=== PATIENT | male | born 1975 | race Caucasian/White ===

== ENCOUNTER 2020-01-03 07:34 | Outpatient (REF) | payer MEDICARE, MEDICAID, SELFPAY ==
[2020-01-03 12:33] LABS: Free T4 (Free Thyroxine) 1.33 ng/dL (0.71-1.85); Thyroid Stimulating Hormone 0.78 uIU/mL (0.32-4.0)
[2020-01-03 13:16] LABS: Estimated Average Glucose 163 mg/dL; Hemoglobin A1c % 7.3 %
== END 2020-01-03 07:35 | disposition home or self-care (01) ==
LOC: HO.MANLR 07:34
PROVIDERS: PCP Internal Medicine; Referring Provider Pediatrics; Visit Provider Internal Medicine
DX: E10.9 Type 1 diabetes mellitus without complications (principal); E03.9 Hypothyroidism, unspecified
CPT/HCPCS: 83036; 84439; 84443

== ENCOUNTER 2020-05-07 09:24 | Outpatient (REF) | payer MEDICARE, MEDICAID, SELFPAY ==
[2020-05-07 11:30] LABS: Estimated Average Glucose 171 mg/dL; Hemoglobin A1c % 7.6 %
[2020-05-07 12:24] LABS: Free T4 (Free Thyroxine) 1.12 ng/dL (0.71-1.85); Thyroid Stimulating Hormone 0.87 uIU/mL (0.32-4.0)
== END 2020-05-07 09:25 | disposition home or self-care (01) ==
LOC: HO.MANLR 09:24
PROVIDERS: PCP Internal Medicine; Referring Provider Pediatrics; Visit Provider Internal Medicine
DX: E10.9 Type 1 diabetes mellitus without complications (principal)
CPT/HCPCS: 36415; 83036; 84439; 84443

== ENCOUNTER 2020-10-10 08:25 | Outpatient (REF) | payer MEDICARE, MEDICAID, SELFPAY ==
[2020-10-10 11:34] LABS: Estimated Average Glucose 177 mg/dL; Hemoglobin A1c % 7.8 %
== END 2020-10-10 08:26 | disposition home or self-care (01) ==
LOC: HO.MANLDS 08:25
PROVIDERS: PCP Internal Medicine; Visit Provider Internal Medicine
DX: E10.9 Type 1 diabetes mellitus without complications (principal)
CPT/HCPCS: 36415; 83036

== ENCOUNTER 2020-11-20 07:41 | Outpatient (REF) | payer MEDICARE, MEDICAID, SELFPAY ==
[2020-11-20 11:12] LABS: Hematocrit 42.1 % (42-52); Hemoglobin 14.9 g/dl (14.0-18.0); Mean Corpuscular HGB Conc 35.4 g/dl (31.0-36.0); Mean Corpuscular Hemoglobin 32.7 pg (27.0-33.0); Mean Corpuscular Volume 92.5 fL (80-98); Mean Platelet Volume 9.3 fL (9.4-12.4); Platelet Count 229 X10*3/uL (160-400); Red Blood Count 4.55 X10*6/uL (4.60-5.80); Red Cell Distribution Width 12.3 % (11.0-16.0); White Blood Count 4.2 X10*3/uL (4.8-10.8)
[2020-11-20 11:43] LABS: Estimated Average Glucose 163 mg/dL; Hemoglobin A1c % 7.3 %
[2020-11-20 12:08] LABS: Alanine Aminotransferase 26 U/L (0-40); Alkaline Phosphatase 64 U/L (39-117); Anion Gap 11 (12-20); Aspartate Amino Transferase 18 U/L (5-37); Bilirubin Total 0.8 mg/dL (0.0-1.0); Blood Urea Nitrogen 14 mg/dL (9-16); Calcium 8.8 mg/dL (8.4-10.2); Carbon Dioxide 25 mmol/L (22-29); Chloride 100 mmol/L (96-108); Estimated Glomerular Filt Rate > 60; Glucose Fasting 139 mg/dL (60-99); Potassium 4.4 mmol/L (3.3-5.1); Sodium 132 mmol/L (135-145); Total Protein 6.7 g/dL (6.5-8.0)
[2020-11-20 12:30] LABS: Free T4 (Free Thyroxine) 1.14 ng/dL (0.71-1.85); Thyroid Stimulating Hormone 0.41 uIU/mL (0.32-4.0)
== END 2020-11-20 07:42 | disposition home or self-care (01) ==
LOC: HO.MANLDS 07:41
PROVIDERS: PCP Internal Medicine; Visit Provider Internal Medicine
DX: E10.9 Type 1 diabetes mellitus without complications (principal); E03.9 Hypothyroidism, unspecified
CPT/HCPCS: 36415; 80053; 83036; 84439; 84443; 85027

== ENCOUNTER 2021-03-22 07:33 | Outpatient (REF) | payer MEDICARE, MEDICAID, SELFPAY ==
[2021-03-22 11:21] LABS: Estimated Average Glucose 186 mg/dL; Hemoglobin A1c % 8.1 %
== END 2021-03-22 07:34 | disposition home or self-care (01) ==
LOC: HO.MANLDS 07:33
PROVIDERS: PCP Internal Medicine; Visit Provider Internal Medicine
DX: E10.9 Type 1 diabetes mellitus without complications (principal); E03.9 Hypothyroidism, unspecified
CPT/HCPCS: 36415; 83036

== ENCOUNTER 2021-05-24 08:04 | Outpatient (REF) | payer MEDICARE, MEDICAID, SELFPAY ==
[2021-05-24 11:30] LABS: Alanine Aminotransferase 16 U/L (0-40); Albumin Level 3.8 g/dL (3.5-5.0); Alkaline Phosphatase 69 U/L (39-117); Anion Gap 12 (12-20); Aspartate Amino Transferase 17 U/L (5-37); Bilirubin Total 0.5 mg/dL (0.0-1.0); Blood Urea Nitrogen 13 mg/dL (9-16); Carbon Dioxide 28 mmol/L (22-29); Chloride 98 mmol/L (96-108); Cholesterol 104 mg/dL; Estimated Average Glucose 160 mg/dL; Estimated Glomerular Filt Rate 58; Glucose Fasting 144 mg/dL (60-99); HDL Cholesterol 28 mg/dL; Hemoglobin A1c % 7.2 %; LDL Cholesterol Calculated 55 mg/dl; Potassium 4.4 mmol/L (3.3-5.1); Sodium 134 mmol/L (135-145); Total Protein 6.7 g/dL (6.5-8.0); Triglycerides 109 mg/dL
[2021-05-24 11:52] LABS: Free T4 (Free Thyroxine) 1.03 ng/dL (0.71-1.85); Thyroid Stimulating Hormone 4.98 uIU/mL (0.32-4.0)
== END 2021-05-24 08:05 | disposition home or self-care (01) ==
LOC: HO.MANLDS 08:04
PROVIDERS: PCP Internal Medicine; Visit Provider Internal Medicine
DX: E10.9 Type 1 diabetes mellitus without complications (principal); E03.9 Hypothyroidism, unspecified
CPT/HCPCS: 36415; 80053; 80061; 83036; 84439; 84443

== ENCOUNTER 2021-07-24 10:53 | Outpatient (REF) | payer MEDICARE, MEDICAID, SELFPAY ==
[2021-07-24 12:44] LABS: Appearance Urine HAZY; Color Urine YELLOW; Glucose Urine UA 500 MG/DL (NEG); Leukocyte Esterase Urine NEG (NEG); Nitrite Urine NEG (NEG); PH 7.5 (5.0-8.0); Urine Blood NEG (NEG); Urine Ketones NEG (NEG); Urine Protein NEG (NEG-TRACE)
[2021-07-24 12:49] LABS: Hematocrit 38.3 % (42.0-52.0); Hemoglobin 13.6 g/dl (14.0-18.0); Mean Corpuscular HGB Conc 35.5 g/dl (31.0-36.0); Mean Corpuscular Hemoglobin 37.8 pg (27.0-33.0); Mean Corpuscular Volume 106.4 fL (80.0-98.0); Mean Platelet Volume 10.9 fL (9.4-12.4); NRBC Pct Auto 1.2 /100WBC (0.0-0.2); PLT CLUMP 1; Red Cell Distribution Width 14.6 % (11.0-16.0); WBC ABN SCTR FOR CBC 1
[2021-07-24 12:58] LABS: RBC Urine 0 /HPF (0); WBC Urine 0 /HPF (0-4)
[2021-07-24 13:02] LABS: Alanine Aminotransferase 21 U/L (0-40); Albumin Level 3.7 g/dL (3.5-5.0); Alkaline Phosphatase 75 U/L (39-117); Aspartate Amino Transferase 22 U/L (5-37); Bilirubin Total 0.4 mg/dL (0.0-1.0); Blood Urea Nitrogen 14 mg/dL (9-16); Calcium 8.8 mg/dL (8.4-10.2); Estimated Glomerular Filt Rate 53; Glucose Random 294 mg/dL (60-115); Total Protein 6.9 g/dL (6.5-8.0)
[2021-07-24 13:26] LABS: Anion Gap 17 (12-20); Carbon Dioxide 21 mmol/L (22-29); Chloride 90 mmol/L (96-108); Potassium 5.1 mmol/L (3.3-5.1); Sodium 123 mmol/L (135-145)
[2021-07-24 14:27] LABS: Atypical Lymphs Percent Manual 1 % (0-6); Band Neutrophils Percent 36 % (3-5); Basophils Percent Manual 2 % (0-2); Lymphocytes Percent Manual 2 % (20-40); Metamyelocytes Percent 3 %; Monocytes Percent Manual 1 % (2-11); Myelocytes Percent 8 %; Neutrophils Percent Manual 45 % (45-73); Nucleated Red Blood Cells 2 /100WBC (0-0); Promyelocytes Percent 2 %
[2021-07-24 14:40] LABS: Macrocytosis 1+ (5-14) /OIF; RBC Morphology NOTED
[2021-07-24 14:41] LABS: Platelet Estimate DECREASED (NORMAL); Platelet Morphology Comment NORMAL; Polychromasia 1+ (0-2) /OIF; WBC Morphology Comment DYSMORPHIC
[2021-07-24 14:42] LABS: Atypical Lymph Absolute Manual 0.1 x10*3/uL; Basophils Abs Manual 0.2 X10*3/uL (0.0-0.2); Lymphocytes Absolute Manual 0.2 X10*3/uL (1.2-4.9); Metamyelocytes Absolute 0.3 X10*3/uL; Monocytes Absolute Manual 0.1 X10*3/uL (0.1-1.2); Myelocytes Absolute 0.8 X10*/uL; Neutrophils Absolute Manual 8.5 X10*3/uL (2.0-8.3); Promyelocytes Absolute 0.2 X10*3/uL; Spherocytes 1+ (0-2) /OIF; White Blood Count 10.5 X10*3/uL (4.8-10.8)
[2021-07-24 14:43] LABS: Platelet Count 30 X10*3/uL (160-400)
== END 2021-07-24 10:54 | disposition home or self-care (01) ==
LOC: HO.MANLDS 10:53
PROVIDERS: Visit Provider Physician Assistant
DX: R55 Syncope and collapse (principal)
CPT/HCPCS: 36415; 80053; 81001; 85007; 85027

== ENCOUNTER 2021-07-26 08:38 | Outpatient (REF) | payer MEDICARE, MEDICAID, SELFPAY ==
[2021-07-26 11:12] LABS: Appearance Urine CLEAR; Color Urine YELLOW; Glucose Urine UA NEG (NEG); Leukocyte Esterase Urine NEG (NEG); Nitrite Urine NEG (NEG); Urine Blood NEG (NEG); Urine Ketones NEG (NEG); Urine Protein NEG (NEG-TRACE)
[2021-07-26 11:20] LABS: Anion Gap 14 (12-20); Blood Urea Nitrogen 11 mg/dL (9-16); Calcium 8.7 mg/dL (8.4-10.2); Carbon Dioxide 26 mmol/L (22-29); Chloride 95 mmol/L (96-108); Estimated Glomerular Filt Rate 58; Glucose Random 179 mg/dL (60-115); Iron 87 mcg/dL (45-160); Percent Iron Saturation 38 % (15-50); Potassium 4.4 mmol/L (3.3-5.1); Sodium 131 mmol/L (135-145); Total Iron Binding Capacity 232 mcg/dL (228-428); Unsaturated Iron Binding 145 ug/dL
[2021-07-26 11:40] LABS: Ferritin 359 ng/mL (20-250); Free T4 (Free Thyroxine) 1.04 ng/dL (0.71-1.85); Thyroid Stimulating Hormone 12.49 uIU/mL (0.32-4.0)
[2021-07-26 11:46] LABS: Osmolality Urine 329 mosm/kg (373-1093)
[2021-07-26 12:05] LABS: Folate 12.4 ng/mL (> or = 4.0); Vitamin B12 507 pg/mL (200-900)
== END 2021-07-26 08:39 | disposition home or self-care (01) ==
LOC: HO.MANLDS 08:38
PROVIDERS: Visit Provider Physician Assistant
DX: E87.1 Hypo-osmolality and hyponatremia (principal); E03.9 Hypothyroidism, unspecified
CPT/HCPCS: 36415; 80048; 81003; 82607; 82728; 82746; 83540; 83935; 84439; 84443

== ENCOUNTER 2021-09-30 08:34 | Outpatient (REF) | payer MEDICARE, MEDICAID, SELFPAY ==
[2021-09-30 10:18] LABS: Mean Corpuscular HGB Conc 34.4 g/dl (31.0-36.0); Mean Corpuscular Hemoglobin 39.5 pg (27.0-33.0); Red Blood Count 1.57 X10*6/uL (4.60-5.80); Red Cell Distribution Width 18.3 % (11.0-16.0); White Blood Count 5.3 X10*3/uL (4.8-10.8)
[2021-09-30 10:22] LABS: Estimated Average Glucose 189 mg/dL; Hemoglobin A1c % 8.2 %; INTERNATIONAL NORM RATIO 1.2 (0.9-1.1); Prothrombin Time 13.7 SEC (10.0-13.1)
[2021-09-30 10:25] LABS: Partial Thromboplastin Time 33.8 SEC (26.0-36.4)
[2021-09-30 10:46] LABS: Alanine Aminotransferase < 6 U/L (0-40); Albumin Level 3.3 g/dL (3.5-5.0); Alkaline Phosphatase 73 U/L (39-117); Anion Gap 16 (12-20); Aspartate Amino Transferase 14 U/L (5-37); Bilirubin Total 0.6 mg/dL (0.0-1.0); Blood Urea Nitrogen 15 mg/dL (9-16); Calcium 8.2 mg/dL (8.4-10.2); Carbon Dioxide 23 mmol/L (22-29); Chloride 97 mmol/L (96-108); Estimated Glomerular Filt Rate 53; Glucose Random 209 mg/dL (60-115); Potassium 4.6 mmol/L (3.3-5.1); Sodium 131 mmol/L (135-145); Total Protein 6.2 g/dL (6.5-8.0)
[2021-09-30 10:54] LABS: Mean Corpuscular Volume 114.6 fL (80.0-98.0)
[2021-09-30 10:55] LABS: NRBC Pct Auto 5.5 /100WBC (0.0-0.2); PLT ABN DIST 1
[2021-09-30 10:59] LABS: Hemoglobin 6.2 g/dl (14.0-18.0)
[2021-09-30 11:00] LABS: Platelet Count 7 X10*3/uL (160-400)
[2021-09-30 11:11] LABS: Free T4 (Free Thyroxine) 1.17 ng/dL (0.71-1.85); Thyroid Stimulating Hormone 6.12 uIU/mL (0.32-4.0)
[2021-09-30 11:13] LABS: Atypical Lymph Absolute Manual 0.1 x10*3/uL; Atypical Lymphs Percent Manual 1 % (0-6); Band Neutrophils Percent 21 % (3-5); Blast Percent 1 %; Blastocytes Absolute 0.1 X10*3/uL; Lymphocytes Absolute Manual 1.2 X10*3/uL (1.2-4.9); Lymphocytes Percent Manual 22 % (20-40); Metamyelocytes Absolute 0.1 X10*3/uL; Metamyelocytes Percent 1 %; Myelocytes Absolute 0.7 X10*/uL; Myelocytes Percent 13 %; Neutrophils Absolute Manual 3.2 X10*3/uL (2.0-8.3); Neutrophils Percent Manual 40 % (45-73); Nucleated Red Blood Cells 11 /100WBC (0-0); Promyelocytes Absolute 0.1 X10*3/uL; Promyelocytes Percent 1 %
[2021-09-30 11:14] LABS: RBC Morphology NOTED
[2021-09-30 11:18] LABS: Macrocytosis 2+ (15-30) /OIF; Schistocytes 1+ (0-2) /OIF; Spherocytes 2+ (3-5) /OIF
[2021-09-30 11:19] LABS: Basophilic Stippling 1+ (0-2) /OIF; Hypochromasia 1+ (5-14) /OIF; Tear Drop Cells 1+ (0-2) /OIF
[2021-09-30 11:20] LABS: Polychromasia 1+ (0-2) /OIF
[2021-09-30 11:22] LABS: Platelet Estimate DECREASED (NORMAL)
[2021-09-30 11:23] LABS: Platelet Morphology Comment NORMAL
== END 2021-09-30 08:35 | disposition home or self-care (01) ==
LOC: HO.MANLDS 08:34
PROVIDERS: Visit Provider Internal Medicine
DX: Z13.89 Encounter for screening for other disorder (principal)
CPT/HCPCS: 36415; 80053; 83036; 84439; 84443; 85007; 85027; 85610; 85730; 88184; 88185

== ENCOUNTER 2021-09-30 11:20 | Inpatient (IN) | payer MEDICARE, MEDICAID, SELFPAY ==
[2021-09-30] VITALS (13 sets, daily range): BP systolic 91–119; BP diastolic 37–87; PULSE 72–86; RESP 16–144; TEMP 36.7–38.1; O2SAT 94–100; BMI 26.0
--- NOTE | ~2021-09-30 | US_ITS ---
EXAMINATION: US ABDOMEN COMPLETE CLINICAL INFORMATION: Thrombocytopenia. Question hepatosplenomegaly. COMPARISON: CT abdomen/pelvis dated 06/29/2014. TECHNIQUE: Real-time imaging of the abdominal viscera. FINDINGS: PANCREAS: Unremarkable. ABDOMINAL AORTA: The proximal and mid abdominal aorta are unremarkable. The distal abdominal aorta is not well seen. INFERIOR VENA CAVA: Visualized portions are normal. LIVER: Unremarkable. The liver is normal in size. The liver contour is normal. Parenchymal echogenicity is normal. No focal hepatic lesion. There is no intrahepatic biliary duct dilatation seen. GALLBLADDER: Unremarkable. The gallbladder is physiologically distended without evidence of stones, sludge, polyps, wall thickening or pericholecystic fluid. COMMON BILE DUCT: Normal in caliber measuring 0.4 cm in diameter. RIGHT KIDNEY: Normal. No hydronephrosis. No renal calculi or focal parenchymal lesions. The kidney measures 11.4 cm in maximum dimension. LEFT KIDNEY: Normal. No hydronephrosis. No renal calculi or focal parenchymal lesions. The kidney measures 10.6 cm in maximum dimension. SPLEEN: Enlarged. The spleen measures 16.1 cm in maximum dimension. There is a 2.1 cm splenule. FREE FLUID: None. US/US abdomen complete IMPRESSION: 1. The spleen is enlarged measuring up to 16.1 cm, new when compared to the CT from 2015. 2. Otherwise unremarkable examination.
[2021-09-30 12:08] LABS: Mean Corpuscular HGB Conc 34.5 g/dl (31.0-36.0); Mean Platelet Volume 12.8 fL (9.4-12.4); PLT CLUMP 1; Red Blood Count 1.54 X10*6/uL (4.60-5.80); Red Cell Distribution Width 18.5 % (11.0-16.0)
[2021-09-30 12:10] LABS: INTERNATIONAL NORM RATIO 1.2 (0.9-1.1); NRBC Pct Auto 4.7 /100WBC (0.0-0.2); Prothrombin Time 14.3 SEC (10.0-13.1)
[2021-09-30 12:11] LABS: White Blood Count 4.9 X10*3/uL (4.8-10.8)
[2021-09-30 12:15] LABS: Hematocrit 17.4 % (42.0-52.0)
[2021-09-30 12:16] LABS: Platelet Count 6 X10*3/uL (160-400)
--- NOTE | 2021-09-30 12:45 | ED_ITS ---
HPI - General Adult General Chief complaint: Recheck/Abnormal Lab/Rx Stated complaint: Needs blood transfusion sent by [facility] Time Seen by Provider: 09/30/21 12:28 Source: family Mode of arrival: ambulatory History of Present Illness HPI narrative: This is 46 yo male with down syndrome here because low HB low platelet done as outpatient.Pt is here with the partents,denies fever,chills,vomiting Onset (ago): week(s) (1) Radiation: non-radiation Severity: moderate Pain Consistency: constant Relieving factors: none Exacerbating factors: none Related Data Home Medications Medication Instructions Recorded Confirmed albuterol sulfate 90 mcg/actuation 2 puff inhalation Q4H 09/30/21 09/30/21 aerosol inhaler insulin glargine 100 unit/mL (3 21 unit subcut DAILY 09/30/21 09/30/21 mL) subcutaneous pen (Basaglar KwikPen U-100 Insulin) levothyroxine 125 mcg tablet 1 tab PO DAILY@0630 09/30/21 09/30/21 Allergies Allergy/AdvReac Type Severity Reaction Status Date / Time No Known Allergies Allergy Verified 09/30/21 11:31 [No Known Allergies*] Review of Systems Constitutional: Constitutional: Reports no additional constitutional complaints ENT: Reports system reviewed and no additional complaints, except as documented Cardiovascular: Cardiovascular: Reports no additional cardiovascular complaints Respiratory: Respiratory: Reports no additional respiratory complaints [facility] Past Medical History [facility] Narrative: Down Syndrome SM Hypothyroidism Social History Social History Advance Directives: Yes Advance Directives Information Provided: Yes Advance Directives on File: No Physical Exam ED Vital Signs: Vital Signs - 24 hr 09/30/21 11:28 09/30/21 14:17 Temperature 98.2 F Pulse Rate 76 78 Respiratory Rate 16 16 Blood Pressure 104/47 L 111/45 L Pulse Oximetry 98 94 Oxygen Delivery Method Room Air Room Air BMI result Body Mass Index 26.0 Const General: cooperative and other (pale) Nutritional Appearance: average body habitus HENMT Head: Yes normal to inspection Face and sinus: Yes normal facial exam Throat: Yes posterior oropharynx normal Neck Neck: Yes normal visual inspection and Yes full ROM Thyroid: Thyroid normal Chest Chest palpation & inspection: normal inspection of the chest Resp Effort & Inspection: normal respiratory effort Auscultation: clear to auscultation bilaterally Cardio Palpation: normal PMI Rate: regular rate Rhythm: regular rhythm Heart sounds: S1 normal heart sound present GI Inspection: Yes normal to inspection Palpation (GI): Soft to palpation Auscultation: normal bowel sounds Course Reevaluation(s) Reevaluation #1: i CONSULTED WITH DIRECTOR OF COLLECTIONS AND ARCHIVES DR MORA dee TO ADMIT AT [facility] Spoke with Hospitalist Dr Hein Blood and platelet ordered Time: 13:14 Medical Decision Making Lab Data Result diagrams: 09/30/21 11:55 09/30/21 14:08 Labs: Lab Results 09/30/21 09/30/21 09/30/21 Range/Units 11:55 11:55 14:08 WBC 4.9 (4.8-10.8) X10*3/uL RBC 1.54 L (4.60-5.80) X10*6/uL Hgb 6.0 L* (14.0-18.0) g/dl Hct 17.4 L* (42.0-52.0) % MCV 113.0 H (80.0-98.0) fL MCH 39.0 H (27.0-33.0) pg MCHC 34.5 (31.0-36.0) g/dl RDW 18.5 H (11.0-16.0) % Plt Count 6 L* (160-400) X10*3/uL MPV 12.8 H (9.4-12.4) fL Immature Gran % (Auto) Cancelled Neut % (Auto) Cancelled Lymph % (Auto) Cancelled [place] % (Auto) Cancelled Eos % (Auto) Cancelled Baso % (Auto) Cancelled Lymph # (Auto) Cancelled [place] # (Auto) Cancelled Eos # (Auto) Cancelled Baso # (Auto) Cancelled Abs Immat Gran (auto) Cancelled Absolute Neuts (auto) Cancelled Absolute Nucleated RBC 0.230 H (0.0-0.012) X10*3/uL Nucleated RBC % (auto) 4.7 H (0.0-0.2) /100WBC Neutrophils % (Manual) 38 L (45-73) % Band Neutrophils % 19 H (3-5) % Lymphocytes % (Manual) 29 (20-40) % Basophils % (Manual) 1 (0-2) % Metamyelocytes % 5 % Myelocytes % 6 % Promyelocytes % 1 % Blast Cells % (Manual) 1 % Abs Neuts (Manual) 2.8 (2.0-8.3) X10*3/uL Lymphocytes # (Manual) 1.4 (1.2-4.9) X10*3/uL Metamyelocytes # 0.2 X10*3/uL Myelocytes # 0.3 X10*/uL Nucleated RBCs 6 H (0-0) /100WBC Platelet Estimate DECREASED (NORMAL) Plt Morphology Comment NORMAL RBC Morphology NOTED Polychromasia 1+ (0-2) /OIF Hypochromasia 1+ (5-14) /OIF Basophilic Stippling 1+ (0-2) /OIF Macrocytosis 2+ (15-30) /OIF Spherocytes 2+ (3-5) /OIF Tear Drop Cells 1+ (0-2) /OIF Schistocytes 1+ (0-2) /OIF Absolute Retic 0.058 (0.026-0.095) X10*6/uL Percent Retic 3.8 H (0.5-1.8) % Immature Retic Fraction 39.1 H (2.3-13.4) % Retic Hgb Equivalent 42.3 H (30.0-35.0) pg PT 14.3 H (10.0-13.1) SEC INR 1.2 H (0.9-1.1) APTT 31.5 (26.0-36.4) SEC Fibrinogen > 700 H (259-690) MG/DL Sodium 133 L (135-145) mmol/L Potassium 4.4 (3.3-5.1) mmol/L Chloride 98 (96-108) mmol/L Carbon Dioxide 25 (22-29) mmol/L Anion Gap 14 (12-20) BUN 15 (9-16) mg/dL Creatinine 1.40 (0.5-1.4) mg/dL Estim Creat Clear Calc 53.6 Estimated GFR 55 Random Glucose 202 H (60-115) mg/dL Calcium 8.2 L (8.4-10.2) mg/dL Total Bilirubin 0.6 (0.0-1.0) mg/dL AST 11 (5-37) U/L ALT 6 (0-40) U/L Alkaline Phosphatase 74 (39-117) U/L Lactate Dehydrogenase 328 H (118-273) U/L Total Protein 6.1 L (6.5-8.0) g/dL Albumin 3.4 L (3.5-5.0) g/dL COVID-19 (SABA) (Negative) COVID-19 Clin Com Blood Type Antibody Screen Crossmatch 09/30/21 09/30/21 Range/Units 14:08 14:09 WBC (4.8-10.8) X10*3/uL RBC (4.60-5.80) X10*6/uL Hgb (14.0-18.0) g/dl Hct (42.0-52.0) % MCV (80.0-98.0) fL MCH (27.0-33.0) pg MCHC (31.0-36.0) g/dl RDW (11.0-16.0) % Plt Count (160-400) X10*3/uL MPV (9.4-12.4) fL Immature Gran % (Auto) Neut % (Auto) Lymph % (Auto) [place] % (Auto) Eos % (Auto) Baso % (Auto) Lymph # (Auto) [place] # (Auto) Eos # (Auto) Baso # (Auto) Abs Immat Gran (auto) Absolute Neuts (auto) Absolute Nucleated RBC (0.0-0.012) X10*3/uL Nucleated RBC % (auto) (0.0-0.2) /100WBC Neutrophils % (Manual) (45-73) % Band Neutrophils % (3-5) % Lymphocytes % (Manual) (20-40) % Basophils % (Manual) (0-2) % Metamyelocytes % % Myelocytes % % Promyelocytes % % Blast Cells % (Manual) % Abs Neuts (Manual) (2.0-8.3) X10*3/uL Lymphocytes # (Manual) (1.2-4.9) X10*3/uL Metamyelocytes # X10*3/uL Myelocytes # X10*/uL Nucleated RBCs (0-0) /100WBC Platelet Estimate (NORMAL) Plt Morphology Comment RBC Morphology Polychromasia /OIF Hypochromasia /OIF Basophilic Stippling /OIF Macrocytosis /OIF Spherocytes /OIF Tear Drop Cells /OIF Schistocytes /OIF Absolute Retic (0.026-0.095) X10*6/uL Percent Retic (0.5-1.8) % Immature Retic Fraction (2.3-13.4) % Retic Hgb Equivalent (30.0-35.0) pg PT (10.0-13.1) SEC INR (0.9-1.1) APTT (26.0-36.4) SEC Fibrinogen (259-690) MG/DL Sodium (135-145) mmol/L Potassium (3.3-5.1) mmol/L Chloride (96-108) mmol/L Carbon Dioxide (22-29) mmol/L Anion Gap (12-20) BUN (9-16) mg/dL Creatinine (0.5-1.4) mg/dL Estim Creat Clear Calc Estimated GFR Random Glucose (60-115) mg/dL Calcium (8.4-10.2) mg/dL Total Bilirubin (0.0-1.0) mg/dL AST (5-37) U/L ALT (0-40) U/L Alkaline Phosphatase (39-117) U/L Lactate Dehydrogenase (118-273) U/L Total Protein (6.5-8.0) g/dL Albumin (3.5-5.0) g/dL COVID-19 (SABA) Negative (Negative) COVID-19 Clin Com See Note Blood Type A Positive Antibody Screen NEGATIVE Crossmatch See Detail Critical Care Time Critical Care Time Critical Care Time: Yes Total Critical Care Time: 45 Attestation: blood transfusion/platelets transfusion,speaking with dynamics ax consultant Discharge Plan Discharge Clinical Impression: Anemia, Thrombocytopenia Patient Disposition: Admitted As Inpatient
[2021-09-30 12:55] LABS: Neutrophils Percent Manual 38 % (45-73)
[2021-09-30 12:59] LABS: Band Neutrophils Percent 19 % (3-5); Basophils Percent Manual 1 % (0-2); Blast Percent 1 %; Lymphocytes Absolute Manual 1.4 X10*3/uL (1.2-4.9); Lymphocytes Percent Manual 29 % (20-40); Metamyelocytes Absolute 0.2 X10*3/uL; Metamyelocytes Percent 5 %; Myelocytes Absolute 0.3 X10*/uL; Myelocytes Percent 6 %; Neutrophils Absolute Manual 2.8 X10*3/uL (2.0-8.3); Nucleated Red Blood Cells 6 /100WBC (0-0); Promyelocytes Percent 1 %
[2021-09-30 13:00] LABS: Macrocytosis 2+ (15-30) /OIF; RBC Morphology NOTED
[2021-09-30 13:01] LABS: Basophilic Stippling 1+ (0-2) /OIF; Schistocytes 1+ (0-2) /OIF; Spherocytes 2+ (3-5) /OIF; Tear Drop Cells 1+ (0-2) /OIF
[2021-09-30 13:02] LABS: Hypochromasia 1+ (5-14) /OIF; Polychromasia 1+ (0-2) /OIF
[2021-09-30 13:03] LABS: Platelet Estimate DECREASED (NORMAL); Platelet Morphology Comment NORMAL
[2021-09-30 13:30] LABS: Partial Thromboplastin Time 31.5 SEC (26.0-36.4)
[2021-09-30 13:31] LABS: Fibrinogen > 700 MG/DL (259-690)
--- NOTE | 2021-09-30 13:47 | PM.IMHP ---
History of Present Illness Date of Service: 09/30/21 Chief Complaint: abnormal labs This is a 46 year old male with Downs Syndrome, Hypothyroidism, DM who presents to the ED with his parents after they were directed to the ED for abnormal labs. The history is largely obtained from the patient's mother who is bedside. In June of this year, the patient tested positive for COVID. He was prescribed paxlovid for treatment. Post treatment, he had improved, but not quiet to his baseline. CBC checked in early July revealed a platelet count of 30. The mother reports that she has noticed patechial rash which has improved. She reports that he has been more fatigued and pale. No bleeding reported. She reports that his appetite remains the same, but despite this he has lost more than 10-11 pounds. Upon arrival to the ED, repeat blood work confirmed low platelets and h/h; no blasts are seen on the peripheral smear. Flow cytometry has been ordered. PRBC + platelet transfusions have been ordered. 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 Review of Systems Review of Systems: negative except HPI PMFSH Social History Advance Directives: Yes Advance Directives Information Provided: Yes Advance Directives on File: No Meds Allergies Allergy/AdvReac Type Severity Reaction Status Date / Time No Known Allergies Allergy Verified 09/30/21 11:31 [No Known Allergies*] Home Medications Medication Instructions Recorded Confirmed Last Taken Type albuterol sulfate 90 mcg/actuation 2 puff inhalation Q4H 09/30/21 09/30/21 Unknown History aerosol inhaler insulin glargine 100 unit/mL (3 21 unit subcut DAILY 09/30/21 09/30/21 09/30/21 History mL) subcutaneous pen (Basaglar KwikPen U-100 Insulin) levothyroxine 125 mcg tablet 1 tab PO DAILY@0630 09/30/21 09/30/21 09/30/21 History Physical Exam Vital Signs and Narrative: Vital Signs: Last Vital Signs Temp 98.2 F 09/30/21 11:28 Pulse 76 09/30/21 11:28 Resp 16 09/30/21 11:28 BP 104/47 L 09/30/21 11:28 Pulse Ox 98 09/30/21 11:28 O2 Del Method 09/30/21 11:28 BMI result Body Mass Index 26.0 Const: Other: Constitutional - Awake and Alert, No apparent distress Eyes - PERRLA, EOMI Cardiovascular - S1S2, RRR, No edema Respiratory - Normal lung expansion, Normal respiratory effort, No respiratory distress, CTA bilaterally Gastrointestinal - NT / ND; +BS; No rebound or guarding - No CVA tenderness Extremities - no calf tenderness bilaterally, no swelling Musculoskeletal - Normal inspection, normal ROM Skin - Pale Neurological - Awake and alert, able to follow simple commands; no focal deficits Psychological - Appropriate affect Results Labs CBC and Chem 7: 09/30/21 11:55 09/30/21 14:08 Labs: Laboratory Results - last 24 hr 09/30/21 09/30/21 11:55 11:55 MCV 113.0 H MCH 39.0 H MCHC 34.5 RDW 18.5 H Plt Count 6 L* MPV 12.8 H Immature Gran % (Auto) Cancelled Neut % (Auto) Cancelled Lymph % (Auto) Cancelled [place] % (Auto) Cancelled Eos % (Auto) Cancelled Baso % (Auto) Cancelled Lymph # (Auto) Cancelled [place] # (Auto) Cancelled Eos # (Auto) Cancelled Baso # (Auto) Cancelled Abs Immat Gran (auto) Cancelled Absolute Neuts (auto) Cancelled Absolute Nucleated RBC 0.230 H Nucleated RBC % (auto) 4.7 H Neutrophils % (Manual) 38 L Band Neutrophils % 19 H Lymphocytes % (Manual) 29 Basophils % (Manual) 1 Metamyelocytes % 5 Myelocytes % 6 Promyelocytes % 1 Blast Cells % (Manual) 1 Abs Neuts (Manual) 2.8 Lymphocytes # (Manual) 1.4 Metamyelocytes # 0.2 Myelocytes # 0.3 Nucleated RBCs 6 H Platelet Estimate DECREASED Plt Morphology Comment NORMAL RBC Morphology NOTED Polychromasia 1+ (0-2) Hypochromasia 1+ (5-14) Basophilic Stippling 1+ (0-2) Macrocytosis 2+ (15-30) Spherocytes 2+ (3-5) Tear Drop Cells 1+ (0-2) Schistocytes 1+ (0-2) PT 14.3 H INR 1.2 H APTT 31.5 Fibrinogen > 700 H Assessment and Plan (1) Anemia: Status: Acute (2) Thrombocytopenia: Status: Acute Plan This is a 46 yo M with a PMH of Downs Syndrome, DM, Hypothyroid who tested positive for COVID in June of this year. He completed treatment with paxlovid. CBC in July revealed a platelet count of 30. He now presents to the ED with thrombocytopenia and significant anemia. 1. Thrombocytopenia Question ITP post covid platelets ordered by ED hematology consulted 2. Anemia no evidence of isiah bleeding 2 units PRBCs, repeat in the AM Hematology as above 3. DM on long acting insulin at home, will continue diabetic diet 4. hyopthyroidism synthroid Full Code DVT pptx - low risk In light of the patients significant thrombocytopenia, which will require expert consultation and further work up, I anticipate a medically necessary inpatient hospitalization which is likely to span 2 midnights. This cannot be done in a less acute setting due to the serious risk of spontaneous bleeding given the level of his thrombocytopenia. Quality Stroke Does the patient have a stroke diagnosis?: No VTE Prior VTE?: No VTE Risk Level:: Medical - low VTE Device Contraindication: Treatment Not Tolerated VTE Drug Contraindication: Treatment Not Tolerated
--- NOTE | 2021-09-30 13:49 | PHA.MEDREC ---
Pharmacy Consult ? Medication Reconciliation Pharmacy has completed the medication reconciliation. Pt's mom at bedside; noted that pt was taken off lisinopril and rosuvastatin recently.
[2021-09-30 13:59] LABS: Baso%MD 0.6 %; Eos%MD 0.4 %; IG%MD 18.1 %; Immature Retic Fraction 39.1 % (2.3-13.4); Lymph%MD 35.4 %; Mono%MD 4.1 %; Neut%MD 41.4 %; Retic HGB Equivalent 42.3 pg (30.0-35.0); Reticulocyte Percent 3.8 % (0.5-1.8); Reticulocytes Absolute 0.058 X10*6/uL (0.026-0.095)
[2021-09-30 14:03] LABS: PLT ABN DIST 1
[2021-09-30 14:31] LABS: COVID-19 Test Negative (Negative); IDNOW Serial# 16C4AD1C
[2021-09-30 14:31] LABS: Alanine Aminotransferase 6 U/L (0-40); Albumin Level 3.4 g/dL (3.5-5.0); Alkaline Phosphatase 74 U/L (39-117); Anion Gap 14 (12-20); Aspartate Amino Transferase 11 U/L (5-37); Bilirubin Total 0.6 mg/dL (0.0-1.0); Blood Urea Nitrogen 15 mg/dL (9-16); Calcium 8.2 mg/dL (8.4-10.2); Carbon Dioxide 25 mmol/L (22-29); Chloride 98 mmol/L (96-108); Creatinine Clr Calc Pharmacy 53.6; Estimated Glomerular Filt Rate 55; Glucose Random 202 mg/dL (60-115); Lactate Dehydrogenase 328 U/L (118-273); Potassium 4.4 mmol/L (3.3-5.1); Sodium 133 mmol/L (135-145); Total Protein 6.1 g/dL (6.5-8.0)
--- NOTE | 2021-09-30 18:25 | P.CNHO_ITS ---
Subjective - Subjective Chief complaint: Weakness, skin rash Patient: new to practice Consult date: 09/30/21 Requesting Physician: Dr. Hein Primary Care Provider: Teodoro Briones MD HPI - Consult Narrative Reason for consult: Anemia/thrombocytopenia Narrative: Dada Olson II is a 46 year old male with down syndrome who is admitted for severe anemia and thrombocytopenia. Patient developed COVID-19 infection in June of this year. He received 5 day course of Paxlovid. In July he started to feel somewhat tired and his mother noticed he had a petechial rash. CBC performed 07/24/2021 showed hemoglobin of 13.6 gram/dL, platelets of 30 K, previously it was 229 K. his hemoglobin had also dropped from 14.9 gram/dL to 13.6 gram/dL. They went to [place] in July, he seemed to be doing okay. When they returned mother noticed that he was looking pale and seemed very tired. Petechial rash on his extremities was more severe. His ever seen by his PCP who did blood work and found his platelets to be below 10,000 with a hemoglobin of around 6 gram/dL. He was then referred to the emergency department for admission. They have been no complaints of loss of appetite, fever, chills, night sweats or weight loss. No tick bites. He has been in his usual state of health until infection with COVID-19 in June. Review of Systems - Constitutional Reports as per HPI, Reports fatigue, Denies fever(s), Reports lack of energy, Reports malaise, Denies night sweats, Denies poor appetite, Denies weight loss - Cardiovascular Reports no additional cardiovascular complaints - Respiratory Reports no additional respiratory complaints - Gastrointestinal Reports no additional gastrointestinal complaints Oncology Screenings - ECOG Performance Status ECOG Performance Status: 1 [facility] Social History: Social History (Last Reviewed 09/30/21 @ 13:00 by Daniele Beck MD) Living Situation History: Household Members: Family Housing: House Do you presently have visiting nurse or other home services: No Alcohol History Details: 1. How often do you have a drink containing alcohol?: a. Never AUDIT-C Alcohol total score: 0 Currently Displaying Signs/Symptoms of Alcohol Withdrawal: No Tobacco History: Patient Tobacco Use Status: Never used Tobacco e-Cigarette/Vaping Use: Never Used Substance Use History: Use of substances other than those prescribed or required for medical reasons : No Currently Displaying Signs/Symptoms of Drug Intoxication Withdrawal: No Domestic Abuse History: Have you been hit, kicked, punched, or otherwise hurt by someone within the past year? If so, by whom?: No Do you feel safe in your current relationship?: No Current Relationship Is there a partner from a previous relationship who is making you feel unsafe now?: No Are you made to feel afraid or neglected: No Advance Directives: Advance Directives: Yes Advance Directives Information Provided: Yes Advance Directives on File: Yes Advance Directives Date on File: 09/30/21 Homicidal Assessment: Do you have thoughts of harming others: None Do you have a plan to hurt others: No Plan Nutrition Assessment: Recently lost weight without trying: No Nutrition Risks: No Nutritional Risk Poor oral hygiene: No Occupation Assessmet: service: No Current occupational status: other Home Medications and Allergies Current Medications: Current Medications Acetaminophen (Acetaminophen 325 Mg Tablet) 650 mg PO Q6H PRN PRN Reason: Pain, Mild (Pain Scale 1-3) Insulin Glargine (Insulin Glargine,Hum.Rec.Anlog 100 Unit/Ml 10 Ml Vial) 21 unit SUBCUT DAILY LETI Levothyroxine Sodium (Levothyroxine Sodium 125 Mcg Tablet) 125 mcg PO DAILY@0630 LETI Ondansetron HCl (Ondansetron Hcl 4 Mg/2 Ml Vial) 4 mg IVPUSH Q8H PRN PRN Reason: Nausea and Vomiting Home Medications Medication Instructions Recorded Confirmed Type albuterol sulfate 90 mcg/actuation 2 puff inhalation Q4H 09/30/21 09/30/21 History aerosol inhaler insulin glargine 100 unit/mL (3 21 unit subcut DAILY 09/30/21 09/30/21 History mL) subcutaneous pen (Basaglar KwikPen U-100 Insulin) levothyroxine 125 mcg tablet 1 tab PO DAILY@0630 09/30/21 09/30/21 History Allergies Allergy/AdvReac Type Severity Reaction Status Date / Time No Known Allergies Allergy Verified 09/30/21 11:31 [No Known Allergies*] Physical Exam Vital signs: Vital Signs Temp 100.3 F 09/30/21 18:12 Pulse 78 09/30/21 18:12 Resp 16 09/30/21 18:12 BP 105/55 L 09/30/21 18:12 Pulse Ox 99 09/30/21 17:48 O2 Del Method 09/30/21 17:48 Intake & Output 09/29/21 09/30/21 09/30/21 18:59 06:59 18:59 Intake Total 210 / 210 Balance 210 / 210 Intake: Intake (Blood Product) Amount 210 / 210 Aph Plts Irr Pas Lvds ([id number]) 210 / 210 Unit [id number] Red Blood Cells (E0382) Unit 0 / 0 [id number] Other: Weight 66.723 kg Weight 66.723 kg - Constitutional Present: no acute distress - Routine HEENT Exam Eye: Present: normal appearance - Routine Neck Exam Present: supple. Absent: lymphadenopathy - Routine Respiratory Exam Present: CTAB. Absent: accessory muscle use - Routine Cardiovascular Exam Cardiovascular: Present: S1, S2 - Routine Extremities Exam Present: normal inspection - Routine Skin Exam Present: petechiae Hem/Onc Consult Result - Labs CBC & Chem 7: 10/01/21 05:19 10/01/21 05:19 Labs: Short CBC 09/30/21 Range/Units 11:55 WBC 4.9 (4.8-10.8) X10*3/uL Hgb 6.0 L* (14.0-18.0) g/dl Hct 17.4 L* (42.0-52.0) % Plt Count 6 L* (160-400) X10*3/uL BMP 09/30/21 14:08 Sodium 133 L Potassium 4.4 Chloride 98 Carbon Dioxide 25 BUN 15 Creatinine 1.40 Calcium 8.2 L Liver Function 09/30/21 Range/Units 14:08 Total Bilirubin 0.6 (0.0-1.0) mg/dL AST 11 (5-37) U/L ALT 6 (0-40) U/L Alkaline Phosphatase 74 (39-117) U/L Albumin 3.4 L (3.5-5.0) g/dL Assessment and Plan Patient Active problem list reviewed?: Yes (1) Bicytopenia Status: Acute Assessment and plan: 1. This is a 46-year-old male with Down syndrome presenting with acute severe anemia and thrombocytopenia. This seems to have occurred a few weeks after being diagnosed with COVID-19 infection and receiving Paxlovid treatment. Blood peripheral smear reviewed by pathologist shows macrocytic anemia with nucleated red blood cells, large mononuclear cells with basophilic cytoplasm, granulocytes with left-shifted maturation with atypical granulation and irregular chromatin. Platelets markedly reduced in number, no large or giant forms identified. Specimen has been sent for flow cytometry. Based on blood work performed so far, there is no evidence of hemolytic anemia, kidney or liver problems, no evidence of TTP/HUS or DIC. Although there are reports of autoimmune thrombocytopenia seen after COVID-19 infection, it is rare to find this degree of anemia with ITP. Tick-borne panel will also be checked. Further evaluation with bone marrow aspiration/biopsy to rule out primary bone marrow disorder such as lymphoma/leukemia have to be considered. I discussed this with his mother. They are willing to proceed if this is necessary. Further recommendations to follow, I thank you very much for this consultation. - Time Spent With Patient Time Spent with Patient (in minutes): 20
--- NOTE | 2021-09-30 18:26 | PC.NURSE ---
report taken from ED RN. pt arrived with family at bedside. md at bedside speaking with pt and family member. first unit RBC started as ordered. pt tolerating well. safety and fall precautions in place. call bourgeois within reach. pt educated on bed and call bourgeois use. pt able to ambulate with standby assist. pt mother to be staying overnight, OK'ed by clin sup. pt has insulin machine to check glucose levels in RUE. per pt and family no insulin pump attached to pt.
[2021-09-30 19:47] LABS: Glucose, Whole Blood 161 mg/dL (60-115)
[2021-09-30 20:56] LABS: Glucose, Whole Blood 224 mg/dL (60-115)
[2021-10-01 03:48] VITALS: BP 101/59; PULSE 77; RESP 18; TEMP 37; O2SAT 95
[2021-10-01] MEDS: Levothyroxine Sodium 125 MCG TABLET PO (05:14)
[2021-10-01 06:01] LABS: Hematocrit 23.9 % (42.0-52.0); Hemoglobin 8.3 g/dl (14.0-18.0); Mean Corpuscular HGB Conc 34.7 g/dl (31.0-36.0); Mean Corpuscular Hemoglobin 35.2 pg (27.0-33.0); Mean Corpuscular Volume 101.3 fL (80.0-98.0); Red Blood Count 2.36 X10*6/uL (4.60-5.80); Red Cell Distribution Width 22.4 % (11.0-16.0); White Blood Count 5.4 X10*3/uL (4.8-10.8)
[2021-10-01 06:25] LABS: NRBC Pct Auto 7.6 /100WBC (0.0-0.2)
[2021-10-01 06:27] LABS: Platelet Count 14 X10*3/uL (160-400)
[2021-10-01 06:35] LABS: Anion Gap 12 (12-20); Blood Urea Nitrogen 15 mg/dL (9-16); Carbon Dioxide 25 mmol/L (22-29); Chloride 100 mmol/L (96-108); Creatinine Clr Calc Pharmacy 58.1; Estimated Glomerular Filt Rate > 60; Glucose Random 138 mg/dL (60-115); Potassium 4.3 mmol/L (3.3-5.1); Sodium 133 mmol/L (135-145)
[2021-10-01 06:51] VITALS: BP 114/57; PULSE 81; RESP 18; TEMP 36.1; O2SAT 97
[2021-10-01 07:09] LABS: Glucose, Whole Blood 123 mg/dL (60-115)
[2021-10-01] MEDS: Insulin Glargine,Hum.rec.anlog 100 UNIT/ML 10 ML VIAL 21 UNIT SUBCUT (09:00)
--- NOTE | 2021-10-01 09:09 | MHC.CM.PN ---
CM met with Patient and his Parents at bedside and addressed IMM with them, providing them with the original and placing a copy on the chart. Home/no services is the goal and CM has initiated and will follow for dc planning. PCP is Dr. Teodoro Briones and Patient, who is a Volunteer here, has received Moderna/Covid vax X3.
[2021-10-01 10:25] LABS: Bilirubin Total 2.6 mg/dL (0.0-1.0); Lactate Dehydrogenase 405 U/L (118-273)
[2021-10-01 11:03] VITALS: BP 131/69; PULSE 77; RESP 18; TEMP 36.6; O2SAT 96
[2021-10-01 11:13] LABS: Glucose, Whole Blood 211 mg/dL (60-115)
--- NOTE | 2021-10-01 13:19 | HO.PM.IMPN ---
Subjective Subjective Date of Service: 10/01/21 Interval History: tolerated transfusion of 2u pRBCs + 1u plts no gum bleeding, hematuria, or hematochezia no fever/chills Review of Systems Review of Systems: Yes all other systems are reviewed and are negative Physical Exam Vital Signs: Vital Signs: Last Vital Signs Temp 98 F 10/01/21 11:03 Pulse 77 10/01/21 11:03 Resp 18 10/01/21 11:03 BP 131/69 10/01/21 11:03 Pulse Ox 96 10/01/21 11:03 O2 Del Method 10/01/21 11:03 BMI result Body Mass Index 26.0 Gen: in no acute distress HEENT: sclera anicteric, moist mucus membranes without purpura Neck: supple Lungs: clear to auscultation bilaterally Heart: regular rate and rhythm, no murmurs Abd: soft, non-tender, non-distended ?splenomegaly Ext: no edema Skin: warm/well-perfused, scattered petechiae Neuro: alert and oriented x3, no focal findings Psych: appropriate affect Objective Data Active Medications Acetaminophen (Acetaminophen 325 Mg Tablet) 650 mg PO Q6H PRN PRN Reason: Pain, Mild (Pain Scale 1-3) Insulin Glargine (Insulin Glargine,Hum.Rec.Anlog 100 Unit/Ml 10 Ml Vial) 21 unit SUBCUT DAILY [facility] Last Admin: 10/01/21 09:00 Dose: 21 unit Documented By: RIANNA Levothyroxine Sodium (Levothyroxine Sodium 125 Mcg Tablet) 125 mcg PO DAILY@0630 [facility] Last Admin: 10/01/21 05:14 Dose: 125 mcg Documented By: PUNEET Ondansetron HCl (Ondansetron Hcl 4 Mg/2 Ml Vial) 4 mg IVPUSH Q8H PRN PRN Reason: Nausea and Vomiting Labs CBC & Chem 7: 10/01/21 05:19 10/01/21 05:19 Labs: Laboratory Results - last 24 hr 09/30/21 09/30/21 09/30/21 11:55 11:55 14:08 MCV 113.0 H MCH 39.0 H MCHC 34.5 RDW 18.5 H Plt Count 6 L* MPV 12.8 H Immature Gran % (Auto) Cancelled Neut % (Auto) Cancelled Lymph % (Auto) Cancelled [place] % (Auto) Cancelled Eos % (Auto) Cancelled Baso % (Auto) Cancelled Lymph # (Auto) Cancelled [place] # (Auto) Cancelled Eos # (Auto) Cancelled Baso # (Auto) Cancelled Abs Immat Gran (auto) Cancelled Absolute Neuts (auto) Cancelled Absolute Nucleated RBC 0.230 H Nucleated RBC % (auto) 4.7 H Neutrophils % (Manual) 38 L Band Neutrophils % 19 H Lymphocytes % (Manual) 29 Basophils % (Manual) 1 Metamyelocytes % 5 Myelocytes % 6 Promyelocytes % 1 Blast Cells % (Manual) 1 Abs Neuts (Manual) 2.8 Lymphocytes # (Manual) 1.4 Metamyelocytes # 0.2 Myelocytes # 0.3 Nucleated RBCs 6 H Platelet Estimate DECREASED Plt Morphology Comment NORMAL RBC Morphology NOTED Polychromasia 1+ (0-2) Hypochromasia 1+ (5-14) Basophilic Stippling 1+ (0-2) Macrocytosis 2+ (15-30) Spherocytes 2+ (3-5) Tear Drop Cells 1+ (0-2) Schistocytes 1+ (0-2) Absolute Retic 0.058 Percent Retic 3.8 H Immature Retic Fraction 39.1 H Retic Hgb Equivalent 42.3 H APTT 31.5 Fibrinogen > 700 H Anion Gap 14 Estim Creat Clear Calc 53.6 Estimated GFR 55 POC Glucose Random Glucose 202 H Calcium 8.2 L Total Bilirubin 0.6 AST 11 ALT 6 Alkaline Phosphatase 74 Lactate Dehydrogenase 328 H Total Protein 6.1 L Albumin 3.4 L COVID-19 (SABA) COVID-19 Clin Com Blood Type Antibody Screen SERA, Polyspecific Positive SERA Work-up Crossmatch 09/30/21 09/30/21 09/30/21 14:08 14:09 19:43 MCV MCH MCHC RDW Plt Count MPV Immature Gran % (Auto) Neut % (Auto) Lymph % (Auto) [place] % (Auto) Eos % (Auto) Baso % (Auto) Lymph # (Auto) [place] # (Auto) Eos # (Auto) Baso # (Auto) Abs Immat Gran (auto) Absolute Neuts (auto) Absolute Nucleated RBC Nucleated RBC % (auto) Neutrophils % (Manual) Band Neutrophils % Lymphocytes % (Manual) Basophils % (Manual) Metamyelocytes % Myelocytes % Promyelocytes % Blast Cells % (Manual) Abs Neuts (Manual) Lymphocytes # (Manual) Metamyelocytes # Myelocytes # Nucleated RBCs Platelet Estimate Plt Morphology Comment RBC Morphology Polychromasia Hypochromasia Basophilic Stippling Macrocytosis Spherocytes Tear Drop Cells Schistocytes Absolute Retic Percent Retic Immature Retic Fraction Retic Hgb Equivalent APTT Fibrinogen Anion Gap Estim Creat Clear Calc Estimated GFR POC Glucose 161 H Random Glucose Calcium Total Bilirubin AST ALT Alkaline Phosphatase Lactate Dehydrogenase Total Protein Albumin COVID-19 (SABA) Negative COVID-19 Clin Com See Note Blood Type A Positive Antibody Screen NEGATIVE SERA, Polyspecific NEGATIVE Positive SERA Work-up Not Reportable Crossmatch See Detail 09/30/21 10/01/21 10/01/21 20:52 05:19 05:19 MCV 101.3 H D MCH 35.2 H MCHC 34.7 RDW 22.4 H Plt Count 14 L* D MPV 13.0 H Immature Gran % (Auto) Neut % (Auto) Lymph % (Auto) [place] % (Auto) Eos % (Auto) Baso % (Auto) Lymph # (Auto) [place] # (Auto) Eos # (Auto) Baso # (Auto) Abs Immat Gran (auto) Absolute Neuts (auto) Absolute Nucleated RBC 0.410 H Nucleated RBC % (auto) 7.6 H Neutrophils % (Manual) Band Neutrophils % Lymphocytes % (Manual) Basophils % (Manual) Metamyelocytes % Myelocytes % Promyelocytes % Blast Cells % (Manual) Abs Neuts (Manual) Lymphocytes # (Manual) Metamyelocytes # Myelocytes # Nucleated RBCs Platelet Estimate Plt Morphology Comment RBC Morphology Polychromasia Hypochromasia Basophilic Stippling Macrocytosis Spherocytes Tear Drop Cells Schistocytes Absolute Retic Percent Retic Immature Retic Fraction Retic Hgb Equivalent APTT Fibrinogen Anion Gap 12 Estim Creat Clear Calc 58.1 Estimated GFR > 60 POC Glucose 224 H Random Glucose 138 H Calcium 8.0 L Total Bilirubin 2.6 H AST ALT Alkaline Phosphatase Lactate Dehydrogenase 405 H Total Protein Albumin COVID-19 (SABA) COVID-19 Clin Com Blood Type Antibody Screen SERA, Polyspecific Positive SERA Work-up Crossmatch 10/01/21 10/01/21 06:52 11:03 MCV MCH MCHC RDW Plt Count MPV Immature Gran % (Auto) Neut % (Auto) Lymph % (Auto) [place] % (Auto) Eos % (Auto) Baso % (Auto) Lymph # (Auto) [place] # (Auto) Eos # (Auto) Baso # (Auto) Abs Immat Gran (auto) Absolute Neuts (auto) Absolute Nucleated RBC Nucleated RBC % (auto) Neutrophils % (Manual) Band Neutrophils % Lymphocytes % (Manual) Basophils % (Manual) Metamyelocytes % Myelocytes % Promyelocytes % Blast Cells % (Manual) Abs Neuts (Manual) Lymphocytes # (Manual) Metamyelocytes # Myelocytes # Nucleated RBCs Platelet Estimate Plt Morphology Comment RBC Morphology Polychromasia Hypochromasia Basophilic Stippling Macrocytosis Spherocytes Tear Drop Cells Schistocytes Absolute Retic Percent Retic Immature Retic Fraction Retic Hgb Equivalent APTT Fibrinogen Anion Gap Estim Creat Clear Calc Estimated GFR POC Glucose 123 H 211 H Random Glucose Calcium Total Bilirubin AST ALT Alkaline Phosphatase Lactate Dehydrogenase Total Protein Albumin COVID-19 (SABA) COVID-19 Clin Com Blood Type Antibody Screen SERA, Polyspecific Positive SERA Work-up Crossmatch Assessment and Plan (1) Bicytopenia: Status: Acute (2) Anemia: Status: Acute (3) Thrombocytopenia: Status: Acute Plan hospital d#2 46yo M with T21, DM1, hypothyroidism presenting with thrombocytopenia + macrocytic anemia # thrombocytopenia # macrocytic anemia, SERA-negative - Hematology consulted, may need BM aspiration, flow cytometry/HIV/tickborne pathogen PCR pending # DM1 - continue long-acting insulin # hypothyroidism - continue # VTE ppx: SCDs, no heparin given thrombocytopenia In my clinical judgment, the patient requires continued hospitalization for the following reasons: critical thrombocytopenia + anemia Quality Stroke Does the patient have a stroke diagnosis?: No VTE Prior VTE?: No VTE Risk Level:: Medical - low VTE Device Contraindication: Treatment Not Tolerated VTE Drug Contraindication: Treatment Not Tolerated
--- NOTE | 2021-10-01 14:07 | P.PNHO-ONC_ITS ---
Medical Summary - Medical Summary Date of Service: 10/01/21 Chief complaint: Low blood counts Interval History Interval history: Patient is doing okay. His mother was at the bedside. He is eating and sleeping well. No complaints of anything other than feeling a bit tired. Review of Systems - Constitutional Reports as per [facility] Social History: Social History (Last Reviewed 09/30/21 @ 13:00 by Daniele Beck MD) Living Situation History: Household Members: Family Housing: House Do you presently have visiting nurse or other home services: No Alcohol History Details: 1. How often do you have a drink containing alcohol?: a. Never AUDIT-C Alcohol total score: 0 Currently Displaying Signs/Symptoms of Alcohol Withdrawal: No Tobacco History: Patient Tobacco Use Status: Never used Tobacco e-Cigarette/Vaping Use: Never Used Substance Use History: Use of substances other than those prescribed or required for medical reasons : No Currently Displaying Signs/Symptoms of Drug Intoxication Withdrawal: No Domestic Abuse History: Have you been hit, kicked, punched, or otherwise hurt by someone within the past year? If so, by whom?: No Do you feel safe in your current relationship?: No Current Relationship Is there a partner from a previous relationship who is making you feel unsafe now?: No Are you made to feel afraid or neglected: No Advance Directives: Advance Directives: Yes Advance Directives Information Provided: Yes Advance Directives on File: Yes Advance Directives Date on File: 09/30/21 Homicidal Assessment: Do you have thoughts of harming others: None Do you have a plan to hurt others: No Plan Nutrition Assessment: Recently lost weight without trying: No Nutrition Risks: No Nutritional Risk Poor oral hygiene: No Occupation Assessmet: service: No Current occupational status: other Home Medications and Allergies Current Medications: Current Medications Acetaminophen (Acetaminophen 325 Mg Tablet) 650 mg PO Q6H PRN PRN Reason: Pain, Mild (Pain Scale 1-3) Insulin Glargine (Insulin Glargine,Hum.Rec.Anlog 100 Unit/Ml 10 Ml Vial) 21 unit SUBCUT DAILY [facility] Last Admin: 10/01/21 09:00 Dose: 21 unit Levothyroxine Sodium (Levothyroxine Sodium 125 Mcg Tablet) 125 mcg PO DAILY@0630 [facility] Last Admin: 10/01/21 05:14 Dose: 125 mcg Ondansetron HCl (Ondansetron Hcl 4 Mg/2 Ml Vial) 4 mg IVPUSH Q8H PRN PRN Reason: Nausea and Vomiting Home Medications Medication Instructions Recorded Confirmed Type albuterol sulfate 90 mcg/actuation 2 puff inhalation Q4H 09/30/21 09/30/21 History aerosol inhaler insulin glargine 100 unit/mL (3 21 unit subcut DAILY 09/30/21 09/30/21 History mL) subcutaneous pen (Basaglar KwikPen U-100 Insulin) levothyroxine 125 mcg tablet 1 tab PO DAILY@0630 09/30/21 09/30/21 History Allergies Allergy/AdvReac Type Severity Reaction Status Date / Time No Known Allergies Allergy Verified 09/30/21 11:31 [No Known Allergies*] Exam Vital signs: Vital Signs Temp 98 F 10/01/21 11:03 Pulse 77 10/01/21 11:03 Resp 18 10/01/21 11:03 BP 131/69 10/01/21 11:03 Pulse Ox 96 10/01/21 11:03 O2 Del Method 10/01/21 11:03 Intake & Output 09/30/21 10/01/21 10/01/21 18:59 06:59 18:59 Intake Total 210 / 1390 1180 / 1390 520 / 520 Balance 210 / 1390 1180 / 1390 520 / 520 Intake: Intake, Oral Amount 480 / 480 520 / 520 Intake (Blood Product) Amount 210 / 910 700 / 910 Aph Plts Irr Pas Lvds ([id number]) 210 / 210 Unit [id number] Red Blood Cells (E0382) Unit 350 / 350 [id number] Red Blood Cells (E0382) Unit 0 / 350 350 / 350 [id number] Other: Breakfast % Eaten 100% Lunch % Eaten 100% Dinner % Eaten 100% Number of Unmeasured Voids 1 2 Urine Bathroom Urine Color Yellow Weight 66.723 kg Weight 66.723 kg BMI result Body Mass Index 26.0 - Constitutional Present: no acute distress - Routine Respiratory Exam Present: CTAB. Absent: accessory muscle use - Routine Cardiovascular Exam Cardiovascular: Present: S1, S2 - Routine Extremities Exam Present: normal inspection - Routine Skin Exam Present: petechiae Data - Labs CBC & Chem 7: 10/01/21 05:19 10/01/21 05:19 Labs: 09/30/21 11:55 Complete Blood Count Man Dif Stat Fibrinogen Stat PT with INR [Prothrombin Time INR] Stat Partial Thromboplastin Time Stat Reticulocyte Count Stat 09/30/21 13:46 Add Laboratory Test Stat 09/30/21 14:08 Direct [place] (SERA) Stat PRBC [Red Blood Cells] Stat Pheresis Platelets Stat Type and Screen Stat Comprehensive Met. Panel Stat Lactate Dehydrogenase Stat 09/30/21 14:09 COVID-19 ID NOW ([place]) Stat 09/30/21 14:12 Add Laboratory Test Stat 09/30/21 18:23 Add Laboratory Test Stat 09/30/21 19:43 Glucose, Whole Blood Routine 09/30/21 20:52 Glucose, Whole Blood Routine 10/01/21 05:19 Complete Blood Count no Diff AM 10/01/21 06:52 Glucose, Whole Blood Routine 10/01/21 10:13 Add Laboratory Test Routine 10/01/21 11:03 Glucose, Whole Blood Routine 10/01/21 13:52 Add Laboratory Test Routine Laboratory Last Values WBC 5.4 X10*3/uL (4.8-10.8) 10/01/21 05:19 RBC 2.36 X10*6/uL (4.60-5.80) L D 10/01/21 05:19 Hgb 8.3 g/dl (14.0-18.0) L D 10/01/21 05:19 Hct 23.9 % (42.0-52.0) L D 10/01/21 05:19 MCV 101.3 fL (80.0-98.0) H D 10/01/21 05:19 MCH 35.2 pg (27.0-33.0) H 10/01/21 05:19 MCHC 34.7 g/dl (31.0-36.0) 10/01/21 05:19 RDW 22.4 % (11.0-16.0) H 10/01/21 05:19 Plt Count 14 X10*3/uL (160-400) L* D 10/01/21 05:19 MPV 13.0 fL (9.4-12.4) H 10/01/21 05:19 Immature Gran % (Auto) Cancelled 09/30/21 11:55 Neut % (Auto) Cancelled 09/30/21 11:55 Lymph % (Auto) Cancelled 09/30/21 11:55 [place] % (Auto) Cancelled 09/30/21 11:55 Eos % (Auto) Cancelled 09/30/21 11:55 Baso % (Auto) Cancelled 09/30/21 11:55 Lymph # (Auto) Cancelled 09/30/21 11:55 [place] # (Auto) Cancelled 09/30/21 11:55 Eos # (Auto) Cancelled 09/30/21 11:55 Baso # (Auto) Cancelled 09/30/21 11:55 Abs Immat Gran (auto) Cancelled 09/30/21 11:55 Absolute Neuts (auto) Cancelled 09/30/21 11:55 Absolute Nucleated RBC 0.410 X10*3/uL (0.0-0.012) H 10/01/21 05:19 Nucleated RBC % (auto) 7.6 /100WBC (0.0-0.2) H 10/01/21 05:19 Neutrophils % (Manual) 38 % (45-73) L 09/30/21 11:55 Band Neutrophils % 19 % (3-5) H 09/30/21 11:55 Lymphocytes % (Manual) 29 % (20-40) 09/30/21 11:55 Basophils % (Manual) 1 % (0-2) 09/30/21 11:55 Metamyelocytes % 5 % 09/30/21 11:55 Myelocytes % 6 % 09/30/21 11:55 Promyelocytes % 1 % 09/30/21 11:55 Blast Cells % (Manual) 1 % 09/30/21 11:55 Abs Neuts (Manual) 2.8 X10*3/uL (2.0-8.3) 09/30/21 11:55 Lymphocytes # (Manual) 1.4 X10*3/uL (1.2-4.9) 09/30/21 11:55 Metamyelocytes # 0.2 X10*3/uL 09/30/21 11:55 Myelocytes # 0.3 X10*/uL 09/30/21 11:55 Nucleated RBCs 6 /100WBC (0-0) H 09/30/21 11:55 Platelet Estimate DECREASED (NORMAL) 09/30/21 11:55 Plt Morphology Comment NORMAL 09/30/21 11:55 RBC Morphology NOTED 09/30/21 11:55 Polychromasia 1+ (0-2) /OIF 09/30/21 11:55 Hypochromasia 1+ (5-14) /OIF 09/30/21 11:55 Basophilic Stippling 1+ (0-2) /OIF 09/30/21 11:55 Macrocytosis 2+ (15-30) /OIF 09/30/21 11:55 Spherocytes 2+ (3-5) /OIF 09/30/21 11:55 Tear Drop Cells 1+ (0-2) /OIF 09/30/21 11:55 Schistocytes 1+ (0-2) /OIF 09/30/21 11:55 Absolute Retic 0.058 X10*6/uL (0.026-0.095) 09/30/21 11:55 Percent Retic 3.8 % (0.5-1.8) H 09/30/21 11:55 Immature Retic Fraction 39.1 % (2.3-13.4) H 09/30/21 11:55 Retic Hgb Equivalent 42.3 pg (30.0-35.0) H 09/30/21 11:55 PT 14.3 SEC (10.0-13.1) H 09/30/21 11:55 INR 1.2 (0.9-1.1) H 09/30/21 11:55 APTT 31.5 SEC (26.0-36.4) 09/30/21 11:55 Fibrinogen > 700 MG/DL (259-690) H 09/30/21 11:55 Sodium 133 mmol/L (135-145) L 10/01/21 05:19 Potassium 4.3 mmol/L (3.3-5.1) 10/01/21 05:19 Chloride 100 mmol/L (96-108) 10/01/21 05:19 Carbon Dioxide 25 mmol/L (22-29) 10/01/21 05:19 Anion Gap 12 (12-20) 10/01/21 05:19 BUN 15 mg/dL (9-16) 10/01/21 05:19 Creatinine 1.29 mg/dL (0.5-1.4) 10/01/21 05:19 Estim Creat Clear Calc 58.1 10/01/21 05:19 Estimated GFR > 60 10/01/21 05:19 POC Glucose 211 mg/dL (60-115) H 10/01/21 11:03 Random Glucose 138 mg/dL (60-115) H 10/01/21 05:19 Calcium 8.0 mg/dL (8.4-10.2) L 10/01/21 05:19 Total Bilirubin 2.6 mg/dL (0.0-1.0) H 10/01/21 05:19 AST 11 U/L (5-37) 09/30/21 14:08 ALT 6 U/L (0-40) 09/30/21 14:08 Alkaline Phosphatase 74 U/L (39-117) 09/30/21 14:08 Lactate Dehydrogenase 405 U/L (118-273) H 10/01/21 05:19 Total Protein 6.1 g/dL (6.5-8.0) L 09/30/21 14:08 Albumin 3.4 g/dL (3.5-5.0) L 09/30/21 14:08 COVID-19 (SABA) Negative (Negative) 09/30/21 14:09 COVID-19 Clin Com See Note 09/30/21 14:09 Blood Type A Positive 09/30/21 14:08 Antibody Screen NEGATIVE 09/30/21 14:08 SERA, Polyspecific NEGATIVE 09/30/21 14:08 Positive SERA Work-up Not Reportable 09/30/21 14:08 Crossmatch See Detail 09/30/21 14:08 Assessment and Plan Patient Active problem list reviewed?: Yes (1) Bicytopenia Status: Acute Assessment and plan: 1. This is a 46-year-old male with Down syndrome presenting with acute severe anemia and thrombocytopenia. This seems to have occurred a few weeks after being diagnosed with COVID-19 infection and receiving Paxlovid treatment. Blood peripheral smear reviewed by pathologist shows macrocytic anemia with nucleated red blood cells, large mononuclear cells with basophilic cytoplasm, granulocytes with left-shifted maturation with atypical granulation and irregular chromatin. Platelets markedly reduced in number, no large or giant forms identified. Specimen has been sent for flow cytometry. Although there are reports of autoimmune thrombocytopenia seen after COVID-19 infection, it is rare to find this degree of anemia with ITP. Tick-borne panel will also be checked. Blood work today shows slight increase in bilirubin as well as LDH. He appears to have had some hemolysis after transfusion. Please continue to monitor daily LDH and LFTs in addition to CBC. I will plan to schedule bone marrow biopsy in the OR under monitored anesthesia in the next couple of days. - Time Spent With Patient Time Spent with Patient (in minutes): 10
[2021-10-01 14:14] LABS: Alanine Aminotransferase 6 U/L (0-40); Albumin Level 3.1 g/dL (3.5-5.0); Alkaline Phosphatase 75 U/L (39-117); Aspartate Amino Transferase 12 U/L (5-37); Bilirubin Direct 0.7 mg/dL (0.0-0.5); Total Protein 5.6 g/dL (6.5-8.0)
[2021-10-01 15:43] LABS: Glucose, Whole Blood 178 mg/dL (60-115)
[2021-10-01 15:48] VITALS: BP 123/59; PULSE 73; RESP 18; TEMP 37.4; O2SAT 98
[2021-10-01 19:47] LABS: Glucose, Whole Blood 203 mg/dL (60-115)
[2021-10-01 20:00] VITALS: BP 151/73; PULSE 73; RESP 16; TEMP 37.2; O2SAT 97
[2021-10-02] VITALS (10 sets, daily range): BP systolic 93–135; BP diastolic 52–66; PULSE 64–85; RESP 16–18; TEMP 36.1–36.8; O2SAT 94–99
[2021-10-02] MEDS: Levothyroxine Sodium 125 MCG TABLET PO (05:34)
[2021-10-02 06:14] LABS: Hemoglobin 8.3 g/dl (14.0-18.0); Mean Corpuscular Hemoglobin 35.5 pg (27.0-33.0); Red Blood Count 2.34 X10*6/uL (4.60-5.80); Red Cell Distribution Width 22.3 % (11.0-16.0)
[2021-10-02 06:16] LABS: Hematocrit 23.8 % (42.0-52.0); Mean Corpuscular HGB Conc 34.9 g/dl (31.0-36.0); Mean Corpuscular Volume 101.7 fL (80.0-98.0); White Blood Count 4.8 X10*3/uL (4.8-10.8)
[2021-10-02 07:06] LABS: Glucose, Whole Blood 128 mg/dL (60-115)
[2021-10-02 07:12] LABS: PLT ABN DIST 1
[2021-10-02 07:13] LABS: NRBC Pct Auto 6.7 /100WBC (0.0-0.2)
[2021-10-02 07:14] LABS: Platelet Count 8 X10*3/uL (160-400)
[2021-10-02 08:11] LABS: HIV AB/AG Nonreactive (Nonreactive); HIV Num 1 0.23 S/CO (0.00-0.99)
[2021-10-02] MEDS: predniSONE 20 MG TABLET 60 MG PO (08:58)
[2021-10-02] MEDS: Insulin Glargine,Hum.rec.anlog 100 UNIT/ML 10 ML VIAL 21 UNIT SUBCUT (08:58)
--- NOTE | 2021-10-02 09:27 | HO.PM.IMPN ---
Subjective Subjective Date of Service: 10/02/21 Interval History: Plts 14->8 No gum bleeding or hematuria Spleen enlarged No fever Review of Systems Review of Systems: Yes all other systems are reviewed and are negative Physical Exam Vital Signs: Vital Signs: Last Vital Signs Temp 97 F 10/02/21 06:52 Pulse 84 10/02/21 06:52 Resp 16 10/02/21 06:52 BP 107/59 L 10/02/21 06:52 Pulse Ox 95 10/02/21 06:52 O2 Del Method 10/02/21 06:52 BMI result Body Mass Index 26.0 Gen: in no acute distress HEENT: sclera mildly icteric, moist mucus membranes Neck: supple Lungs: clear to auscultation bilaterally Heart: regular rate and rhythm, no murmurs Abd: soft, non-tender, non-distended, spleen tip palpable Ext: no edema Skin: warm/well-perfused, pale Neuro: alert and oriented x3, no focal findings Psych: appropriate affect Objective Data Active Medications Acetaminophen (Acetaminophen 325 Mg Tablet) 650 mg PO Q6H PRN PRN Reason: Pain, Mild (Pain Scale 1-3) Insulin Glargine (Insulin Glargine,Hum.Rec.Anlog 100 Unit/Ml 10 Ml Vial) 21 unit SUBCUT DAILY [facility] Last Admin: 10/02/21 08:58 Dose: 21 unit Documented By: RIANNA Levothyroxine Sodium (Levothyroxine Sodium 125 Mcg Tablet) 125 mcg PO DAILY@0630 [facility] Last Admin: 10/02/21 05:34 Dose: 125 mcg Documented By: PUNEET Ondansetron HCl (Ondansetron Hcl 4 Mg/2 Ml Vial) 4 mg IVPUSH Q8H PRN PRN Reason: Nausea and Vomiting Prednisone (Prednisone 20 Mg Tablet) 60 mg PO DAILY [facility] Last Admin: 10/02/21 08:58 Dose: 60 mg Documented By: RIANNA Labs CBC & Chem 7: 10/02/21 05:21 10/01/21 05:19 Labs: Laboratory Results - last 24 hr 10/01/21 10/01/21 10/01/21 05:19 11:03 15:38 MCV MCH MCHC RDW Plt Count MPV Absolute Nucleated RBC Nucleated RBC % (auto) POC Glucose 211 H 178 H Total Bilirubin 2.6 H Direct Bilirubin 0.7 H AST 12 ALT 6 Alkaline Phosphatase 75 Lactate Dehydrogenase 405 H Total Protein 5.6 L Albumin 3.1 L HIV 1&2 Ab/P24 Ag 4thGn 10/01/21 10/02/21 10/02/21 19:39 05:21 05:21 MCV 101.7 H MCH 35.5 H MCHC 34.9 RDW 22.3 H Plt Count 8 L* MPV Not Reportable Absolute Nucleated RBC 0.320 H Nucleated RBC % (auto) 6.7 H POC Glucose 203 H Total Bilirubin Direct Bilirubin AST ALT Alkaline Phosphatase Lactate Dehydrogenase Total Protein Albumin HIV 1&2 Ab/P24 Ag 4thGn Nonreactive 10/02/21 06:52 MCV MCH MCHC RDW Plt Count MPV Absolute Nucleated RBC Nucleated RBC % (auto) POC Glucose 128 H Total Bilirubin Direct Bilirubin AST ALT Alkaline Phosphatase Lactate Dehydrogenase Total Protein Albumin HIV 1&2 Ab/P24 Ag 4thGn Impressions Abdomen Ultrasound 10/01/21 16:55 IMPRESSION: 1. The spleen is enlarged measuring up to 16.1 cm, new when compared to the CT from 2014. 2. Otherwise unremarkable examination. Assessment and Plan (1) Bicytopenia: Status: Acute (2) Anemia: Status: Acute (3) Thrombocytopenia: Status: Acute Plan hospital d#3 46yo M with T21, DM1, hypothyroidism presenting with thrombocytopenia + macrocytic anemia # thrombocytopenia # macrocytic anemia with mild hemolysis, SERA-negative - transfuse another 1u plts [got 1u 09/30/21] - Hb stable p 2u pRBCs - Hematology consulted, start prednisone 60 mg/d today. BM aspiration tomorrow; NPO for OR @ 1400 though will 1st attempt at bedside - flow cytometry + tickborne pathogen PCR pending. HIV negative. # DM1 - continue long-acting insulin # hypothyroidism - continue LT4 # VTE ppx: SCDs, no heparin given thrombocytopenia In my clinical judgment, the patient requires continued hospitalization for the following reasons: critical thrombocytopenia requiring transfusion + anemia Quality Stroke Does the patient have a stroke diagnosis?: No VTE Prior VTE?: No VTE Risk Level:: Medical - low VTE Device Contraindication: Treatment Not Tolerated VTE Drug Contraindication: Treatment Not Tolerated
[2021-10-02 11:24] LABS: Glucose, Whole Blood 197 mg/dL (60-115)
--- NOTE | 2021-10-02 12:50 | MHC.CM.PN ---
Per ROUNDS discussion, patient is Not yet medically cleared for discharge today r/t critical thrombocytopenia requiring transfusion, also anemia. D/C Plan continues to be Home No services. CM will continue to follow for D/C needs.
[2021-10-02 15:20] LABS: Glucose, Whole Blood 329 mg/dL (60-115)
--- NOTE | 2021-10-02 16:57 | P.PNHO-ONC_ITS ---
Medical Summary - Medical Summary Date of Service: 10/02/21 Chief complaint: Tired Interval History Interval history: He is feeling a bit tired today. Both his parents were at his bedside. [facility] Social History: Social History (Last Reviewed 09/30/21 @ 13:00 by Daniele Beck MD) Living Situation History: Household Members: Family Housing: House Do you presently have visiting nurse or other home services: No Alcohol History Details: 1. How often do you have a drink containing alcohol?: a. Never AUDIT-C Alcohol total score: 0 Currently Displaying Signs/Symptoms of Alcohol Withdrawal: No Tobacco History: Patient Tobacco Use Status: Never used Tobacco e-Cigarette/Vaping Use: Never Used Substance Use History: Use of substances other than those prescribed or required for medical reasons : No Currently Displaying Signs/Symptoms of Drug Intoxication Withdrawal: No Domestic Abuse History: Have you been hit, kicked, punched, or otherwise hurt by someone within the past year? If so, by whom?: No Do you feel safe in your current relationship?: No Current Relationship Is there a partner from a previous relationship who is making you feel unsafe now?: No Are you made to feel afraid or neglected: No Advance Directives: Advance Directives: Yes Advance Directives Information Provided: Yes Advance Directives on File: Yes Advance Directives Date on File: 09/30/21 Homicidal Assessment: Do you have thoughts of harming others: None Do you have a plan to hurt others: No Plan Nutrition Assessment: Recently lost weight without trying: No Nutrition Risks: No Nutritional Risk Poor oral hygiene: No Occupation Assessmet: service: No Current occupational status: other Home Medications and Allergies Current Medications: Current Medications Acetaminophen (Acetaminophen 325 Mg Tablet) 650 mg PO Q6H PRN PRN Reason: Pain, Mild (Pain Scale 1-3) Insulin Glargine (Insulin Glargine,Hum.Rec.Anlog 100 Unit/Ml 10 Ml Vial) 21 unit SUBCUT DAILY [facility] Last Admin: 10/02/21 08:58 Dose: 21 unit Levothyroxine Sodium (Levothyroxine Sodium 125 Mcg Tablet) 125 mcg PO DAILY@0630 [facility] Last Admin: 10/02/21 05:34 Dose: 125 mcg Ondansetron HCl (Ondansetron Hcl 4 Mg/2 Ml Vial) 4 mg IVPUSH Q8H PRN PRN Reason: Nausea and Vomiting Prednisone (Prednisone 20 Mg Tablet) 60 mg PO DAILY [facility] Last Admin: 10/02/21 08:58 Dose: 60 mg Home Medications Medication Instructions Recorded Confirmed Type albuterol sulfate 90 mcg/actuation 2 puff inhalation Q4H 09/30/21 09/30/21 History aerosol inhaler insulin glargine 100 unit/mL (3 21 unit subcut DAILY 09/30/21 09/30/21 History mL) subcutaneous pen (Basaglar KwikPen U-100 Insulin) levothyroxine 125 mcg tablet 1 tab PO DAILY@0630 09/30/21 09/30/21 History Allergies Allergy/AdvReac Type Severity Reaction Status Date / Time No Known Allergies Allergy Verified 09/30/21 11:31 [No Known Allergies*] Exam Vital signs: Vital Signs Temp 97.5 F 10/02/21 15:08 Pulse 70 10/02/21 15:08 Resp 16 10/02/21 15:08 BP 116/63 10/02/21 15:08 Pulse Ox 97 10/02/21 15:08 O2 Del Method 10/02/21 15:08 O2 Flow Rate 97 10/02/21 15:08 Intake & Output 10/01/21 10/02/21 10/02/21 18:59 06:59 18:59 Intake Total 520 / 940 420 / 940 274 / 274 Balance 520 / 940 420 / 940 274 / 274 Intake: Intake, Oral Amount 520 / 940 420 / 940 Intake (Blood Product) Amount 274 / 274 Plt Aph Pas Pathreduced(E8341) 274 / 274 Unit [id number] Other: Meal Refused No NPO No Breakfast % Eaten 100% 100% Lunch % Eaten 100% 100% Dinner % Eaten 100% Number of Unmeasured Voids 2 1 Urine Bathroom Bathroom Urine Color Yellow Yellow Weight 66.723 kg BMI result Body Mass Index 26.0 - Constitutional Present: no acute distress - Routine Respiratory Exam Present: CTAB. Absent: accessory muscle use - Routine Cardiovascular Exam Cardiovascular: Present: S1, S2 - Routine Extremities Exam Present: normal inspection - Routine Skin Exam Present: petechiae Data - Labs CBC & Chem 7: 10/02/21 05:21 10/01/21 05:19 - Imaging Radiologist's impression: ITS Impressions Abdomen Ultrasound 10/01/21 16:55 IMPRESSION: 1. The spleen is enlarged measuring up to 16.1 cm, new when compared to the CT from 2015. 2. Otherwise unremarkable examination. Assessment and Plan Patient Active problem list reviewed?: Yes (1) Bicytopenia Status: Acute Assessment and plan: 1. This is a 46-year-old male with Down syndrome presenting with acute severe anemia and thrombocytopenia. This seems to have occurred a few weeks after being diagnosed with COVID-19 infection and receiving Paxlovid treatment. Blood peripheral smear reviewed by pathologist shows macrocytic anemia with nucleated red blood cells, large mononuclear cells with basophilic cytoplasm, granulocytes with left-shifted maturation with atypical granulation and irregular chromatin. Platelets markedly reduced in number, no large or giant forms identified. Specimen has been sent for flow cytometry. Ultrasound abdomen shows normal liver but splenomegaly. I discussed performing bone marrow aspiration/biopsy. His mother has given c onsent, this is being scheduled for tomorrow. - Time Spent With Patient Time Spent with Patient (in minutes): 10
[2021-10-02 19:19] LABS: Glucose, Whole Blood 449 mg/dL (60-115)
[2021-10-02] MEDS: 0.9 % Sodium Chloride Flush 3 ML SYRINGE IVFLUSH (20:33)
[2021-10-02] MEDS: Insulin Lispro 100 UNIT/ML 3 ML VIAL SUBCUT (20:33)
[2021-10-02] MEDS: Insulin Lispro 100 UNIT/ML 3 ML VIAL 15 UNIT SUBCUT (20:33)
[2021-10-02 20:42] LABS: Haptoglobin 228 mg/dL (43-212)
[2021-10-02 22:08] LABS: Glucose, Whole Blood 372 mg/dL (60-115)
[2021-10-02] MEDS: Insulin Lispro 100 UNIT/ML 3 ML VIAL 10 UNIT SUBCUT (22:27)
[2021-10-02 23:40] LABS: Glucose, Whole Blood 274 mg/dL (60-115)
[2021-10-03] VITALS (15 sets, daily range): BP systolic 99–125; BP diastolic 39–96; PULSE 60–82; RESP 16–96; TEMP 36.1–36.7; O2SAT 94–98
[2021-10-03 03:29] LABS: Glucose, Whole Blood 125 mg/dL (60-115)
[2021-10-03] MEDS: Levothyroxine Sodium 125 MCG TABLET PO (05:49)
[2021-10-03 05:53] LABS: Baso%MD 0.6 %; Eos%MD 0.2 %; Hematocrit 23.7 % (42.0-52.0); PLT ABN DIST 1; Red Cell Distribution Width 21.2 % (11.0-16.0)
[2021-10-03 05:56] LABS: Hemoglobin 8.2 g/dl (14.0-18.0); IG%MD 18.5 %; Lymph%MD 15.6 %; Mean Corpuscular HGB Conc 34.6 g/dl (31.0-36.0); Mean Corpuscular Hemoglobin 34.3 pg (27.0-33.0); Mean Corpuscular Volume 99.2 fL (80.0-98.0); Mean Platelet Volume 11.4 fL (9.4-12.4); Mono%MD 19.7 %; NRBC Pct Auto 9.3 /100WBC (0.0-0.2); Neut%MD 45.4 %; Red Blood Count 2.39 X10*6/uL (4.60-5.80); White Blood Count 5.1 X10*3/uL (4.8-10.8)
[2021-10-03 06:23] LABS: Band Neutrophils Percent 13 % (3-5); Basophils Abs Manual 0.1 X10*3/uL (0.0-0.2); Basophils Percent Manual 1 % (0-2); Lymphocytes Absolute Manual 0.9 X10*3/uL (1.2-4.9); Lymphocytes Percent Manual 17 % (20-40); Metamyelocytes Absolute 0.4 X10*3/uL; Metamyelocytes Percent 8 %; Monocytes Absolute Manual 0.1 X10*3/uL (0.1-1.2); Monocytes Percent Manual 2 % (2-11); Myelocytes Absolute 0.1 X10*/uL; Myelocytes Percent 1 %; Neutrophils Absolute Manual 3.6 X10*3/uL (2.0-8.3); Neutrophils Percent Manual 58 % (45-73); Nucleated Red Blood Cells 10 /100WBC (0-0)
[2021-10-03 06:27] LABS: RBC Morphology NOTED
[2021-10-03 06:28] LABS: Macrocytosis 1+ (5-14) /OIF; Microcytosis 1+ (5-14) /OIF; Platelet Estimate DECREASED (NORMAL); Platelet Morphology Comment NORMAL; Spherocytes 1+ (0-2) /OIF; Tear Drop Cells 1+ (0-2) /OIF
[2021-10-03 06:29] LABS: Polychromasia 1+ (0-2) /OIF
[2021-10-03 06:32] LABS: Alanine Aminotransferase 7 U/L (0-40); Albumin Level 3.1 g/dL (3.5-5.0); Alkaline Phosphatase 81 U/L (39-117); Anion Gap 15 (12-20); Aspartate Amino Transferase 8 U/L (5-37); Bilirubin Total 0.7 mg/dL (0.0-1.0); Blood Urea Nitrogen 20 mg/dL (9-16); Calcium 8.4 mg/dL (8.4-10.2); Carbon Dioxide 25 mmol/L (22-29); Chloride 98 mmol/L (96-108); Creatinine Clr Calc Pharmacy 63.6; Estimated Glomerular Filt Rate > 60; Glucose Random 126 mg/dL (60-115); Lactate Dehydrogenase 258 U/L (118-273); Potassium 4.3 mmol/L (3.3-5.1); Sodium 134 mmol/L (135-145); Total Protein 5.8 g/dL (6.5-8.0)
[2021-10-03 06:39] LABS: Platelet Count 8 X10*3/uL (160-400)
[2021-10-03 07:14] LABS: Source-Tick borne disease BLOOD
[2021-10-03 07:36] LABS: Glucose, Whole Blood 133 mg/dL (60-115)
[2021-10-03] MEDS: predniSONE 20 MG TABLET 60 MG PO (07:40)
[2021-10-03] MEDS: 0.9 % Sodium Chloride Flush 3 ML SYRINGE IVFLUSH ×3 (07:41→19:25)
[2021-10-03] MEDS: Insulin Glargine,Hum.rec.anlog 100 UNIT/ML 10 ML VIAL 21 UNIT SUBCUT (07:41)
[2021-10-03] MEDS: Insulin Lispro 100 UNIT/ML 3 ML VIAL SUBCUT ×3 (07:46→19:25)
--- NOTE | 2021-10-03 09:33 | MHC.CM.PN ---
CM has assisted Patient in completing a HCP.
--- NOTE | 2021-10-03 11:40 | P.PNIM_ITS ---
Subjective Subjective Date of Service: 10/03/21 Interval History: No bleeding Platelets still 8 despite 1 pack transfused yesterday NPO for BM aspiration Review of Systems Review of Systems: Yes all other systems are reviewed and are negative Physical Exam Vital Signs: Vital Signs: Last Vital Signs Temp 97.9 F 10/03/21 09:53 Pulse 63 10/03/21 09:53 Resp 18 10/03/21 09:53 BP 111/57 L 10/03/21 09:53 Pulse Ox 97 10/03/21 08:00 O2 Del Method 10/03/21 08:00 O2 Flow Rate 97 10/02/21 15:08 BMI result Body Mass Index 26.0 Gen: in no acute distress HEENT: sclera anciteric, moist mucus membranes Neck: supple Lungs: clear to auscultation bilaterally Heart: regular rate and rhythm, no murmurs Abd: soft, non-tender, non-distended, spleen tip palpable Ext: no edema Skin: warm/well-perfused, pale Neuro: alert and oriented x3, no focal findings Psych: appropriate affect Objective Data Active Medications Acetaminophen (Acetaminophen 325 Mg Tablet) 650 mg PO Q6H PRN PRN Reason: Pain, Mild (Pain Scale 1-3) Dextrose (Dextrose 50 % 25 Gm/50 Ml Syringe) 25 gm IVPUSH Q15M PRN; Protocol PRN Reason: per Hypoglycemia Standing Ord. Glucose (Glucose Gel 15 Gm Gel..Gram.) 15 gm PO Q15M PRN; Protocol PRN Reason: per Hypoglycemia Standing Ord. Insulin Glargine (Insulin Glargine,Hum.Rec.Anlog 100 Unit/Ml 10 Ml Vial) 21 unit SUBCUT DAILY [facility] Last Admin: 10/03/21 07:41 Dose: 21 unit Documented By: FLO Insulin Human Lispro (Insulin Lispro 100 Unit/Ml 3 Ml Vial) 0 unit SUBCUT QIDACHS [facility]; Protocol Last Admin: 10/03/21 07:46 Dose: 2 unit Documented By: FLO Levothyroxine Sodium (Levothyroxine Sodium 125 Mcg Tablet) 125 mcg PO DAILY@0630 [facility] Last Admin: 10/03/21 05:49 Dose: 125 mcg Documented By: JAZZ Ondansetron HCl (Ondansetron Hcl 4 Mg/2 Ml Vial) 4 mg IVPUSH Q8H PRN PRN Reason: Nausea and Vomiting Prednisone (Prednisone 20 Mg Tablet) 60 mg PO DAILY [facility] Last Admin: 10/03/21 07:40 Dose: 60 mg Documented By: FLO Sodium Chloride (0.9 % Sodium Chloride Flush 3 Ml Syringe) 3 ml IVFLUSH QSHIFT [facility] Last Admin: 10/03/21 07:41 Dose: 3 ml Documented By: FLO Labs CBC & Chem 7: 10/03/21 05:26 10/03/21 05:26 Labs: Laboratory Results - last 24 hr 09/30/21 09/30/21 10/01/21 14:08 14:08 12:37 MCV MCH MCHC RDW Plt Count MPV Absolute Nucleated RBC Nucleated RBC % (auto) Neutrophils % (Manual) Band Neutrophils % Lymphocytes % (Manual) Monocytes % (Manual) Basophils % (Manual) Metamyelocytes % Myelocytes % Abs Neuts (Manual) Lymphocytes # (Manual) Monocytes # (Manual) Basophils # (Manual) Metamyelocytes # Myelocytes # Nucleated RBCs Platelet Estimate Plt Morphology Comment RBC Morphology Polychromasia Microcytosis Macrocytosis Spherocytes Tear Drop Cells Haptoglobin 228 H Anion Gap Estim Creat Clear Calc Estimated GFR POC Glucose Random Glucose Calcium Total Bilirubin AST ALT Alkaline Phosphatase Lactate Dehydrogenase Total Protein Albumin Tick-borne Disease PCR BLOOD Blood Type A Positive Antibody Screen NEGATIVE SERA, Polyspecific NEGATIVE Crossmatch See Detail 10/02/21 10/02/21 10/02/21 15:12 19:13 22:03 MCV MCH MCHC RDW Plt Count MPV Absolute Nucleated RBC Nucleated RBC % (auto) Neutrophils % (Manual) Band Neutrophils % Lymphocytes % (Manual) Monocytes % (Manual) Basophils % (Manual) Metamyelocytes % Myelocytes % Abs Neuts (Manual) Lymphocytes # (Manual) Monocytes # (Manual) Basophils # (Manual) Metamyelocytes # Myelocytes # Nucleated RBCs Platelet Estimate Plt Morphology Comment RBC Morphology Polychromasia Microcytosis Macrocytosis Spherocytes Tear Drop Cells Haptoglobin Anion Gap Estim Creat Clear Calc Estimated GFR POC Glucose 329 H 449 H* 372 H* Random Glucose Calcium Total Bilirubin AST ALT Alkaline Phosphatase Lactate Dehydrogenase Total Protein Albumin Tick-borne Disease PCR Blood Type Antibody Screen SERA, Polyspecific Crossmatch 10/02/21 10/03/21 10/03/21 23:35 03:14 05:26 MCV 99.2 H MCH 34.3 H MCHC 34.6 RDW 21.2 H Plt Count 8 L* MPV 11.4 Absolute Nucleated RBC 0.470 H Nucleated RBC % (auto) 9.3 H Neutrophils % (Manual) 58 Band Neutrophils % 13 H Lymphocytes % (Manual) 17 L Monocytes % (Manual) 2 Basophils % (Manual) 1 Metamyelocytes % 8 Myelocytes % 1 Abs Neuts (Manual) 3.6 Lymphocytes # (Manual) 0.9 L Monocytes # (Manual) 0.1 Basophils # (Manual) 0.1 Metamyelocytes # 0.4 Myelocytes # 0.1 Nucleated RBCs 10 H Platelet Estimate DECREASED Plt Morphology Comment NORMAL RBC Morphology NOTED Polychromasia 1+ (0-2) Microcytosis 1+ (5-14) Macrocytosis 1+ (5-14) Spherocytes 1+ (0-2) Tear Drop Cells 1+ (0-2) Haptoglobin Anion Gap Estim Creat Clear Calc Estimated GFR POC Glucose 274 H 125 H Random Glucose Calcium Total Bilirubin AST ALT Alkaline Phosphatase Lactate Dehydrogenase Total Protein Albumin Tick-borne Disease PCR Blood Type Antibody Screen SERA, Polyspecific Crossmatch 10/03/21 10/03/21 05:26 07:26 MCV MCH MCHC RDW Plt Count MPV Absolute Nucleated RBC Nucleated RBC % (auto) Neutrophils % (Manual) Band Neutrophils % Lymphocytes % (Manual) Monocytes % (Manual) Basophils % (Manual) Metamyelocytes % Myelocytes % Abs Neuts (Manual) Lymphocytes # (Manual) Monocytes # (Manual) Basophils # (Manual) Metamyelocytes # Myelocytes # Nucleated RBCs Platelet Estimate Plt Morphology Comment RBC Morphology Polychromasia Microcytosis Macrocytosis Spherocytes Tear Drop Cells Haptoglobin Anion Gap 15 Estim Creat Clear Calc 63.6 Estimated GFR > 60 POC Glucose 133 H Random Glucose 126 H Calcium 8.4 Total Bilirubin 0.7 AST 8 ALT 7 Alkaline Phosphatase 81 Lactate Dehydrogenase 258 Total Protein 5.8 L Albumin 3.1 L Tick-borne Disease PCR Blood Type Antibody Screen SERA, Polyspecific Crossmatch Assessment and Plan (1) Bicytopenia: Status: Acute (2) Anemia: Status: Acute (3) Thrombocytopenia: Status: Acute Plan hospital d#4 46yo M with T21, DM1, hypothyroidism presenting with thrombocytopenia + macrocytic anemia # thrombocytopenia # macrocytic anemia with mild hemolysis, SERA-negative - transfuse another 2u plts [got 1u 8/8/22 + 1u 10/02/21] - Hb stable p 2u pRBCs - Hematology consulted, started prednisone 60 mg/d 10/02/21. BM aspiration today - flow cytometry + tickborne pathogen PCR pending. HIV negative. # DM1 with steroid-induced hyperglycemia - continue long-acting insulin, increase sliding-scale lispro # hypothyroidism - continue LT4 # VTE ppx: SCDs, no heparin given thrombocytopenia In my clinical judgment, the patient requires continued hospitalization for the following reasons: critical thrombocytopenia requiring transfusion + anemia Quality Stroke Does the patient have a stroke diagnosis?: No VTE Prior VTE?: No VTE Risk Level:: Medical - low VTE Device Contraindication: Treatment Not Tolerated VTE Drug Contraindication: Treatment Not Tolerated
[2021-10-03 11:53] LABS: Glucose, Whole Blood 183 mg/dL (60-115)
[2021-10-03 12:59] LABS: Hematocrit 23.8 % (42.0-52.0); Hemoglobin 8.2 g/dl (14.0-18.0); Mean Corpuscular HGB Conc 34.5 g/dl (31.0-36.0); Mean Corpuscular Hemoglobin 34.7 pg (27.0-33.0); Mean Corpuscular Volume 100.8 fL (80.0-98.0); Mean Platelet Volume 9.9 fL (9.4-12.4); Red Blood Count 2.36 X10*6/uL (4.60-5.80); Red Cell Distribution Width 21.6 % (11.0-16.0); White Blood Count 5.5 X10*3/uL (4.8-10.8)
[2021-10-03 13:00] LABS: NRBC Pct Auto 7.5 /100WBC (0.0-0.2); Platelet Count 33 X10*3/uL (160-400)
[2021-10-03 13:46] LABS: A. Phagocytphilium DNA,RT-PCR NOT DETECTED (NOT DETECTED); Babesia Microti DNA, RT-PCR NOT DETECTED (NOT DETECTED); Borrelia Miyamotoi,DNA RT-PCR NOT DETECTED (NOT DETECTED); E.Chaffeensis DNA RT-PCR NOT DETECTED (NOT DETECTED); Lyme(Borrelia ssp)DNA RT-PCR NOT DETECTED (NOT DETECTED)
--- NOTE | 2021-10-03 14:00 | HO.ANESPROP2 ---
HPI - Anesthesia Eval Consult details Narrative: 46 M w/ T21 pf bone marrow bx PMFSH Active Problems Active Problems: All Active Problems (Updated 10/01/21 @ 13:09 by Crystal Dickens MD) Bicytopenia (Acute) Anemia (Acute) Thrombocytopenia (Acute) Family History Family history of problems with anesthesia: No Surgical History History of Problems with Anesthesia: No Social History Social History Household Members: Family Housing: House Do you presently have visiting nurse or other home services: No Patient Tobacco Use Status: Never used Tobacco e-Cigarette/Vaping Use: Never Used Use of substances other than those prescribed or required for medical reasons: No Currently Displaying Signs/Symptoms of Drug Intoxication Withdrawal: No Have you been hit, kicked, punched, or otherwise hurt by someone within the past year? If so, by whom?: No Do you feel safe in your current relationship?: No Current Relationship Is there a partner from a previous relationship who is making you feel unsafe now?: No Are you made to feel afraid or neglected: No Are you DNR?: No Advance Directives: Yes Advance Directives Information Provided: Yes Advance Directives on File: Yes Advance Directives Date on File: 09/30/21 Do you have thoughts of harming others: None Do you have a plan to hurt others: No Plan Recently lost weight without trying: No Nutrition Risks: No Nutritional Risk Poor oral hygiene: No service: No Current occupational status: other Meds Allergies Allergy/AdvReac Type Severity Reaction Status Date / Time No Known Allergies Allergy Verified 09/30/21 11:31 [No Known Allergies*] Active Medications: Current Medications Acetaminophen (Acetaminophen 325 Mg Tablet) 650 mg PO Q6H PRN PRN Reason: Pain, Mild (Pain Scale 1-3) Dextrose (Dextrose 50 % 25 Gm/50 Ml Syringe) 25 gm IVPUSH Q15M PRN; Protocol PRN Reason: per Hypoglycemia Standing Ord. Glucose (Glucose Gel 15 Gm Gel..Gram.) 15 gm PO Q15M PRN; Protocol PRN Reason: per Hypoglycemia Standing Ord. Acetaminophen (Ofirmev) 1,000 mg in 100 mls @ 400 mls/hr IV ONCE ONE Stop: 10/03/21 14:13 Insulin Glargine (Insulin Glargine,Hum.Rec.Anlog 100 Unit/Ml 10 Ml Vial) 21 unit SUBCUT DAILY [facility] Last Admin: 10/03/21 07:41 Dose: 21 unit Insulin Human Lispro (Insulin Lispro 100 Unit/Ml 3 Ml Vial) 0 unit SUBCUT QIDACHS [facility]; Protocol Last Admin: 10/03/21 12:31 Dose: Not Given Levothyroxine Sodium (Levothyroxine Sodium 125 Mcg Tablet) 125 mcg PO DAILY@06 [facility] Last Admin: 10/03/21 05:49 Dose: 125 mcg Ondansetron HCl (Ondansetron Hcl 4 Mg/2 Ml Vial) 4 mg IVPUSH Q8H PRN PRN Reason: Nausea and Vomiting Prednisone (Prednisone 20 Mg Tablet) 60 mg PO DAILY [facility] Last Admin: 10/03/21 07:40 Dose: 60 mg Sodium Chloride (0.9 % Sodium Chloride Flush 3 Ml Syringe) 3 ml IVFLUSH QSHIFT [facility] Last Admin: 10/03/21 07:41 Dose: 3 ml Home Medications Medication Instructions Recorded Confirmed Last Taken Type albuterol sulfate 90 mcg/actuation 2 puff inhalation Q4H 09/30/21 09/30/21 Unknown History aerosol inhaler insulin glargine 100 unit/mL (3 21 unit subcut DAILY 09/30/21 09/30/21 09/30/21 History mL) subcutaneous pen (Basaglar KwikPen U-100 Insulin) levothyroxine 125 mcg tablet 1 tab PO DAILY@0630 09/30/21 09/30/21 09/30/21 History Exam Exam Date and Time: October 03, 2021 1400 Height,Weight and Vital Signs: Height 5 ft 3 in Weight 147 lb 1.6 oz Last Vital Signs Temp 97.7 F 10/03/21 12:58 Pulse 65 10/03/21 12:58 Resp 18 10/03/21 12:58 BP 105/39 L 10/03/21 12:58 Pulse Ox 98 10/03/21 12:58 O2 Del Method 10/03/21 12:58 O2 Flow Rate 97 10/02/21 15:08 Pertinent Lab Results Pertinent Lab Results: Laboratory Tests 09/30/21 09/30/21 09/30/21 11:55 11:55 14:08 WBC 4.9 RBC 1.54 L Hgb 6.0 L* Hct 17.4 L* MCV 113.0 H MCH 39.0 H MCHC 34.5 RDW 18.5 H Plt Count 6 L* MPV 12.8 H Immature Gran % (Auto) Cancelled Neut % (Auto) Cancelled Lymph % (Auto) Cancelled Ponce % (Auto) Cancelled Eos % (Auto) Cancelled Baso % (Auto) Cancelled Lymph # (Auto) Cancelled Ponce # (Auto) Cancelled Eos # (Auto) Cancelled Baso # (Auto) Cancelled Abs Immat Gran (auto) Cancelled Absolute Neuts (auto) Cancelled Absolute Nucleated RBC 0.230 H Nucleated RBC % (auto) 4.7 H Neutrophils % (Manual) 38 L Band Neutrophils % 19 H Lymphocytes % (Manual) 29 Monocytes % (Manual) Basophils % (Manual) 1 Metamyelocytes % 5 Myelocytes % 6 Promyelocytes % 1 Blast Cells % (Manual) 1 Abs Neuts (Manual) 2.8 Lymphocytes # (Manual) 1.4 Monocytes # (Manual) Basophils # (Manual) Metamyelocytes # 0.2 Myelocytes # 0.3 Nucleated RBCs 6 H Platelet Estimate DECREASED Plt Morphology Comment NORMAL RBC Morphology NOTED Polychromasia 1+ (0-2) Hypochromasia 1+ (5-14) Basophilic Stippling 1+ (0-2) Microcytosis Macrocytosis 2+ (15-30) Spherocytes 2+ (3-5) Tear Drop Cells 1+ (0-2) Schistocytes 1+ (0-2) Absolute Retic 0.058 Percent Retic 3.8 H Immature Retic Fraction 39.1 H Retic Hgb Equivalent 42.3 H Haptoglobin PT 14.3 H INR 1.2 H APTT 31.5 Fibrinogen > 700 H Sodium 133 L Potassium 4.4 Chloride 98 Carbon Dioxide 25 Anion Gap 14 BUN 15 Creatinine 1.40 Estim Creat Clear Calc 53.6 Estimated GFR 55 POC Glucose Random Glucose 202 H Calcium 8.2 L Total Bilirubin 0.6 Direct Bilirubin AST 11 ALT 6 Alkaline Phosphatase 74 Lactate Dehydrogenase 328 H Total Protein 6.1 L Albumin 3.4 L A.phagocytophil DNA PCR Babesia microti DNA PCR Borrelia sp DNA (PCR) Borrelia miyamotoi (PCR) COVID-19 ([facility]ABA) COVID-19 Clin Com E.chaffeensis DNA (PCR) HIV 1&2 Ab/P24 Ag 4thGn Tick-borne Disease Ab Tick-borne Disease PCR Blood Type Antibody Screen SERA, Polyspecific Positive SERA Work-up Crossmatch 09/30/21 09/30/21 09/30/21 14:08 14:08 14:09 WBC RBC Hgb Hct MCV MCH MCHC RDW Plt Count MPV Immature Gran % (Auto) Neut % (Auto) Lymph % (Auto) Ponce % (Auto) Eos % (Auto) Baso % (Auto) Lymph # (Auto) Ponce # (Auto) Eos # (Auto) Baso # (Auto) Abs Immat Gran (auto) Absolute Neuts (auto) Absolute Nucleated RBC Nucleated RBC % (auto) Neutrophils % (Manual) Band Neutrophils % Lymphocytes % (Manual) Monocytes % (Manual) Basophils % (Manual) Metamyelocytes % Myelocytes % Promyelocytes % Blast Cells % (Manual) Abs Neuts (Manual) Lymphocytes # (Manual) Monocytes # (Manual) Basophils # (Manual) Metamyelocytes # Myelocytes # Nucleated RBCs Platelet Estimate Plt Morphology Comment RBC Morphology Polychromasia Hypochromasia Basophilic Stippling Microcytosis Macrocytosis Spherocytes Tear Drop Cells Schistocytes Absolute Retic Percent Retic Immature Retic Fraction Retic Hgb Equivalent Haptoglobin 228 H PT INR APTT Fibrinogen Sodium Potassium Chloride Carbon Dioxide Anion Gap BUN Creatinine Estim Creat Clear Calc Estimated GFR POC Glucose Random Glucose Calcium Total Bilirubin Direct Bilirubin AST ALT Alkaline Phosphatase Lactate Dehydrogenase Total Protein Albumin A.phagocytophil DNA PCR Babesia microti DNA PCR Borrelia sp DNA (PCR) Borrelia miyamotoi (PCR) COVID-19 (SABA) Negative COVID-19 Clin Com See Note E.chaffeensis DNA (PCR) HIV 1&2 Ab/P24 Ag 4thGn Tick-borne Disease Ab Tick-borne Disease PCR Blood Type A Positive Antibody Screen NEGATIVE SERA, Polyspecific NEGATIVE Positive SERA Work-up Not Reportable Crossmatch See Detail 09/30/21 09/30/21 10/01/21 19:43 20:52 05:19 WBC 5.4 RBC 2.36 L D Hgb 8.3 L D Hct 23.9 L D MCV 101.3 H D MCH 35.2 H MCHC 34.7 RDW 22.4 H Plt Count 14 L* D MPV 13.0 H Immature Gran % (Auto) Neut % (Auto) Lymph % (Auto) Ponce % (Auto) Eos % (Auto) Baso % (Auto) Lymph # (Auto) Ponce # (Auto) Eos # (Auto) Baso # (Auto) Abs Immat Gran (auto) Absolute Neuts (auto) Absolute Nucleated RBC 0.410 H Nucleated RBC % (auto) 7.6 H Neutrophils % (Manual) Band Neutrophils % Lymphocytes % (Manual) Monocytes % (Manual) Basophils % (Manual) Metamyelocytes % Myelocytes % Promyelocytes % Blast Cells % (Manual) Abs Neuts (Manual) Lymphocytes # (Manual) Monocytes # (Manual) Basophils # (Manual) Metamyelocytes # Myelocytes # Nucleated RBCs Platelet Estimate Plt Morphology Comment RBC Morphology Polychromasia Hypochromasia Basophilic Stippling Microcytosis Macrocytosis Spherocytes Tear Drop Cells Schistocytes Absolute Retic Percent Retic Immature Retic Fraction Retic Hgb Equivalent Haptoglobin PT INR APTT Fibrinogen Sodium Potassium Chloride Carbon Dioxide Anion Gap BUN Creatinine Estim Creat Clear Calc Estimated GFR POC Glucose 161 H 224 H Random Glucose Calcium Total Bilirubin Direct Bilirubin AST ALT Alkaline Phosphatase Lactate Dehydrogenase Total Protein Albumin A.phagocytophil DNA PCR Babesia microti DNA PCR Borrelia sp DNA (PCR) Borrelia miyamotoi (PCR) COVID-19 (SABA) COVID-19 Clin Com E.chaffeensis DNA (PCR) HIV 1&2 Ab/P24 Ag 4thGn Tick-borne Disease Ab Tick-borne Disease PCR Blood Type Antibody Screen SERA, Polyspecific Positive SERA Work-up Crossmatch 10/01/21 10/01/21 10/01/21 05:19 06:52 11:03 WBC RBC Hgb Hct MCV MCH MCHC RDW Plt Count MPV Immature Gran % (Auto) Neut % (Auto) Lymph % (Auto) Ponce % (Auto) Eos % (Auto) Baso % (Auto) Lymph # (Auto) Ponce # (Auto) Eos # (Auto) Baso # (Auto) Abs Immat Gran (auto) Absolute Neuts (auto) Absolute Nucleated RBC Nucleated RBC % (auto) Neutrophils % (Manual) Band Neutrophils % Lymphocytes % (Manual) Monocytes % (Manual) Basophils % (Manual) Metamyelocytes % Myelocytes % Promyelocytes % Blast Cells % (Manual) Abs Neuts (Manual) Lymphocytes # (Manual) Monocytes # (Manual) Basophils # (Manual) Metamyelocytes # Myelocytes # Nucleated RBCs Platelet Estimate Plt Morphology Comment RBC Morphology Polychromasia Hypochromasia Basophilic Stippling Microcytosis Macrocytosis Spherocytes Tear Drop Cells Schistocytes Absolute Retic Percent Retic Immature Retic Fraction Retic Hgb Equivalent Haptoglobin PT INR APTT Fibrinogen Sodium 133 L Potassium 4.3 Chloride 100 Carbon Dioxide 25 Anion Gap 12 BUN 15 Creatinine 1.29 Estim Creat Clear Calc 58.1 Estimated GFR > 60 POC Glucose 123 H 211 H Random Glucose 138 H Calcium 8.0 L Total Bilirubin 2.6 H Direct Bilirubin 0.7 H AST 12 ALT 6 Alkaline Phosphatase 75 Lactate Dehydrogenase 405 H Total Protein 5.6 L Albumin 3.1 L A.phagocytophil DNA PCR Babesia microti DNA PCR Borrelia sp DNA (PCR) Borrelia miyamotoi (PCR) COVID-19 ([facility]ABA) COVID-19 Clin Com E.chaffeensis DNA (PCR) HIV 1&2 Ab/P24 Ag 4thGn Tick-borne Disease Ab Tick-borne Disease PCR Blood Type Antibody Screen SERA, Polyspecific Positive SERA Work-up Crossmatch 10/01/21 10/01/21 10/01/21 12:37 15:38 19:39 WBC RBC Hgb Hct MCV MCH MCHC RDW Plt Count MPV Immature Gran % (Auto) Neut % (Auto) Lymph % (Auto) Ponce % (Auto) Eos % (Auto) Baso % (Auto) Lymph # (Auto) Ponce # (Auto) Eos # (Auto) Baso # (Auto) Abs Immat Gran (auto) Absolute Neuts (auto) Absolute Nucleated RBC Nucleated RBC % (auto) Neutrophils % (Manual) Band Neutrophils % Lymphocytes % (Manual) Monocytes % (Manual) Basophils % (Manual) Metamyelocytes % Myelocytes % Promyelocytes % Blast Cells % (Manual) Abs Neuts (Manual) Lymphocytes # (Manual) Monocytes # (Manual) Basophils # (Manual) Metamyelocytes # Myelocytes # Nucleated RBCs Platelet Estimate Plt Morphology Comment RBC Morphology Polychromasia Hypochromasia Basophilic Stippling Microcytosis Macrocytosis Spherocytes Tear Drop Cells Schistocytes Absolute Retic Percent Retic Immature Retic Fraction Retic Hgb Equivalent Haptoglobin PT INR APTT Fibrinogen Sodium Potassium Chloride Carbon Dioxide Anion Gap BUN Creatinine Estim Creat Clear Calc Estimated GFR POC Glucose 178 H 203 H Random Glucose Calcium Total Bilirubin Direct Bilirubin AST ALT Alkaline Phosphatase Lactate Dehydrogenase Total Protein Albumin A.phagocytophil DNA PCR NOT DETECTED Babesia microti DNA PCR NOT DETECTED Borrelia sp DNA (PCR) NOT DETECTED Borrelia miyamotoi (PCR) NOT DETECTED COVID-19 ([facility]) COVID-19 Clin Com E.chaffeensis DNA (PCR) NOT DETECTED HIV 1&2 Ab/P24 Ag 4thGn Tick-borne Disease Ab SEE NOTE Tick-borne Disease PCR BLOOD Blood Type Antibody Screen SERA, Polyspecific Positive SERA Work-up Crossmatch 10/02/21 10/02/21 10/02/21 05:21 05:21 06:52 WBC 4.8 RBC 2.34 L Hgb 8.3 L Hct 23.8 L MCV 101.7 H MCH 35.5 H MCHC 34.9 RDW 22.3 H Plt Count 8 L* MPV Not Reportable Immature Gran % (Auto) Neut % (Auto) Lymph % (Auto) Ponce % (Auto) Eos % (Auto) Baso % (Auto) Lymph # (Auto) Ponce # (Auto) Eos # (Auto) Baso # (Auto) Abs Immat Gran (auto) Absolute Neuts (auto) Absolute Nucleated RBC 0.320 H Nucleated RBC % (auto) 6.7 H Neutrophils % (Manual) Band Neutrophils % Lymphocytes % (Manual) Monocytes % (Manual) Basophils % (Manual) Metamyelocytes % Myelocytes % Promyelocytes % Blast Cells % (Manual) Abs Neuts (Manual) Lymphocytes # (Manual) Monocytes # (Manual) Basophils # (Manual) Metamyelocytes # Myelocytes # Nucleated RBCs Platelet Estimate Plt Morphology Comment RBC Morphology Polychromasia Hypochromasia Basophilic Stippling Microcytosis Macrocytosis Spherocytes Tear Drop Cells Schistocytes Absolute Retic Percent Retic Immature Retic Fraction Retic Hgb Equivalent Haptoglobin PT INR APTT Fibrinogen Sodium Potassium Chloride Carbon Dioxide Anion Gap BUN Creatinine Estim Creat Clear Calc Estimated GFR POC Glucose 128 H Random Glucose Calcium Total Bilirubin Direct Bilirubin AST ALT Alkaline Phosphatase Lactate Dehydrogenase Total Protein Albumin A.phagocytophil DNA PCR Babesia microti DNA PCR Borrelia sp DNA (PCR) Borrelia miyamotoi (PCR) COVID-19 (SABA) COVID-19 Clin Com E.chaffeensis DNA (PCR) HIV 1&2 Ab/P24 Ag 4thGn Nonreactive Tick-borne Disease Ab Tick-borne Disease PCR Blood Type Antibody Screen SERA, Polyspecific Positive SERA Work-up Crossmatch 10/02/21 10/02/21 10/02/21 11:21 15:12 19:13 WBC RBC Hgb Hct MCV MCH MCHC RDW Plt Count MPV Immature Gran % (Auto) Neut % (Auto) Lymph % (Auto) Ponce % (Auto) Eos % (Auto) Baso % (Auto) Lymph # (Auto) Ponce # (Auto) Eos # (Auto) Baso # (Auto) Abs Immat Gran (auto) Absolute Neuts (auto) Absolute Nucleated RBC Nucleated RBC % (auto) Neutrophils % (Manual) Band Neutrophils % Lymphocytes % (Manual) Monocytes % (Manual) Basophils % (Manual) Metamyelocytes % Myelocytes % Promyelocytes % Blast Cells % (Manual) Abs Neuts (Manual) Lymphocytes # (Manual) Monocytes # (Manual) Basophils # (Manual) Metamyelocytes # Myelocytes # Nucleated RBCs Platelet Estimate Plt Morphology Comment RBC Morphology Polychromasia Hypochromasia Basophilic Stippling Microcytosis Macrocytosis Spherocytes Tear Drop Cells Schistocytes Absolute Retic Percent Retic Immature Retic Fraction Retic Hgb Equivalent Haptoglobin PT INR APTT Fibrinogen Sodium Potassium Chloride Carbon Dioxide Anion Gap BUN Creatinine Estim Creat Clear Calc Estimated GFR POC Glucose 197 H 329 H 449 H* Random Glucose Calcium Total Bilirubin Direct Bilirubin AST ALT Alkaline Phosphatase Lactate Dehydrogenase Total Protein Albumin A.phagocytophil DNA PCR Babesia microti DNA PCR Borrelia sp DNA (PCR) Borrelia miyamotoi (PCR) COVID-19 ([facility]ABA) COVID-19 Clin Com E.chaffeensis DNA (PCR) HIV 1&2 Ab/P24 Ag 4thGn Tick-borne Disease Ab Tick-borne Disease PCR Blood Type Antibody Screen SERA, Polyspecific Positive SERA Work-up Crossmatch 10/02/21 10/02/21 10/03/21 22:03 23:35 03:14 WBC RBC Hgb Hct MCV MCH MCHC RDW Plt Count MPV Immature Gran % (Auto) Neut % (Auto) Lymph % (Auto) Ponce % (Auto) Eos % (Auto) Baso % (Auto) Lymph # (Auto) Ponce # (Auto) Eos # (Auto) Baso # (Auto) Abs Immat Gran (auto) Absolute Neuts (auto) Absolute Nucleated RBC Nucleated RBC % (auto) Neutrophils % (Manual) Band Neutrophils % Lymphocytes % (Manual) Monocytes % (Manual) Basophils % (Manual) Metamyelocytes % Myelocytes % Promyelocytes % Blast Cells % (Manual) Abs Neuts (Manual) Lymphocytes # (Manual) Monocytes # (Manual) Basophils # (Manual) Metamyelocytes # Myelocytes # Nucleated RBCs Platelet Estimate Plt Morphology Comment RBC Morphology Polychromasia Hypochromasia Basophilic Stippling Microcytosis Macrocytosis Spherocytes Tear Drop Cells Schistocytes Absolute Retic Percent Retic Immature Retic Fraction Retic Hgb Equivalent Haptoglobin PT INR APTT Fibrinogen Sodium Potassium Chloride Carbon Dioxide Anion Gap BUN Creatinine Estim Creat Clear Calc Estimated GFR POC Glucose 372 H* 274 H 125 H Random Glucose Calcium Total Bilirubin Direct Bilirubin AST ALT Alkaline Phosphatase Lactate Dehydrogenase Total Protein Albumin A.phagocytophil DNA PCR Babesia microti DNA PCR Borrelia sp DNA (PCR) Borrelia miyamotoi (PCR) COVID-19 ([facility]ABA) COVID-19 Clin Com E.chaffeensis DNA (PCR) HIV 1&2 Ab/P24 Ag 4thGn Tick-borne Disease Ab Tick-borne Disease PCR Blood Type Antibody Screen SERA, Polyspecific Positive SERA Work-up Crossmatch 10/03/21 10/03/21 10/03/21 05:26 05:26 07:26 WBC 5.1 RBC 2.39 L Hgb 8.2 L Hct 23.7 L MCV 99.2 H MCH 34.3 H MCHC 34.6 RDW 21.2 H Plt Count 8 L* MPV 11.4 Immature Gran % (Auto) Neut % (Auto) Lymph % (Auto) Ponce % (Auto) Eos % (Auto) Baso % (Auto) Lymph # (Auto) Ponce # (Auto) Eos # (Auto) Baso # (Auto) Abs Immat Gran (auto) Absolute Neuts (auto) Absolute Nucleated RBC 0.470 H Nucleated RBC % (auto) 9.3 H Neutrophils % (Manual) 58 Band Neutrophils % 13 H Lymphocytes % (Manual) 17 L Monocytes % (Manual) 2 Basophils % (Manual) 1 Metamyelocytes % 8 Myelocytes % 1 Promyelocytes % Blast Cells % (Manual) Abs Neuts (Manual) 3.6 Lymphocytes # (Manual) 0.9 L Monocytes # (Manual) 0.1 Basophils # (Manual) 0.1 Metamyelocytes # 0.4 Myelocytes # 0.1 Nucleated RBCs 10 H Platelet Estimate DECREASED Plt Morphology Comment NORMAL RBC Morphology NOTED Polychromasia 1+ (0-2) Hypochromasia Basophilic Stippling Microcytosis 1+ (5-14) Macrocytosis 1+ (5-14) Spherocytes 1+ (0-2) Tear Drop Cells 1+ (0-2) Schistocytes Absolute Retic Percent Retic Immature Retic Fraction Retic Hgb Equivalent Haptoglobin PT INR APTT Fibrinogen Sodium 134 L Potassium 4.3 Chloride 98 Carbon Dioxide 25 Anion Gap 15 BUN 20 H Creatinine 1.18 Estim Creat Clear Calc 63.6 Estimated GFR > 60 POC Glucose 133 H Random Glucose 126 H Calcium 8.4 Total Bilirubin 0.7 Direct Bilirubin AST 8 ALT 7 Alkaline Phosphatase 81 Lactate Dehydrogenase 258 Total Protein 5.8 L Albumin 3.1 L A.phagocytophil DNA PCR Babesia microti DNA PCR Borrelia sp DNA (PCR) Borrelia miyamotoi (PCR) COVID-19 ([facility]) COVID-19 Clin Com E.chaffeensis DNA (PCR) HIV 1&2 Ab/P24 Ag 4thGn Tick-borne Disease Ab Tick-borne Disease PCR Blood Type Antibody Screen SERA, Polyspecific Positive SERA Work-up Crossmatch 10/03/21 10/03/21 11:47 12:47 WBC 5.5 RBC 2.36 L Hgb 8.2 L Hct 23.8 L MCV 100.8 H MCH 34.7 H MCHC 34.5 RDW 21.6 H Plt Count 33 L D MPV 9.9 Immature Gran % (Auto) Neut % (Auto) Lymph % (Auto) Ponce % (Auto) Eos % (Auto) Baso % (Auto) Lymph # (Auto) Ponce # (Auto) Eos # (Auto) Baso # (Auto) Abs Immat Gran (auto) Absolute Neuts (auto) Absolute Nucleated RBC 0.410 H Nucleated RBC % (auto) 7.5 H Neutrophils % (Manual) Band Neutrophils % Lymphocytes % (Manual) Monocytes % (Manual) Basophils % (Manual) Metamyelocytes % Myelocytes % Promyelocytes % Blast Cells % (Manual) Abs Neuts (Manual) Lymphocytes # (Manual) Monocytes # (Manual) Basophils # (Manual) Metamyelocytes # Myelocytes # Nucleated RBCs Platelet Estimate Plt Morphology Comment RBC Morphology Polychromasia Hypochromasia Basophilic Stippling Microcytosis Macrocytosis Spherocytes Tear Drop Cells Schistocytes Absolute Retic Percent Retic Immature Retic Fraction Retic Hgb Equivalent Haptoglobin PT INR APTT Fibrinogen Sodium Potassium Chloride Carbon Dioxide Anion Gap BUN Creatinine Estim Creat Clear Calc Estimated GFR POC Glucose 183 H Random Glucose Calcium Total Bilirubin Direct Bilirubin AST ALT Alkaline Phosphatase Lactate Dehydrogenase Total Protein Albumin A.phagocytophil DNA PCR Babesia microti DNA PCR Borrelia sp DNA (PCR) Borrelia miyamotoi (PCR) COVID-19 ([facility]) COVID-19 Clin Com E.chaffeensis DNA (PCR) HIV 1&2 Ab/P24 Ag 4thGn Tick-borne Disease Ab Tick-borne Disease PCR Blood Type Antibody Screen SERA, Polyspecific Positive SERA Work-up Crossmatch Airway Mallampati Class: III TM Dist: >3cm Neck ROM: Limited Loose/Missing/Broken Teeth: Yes Assessment and Plan Final Anesthetic Review Family History of Problems with Anesthesia: No History of Problems with Anesthesia: No NPO: Yes ASA Class: III Final Preanesthetic Review: No Changes in Pt Med Stat, Meds/Allgs Chart Reviewed, Consent Obtained/Reviewed and Anes Risks/Benef Reviewed Patient Risk: Intermediate Procedure Risk: Low Anesthetic Plan Anesthetic Plan: MAC: Disposition: Standard PACU
[2021-10-03 14:48] LABS: Bone Marrow SEE SEPARATE REPORT
--- NOTE | 2021-10-03 15:15 | PM.HEMONCBM ---
Bone Marrow Aspiration - Bone Marrow Aspiration Procedure:: Bone marrow aspiration/biopsy Pre Op Diagnosis:: Severe anemia/thrombocytopenia Post Op Diagnosis:: Same Surgeon:: Crystal Dickens MD Anesthesia:: Local anesthesia and MAC Consent:: Informed consent obtained from patient's parents for the procedure. Pros and cons of biopsy explained. They were willing to proceed with the procedure under local and monitored anesthesia. Procedure in Detail:: The patient was positioned in left lateral decubitus and the right posterior superior iliac spine prepped and draped. Under aseptic precautions, 15 ml 1% and 5 ml of 2% lidocaine used for local anesthesia. With the Jamshidi needle, 10 ml of aspirate and 1cm core biopsy obtained without any complications. Bandage was applied and patient was positioned on back for 10 to 15 minutes after the procedure. The patient was advised to call us if he develops any pain or swelling at the surgical site. Follow up in 2 weeks.
[2021-10-03 15:37] LABS: Glucose, Whole Blood 268 mg/dL (60-115)
--- NOTE | 2021-10-03 16:28 | PCS.ADM ---
Admission Admission Assessment Start: 09/30/21 18:00 Freq: .Upon Admission Status: Complete Protocol: Document 09/30/21 18:03 NOAMVIKTORIA (Rec: 09/30/21 18:05 NOAMVIKTORIA [id number]) General Questions Date of Arrival on Unit 09/30/21 Time of Arrival on Unit 18:03 Admitted From Emergency Dept Mode of Arrival Stretcher Reason for Visit: Needs blood transfusion sent by [facility] History Provided By Family Member,Patient Admission information reviewed with Yes patient/family Preferred Language Portuguese [employer]ric[employer] Operator Needed No Travel Outside the Country in the Last No 21 Days Neurological Neurological - Within Defined Parameters Yes Behavior Behavioral - Within Defined Parameters Yes EENT EENT - Within Defined Parameters Yes Cardiovascular Cardiovascular - Within Defined Yes Parameters Respiratory Respiratory - Within Defined Parameters Yes Gastrointestinal Gastrointestinal - Within Defined Yes Parameters Genitourinary Genitourinary - Within Defined Yes Parameters Integumentary Integumentary - Within Defined Yes, except Parameters Color Pale Musculoskeletal Musculoskeletal - Within Defined Yes Parameters
[2021-10-03 19:08] LABS: Glucose, Whole Blood 364 mg/dL (60-115)
[2021-10-03 21:57] LABS: Glucose, Whole Blood 299 mg/dL (60-115)
[2021-10-04 03:50] VITALS: BP 124/58; PULSE 70; RESP 18; TEMP 36.4; O2SAT 100
[2021-10-04] MEDS: Levothyroxine Sodium 125 MCG TABLET PO (05:38)
[2021-10-04 06:27] LABS: Baso%MD 0.7 %; Eos%MD 0.1 %; Hematocrit 23.9 % (42.0-52.0); Hemoglobin 8.2 g/dl (14.0-18.0); IG%MD 13.8 %; Lymph%MD 45.1 %; Mean Corpuscular HGB Conc 34.3 g/dl (31.0-36.0); Mean Corpuscular Hemoglobin 35.2 pg (27.0-33.0); Mean Corpuscular Volume 102.6 fL (80.0-98.0); Mean Platelet Volume 9.6 fL (9.4-12.4); Mono%MD 9.4 %; Neut%MD 30.9 %; Red Blood Count 2.33 X10*6/uL (4.60-5.80); Red Cell Distribution Width 21.2 % (11.0-16.0); White Blood Count 8.2 X10*3/uL (4.8-10.8)
[2021-10-04 06:39] LABS: NRBC Pct Auto 5.5 /100WBC (0.0-0.2)
[2021-10-04 06:42] LABS: Alanine Aminotransferase 7 U/L (0-40); Albumin Level 2.8 g/dL (3.5-5.0); Alkaline Phosphatase 69 U/L (39-117); Anion Gap 14 (12-20); Aspartate Amino Transferase 10 U/L (5-37); Bilirubin Total 0.5 mg/dL (0.0-1.0); Blood Urea Nitrogen 20 mg/dL (9-16); Calcium 7.9 mg/dL (8.4-10.2); Carbon Dioxide 24 mmol/L (22-29); Chloride 99 mmol/L (96-108); Estimated Glomerular Filt Rate > 60; Glucose Random 164 mg/dL (60-115); Lactate Dehydrogenase 322 U/L (118-273); Potassium 4.5 mmol/L (3.3-5.1); Sodium 132 mmol/L (135-145); Total Protein 5.2 g/dL (6.5-8.0)
[2021-10-04 06:58] LABS: Platelet Count 12 X10*3/uL (160-400)
[2021-10-04 07:34] VITALS: BP 113/70; PULSE 70; RESP 18; TEMP 36.3; O2SAT 98
[2021-10-04 07:39] LABS: Glucose, Whole Blood 147 mg/dL (60-115)
[2021-10-04 07:41] LABS: Atypical Lymphs Percent Manual 24 % (0-6); Band Neutrophils Percent 8 % (3-5); Lymphocytes Absolute Manual 1.9 X10*3/uL (1.2-4.9); Lymphocytes Percent Manual 23 % (20-40); Metamyelocytes Absolute 0.3 X10*3/uL; Metamyelocytes Percent 4 %; Myelocytes Absolute 0.4 X10*/uL; Myelocytes Percent 5 %; Neutrophils Absolute Manual 3.4 X10*3/uL (2.0-8.3); Neutrophils Percent Manual 33 % (45-73); Nucleated Red Blood Cells 7 /100WBC (0-0); Promyelocytes Absolute 0.2 X10*3/uL; Promyelocytes Percent 3 %
[2021-10-04 07:45] LABS: Macrocytosis 1+ (5-14) /OIF; Microcytosis 1+ (5-14) /OIF; Platelet Estimate DECREASED (NORMAL); Platelet Morphology Comment NORM; Polychromasia 1+ (0-2) /OIF; RBC Morphology NOTED; Tear Drop Cells 1+ (0-2) /OIF
[2021-10-04] MEDS: Insulin Lispro 100 UNIT/ML 3 ML VIAL SUBCUT ×2 (07:50→12:18)
[2021-10-04] MEDS: predniSONE 20 MG TABLET 60 MG PO (07:50)
[2021-10-04] MEDS: Insulin Glargine,Hum.rec.anlog 100 UNIT/ML 10 ML VIAL 21 UNIT SUBCUT (07:51)
[2021-10-04] MEDS: 0.9 % Sodium Chloride Flush 3 ML SYRINGE IVFLUSH (08:40)
--- NOTE | 2021-10-04 09:54 | P.EN_ITS ---
CBC today shows persistent thrombocytopenia. Bone marrow aspiration/biopsy was performed yesterday. 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 I discussed this with patient's mother who is his healthcare proxy. Patient will be transferred to a tertiary hospital where inpatient chemotherapy for treatment of acute leukemia can be initiated. [facility] well as [facility] will be contacted. I appreciate hospitalist input in this matter. Thank you.
--- NOTE | 2021-10-04 10:37 | HO.POSTANES ---
Post Anesthesia Evaluation Post Anesthesia Evaluation Vital Signs: Vital Signs Temp Pulse Resp BP Pulse Ox O2 Del Method 10/04/21 07:34 97.3 F 70 18 113/70 98 Room Air 10/04/21 03:50 97.5 F 70 18 124/58 L 100 Room Air 10/03/21 23:59 96.9 F 68 18 99/55 L 98 Room Air Anesthesia: Monitored Mental Status: Awake Pain Control: Satisfactory Nausea/Vomiting: None Hydration: Adequate Anesthesia-Related Issues: No Anes. Related Issues
[2021-10-04 11:28] VITALS: BP 111/57; PULSE 67; RESP 17; TEMP 36.2; O2SAT 95
[2021-10-04 11:38] LABS: Glucose, Whole Blood 327 mg/dL (60-115)
--- NOTE | 2021-10-04 11:48 | HO.PM.IMPN ---
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 Accepted at [facility] [place], [place] bed No bleeding Review of Systems Review of Systems: Yes all other systems are reviewed and are negative Physical Exam Vital Signs: Vital Signs: Last Vital Signs Temp 97.1 F 10/04/21 11:28 Pulse 67 10/04/21 11:28 Resp 17 10/04/21 11:28 BP 111/57 L 10/04/21 11:28 Pulse Ox 95 10/04/21 11:28 O2 Del Method 10/04/21 11:28 O2 Flow Rate 97 10/02/21 15:08 BMI result Body Mass Index 26.0 Gen: in no acute distress HEENT: sclera anciteric, moist mucus membranes Neck: supple Lungs: clear to auscultation bilaterally Heart: regular rate and rhythm, no murmurs Abd: soft, non-tender, non-distended, spleen tip palpable, scattered petechiae Ext: no edema Skin: warm/well-perfused, pale Neuro: alert and oriented x3, no focal findings Psych: appropriate affect Objective Data Active Medications Acetaminophen (Acetaminophen 325 Mg Tablet) 650 mg PO Q6H PRN PRN Reason: Pain, Mild (Pain Scale 1-3) Dextrose (Dextrose 50 % 25 Gm/50 Ml Syringe) 25 gm IVPUSH Q15M PRN; Protocol PRN Reason: per Hypoglycemia Standing Ord. Glucose (Glucose Gel 15 Gm Gel..Gram.) 15 gm PO Q15M PRN; Protocol PRN Reason: per Hypoglycemia Standing Ord. Insulin Glargine (Insulin Glargine,Hum.Rec.Anlog 100 Unit/Ml 10 Ml Vial) 21 unit SUBCUT DAILY COUNTS INCLUDE 234 BEDS AT THE [facility] Last Admin: 10/04/21 07:51 Dose: 21 unit Documented By: PRISCILA Insulin Human Lispro (Insulin Lispro 100 Unit/Ml 3 Ml Vial) 0 unit SUBCUT QIDACHS COUNTS INCLUDE 234 BEDS AT THE [facility]; Protocol Last Admin: 10/04/21 07:50 Dose: 2 unit Documented By: PRISCILA Levothyroxine Sodium (Levothyroxine Sodium 125 Mcg Tablet) 125 mcg PO DAILY@0630 COUNTS INCLUDE 234 BEDS AT THE [facility] Last Admin: 10/04/21 05:38 Dose: 125 mcg Documented By: TRAE Ondansetron HCl (Ondansetron Hcl 4 Mg/2 Ml Vial) 4 mg IVPUSH Q8H PRN PRN Reason: Nausea and Vomiting Sodium Chloride (0.9 % Sodium Chloride Flush 3 Ml Syringe) 3 ml IVFLUSH QSHIFT LETI Last Admin: 10/04/21 08:40 Dose: 3 ml Documented By: PRISCILA Labs CBC & Chem 7: 10/04/21 05:21 10/04/21 05:21 Labs: Laboratory Results - last 24 hr 09/30/21 10/01/21 10/03/21 14:08 12:37 11:47 MCV MCH MCHC RDW Plt Count MPV Absolute Nucleated RBC Nucleated RBC % (auto) Neutrophils % (Manual) Band Neutrophils % Lymphocytes % (Manual) Atypical Lymphs % (Man) Metamyelocytes % Myelocytes % Promyelocytes % Abs Neuts (Manual) Lymphocytes # (Manual) Atyp Lymphs # (Manual) Metamyelocytes # Myelocytes # Promyelocytes # Nucleated RBCs Platelet Estimate Plt Morphology Comment RBC Morphology Polychromasia Microcytosis Macrocytosis Tear Drop Cells Anion Gap Estim Creat Clear Calc Estimated GFR POC Glucose 183 H Random Glucose Calcium Total Bilirubin AST ALT Alkaline Phosphatase Lactate Dehydrogenase Total Protein Albumin A.phagocytophil DNA PCR NOT DETECTED Babesia microti DNA PCR NOT DETECTED Borrelia sp DNA (PCR) NOT DETECTED Borrelia miyamotoi (PCR) NOT DETECTED E.chaffeensis DNA (PCR) NOT DETECTED Tick-borne Disease Ab SEE NOTE Blood Type A Positive Antibody Screen NEGATIVE SERA, Polyspecific NEGATIVE Crossmatch See Detail 10/03/21 10/03/21 10/03/21 12:47 15:32 19:03 MCV 100.8 H MCH 34.7 H MCHC 34.5 RDW 21.6 H Plt Count 33 L D MPV 9.9 Absolute Nucleated RBC 0.410 H Nucleated RBC % (auto) 7.5 H Neutrophils % (Manual) Band Neutrophils % Lymphocytes % (Manual) Atypical Lymphs % (Man) Metamyelocytes % Myelocytes % Promyelocytes % Abs Neuts (Manual) Lymphocytes # (Manual) Atyp Lymphs # (Manual) Metamyelocytes # Myelocytes # Promyelocytes # Nucleated RBCs Platelet Estimate Plt Morphology Comment RBC Morphology Polychromasia Microcytosis Macrocytosis Tear Drop Cells Anion Gap Estim Creat Clear Calc Estimated GFR POC Glucose 268 H 364 H* Random Glucose Calcium Total Bilirubin AST ALT Alkaline Phosphatase Lactate Dehydrogenase Total Protein Albumin A.phagocytophil DNA PCR Babesia microti DNA PCR Borrelia sp DNA (PCR) Borrelia miyamotoi (PCR) E.chaffeensis DNA (PCR) Tick-borne Disease Ab Blood Type Antibody Screen SERA, Polyspecific Crossmatch 10/03/21 10/04/21 10/04/21 21:53 05:21 05:21 MCV 102.6 H MCH 35.2 H MCHC 34.3 RDW 21.2 H Plt Count 12 L* D MPV 9.6 Absolute Nucleated RBC 0.450 H Nucleated RBC % (auto) 5.5 H Neutrophils % (Manual) 33 L Band Neutrophils % 8 H Lymphocytes % (Manual) 23 Atypical Lymphs % (Man) 24 H Metamyelocytes % 4 Myelocytes % 5 Promyelocytes % 3 Abs Neuts (Manual) 3.4 Lymphocytes # (Manual) 1.9 Atyp Lymphs # (Manual) 2.0 Metamyelocytes # 0.3 Myelocytes # 0.4 Promyelocytes # 0.2 Nucleated RBCs 7 H Platelet Estimate DECREASED Plt Morphology Comment NORM RBC Morphology NOTED Polychromasia 1+ (0-2) Microcytosis 1+ (5-14) Macrocytosis 1+ (5-14) Tear Drop Cells 1+ (0-2) Anion Gap 14 Estim Creat Clear Calc 60.0 Estimated GFR > 60 POC Glucose 299 H Random Glucose 164 H Calcium 7.9 L Total Bilirubin 0.5 AST 10 ALT 7 Alkaline Phosphatase 69 Lactate Dehydrogenase 322 H Total Protein 5.2 L Albumin 2.8 L A.phagocytophil DNA PCR Babesia microti DNA PCR Borrelia sp DNA (PCR) Borrelia miyamotoi (PCR) E.chaffeensis DNA (PCR) Tick-borne Disease Ab Blood Type Antibody Screen SERA, Polyspecific Crossmatch 10/04/21 10/04/21 07:33 11:30 MCV MCH MCHC RDW Plt Count MPV Absolute Nucleated RBC Nucleated RBC % (auto) Neutrophils % (Manual) Band Neutrophils % Lymphocytes % (Manual) Atypical Lymphs % (Man) Metamyelocytes % Myelocytes % Promyelocytes % Abs Neuts (Manual) Lymphocytes # (Manual) Atyp Lymphs # (Manual) Metamyelocytes # Myelocytes # Promyelocytes # Nucleated RBCs Platelet Estimate Plt Morphology Comment RBC Morphology Polychromasia Microcytosis Macrocytosis Tear Drop Cells Anion Gap Estim Creat Clear Calc Estimated GFR POC Glucose 147 H 327 H Random Glucose Calcium Total Bilirubin AST ALT Alkaline Phosphatase Lactate Dehydrogenase Total Protein Albumin A.phagocytophil DNA PCR Babesia microti DNA PCR Borrelia sp DNA (PCR) Borrelia miyamotoi (PCR) E.chaffeensis DNA (PCR) Tick-borne Disease Ab Blood Type Antibody Screen SERA, Polyspecific Crossmatch Assessment and Plan (1) Bicytopenia: Status: Acute (2) Anemia: Status: Acute (3) Thrombocytopenia: Status: Acute Plan hospital d#4 46yo M with T21, DM1, hypothyroidism presenting with thrombocytopenia + macrocytic anemia found to have acute B-cell lymphoblastic leukemia # acute B-cell lymphoblastic leukemia - awaiting transfer to [facility] for induction chemotherapy - Hb stable p 2u pRBCs - has been transfused total 4u platelets; transfuse additional if plts <10, monitoring for bleeding - d/c prednisone # DM1 with steroid-induced hyperglycemia - continue long-acting insulin, increase sliding-scale lispro # hypothyroidism - continue LT4 # VTE ppx: SCDs, no heparin given thrombocytopenia In my clinical judgment, the patient requires continued hospitalization for the following reasons: ALL Quality Stroke Does the patient have a stroke diagnosis?: No VTE Prior VTE?: No VTE Risk Level:: Medical - low VTE Device Contraindication: Treatment Not Tolerated VTE Drug Contraindication: Treatment Not Tolerated
[2021-10-04 15:33] VITALS: BP 108/59; PULSE 66; RESP 18; TEMP 36.1; O2SAT 95
--- NOTE | 2021-10-04 15:47 | P.DS_ITS ---
DS: Providers Provider Date of Service: 10/04/21 Date of admission: 09/30/21 14:47 Date of discharge: 10/04/21 Primary care physician: Teodoro Briones MD Consults: 09/30/21 13:57 Consult to Hematology / Oncology Routine Consulting Provider: Crystal Dickens Reason for consultation: thrombocytoepnia/anemia Discharging clinician: Jael Cullen DS: Transfer Hospital Acceptance Reason for Transfer: tertiary care Name of Facility: [facility] DS: Diagnosis Discharge Diagnosis (1) B-cell acute lymphoblastic leukemia (ALL): Status: Acute (2) Steroid-induced hyperglycemia: Status: Acute (3) Type 2 diabetes mellitus: Status: Acute (4) Trisomy 21: Status: Acute DS: Summary Hospital Course Hospital Course: from admission history and physical by hospitalist Niraj Hein MD, 09/30/21: This is a 46 year old male with Downs Syndrome, Hypothyroidism, DM who presents to the ED with his parents after they were directed to the ED for abnormal labs. The history is largely obtained from the patient's mother who is bedside. In June of this year, the patient tested positive for COVID. He was prescribed paxlovid for treatment. Post treatment, he had improved, but not quiet to his baseline. CBC checked in early July revealed a platelet count of 30. The mother reports that she has noticed patechial rash which has improved. She reports that he has been more fatigued and pale. No bleeding reported. She reports that his appetite remains the same, but despite this he has lost more than 10-11 pounds. Upon arrival to the ED, repeat blood work confirmed low platelets and h/h; no blasts are seen on the peripheral smear. Flow cytometry has been ordered. PRBC + platelet transfusions have been ordered. 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 This 46y year-old man with trisomy 21, DM1, and hypothyroidism presentied with petechiae, pallor, and weight loss and was found to have thrombocytopenia and macrocytic anemia, along with splenomegaly. He was transfused 2 units of packed red blood cells and 4 units of platelets. He was treated briefly with steroids. Dr Crystal Dickens from Hematology-Oncology was consulted, and a bone marrow aspiration done. Flow cytometry showed acute B-cell lymphoblastic leukemia. He was transferred to [facility] for induction therapy. Time Spent with Patient Time attestation: Total time spent providing and/or coordinating discharge services: Discharge coordination time: Greater than 30 minutes Quality: Safe Use of Opioids Does Pt have an Active Cancer Diagnosis on the Problem List?: Yes Opioid Measure Date for [facility] Report: 09/04/21 Opioid Measure Time for [facility] Report: 15:51 Quality: Stroke Does the patient have a stroke diagnosis?: No Physical Exam Vital Signs: Vital Signs: Last Vital Signs Temp 97.0 F 10/04/21 15:33 Pulse 66 10/04/21 15:33 Resp 18 10/04/21 15:33 BP 108/59 L 10/04/21 15:33 Pulse Ox 95 10/04/21 15:33 O2 Del Method 10/04/21 15:33 O2 Flow Rate 97 10/02/21 15:08 BMI result Body Mass Index 26.0 Gen: in no acute distress HEENT: sclera anicteric, moist mucus membranes Neck: supple Lungs: clear to auscultation bilaterally Heart: regular rate and rhythm, no murmurs Abd: soft, non-tender, non-distended, palpable spleen Ext: no edema Skin: warm/well-perfused, pale, scattered petechiae Neuro: alert and oriented x3, no focal findings Psych: appropriate affect DS: Data Data Completed and Pending Completed studies during hospitalization [Text1]: ITS Impressions Abdomen Ultrasound 10/01/21 16:55 IMPRESSION: 1. The spleen is enlarged measuring up to 16.1 cm, new when compared to the CT from 2014. 2. Otherwise unremarkable examination. Laboratory Tests 09/30/21 09/30/21 09/30/21 11:55 11:55 14:08 WBC 4.9 RBC 1.54 L Hgb 6.0 L* Hct 17.4 L* MCV 113.0 H MCH 39.0 H MCHC 34.5 RDW 18.5 H Plt Count 6 L* MPV 12.8 H Immature Gran % (Auto) Cancelled Neut % (Auto) Cancelled Lymph % (Auto) Cancelled [place] % (Auto) Cancelled Eos % (Auto) Cancelled Baso % (Auto) Cancelled Lymph # (Auto) Cancelled [place] # (Auto) Cancelled Eos # (Auto) Cancelled Baso # (Auto) Cancelled Abs Immat Gran (auto) Cancelled Absolute Neuts (auto) Cancelled Absolute Nucleated RBC 0.230 H Nucleated RBC % (auto) 4.7 H Neutrophils % (Manual) 38 L Band Neutrophils % 19 H Lymphocytes % (Manual) 29 Atypical Lymphs % (Man) Monocytes % (Manual) Basophils % (Manual) 1 Metamyelocytes % 5 Myelocytes % 6 Promyelocytes % 1 Blast Cells % (Manual) 1 Abs Neuts (Manual) 2.8 Lymphocytes # (Manual) 1.4 Atyp Lymphs # (Manual) Monocytes # (Manual) Basophils # (Manual) Metamyelocytes # 0.2 Myelocytes # 0.3 Promyelocytes # Nucleated RBCs 6 H Platelet Estimate DECREASED Plt Morphology Comment NORMAL RBC Morphology NOTED Polychromasia 1+ (0-2) Hypochromasia 1+ (5-14) Basophilic Stippling 1+ (0-2) Microcytosis Macrocytosis 2+ (15-30) Spherocytes 2+ (3-5) Tear Drop Cells 1+ (0-2) Schistocytes 1+ (0-2) Absolute Retic 0.058 Percent Retic 3.8 H Immature Retic Fraction 39.1 H Retic Hgb Equivalent 42.3 H Haptoglobin PT 14.3 H INR 1.2 H APTT 31.5 Fibrinogen > 700 H Sodium 133 L Potassium 4.4 Chloride 98 Carbon Dioxide 25 Anion Gap 14 BUN 15 Creatinine 1.40 Estim Creat Clear Calc 53.6 Estimated GFR 55 POC Glucose Random Glucose 202 H Calcium 8.2 L Total Bilirubin 0.6 Direct Bilirubin AST 11 ALT 6 Alkaline Phosphatase 74 Lactate Dehydrogenase 328 H Total Protein 6.1 L Albumin 3.4 L A.phagocytophil DNA PCR Babesia microti DNA PCR Borrelia sp DNA (PCR) Borrelia miyamotoi (PCR) COVID-19 (SABA) COVID-19 Clin Com E.chaffeensis DNA (PCR) HIV 1&2 Ab/P24 Ag 4thGn Tick-borne Disease Ab Tick-borne Disease PCR Blood Type Antibody Screen SERA, Polyspecific Positive SERA Work-up Crossmatch 09/30/21 09/30/21 09/30/21 14:08 14:08 14:09 WBC RBC Hgb Hct MCV MCH MCHC RDW Plt Count MPV Immature Gran % (Auto) Neut % (Auto) Lymph % (Auto) [place] % (Auto) Eos % (Auto) Baso % (Auto) Lymph # (Auto) [place] # (Auto) Eos # (Auto) Baso # (Auto) Abs Immat Gran (auto) Absolute Neuts (auto) Absolute Nucleated RBC Nucleated RBC % (auto) Neutrophils % (Manual) Band Neutrophils % Lymphocytes % (Manual) Atypical Lymphs % (Man) Monocytes % (Manual) Basophils % (Manual) Metamyelocytes % Myelocytes % Promyelocytes % Blast Cells % (Manual) Abs Neuts (Manual) Lymphocytes # (Manual) Atyp Lymphs # (Manual) Monocytes # (Manual) Basophils # (Manual) Metamyelocytes # Myelocytes # Promyelocytes # Nucleated RBCs Platelet Estimate Plt Morphology Comment RBC Morphology Polychromasia Hypochromasia Basophilic Stippling Microcytosis Macrocytosis Spherocytes Tear Drop Cells Schistocytes Absolute Retic Percent Retic Immature Retic Fraction Retic Hgb Equivalent Haptoglobin 228 H PT INR APTT Fibrinogen Sodium Potassium Chloride Carbon Dioxide Anion Gap BUN Creatinine Estim Creat Clear Calc Estimated GFR POC Glucose Random Glucose Calcium Total Bilirubin Direct Bilirubin AST ALT Alkaline Phosphatase Lactate Dehydrogenase Total Protein Albumin A.phagocytophil DNA PCR Babesia microti DNA PCR Borrelia sp DNA (PCR) Borrelia miyamotoi (PCR) COVID-19 (SABA) Negative COVID-19 Clin Com See Note E.chaffeensis DNA (PCR) HIV 1&2 Ab/P24 Ag 4thGn Tick-borne Disease Ab Tick-borne Disease PCR Blood Type A Positive Antibody Screen NEGATIVE SERA, Polyspecific NEGATIVE Positive SERA Work-up Not Reportable Crossmatch See Detail 09/30/21 09/30/21 10/01/21 19:43 20:52 05:19 WBC 5.4 RBC 2.36 L D Hgb 8.3 L D Hct 23.9 L D MCV 101.3 H D MCH 35.2 H MCHC 34.7 RDW 22.4 H Plt Count 14 L* D MPV 13.0 H Immature Gran % (Auto) Neut % (Auto) Lymph % (Auto) [place] % (Auto) Eos % (Auto) Baso % (Auto) Lymph # (Auto) [place] # (Auto) Eos # (Auto) Baso # (Auto) Abs Immat Gran (auto) Absolute Neuts (auto) Absolute Nucleated RBC 0.410 H Nucleated RBC % (auto) 7.6 H Neutrophils % (Manual) Band Neutrophils % Lymphocytes % (Manual) Atypical Lymphs % (Man) Monocytes % (Manual) Basophils % (Manual) Metamyelocytes % Myelocytes % Promyelocytes % Blast Cells % (Manual) Abs Neuts (Manual) Lymphocytes # (Manual) Atyp Lymphs # (Manual) Monocytes # (Manual) Basophils # (Manual) Metamyelocytes # Myelocytes # Promyelocytes # Nucleated RBCs Platelet Estimate Plt Morphology Comment RBC Morphology Polychromasia Hypochromasia Basophilic Stippling Microcytosis Macrocytosis Spherocytes Tear Drop Cells Schistocytes Absolute Retic Percent Retic Immature Retic Fraction Retic Hgb Equivalent Haptoglobin PT INR APTT Fibrinogen Sodium Potassium Chloride Carbon Dioxide Anion Gap BUN Creatinine Estim Creat Clear Calc Estimated GFR POC Glucose 161 H 224 H Random Glucose Calcium Total Bilirubin Direct Bilirubin AST ALT Alkaline Phosphatase Lactate Dehydrogenase Total Protein Albumin A.phagocytophil DNA PCR Babesia microti DNA PCR Borrelia sp DNA (PCR) Borrelia miyamotoi (PCR) COVID-19 (SABA) COVID-19 Clin Com E.chaffeensis DNA (PCR) HIV 1&2 Ab/P24 Ag 4thGn Tick-borne Disease Ab Tick-borne Disease PCR Blood Type Antibody Screen SERA, Polyspecific Positive SERA Work-up Crossmatch 10/01/21 10/01/21 10/01/21 05:19 06:52 11:03 WBC RBC Hgb Hct MCV MCH MCHC RDW Plt Count MPV Immature Gran % (Auto) Neut % (Auto) Lymph % (Auto) [place] % (Auto) Eos % (Auto) Baso % (Auto) Lymph # (Auto) [place] # (Auto) Eos # (Auto) Baso # (Auto) Abs Immat Gran (auto) Absolute Neuts (auto) Absolute Nucleated RBC Nucleated RBC % (auto) Neutrophils % (Manual) Band Neutrophils % Lymphocytes % (Manual) Atypical Lymphs % (Man) Monocytes % (Manual) Basophils % (Manual) Metamyelocytes % Myelocytes % Promyelocytes % Blast Cells % (Manual) Abs Neuts (Manual) Lymphocytes # (Manual) Atyp Lymphs # (Manual) Monocytes # (Manual) Basophils # (Manual) Metamyelocytes # Myelocytes # Promyelocytes # Nucleated RBCs Platelet Estimate Plt Morphology Comment RBC Morphology Polychromasia Hypochromasia Basophilic Stippling Microcytosis Macrocytosis Spherocytes Tear Drop Cells Schistocytes Absolute Retic Percent Retic Immature Retic Fraction Retic Hgb Equivalent Haptoglobin PT INR APTT Fibrinogen Sodium 133 L Potassium 4.3 Chloride 100 Carbon Dioxide 25 Anion Gap 12 BUN 15 Creatinine 1.29 Estim Creat Clear Calc 58.1 Estimated GFR > 60 POC Glucose 123 H 211 H Random Glucose 138 H Calcium 8.0 L Total Bilirubin 2.6 H Direct Bilirubin 0.7 H AST 12 ALT 6 Alkaline Phosphatase 75 Lactate Dehydrogenase 405 H Total Protein 5.6 L Albumin 3.1 L A.phagocytophil DNA PCR Babesia microti DNA PCR Borrelia sp DNA (PCR) Borrelia miyamotoi (PCR) COVID-19 (SABA) COVID-19 Clin Com E.chaffeensis DNA (PCR) HIV 1&2 Ab/P24 Ag 4thGn Tick-borne Disease Ab Tick-borne Disease PCR Blood Type Antibody Screen SERA, Polyspecific Positive SERA Work-up Crossmatch 10/01/21 10/01/21 10/01/21 12:37 15:38 19:39 WBC RBC Hgb Hct MCV MCH MCHC RDW Plt Count MPV Immature Gran % (Auto) Neut % (Auto) Lymph % (Auto) [place] % (Auto) Eos % (Auto) Baso % (Auto) Lymph # (Auto) [place] # (Auto) Eos # (Auto) Baso # (Auto) Abs Immat Gran (auto) Absolute Neuts (auto) Absolute Nucleated RBC Nucleated RBC % (auto) Neutrophils % (Manual) Band Neutrophils % Lymphocytes % (Manual) Atypical Lymphs % (Man) Monocytes % (Manual) Basophils % (Manual) Metamyelocytes % Myelocytes % Promyelocytes % Blast Cells % (Manual) Abs Neuts (Manual) Lymphocytes # (Manual) Atyp Lymphs # (Manual) Monocytes # (Manual) Basophils # (Manual) Metamyelocytes # Myelocytes # Promyelocytes # Nucleated RBCs Platelet Estimate Plt Morphology Comment RBC Morphology Polychromasia Hypochromasia Basophilic Stippling Microcytosis Macrocytosis Spherocytes Tear Drop Cells Schistocytes Absolute Retic Percent Retic Immature Retic Fraction Retic Hgb Equivalent Haptoglobin PT INR APTT Fibrinogen Sodium Potassium Chloride Carbon Dioxide Anion Gap BUN Creatinine Estim Creat Clear Calc Estimated GFR POC Glucose 178 H 203 H Random Glucose Calcium Total Bilirubin Direct Bilirubin AST ALT Alkaline Phosphatase Lactate Dehydrogenase Total Protein Albumin A.phagocytophil DNA PCR NOT DETECTED Babesia microti DNA PCR NOT DETECTED Borrelia sp DNA (PCR) NOT DETECTED Borrelia miyamotoi (PCR) NOT DETECTED COVID-19 (SABA) COVID-19 Clin Com E.chaffeensis DNA (PCR) NOT DETECTED HIV 1&2 Ab/P24 Ag 4thGn Tick-borne Disease Ab SEE NOTE Tick-borne Disease PCR BLOOD Blood Type Antibody Screen SERA, Polyspecific Positive SERA Work-up Crossmatch 10/02/21 10/02/21 10/02/21 05:21 05:21 06:52 WBC 4.8 RBC 2.34 L Hgb 8.3 L Hct 23.8 L MCV 101.7 H MCH 35.5 H MCHC 34.9 RDW 22.3 H Plt Count 8 L* MPV Not Reportable Immature Gran % (Auto) Neut % (Auto) Lymph % (Auto) [place] % (Auto) Eos % (Auto) Baso % (Auto) Lymph # (Auto) [place] # (Auto) Eos # (Auto) Baso # (Auto) Abs Immat Gran (auto) Absolute Neuts (auto) Absolute Nucleated RBC 0.320 H Nucleated RBC % (auto) 6.7 H Neutrophils % (Manual) Band Neutrophils % Lymphocytes % (Manual) Atypical Lymphs % (Man) Monocytes % (Manual) Basophils % (Manual) Metamyelocytes % Myelocytes % Promyelocytes % Blast Cells % (Manual) Abs Neuts (Manual) Lymphocytes # (Manual) Atyp Lymphs # (Manual) Monocytes # (Manual) Basophils # (Manual) Metamyelocytes # Myelocytes # Promyelocytes # Nucleated RBCs Platelet Estimate Plt Morphology Comment RBC Morphology Polychromasia Hypochromasia Basophilic Stippling Microcytosis Macrocytosis Spherocytes Tear Drop Cells Schistocytes Absolute Retic Percent Retic Immature Retic Fraction Retic Hgb Equivalent Haptoglobin PT INR APTT Fibrinogen Sodium Potassium Chloride Carbon Dioxide Anion Gap BUN Creatinine Estim Creat Clear Calc Estimated GFR POC Glucose 128 H Random Glucose Calcium Total Bilirubin Direct Bilirubin AST ALT Alkaline Phosphatase Lactate Dehydrogenase Total Protein Albumin A.phagocytophil DNA PCR Babesia microti DNA PCR Borrelia sp DNA (PCR) Borrelia miyamotoi (PCR) COVID-19 (SABA) COVID-19 Clin Com E.chaffeensis DNA (PCR) HIV 1&2 Ab/P24 Ag 4thGn Nonreactive Tick-borne Disease Ab Tick-borne Disease PCR Blood Type Antibody Screen SERA, Polyspecific Positive SERA Work-up Crossmatch 10/02/21 10/02/21 10/02/21 11:21 15:12 19:13 WBC RBC Hgb Hct MCV MCH MCHC RDW Plt Count MPV Immature Gran % (Auto) Neut % (Auto) Lymph % (Auto) [place] % (Auto) Eos % (Auto) Baso % (Auto) Lymph # (Auto) [place] # (Auto) Eos # (Auto) Baso # (Auto) Abs Immat Gran (auto) Absolute Neuts (auto) Absolute Nucleated RBC Nucleated RBC % (auto) Neutrophils % (Manual) Band Neutrophils % Lymphocytes % (Manual) Atypical Lymphs % (Man) Monocytes % (Manual) Basophils % (Manual) Metamyelocytes % Myelocytes % Promyelocytes % Blast Cells % (Manual) Abs Neuts (Manual) Lymphocytes # (Manual) Atyp Lymphs # (Manual) Monocytes # (Manual) Basophils # (Manual) Metamyelocytes # Myelocytes # Promyelocytes # Nucleated RBCs Platelet Estimate Plt Morphology Comment RBC Morphology Polychromasia Hypochromasia Basophilic Stippling Microcytosis Macrocytosis Spherocytes Tear Drop Cells Schistocytes Absolute Retic Percent Retic Immature Retic Fraction Retic Hgb Equivalent Haptoglobin PT INR APTT Fibrinogen Sodium Potassium Chloride Carbon Dioxide Anion Gap BUN Creatinine Estim Creat Clear Calc Estimated GFR POC Glucose 197 H 329 H 449 H* Random Glucose Calcium Total Bilirubin Direct Bilirubin AST ALT Alkaline Phosphatase Lactate Dehydrogenase Total Protein Albumin A.phagocytophil DNA PCR Babesia microti DNA PCR Borrelia sp DNA (PCR) Borrelia miyamotoi (PCR) COVID-19 (SABA) COVID-19 Clin Com E.chaffeensis DNA (PCR) HIV 1&2 Ab/P24 Ag 4thGn Tick-borne Disease Ab Tick-borne Disease PCR Blood Type Antibody Screen SERA, Polyspecific Positive SERA Work-up Crossmatch 10/02/21 10/02/21 10/03/21 22:03 23:35 03:14 WBC RBC Hgb Hct MCV MCH MCHC RDW Plt Count MPV Immature Gran % (Auto) Neut % (Auto) Lymph % (Auto) [place] % (Auto) Eos % (Auto) Baso % (Auto) Lymph # (Auto) [place] # (Auto) Eos # (Auto) Baso # (Auto) Abs Immat Gran (auto) Absolute Neuts (auto) Absolute Nucleated RBC Nucleated RBC % (auto) Neutrophils % (Manual) Band Neutrophils % Lymphocytes % (Manual) Atypical Lymphs % (Man) Monocytes % (Manual) Basophils % (Manual) Metamyelocytes % Myelocytes % Promyelocytes % Blast Cells % (Manual) Abs Neuts (Manual) Lymphocytes # (Manual) Atyp Lymphs # (Manual) Monocytes # (Manual) Basophils # (Manual) Metamyelocytes # Myelocytes # Promyelocytes # Nucleated RBCs Platelet Estimate Plt Morphology Comment RBC Morphology Polychromasia Hypochromasia Basophilic Stippling Microcytosis Macrocytosis Spherocytes Tear Drop Cells Schistocytes Absolute Retic Percent Retic Immature Retic Fraction Retic Hgb Equivalent Haptoglobin PT INR APTT Fibrinogen Sodium Potassium Chloride Carbon Dioxide Anion Gap BUN Creatinine Estim Creat Clear Calc Estimated GFR POC Glucose 372 H* 274 H 125 H Random Glucose Calcium Total Bilirubin Direct Bilirubin AST ALT Alkaline Phosphatase Lactate Dehydrogenase Total Protein Albumin A.phagocytophil DNA PCR Babesia microti DNA PCR Borrelia sp DNA (PCR) Borrelia miyamotoi (PCR) COVID-19 (SABA) COVID-19 Clin Com E.chaffeensis DNA (PCR) HIV 1&2 Ab/P24 Ag 4thGn Tick-borne Disease Ab Tick-borne Disease PCR Blood Type Antibody Screen SERA, Polyspecific Positive SERA Work-up Crossmatch 10/03/21 10/03/21 10/03/21 05:26 05:26 07:26 WBC 5.1 RBC 2.39 L Hgb 8.2 L Hct 23.7 L MCV 99.2 H MCH 34.3 H MCHC 34.6 RDW 21.2 H Plt Count 8 L* MPV 11.4 Immature Gran % (Auto) Neut % (Auto) Lymph % (Auto) [place] % (Auto) Eos % (Auto) Baso % (Auto) Lymph # (Auto) [place] # (Auto) Eos # (Auto) Baso # (Auto) Abs Immat Gran (auto) Absolute Neuts (auto) Absolute Nucleated RBC 0.470 H Nucleated RBC % (auto) 9.3 H Neutrophils % (Manual) 58 Band Neutrophils % 13 H Lymphocytes % (Manual) 17 L Atypical Lymphs % (Man) Monocytes % (Manual) 2 Basophils % (Manual) 1 Metamyelocytes % 8 Myelocytes % 1 Promyelocytes % Blast Cells % (Manual) Abs Neuts (Manual) 3.6 Lymphocytes # (Manual) 0.9 L Atyp Lymphs # (Manual) Monocytes # (Manual) 0.1 Basophils # (Manual) 0.1 Metamyelocytes # 0.4 Myelocytes # 0.1 Promyelocytes # Nucleated RBCs 10 H Platelet Estimate DECREASED Plt Morphology Comment NORMAL RBC Morphology NOTED Polychromasia 1+ (0-2) Hypochromasia Basophilic Stippling Microcytosis 1+ (5-14) Macrocytosis 1+ (5-14) Spherocytes 1+ (0-2) Tear Drop Cells 1+ (0-2) Schistocytes Absolute Retic Percent Retic Immature Retic Fraction Retic Hgb Equivalent Haptoglobin PT INR APTT Fibrinogen Sodium 134 L Potassium 4.3 Chloride 98 Carbon Dioxide 25 Anion Gap 15 BUN 20 H Creatinine 1.18 Estim Creat Clear Calc 63.6 Estimated GFR > 60 POC Glucose 133 H Random Glucose 126 H Calcium 8.4 Total Bilirubin 0.7 Direct Bilirubin AST 8 ALT 7 Alkaline Phosphatase 81 Lactate Dehydrogenase 258 Total Protein 5.8 L Albumin 3.1 L A.phagocytophil DNA PCR Babesia microti DNA PCR Borrelia sp DNA (PCR) Borrelia miyamotoi (PCR) COVID-19 (SABA) COVID-19 Clin Com E.chaffeensis DNA (PCR) HIV 1&2 Ab/P24 Ag 4thGn Tick-borne Disease Ab Tick-borne Disease PCR Blood Type Antibody Screen SERA, Polyspecific Positive SERA Work-up Crossmatch 10/03/21 10/03/21 10/03/21 11:47 12:47 15:32 WBC 5.5 RBC 2.36 L Hgb 8.2 L Hct 23.8 L MCV 100.8 H MCH 34.7 H MCHC 34.5 RDW 21.6 H Plt Count 33 L D MPV 9.9 Immature Gran % (Auto) Neut % (Auto) Lymph % (Auto) [place] % (Auto) Eos % (Auto) Baso % (Auto) Lymph # (Auto) [place] # (Auto) Eos # (Auto) Baso # (Auto) Abs Immat Gran (auto) Absolute Neuts (auto) Absolute Nucleated RBC 0.410 H Nucleated RBC % (auto) 7.5 H Neutrophils % (Manual) Band Neutrophils % Lymphocytes % (Manual) Atypical Lymphs % (Man) Monocytes % (Manual) Basophils % (Manual) Metamyelocytes % Myelocytes % Promyelocytes % Blast Cells % (Manual) Abs Neuts (Manual) Lymphocytes # (Manual) Atyp Lymphs # (Manual) Monocytes # (Manual) Basophils # (Manual) Metamyelocytes # Myelocytes # Promyelocytes # Nucleated RBCs Platelet Estimate Plt Morphology Comment RBC Morphology Polychromasia Hypochromasia Basophilic Stippling Microcytosis Macrocytosis Spherocytes Tear Drop Cells Schistocytes Absolute Retic Percent Retic Immature Retic Fraction Retic Hgb Equivalent Haptoglobin PT INR APTT Fibrinogen Sodium Potassium Chloride Carbon Dioxide Anion Gap BUN Creatinine Estim Creat Clear Calc Estimated GFR POC Glucose 183 H 268 H Random Glucose Calcium Total Bilirubin Direct Bilirubin AST ALT Alkaline Phosphatase Lactate Dehydrogenase Total Protein Albumin A.phagocytophil DNA PCR Babesia microti DNA PCR Borrelia sp DNA (PCR) Borrelia miyamotoi (PCR) COVID-19 (SABA) COVID-19 Clin Com E.chaffeensis DNA (PCR) HIV 1&2 Ab/P24 Ag 4thGn Tick-borne Disease Ab Tick-borne Disease PCR Blood Type Antibody Screen SERA, Polyspecific Positive SERA Work-up Crossmatch 10/03/21 10/03/21 10/04/21 19:03 21:53 05:21 WBC 8.2 RBC 2.33 L Hgb 8.2 L Hct 23.9 L MCV 102.6 H MCH 35.2 H MCHC 34.3 RDW 21.2 H Plt Count 12 L* D MPV 9.6 Immature Gran % (Auto) Neut % (Auto) Lymph % (Auto) [place] % (Auto) Eos % (Auto) Baso % (Auto) Lymph # (Auto) [place] # (Auto) Eos # (Auto) Baso # (Auto) Abs Immat Gran (auto) Absolute Neuts (auto) Absolute Nucleated RBC 0.450 H Nucleated RBC % (auto) 5.5 H Neutrophils % (Manual) 33 L Band Neutrophils % 8 H Lymphocytes % (Manual) 23 Atypical Lymphs % (Man) 24 H Monocytes % (Manual) Basophils % (Manual) Metamyelocytes % 4 Myelocytes % 5 Promyelocytes % 3 Blast Cells % (Manual) Abs Neuts (Manual) 3.4 Lymphocytes # (Manual) 1.9 Atyp Lymphs # (Manual) 2.0 Monocytes # (Manual) Basophils # (Manual) Metamyelocytes # 0.3 Myelocytes # 0.4 Promyelocytes # 0.2 Nucleated RBCs 7 H Platelet Estimate DECREASED Plt Morphology Comment NORM RBC Morphology NOTED Polychromasia 1+ (0-2) Hypochromasia Basophilic Stippling Microcytosis 1+ (5-14) Macrocytosis 1+ (5-14) Spherocytes Tear Drop Cells 1+ (0-2) Schistocytes Absolute Retic Percent Retic Immature Retic Fraction Retic Hgb Equivalent Haptoglobin PT INR APTT Fibrinogen Sodium Potassium Chloride Carbon Dioxide Anion Gap BUN Creatinine Estim Creat Clear Calc Estimated GFR POC Glucose 364 H* 299 H Random Glucose Calcium Total Bilirubin Direct Bilirubin AST ALT Alkaline Phosphatase Lactate Dehydrogenase Total Protein Albumin A.phagocytophil DNA PCR Babesia microti DNA PCR Borrelia sp DNA (PCR) Borrelia miyamotoi (PCR) COVID-19 (SABA) COVID-19 Clin Com E.chaffeensis DNA (PCR) HIV 1&2 Ab/P24 Ag 4thGn Tick-borne Disease Ab Tick-borne Disease PCR Blood Type Antibody Screen SERA, Polyspecific Positive SERA Work-up Crossmatch 10/04/21 10/04/21 10/04/21 05:21 07:33 11:30 WBC RBC Hgb Hct MCV MCH MCHC RDW Plt Count MPV Immature Gran % (Auto) Neut % (Auto) Lymph % (Auto) [place] % (Auto) Eos % (Auto) Baso % (Auto) Lymph # (Auto) [place] # (Auto) Eos # (Auto) Baso # (Auto) Abs Immat Gran (auto) Absolute Neuts (auto) Absolute Nucleated RBC Nucleated RBC % (auto) Neutrophils % (Manual) Band Neutrophils % Lymphocytes % (Manual) Atypical Lymphs % (Man) Monocytes % (Manual) Basophils % (Manual) Metamyelocytes % Myelocytes % Promyelocytes % Blast Cells % (Manual) Abs Neuts (Manual) Lymphocytes # (Manual) Atyp Lymphs # (Manual) Monocytes # (Manual) Basophils # (Manual) Metamyelocytes # Myelocytes # Promyelocytes # Nucleated RBCs Platelet Estimate Plt Morphology Comment RBC Morphology Polychromasia Hypochromasia Basophilic Stippling Microcytosis Macrocytosis Spherocytes Tear Drop Cells Schistocytes Absolute Retic Percent Retic Immature Retic Fraction Retic Hgb Equivalent Haptoglobin PT INR APTT Fibrinogen Sodium 132 L Potassium 4.5 Chloride 99 Carbon Dioxide 24 Anion Gap 14 BUN 20 H Creatinine 1.25 Estim Creat Clear Calc 60.0 Estimated GFR > 60 POC Glucose 147 H 327 H Random Glucose 164 H Calcium 7.9 L Total Bilirubin 0.5 Direct Bilirubin AST 10 ALT 7 Alkaline Phosphatase 69 Lactate Dehydrogenase 322 H Total Protein 5.2 L Albumin 2.8 L A.phagocytophil DNA PCR Babesia microti DNA PCR Borrelia sp DNA (PCR) Borrelia miyamotoi (PCR) COVID-19 (SABA) COVID-19 Clin Com E.chaffeensis DNA (PCR) HIV 1&2 Ab/P24 Ag 4thGn Tick-borne Disease Ab Tick-borne Disease PCR Blood Type Antibody Screen SERA, Polyspecific Positive SERA Work-up Crossmatch Pending studies at discharge: Pending at discharge 10/03/21 14:20 Surgical Path [Surgical] [PTH] Routine Discharge Plan Discharge Patient Disposition: [facility] Discharge Diagnosis: acute B-cell lymphoblastic leukemia Referrals: [facility] [Outside] - 1 Week Teodoro Briones MD [Primary Care Provider] - 1 Week Discharge Medications: New insulin lispro [Humalog U-100 Insulin] 100 unit/mL Solution See Protocol subcut QIDACHS Qty: 1 0RF Protocol: Insulin Correction Scale Less than or equal to 110 ---- Give (units): 0 111 to 150 Give (units): 2 151 to 200 Give (units): 4 201 to 250 Give (units): 7 251 to 300 Give (units): 10 301 to 350 Give (units): 14 Greater than 350 Give (units): 18 Call MD if Blood Glucose > : 350 Continued levothyroxine 125 mcg tablet 1 tab PO DAILY@0630 albuterol sulfate 90 mcg/actuation HFA aerosol inhaler 2 puff inhalation Q4H insulin glargine [Basaglar KwikPen U-100 Insulin] 100 unit/mL (3 mL) insulin pen 21 unit subcut DAILY Discharge Orders: Discharge Order (Routine); Ordered 10/04/21 Ordered By: Jael Cullen Diet: Diabetic diet Activity on Discharge: As tolerated Stand Alone Forms: Patient Portal Discharge page Care Plan Goals: treatment of ALL Health Concerns: acute B-cell lymphoblastic leukemia Plan of Treatment: transfer to [facility] for induction therapy Assessment: See Discharge Summary Patient Instructions: Acute Lymphocytic Leukemia (DC)
--- NOTE | 2021-10-04 15:48 | MHC.CM.PN ---
Addendum entered by Jessica Jurado 10/04/21 15:56: IMM 10/03 IN CHART Original Note: PATIENT TO TRANSFER TO [facility] TO TRANSPORT. RN AND UNIT AWARE.
== END 2021-10-04 16:13 | disposition short-term general hospital (02) | DRG 836 ==
LOC: HO.ED 14:21 → HO.EDOVER 14:55 → HO.S3 15:21
PROVIDERS: Internal Medicine; Pathology Anatomic Pathology & Clinical Pathology; Admitting Provider Family Medicine; Emergency Provider Emergency Medicine; PCP Internal Medicine; Visit Provider Family Medicine
PROC: 07DR3ZX Extraction of Iliac Bone Marrow, Percutaneous Approach, Diagnostic (ICD-10-PCS; CPT 38221; principal; 2021-10-03 13:00)
DX: C91.00 Acute lymphoblastic leukemia not having achieved remission (principal); E10.9 Type 1 diabetes mellitus without complications; E03.9 Hypothyroidism, unspecified; D69.6 Thrombocytopenia, unspecified; D53.9 Nutritional anemia, unspecified; Q90.9 Down syndrome, unspecified; Z86.16 Personal history of COVID-19; Z20.822 Contact with and (suspected) exposure to COVID-19; Z79.890 Hormone replacement therapy
CPT/HCPCS: 36415; 36430; 76700; 80048; 80053; 80076; 82247; 82947; 83010; 83036; 83615; 84439; 84443; 85007; 85025; 85027; 85045; 85384; 85610; 85730; 86850; 86880; 86900; 86901; 86923; 87389; 87635; 87798; 87801; 88184; 88185; 88237; 88262; 88264; 88305; 88311; 88313; 88341; 88342; 88374; 88377; 99285; J0131; J1642; J3010; P9016; P9035; P9037; P9073

== ENCOUNTER 2023-04-24 19:57 | Emergency (ER) | payer MEDICARE, MEDICAID, SELFPAY ==
[2023-04-24] VITALS (7 sets, daily range): BP systolic 80–112; BP diastolic 39–63; PULSE 77–105; RESP 12–18; TEMP 36.3; O2SAT 96–100; BMI 21.3
--- NOTE | ~2023-04-24 | XR_ITS ---
EXAMINATION: XR CHEST CLINICAL INFORMATION: Shortness of breath. COMPARISON: Chest radiograph dated 06/12/2019. TECHNIQUE: Frontal view of the chest was obtained. FINDINGS: There is a left sided PICC terminating at the level of the right brachiocephalic vein. The trachea is in normal anatomic position. Heart size is normal. There is no pulmonary consolidation. There is no pleural effusion or pneumothorax. No acute osseous abnormality. XR/XR chest 1V IMPRESSION: No acute cardiopulmonary disease. There is a left sided catheter, likely a PICC terminating at the level of the right brachiocephalic vein. Findings discussed with Dr Kelly at 8:22 PM on 04/24/2023.
--- NOTE | 2023-04-24 20:01 | ED_ITS ---
HPI - General Adult General Chief complaint: Recheck/Abnormal Lab/Rx Stated complaint: Abnormal labs Time Seen by Provider: 04/24/23 21:43 Source: patient Mode of arrival: ambulatory Limitations: no limitations History of Present Illness HPI narrative: Patient with down syndrome, diabetes type 1 and ALL on chemotherapy last dose was on 04/15 was doing good temperature 99 degrees on arrival 101.7 had a loose bowel after arrival had a near-syncope episode which he had before in the past blood pressure dropped to 80/39 with heart rate of 77. POC was 124 at the time of examination patient is feeling much better Related Data Home Medications Medication Instructions Recorded Confirmed albuterol sulfate 90 mcg/actuation 2 puff inhalation Q4H 09/30/21 09/30/21 aerosol inhaler insulin glargine 100 unit/mL (3 21 unit subcut DAILY 09/30/21 09/30/21 mL) subcutaneous pen (Basaglar KwikPen U-100 Insulin) levothyroxine 125 mcg tablet 1 tab PO DAILY@0630 09/30/21 09/30/21 Previous Rx's Medication Instructions Recorded insulin lispro 100 unit/mL See Protocol subcut QIDACHS #1 mL 10/04/21 subcutaneous solution (Humalog U-100 Insulin) ondansetron 4 mg disintegrating 4 mg PO Q6-8H PRN nausea and 04/25/23 tablet vomiting #7 tabs Allergies Allergy/AdvReac Type Severity Reaction Status Date / Time adhesive AdvReac Unknown Verified 04/24/23 20:05 Latex, Natural Rubber AdvReac Unknown Verified 04/24/23 20:05 prochlorperazine AdvReac Unknown Verified 04/24/23 20:05 [From Compazine] Review of Systems 2 Review of Systems: Yes all other systems are reviewed and are negative [facility] Social History Social History Household Members: Family Housing: House Do you presently have visiting nurse or other home services: No Patient Tobacco Use Status: Never used Tobacco Smoked in Last 30 Days: No e-Cigarette/Vaping Use: Never Used Advance Directives: Yes Advance Directives on File: Yes Advance Directives Date on File: 09/30/21 service: No Current occupational status: other Physical Exam ED Vital Signs: Vital Signs - 24 hr 04/24/23 19:59 04/24/23 21:52 04/24/23 21:54 Temperature 97.4 F Pulse Rate 105 H 83 77 Respiratory Rate 14 18 Blood Pressure 112/63 80/39 L 80/39 L Pulse Oximetry 96 97 Oxygen Delivery Method Room Air Room Air 04/24/23 21:56 04/24/23 22:28 04/24/23 23:57 Temperature Pulse Rate 80 87 84 Respiratory Rate 14 12 Blood Pressure 84/46 L 100/56 L 100/59 L Pulse Oximetry 100 100 Oxygen Delivery Method Room Air Room Air 04/24/23 23:58 Temperature Pulse Rate 101 H Respiratory Rate 12 Blood Pressure 91/59 L Pulse Oximetry 100 Oxygen Delivery Method Room Air BMI result Body Mass Index 21.3 Appearance: Alert. Oriented X3. No acute distress. Eyes: Pallor+ ENT: Pharynx normal. Oral Mucosa moist Neck: Normal inspection. Neck supple. CVS: Normal heart rate and rhythm. Pulses normal. Respiratory: No respiratory distress. Equal air entry bilateral, Abdomen: Soft and nontender. Bowel sounds are present, no mass palpable, no CVA tenderness Skin: Skin warm and dry. Normal skin color. Normal skin turgor. Extremities: No lower extremity edema. No calf tenderness Neuro: Oriented X 3. Down's facies Course Course Course Narrative: RME- 48 year old male currently being treated for leukemia presents for evaluation of fever and vomiting. Plan for labs including blood culture, chest x-ray and UA. He is afebrile in triage but received tylenol 1000mg at 18:30. Medications Administered Discontinued Medications Generic Name Dose Route Start Last Admin Trade Name Freq PRN Reason Stop Dose Admin Sodium Chloride 1,000 mls @ 999 mls/hr 04/24/23 21:48 04/25/23 00:24 Ns IV 04/24/23 22:48 Infused .Q1H1M ONE Infusion Ondansetron HCl 4 mg 04/24/23 20:41 04/24/23 20:47 Ondansetron Hcl 4 Mg/2 Ml Vial IVPUSH 04/24/23 20:42 4 mg ONCE ONE Administration Medical Decision Making Medical Decision Making [facility] Narrative: Patient with GI symptoms with nausea and 2 loose bowels just prior to arrival with history of ALS on chemotherapy stable labs taking p.o. 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 Blood cultures were drawn patient has normal lactic acid Differential Diagnosis Differential Diagnoses: The differential diagnosis associated with the presentation includes Lab Data MDM Lab Attestation statement: I reviewed the patient's lab results. 04/24/23 20:38 04/24/23 20:38 Labs: Lab Results 04/24/23 04/24/23 Range/Units 20:38 21:35 WBC 5.1 (4.8-10.8) X10*3/uL RBC 3.54 L D (4.60-5.80) X10*6/uL Hgb 13.2 L D (14.0-18.0) g/dl Hct 36.8 L D (42.0-52.0) % MCV 104.0 H (80.0-98.0) fL MCH 37.3 H (27.0-33.0) pg MCHC 35.9 (31.0-36.0) g/dl RDW 13.9 (11.0-16.0) % Plt Count 77 L D (160-400) X10*3/uL MPV 11.7 (9.4-12.4) fL Immature Gran % (Auto) 1.6 H (0.0-0.4) % Neut % (Auto) 91.7 H (45-73) % Lymph % (Auto) 2.2 L (20-40) % Davis % (Auto) 4.1 (2-11) % Eos % (Auto) 0.4 (0-4) % Baso % (Auto) 0.0 (0-2) % Lymph # (Auto) 0.1 L (1.2-4.9) X10*3/uL Davis # (Auto) 0.2 (0.1-1.2) X10*3/uL Eos # (Auto) 0.0 (0.0-0.4) X10*3/uL Baso # (Auto) 0.0 (0.0-0.2) X10*3/uL Abs Immat Gran (auto) 0.08 H (0.00-0.03) X10*3/uL Absolute Neuts (auto) 4.7 (2.0-8.3) x10*3/uL Absolute Nucleated RBC 0.000 (0.0-0.012) X10*3/uL Nucleated RBC % (auto) 0.0 (0.0-0.2) /100WBC Smear Tech's Comments VERIFIED Sodium 133 L (135-145) mmol/L Potassium 3.7 (3.3-5.1) mmol/L Chloride 104 (96-108) mmol/L Carbon Dioxide 22 (22-29) mmol/L Anion Gap 11 L (12-20) BUN 15 (9-16) mg/dL Creatinine 0.78 (0.5-1.4) mg/dL Estim Creat Clear Calc 90.1 Estimated GFR > 60 POC Glucose 141 H (60-115) mg/dL Random Glucose 124 H (60-115) mg/dL Lactic Acid 1.5 (0.5-2.0) mmol/L Calcium 7.9 L (8.4-10.2) mg/dL Total Bilirubin 0.5 (0.0-1.0) mg/dL AST 24 (5-37) U/L ALT 23 (0-40) U/L Alkaline Phosphatase 81 (39-117) U/L Total Protein 5.4 L (6.5-8.0) g/dL Albumin 3.0 L (3.5-5.0) g/dL Lipase 15 (8-78) U/L Influenza Type A (PCR) NEGATIVE (Negative) Influenza Type B (PCR) NEGATIVE (Negative) RSV RNA Qual (PCR) NEGATIVE (Negative) SARS-CoV-2 RNA (RT-PCR) NEGATIVE (Negative) Discharge Plan Discharge Clinical Impression: Nausea, vomiting and diarrhea Patient Disposition: Home, Self-Care Instructions: Gastroenteritis (ED) Additional Instructions: Drink plenty of fluid Medicine for nausea as prescribed Follow with PCP if not better Prescriptions: New ondansetron 4 mg tablet,disintegrating 4 mg PO Q6-8H PRN (Reason: nausea and vomiting) Qty: 7 0RF No Action levothyroxine 125 mcg tablet 1 tab PO DAILY@0630 albuterol sulfate 90 mcg/actuation HFA aerosol inhaler 2 puff inhalation Q4H insulin glargine [Basaglar KwikPen U-100 Insulin] 100 unit/mL (3 mL) insulin pen 21 unit subcut DAILY insulin lispro [Humalog U-100 Insulin] 100 unit/mL Solution See Protocol subcut QIDACHS Qty: 1 0RF Protocol: Insulin Correction Scale Less than or equal to 110 ---- Give (units): 0 111 to 150 Give (units): 2 151 to 200 Give (units): 4 201 to 250 Give (units): 7 251 to 300 Give (units): 10 301 to 350 Give (units): 14 Greater than 350 Give (units): 18 Call MD if Blood Glucose > : 350 Interventions: ED Discharge Assessment Last Done: 04/25/23 01:08 Discharge Date/Time: 04/25/23 01:09
[2023-04-24 20:46] LABS: Eosinophils Percent Auto 0.4 % (0-4); Hematocrit 36.8 % (42.0-52.0); Hemoglobin 13.2 g/dl (14.0-18.0); Imm Gran Abs Auto 0.08 X10*3/uL (0.00-0.03); Imm Gran Pct Auto 1.6 % (0.0-0.4); Lymphocytes Absolute Auto 0.1 X10*3/uL (1.2-4.9); Lymphocytes Percent Auto 2.2 % (20-40); MANUAL DIFF FLAG SCAN; Mean Corpuscular HGB Conc 35.9 g/dl (31.0-36.0); Mean Corpuscular Hemoglobin 37.3 pg (27.0-33.0); Mean Platelet Volume 11.7 fL (9.4-12.4); Monocytes Absolute Auto 0.2 X10*3/uL (0.1-1.2); Monocytes Percent Auto 4.1 % (2-11); Neutrophils Absolute Auto 4.7 x10*3/uL (2.0-8.3); Neutrophils Percent Auto 91.7 % (45-73); Platelet Count 77 X10*3/uL (160-400); Red Blood Count 3.54 X10*6/uL (4.60-5.80); Red Cell Distribution Width 13.9 % (11.0-16.0); SCAN SMEAR FLAG 1; White Blood Count 5.1 X10*3/uL (4.8-10.8)
[2023-04-24] MEDS: ondansetron HCL 4 MG/2 ML VIAL IVPUSH (20:47)
[2023-04-24 20:54] LABS: Lactic Acid 1.5 mmol/L (0.5-2.0)
[2023-04-24 21:01] LABS: Alanine Aminotransferase 23 U/L (0-40); Alkaline Phosphatase 81 U/L (39-117); Anion Gap 11 (12-20); Aspartate Amino Transferase 24 U/L (5-37); Bilirubin Total 0.5 mg/dL (0.0-1.0); Blood Urea Nitrogen 15 mg/dL (9-16); Calcium 7.9 mg/dL (8.4-10.2); Carbon Dioxide 22 mmol/L (22-29); Chloride 104 mmol/L (96-108); Creatinine Clr Calc Pharmacy 90.1; Estimated Glomerular Filt Rate > 60; Glucose Random 124 mg/dL (60-115); Lipase 15 U/L (8-78); Potassium 3.7 mmol/L (3.3-5.1); Sodium 133 mmol/L (135-145); Total Protein 5.4 g/dL (6.5-8.0)
[2023-04-24 21:06] LABS: SLIDE REVIEW VERIFIED
[2023-04-24 21:23] LABS: Influenza A PCR NEGATIVE (Negative); Influenza B PCR NEGATIVE (Negative); Resp Syncy Virus RNA Qual PCR NEGATIVE (Negative); SARS COV2 PCR INHOUSE NEGATIVE (Negative)
[2023-04-24 21:43] LABS: Glucose, Whole Blood 141 mg/dL (60-115)
[2023-04-24] MEDS: 0.9 % Sodium Chloride 1,000 ML 999 ML IV (21:55)
--- NOTE | 2023-04-24 21:55 | PC.NURSE ---
cleansed of incontinent diarrhea. placed supine at arrival. was pale and diaphoretic at arrival to bed. reports feeling better and is more interactive.
== END 2023-04-25 01:09 | disposition home or self-care (01) ==
PROVIDERS: Physician Assistant; Emergency Provider Internal Medicine; PCP Internal Medicine
DX: R11.2 Nausea with vomiting, unspecified (principal); R19.7 Diarrhea, unspecified; E10.9 Type 1 diabetes mellitus without complications; C91.00 Acute lymphoblastic leukemia not having achieved remission; Q90.9 Down syndrome, unspecified; Z79.899 Other long term (current) drug therapy; Z11.52 Encounter for screening for COVID-19; Z20.828 Contact with and (suspected) exposure to other viral communicable diseases
CPT/HCPCS: 0241U; 71045; 80053; 82947; 83605; 83690; 85025; 87040; 96361; 96374; 99284; J2405

== ENCOUNTER 2024-11-23 19:03 | Outpatient (REF) | payer MEDICARE, MEDICAID, SELFPAY ==
--- OUTSIDE RECORDS SUMMARY | 2024-11-23 19:07 | XMS_ITS | Encounter Summary ---
Author Organization [facility] Address [address] [place] [id number] Phone Care Team Providers Care Pipe Maker Name Role Phone Teodoro Briones DO Unavailable Catie Germain MD Unavailable [phone] Teodoro Briones DO Primary Care Provider [phone] Noe Jolley MD, PhD Unavailable [phone] Aditi Carrillo RN Unavailable Haylie Knight RN Unavailable [email or web address] Aditi Carrillo RN Unavailable Encounter Details Date Type Department Care Team (Late st Contact Info) Description 10/17/2021 Procedure Pass [facility], [place] [address] [facility], [address] [place] [address] Social History Tobacco Use Types Packs/Day Years Used Date Smoking Tobacco: Never Smokeless Tobacco: Never Alcohol Use Standard Drinks/Week Comments No 0 (1 standard drink = 0.6 oz pur e alcohol) Sex and Gender Information Value Date Recorded Sex Assigned at Male 01/14/2022 5:56 PM EST Legal Sex Male 9:27 PM EDT Gender Identity Male 01/14/2022 5:56 PM EST Sexual Orientation Straight 01/14/2022 5: 56 PM EST documented as of this encounter Plan of Treatment Upcoming Encounters Date Type Department Care Team (Late st Contact Info) Description 01/03/2025 10:30 AM EST Blood Draw [facility] [address] [facility], [address], [address] [place] [address] Noe Jolley MD, PhD [address] [place] [address] [address] [place] [address] [email or web address] Phleb, [facility] Bmt Leuk Yaw9e 01/03/2025 11:20 AM EST Office Visit [facility] [address] [facility], [address], [address] [place] [address] Noe Jolley MD, PhD [address] [place] [address] [address] [place] [address] [email or web address] 02/10/2025 2:00 PM EST Office Visit [facility] [address] [place] [address] Catie Germain MD [address] [place] [address], [address] [place] [address] [email or web address] documented as of this encounter Visit Diagnoses Not on filedocumented in this encounter Additional Health Concerns Infection Onset Date Last Indicated Resolved Time CoV-Risk Comment:Per note documentation 01/14/2022 01/14/2022 2 6:35 AM EST COVID-19 03/18/2022 03/18/2022 04/08/2022 1:23 AM EST CoV-Risk Comment:Per note documentation 07/10/2022 07/10/2022 3 11:24 PM EDT COVID-19 10/29/2023 10/29/2023 11/19/2023 1:23 AM EDT documented as of this encounter Care Teams Pipe Maker Relationship Specialty Start Date End Date Teodoro Briones DO [email or web address] PCP - General Internal Medicine 01/13/17 Teodoro Briones DO Historical LMR Provider 12/14/16 Catie Germain MD [address] [place] [address], [address] [place] [address] [email or web address] Historical LMR Provider 12/14/16 Noe Jolley MD, PhD [address] [place] [address] [place] [address] [email or web address] Primary Oncologist Hematology 11/08/21 Aditi Carrillo, SAM [address] [place] [phone] [email or web address] Primary Infusion Nurse 11/08/21 12/05/21 Haylie Knight RN [address] [place] [phone] [email or web address] Associate Infusion Nurse Oncology 02/01/22 Aditi Carrillo RN [address] [place] [phone] [email or web address] Primary Infusion Nurse 02/24/22 documented as of this encounter Additional Source Comments The information contained in this document represents components of the legal health record. It is not the complete legal health record.[facility]
--- OUTSIDE RECORDS SUMMARY | 2024-11-23 19:07 | XMS_ITS | Encounter Summary ---
Author Organization [facility] Address [address] [place] [address] Phone Care Team Providers Care Pattern Painter Name Role Phone Teodoro Briones DO Unavailable Catie Germain MD Unavailable [phone] Teodoro Briones DO Primary Care Provider [phone] Noe Jolley MD, PhD Unavailable [phone] Aditi Carrillo RN Unavailable Haylie Knight RN Unavailable [email or web address] Aditi Carrillo RN Unavailable Encounter Details Date Type Department Care Team ([facility] Contact Info) Description 10/21/2021 Procedure Pass [facility] - RF/IR [address] [facility], 2nd [place] [address] Social History Tobacco Use Types Packs/Day Years [...] Description 01/03/2025 10:30 AM EST Blood Draw [facility] [address] [facility], [address]th [address], [address] [place] [address] Noe Jolley MD, PhD [address] [place] [address] [phone] [place] [address] [email or web address] Phleb, [facility] Bmt Leuk Yaw9e 01/03/2025 11:20 AM EST Office Visit [facility] [address] [facility], [address], [address] [place] [address] Noe Jolley MD, PhD [address] [place] [address] [address] [place] [address] [email or web address] 02/10/2025 2:00 PM EST Office Visit [facility] [address] [place] [address] Catie Germian MD [address] [place] [address], 1[address] [place] [address] [email or web address] documented as of this encounter Visit Diagnoses [...] documented as of this encounter Care Teams Pattern Painter Relationship Specialty Start Date End Date Teodoro Briones DO [email or web address] PCP - General Internal Medicine 01/13/17 Teodoro Briones DO [email or web address] Historical LMR Provider 12/14/16 Catie Germain MD [address] [place] [address], [address] [place] [address] [email or web address] Historical LMR Provider 12/14/16 Noe Jolley MD, PhD [address] [place] [address] [address] [place] [address] [email or web address] Primary Oncologist Hematology 11/08/21 Aditi Carrillo RN [address] [place] [phone] [email or web address] Primary Infusion Nurse 11/08/21 12/05/21 Haylie Knight RN [address] [place] [phone] [email or web address] Associate Infusion Nurse Oncology 02/01/22 Aditi Carrillo RN [address] [place] [phone] [email or web address] Primary Infusion Nurse 02/24/22 documented as of this encounter Additional Source Comments The information contained in this document represents components of the legal health record. It is not the complete legal health record.[facility]
--- OUTSIDE RECORDS SUMMARY | 2024-11-23 19:07 | XMS_ITS | Clinical Summary ---
Author Organization [facility] Address [address] [place] [id number] Phone Care Team Providers Care Sas Sql Developer Name Role Phone Anali Teodoro Adkins DO Unavailable Catie Germain MD Unavailable [phone] Teodoro Briones DO Primary Care Provider [phone] Noe Jolley MD, PhD Unavailable [phone] Haylie Knight RN Unavailable NMI [email or web address] Aditi Carrillo RN Unavailable Allergies Active Allergy Reactions Criticality Noted Date Comments Adhesive 12/17/2021 Very sensitive to tegaderm. But can use sorbaview shield transparent dressing. Can tolerate paper tape. Prochlorperazine Restlessness Medium 10/27/2021 Restless Legs Latex Medium 12/21/2023 Blisters Medications FREESTYLE LITE METER meter kit Use daily 1 each 07/03/19 19 Active escitalopram oxalate (LEXAPRO) 5 MG tablet Take 5 mg by mouth daily. Active FREESTYLE LITE Strp stripsIndications: Type 1 diabetes mellitus with diabetic neuropathy 1 each by Miscellaneous route 3 (three) times a day before meals. DX:E10.40 300 strip 3 08/23/19 23 Active famotidine (PEPCID) 20 MG tabletIndications: Anasarca Take 1 tablet (20 mg total) by mouth 2 (two) times a day. 90 tablet 10/19/19 23 Active Additional Information Patient not taking.Reported on 08/12/2024 cholecalciferol (VITAMIN D3) 2,000 unit capsule Take 2,000 Units by mouth daily. 09/07/19 24 Active levothyroxine (SYNTHROID, LEVOTHROID) 125 MCG tabletIndications: Type 1 diabetes mellitus,Acquired hypothyroidism Take 1 tablet (125 mcg total) by mouth every morning. 90 tablet 3 04/18/19 25 Active NOVOLOG FLEXPEN U-100 INSULIN 100 unit/mL (3 mL) flexpenIndications :Type 1 diabetes mellitus with diabetic neuropathy Administer sc at meals according to sliding scale, 15u TDD E10.42 15 mL 3 06/02/19 25 Active BASAGLAR KWIKPEN U-100 INSULIN 100 unit/mL (3 mL) InPn injection penIndications:Typ e 1 diabetes mellitus with diabetic neuropathy Inject 10 Units under the skin daily. E10.42 15 mL 3 06/02/19 25 Active acyclovir (ZOVIRAX) 400 MG tablet TAKE 1 TABLET BY MOUTH TWICE A DAY 180 tablet 1 09/13/19 25 Active Additional Information Patient not taking.Reported on 10/04/2024 BD NEY 2ND GEN PEN NEEDLE 32 gauge x 5/32 NdleIndications:Ty pe 1 diabetes mellitus with diabetic neuropathy USE 3 TIMES A DAY BEFORE MEALS. 300 each 3 10/08/19 25 Active Active Problems Patient Care Coordination No te Formatting of this note migh t be different from the original. Dada is followed by [facility] Telephone #: [phone] They are able to draw labs which will result in Epic PLEASE SEND D-DIMER AND FIBRINOGEN STAT WHILE ON PEGASPARAGINASE! If Fibrinogen <100 he get Cryopercipatate Problem Noted Date Diagnosed Date Syncope 10/09/2022 Assessment & Plan (10/09/2022 8:50 AM EDT): Pt had brief episode of near-syncopal event on night on 10/08-10/09. Pt was in the bathroom and his father reported he thinks he briefly passed out for a few seconds. Per family, he has had intermittent episodes like this in the past, and it has been worked up with a TTE which was normal. His blood sugar was normal at the time, VSS. Mildy tachycardic. He had no further episodes overnight. He received a small fluid bolus. - Placed on telemetry - TTE ordered, as above Infectious disease 10/08/2022 Assessment & Plan (10/08/2022 7:12 PM EDT): Afebrile on admission, non-neutropenic. - Continue acyclovir for viral ppx - On Pentamidine for PJP ppx; last dose given 09/09 - Due for next pentamidine dose this week - Restart fluconazole 400 mg PO daily - Vicente-culture for T>100.4 Anasarca 10/08/2022 Assessment & Plan (10/08/2022 7:11 PM EDT): #New anasarca with large volume ascites Presented to clinic for routine f/u on 10/08 and reported 20 lb weight gain with abdominal and LE swelling. Pt denies SOB or associated pain/discomfort. Kidney function normal. Albumin low at 2.4, unchanged from recent labs. Abdominal ultrasound with dopplers was negative for portal vein thrombosis. BNP normal. He received Lasix 20 mg PO x1 in clinic and was then admitted to the inpatient service for further workup of new anasarca. - TTE to r/o cardiac etiology - GI consult - Diagnostic/therapeutic paracentesis on 10/09 - Strict I/Os, daily weights - Lasix 20 mg PO daily Febrile neutropenia 07/11/2022 Bacteremia 06/25/2022 Acute lymphoblastic leukemia in remission 2022 ALL (acute lymphoid leukemia) in remission 01/24 ALL (acute lymphoblastic leukemia of infant) Chemotherapy management, encounter for 2 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 09/23 Assessment & Plan (10/09/2022 6:55 AM EDT): Diagnosis: Ph- ALL, dx 2021 Treatment: AYA consolidation C4D1=09/30/22 Primary Oncologist: Noe Jolley MD Plan: Today 10/09/22 is C4 Day 10. - Transfuse to keep hgb>7, plt>10k, fibrinogen >50 - Pegaspariginase considerations: Next dose due 10/14/22 ? Risk of Hypersensitivity: - Premedications: Tylenol, Benadryl & Hydrocortisone ? Pancreatitis: lipase WNL ? Hyperglycemia: controlled with insulin ? Hypertriglyceridemia: None; triglycerides normal ? Hepatotoxicity: T. Bili elevated. but transaminases are normal; CTM ? Risk of Hemorrhage: Keep fibrinogen >100 ? Clotting: On Eliquis full dose but will hold given thrombocytopenia Assessment & Plan (12/03/2021 9:24 AM EDT): In remission [place] [place] [facility], recently admitted for chemotherapy protocol Otitis media 05/01/2019 Overview (05/01/2019): Recurrent, bilat, has L myringotomy tube Hypothyroidism 05/05/2017 Assessment & Plan (08/12/2024 3:16 PM EDT): Most recent TFTs reviewed, TSH was in desired range Followed by PCP Continues on LT4 daily Assessment & Plan (02/12/2024 4:44 PM EST): Most recent TFTs reviewed, TSH was in desired range Followed by PCP Continues on LT4 daily Assessment & Plan (08/14/2023 2:15 PM EDT): Most recent TFTs reviewed, this is from summer 2021, TSH was in desired range Followed by PCP Continues on LT4 daily Assessment & Plan (02/02/2023 10:29 PM EST): Most recent TFTs reviewed, this is from summer 2021, TSH was in desired range Continues on LT4 daily Assessment & Plan (10/08/2022 7:11 PM EDT): - Continue home Synthroid 125 mcg PO daily Assessment & Plan (08/04/2022 3:13 PM EDT): Most recent TFTs reviewed, TSH is in desired range Continues on LT4 daily Assessment & Plan (04/04/2022 10:58 AM EST): Most recent TFTs reviewed, TSH is in desired range Continues on LT4 daily Assessment & Plan (12/03/2021 9:18 AM EDT): Most recent TFTs reviewed, TSH slightly below target range, fT4 is in desired range We did not adjust LT4 dosage today, levels may normalize at current dose as Dada regains weight which is likely to happen naturally as his appetite has been good Assessment & Plan (05/28/2021 9:12 AM EDT): Most recent TFTs reviewed, TSH slightly above target range, fT4 is in desired range Mother reports consistent daily administration of LT4 We did not adjust LT4 dosage today, would benefit from recheck of TSH, fT4 in the next 2-3 months Assessment & Plan (11/23/2020 11:41 AM EDT): Most recent TFTs reviewed, these are in desired range though TSH is at lower end of desired range compared to last year when TSH was at upper end of desired range, this is likely weight change related Continues on LT4 therapy Assessment & Plan (01/05/2020 9:43 PM EST): Most recent TFTs were normal Assessment & Plan (07/01/2019 11:37 AM EDT): Most recent TFTs are in desired range Assessment & Plan (07/02/2018 10:03 AM EDT): Clinically euthyroid Reports that routine labs are ordered and he will have these done soon We have no TFTs on file for review Assessment & Plan (12/31/2017 5:06 PM EST): Clinically euthyroid, exam normal No recent TFTs on file for review Assessment & Plan (05/11/2017 3:00 PM EDT): Clinically euthyroid on current dose of L-thyroxine We do not have any recent TFTs on file for review Down syndrome 05/05/2017 Type 1 diabetes mellitus 05/05/2017 Overview (05/11/2017): DIABETES HISTORY Diagnosis - type 1 diabetes, dx Sep 2006 - also hypothyroid and Reynauds. 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 and this is helpful due to the increased risks for hypoglycemia on insulin therapy Has continued basal bolus MDI and will continue this at current doses, patterns in the past 2 weeks appear to be in safe range and reasonably stable with some prandial elevations We discussed considerations for mealtime insulin dosing, for meals which are higher in fat, carbs, a dose may be needed even if premeal glucose is <100, generally premeal glucose patterns are in target range and Dada requires very little insulin Dada has been more active and building up endurance, he competes with [employer] Dada's mother is very comfortable adjusting insulin as needed based on patterns, she is advised to contact me with any questions or concerns Encouraged to continue efforts at healthy lifestyle habits as tolerated Advised to call with any questions or concerns, we will follow up in 6 months Assessment & Plan (02/12/2024 4:48 PM EST): Using FSL2, family has continued to find this helpful due to hypoglycemia unawareness and the increased risks for hypoglycemia due to insulin therapy; overall insulin sensitivity is higher since off steroids and cancer therapy Has continued basal bolus MDI and will continue this, we discussed an adjustment in basal insulin dosing due to tendency for lower readings overnight, Dada is already dosing Basaglar in the morning which should be protective We discussed possible need for more mealtime insulin with reduced basal insulin, mom is advised to watch patterns and contact me if there are any concerns about this Overall control is now more stable since off chemotherapy, however Dada is again more sensitive when more active and CGM allows for monitoring for hypoglycemia Mother is very comfortable adjusting insulin as needed based on patterns, she is advised to contact me with any questions or concerns Encouraged to continue efforts at healthy lifestyle habits as tolerated, Dada has been joining his friends from [employer] for bowling and other activities, as he is able to participate in more activity the need for monitoring for hypoglycemia is more necessary Advised to call with any questions or concerns, we will follow up in 6 months Assessment & Plan (08/14/2023 2:19 PM EDT): Using FSL2, has continued to find this helpful especially with variable insulin requirement related to chemotherapy/steroids and higher frequency of glucose patterns near low range, we discussed a change to FSL3 which will provide realtime CGM data Using CGM is medically necessary for Dada due to his hypoglycemia unawareness and the increased risks for hypoglycemia due to his current treatment regimen Has continued basal bolus MDI and will continue this, we discussed an adjustment in mealtime dosing when on steroids Overall control continues to be more variable due to chemotherapy regimen which includes steroids, most recent A1c is stable compared to the last, family continues to be very vigilant about glucose patterns and adjusting insulin and food as needed to avoid hypoglycemia Mother is very comfortable adjusting insulin as needed based on patterns, she is advised to contact me with any questions or concerns Encouraged to continue efforts at healthy lifestyle habits as tolerated, Dada has been cleared to participate in light activity and will be joining his friends from [employer] this summer Advised to call with any questions or concerns, we will follow up in 6 months Assessment & Plan (02/02/2023 10:33 PM EST): Using FSL2, has continued to find this helpful especially with variable insulin requirement related to chemotherapy/steroids and higher frequency of glucose patterns near low range Using CGM is medically necessary for Dada due to his hypoglycemia unawareness and the increased risks for hypoglycemia due to his current treatment regimen Generally does very well with Basaglar 9u once daily however patterns indicate that Dada requires mealtime insulin and we discussed this today; will continue chemotherapy courses with steroids which has caused elevated glucose patterns, we reviewed adjustment to basal insulin and Dada may also require more insulin at meals during these periods Overall control is much more variable, most recent A1c is unlikely to be accurate given hematologic and treatment related factors, family continues to be very vigilant in terms of glucose patterns and adjusting insulin and food as needed to avoid hypoglycemia Mother is very comfortable adjusting insulin as needed based on patterns, she is advised to contact me with any questions or concerns Encouraged to continue efforts at healthy lifestyle habits as tolerated Advised to call with any questions or concerns, we will follow up in 6 months Assessment & Plan (10/09/2022 9:53 AM EDT): Hx of T1DM under good control, last AIC 5.9%. Has CGM. Pt and his parents have signed consent to continue using his CGM while admitted. - Lantus 3 units SQ qAM Assessment & Plan (08/04/2022 3:12 PM EDT): Using FSL2, has found this helpful especially with variable insulin requirement related to chemotherapy/steroids and higher frequency of glucose patterns near low range Using CGM is medically necessary for Dada due to his hypoglycemia unawareness and the increased risks for hypoglycemia due to his current treatment regimen Generally does very well with Basaglar 4u once daily and little to no Novolog at meals; when on Decadron for 5 day course monthly, insulin requirement has been much higher but the dose of basal insulin given currently with respect to SSI Novolog seems ineffective, it appears that there is higher overnight hypoglycemia risk and poor stability in prandial glucose We discussed optimizing the Novolog SSI modestly starting with 2u dose at bg 100-150 and adding 2u for every 50 thereafter, we also discussed not exceeding Basaglar 16u daily, it is likely that Dada may actually require less Basaglar and more mealtime coverage but we will adjust this based on next months Decadron related glucose patterns Overall control is much more variable, most recent A1c is unlikely to be accurate given hematologic and treatment related factors, family continues to be very vigilant in terms of glucose patterns and adjusting insulin and food as needed to avoid hypoglycemia Mother is very comfortable adjusting insulin as needed based on patterns, she is advised to contact me with any questions or concerns Encouraged to continue efforts at healthy lifestyle habits as tolerated Advised to call with any questions or concerns, we will follow up in 6 months Assessment & Plan (04/04/2022 11:02 AM EST): Using FSL2, has found this helpful especially with reduced insulin requirement and higher frequency of glucose patterns near low range Using CGM is medically necessary for Dada due to his hypoglycemia unawareness and the increased risks for hypoglycemia due to his very active lifestyle We discussed experimenting with a lower Lantus dosage at 4u daily to see if this allows for more stability overnight, this may allow for use of mealtime insulin at evening meal to help normalize glucose going into the nighttime Overall control is very good, family continues to be very vigilant in terms of glucose patterns and adjusting insulin and food as needed to avoid hypoglycemia Mother is very comfortable adjusting insulin as needed based on patterns, she feels she has a good handle on meal prep, insulin needs based on experience over the past 15 years We discussed continued occ use of Humalog SSI in case of elevated readings Dada continues with very modest insulin requirement, he is mostly on basal insulin only and now at lower dosage, mealtime insulin use should continue to be used as needed Encouraged to continue efforts at healthy lifestyle habits Advised to call with any questions or concerns, we will follow up in 6 months Assessment & Plan (03/20/2022 7:49 AM EST): Mr. 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 Glucose dropped to 61 mg/dL this morning, last insulin received was 2 units of correction before dinner. Renal function is good. This is likely a normal physiologic drop in glucose overnight, but we will reduce the correctional scale today. Mr. Olson received dexamethasone 16 mg at 1:00 pm on 03/18/22, but it is not clear if he will received additional doses this week. The FreeStyle Lila Continuous glucose monitor is not FDA approved for use in the acute care setting. We do not make clinical decisions, including insulin dosing, based on personal CGM data for safety reasons. Recommendations: Lantus 5 units in the morning, give the same dose if NPO Decrease Lispro sliding scale to custom low dose (0-6 units, starting when glucose is >300 mg/dL) before meals, not QHS Check fingerstick glucose readings AC and HS using the hospital glucometer Assessment & Plan (01/26/2022 10:44 AM EST): 46 year old man with history of type 1 diabetes since age 11, Down's syndrome and ALL, previously followed by the Inpatient Diabetes Service, was admitted on 01/24 with acute pancreatitis, no symptoms and with Lipase that is now down to baseline. His home insulin regimen is Lantus 10 units qd and Lispro low dose sliding scale, requiring very small amounts of prandial insulin because of diet and lots of exercise. He is followed by outside sports agent, had recent follow-up. During his last hospitalization he was on high dose steroids during his chemotherapy and required 40 units of Lantus bid and Lispro 15 AC, but he is now off Dexamethasone and home insulin requirement are back to Lantus 10 and Lispro scale. Recommend: Lantus 10 units qd (NPO dose 10) Lispro low dose sliding scale AC Monitor glucose values AC Assessment & Plan (01/21/2022 12:30 PM EST): Mr. Olson is a 46 year old M with type 1 diabetes (since the age of 31), trisomy 21, hypothyroidism and recently diagnosed B-ALL who was admitted on 01/17/2022 for induction therapy, including dexamethasone 14.5 mg twice a day until 01/22/2022. Glucose values remain in the 200 to 300 mg/dL range while he has been on dexamethasone. We recommend continuing the increased dose of Lantus until the effect of the steroid starts to decrease on 01/23/22. Recommendations: Lantus 40 units twice a day, give 16 units if NPO Lispro 15 units before meals, hold if NPO. Lispro moderate dose sliding scale (0-12 units) before meals, not QHS Check fingerstick glucose readings AC and HS Recommend for Discharge: Lantus 40 units twice a day when you are on dexamethasone (01/22/22) Lantus 20 units twice a day the day after you stop steroids (01/23/22) Resume your normal Lantus dose on 01/24/22, 10 units daily and fast acting insulin as needed Check fingerstick glucose readings before meals and at bedtime Call the [facility] with any questions or concerns at [phone], or call the [facility] loom operator at [phone] and ask them to call pager #[phone]. The diabetes doctor claim professional will call you back. Follow up with your sports agent in 2-3 weeks Assessment & Plan (12/03/2021 9:22 AM EDT): Will be resuming FSL2 use soon, has found this helpful, recently interruption in use due to treatment for ALL Using CGM is medically necessary for Dada due to his hypoglycemia unawareness and the increased risks for hypoglycemia due to his very active lifestyle We discussed continuing Basaglar dosage at 9u daily for now, this is likely to require adjustment as Dada gets back to his usual eating patterns/weight regain Overall control is excellent, in recent past there have been stable patterns throughout the day, generally few elevated readings tend to occur later in the day Mother is very comfortable adjusting insulin as needed based on patterns, she feels she has a good handle on meal prep, insulin needs based on experience over the past 15 years We discussed occ use of Humalog SSI in case of elevated readings, provided scale in writing and rx sent to pharmacy, advised to contact me with any questions regarding this Dada continues with very modest insulin requirement, he is on basal insulin only, there has been no indication based on CGM patterns in the past that Dada requires mealtime insulin at this time Encouraged to continue efforts at healthy lifestyle habits Advised to call with any questions or concerns, we will follow up in 6 months Assessment & Plan (11/13/2021 10:08 AM EDT): Images from the original note were not included. Mr. Olson is a 46 year old M with type 1 diabetes (since the age of 31), trisomy 21, and hypothyroidism who was admitted on 10/04/2021 for new B-ALL. His home diabetes regimen is Lantus 21 units daily. Pt's blood sugars were in the mid-100s yesterday for the most part. He had take- out for dinner and blood sugars elevated to 374. They came back down to 115 this morning. His blood sugars tend to elevated when he eats take-out food. He may benefit from receiving standing prandial insulin with larger/heavier meals. Plan is for patient to be discharged today. Reviewed discharge plan with family and pt and they are comfortable with it. Recommendations: Continue Lantus 8 units daily in the morning, give 6 units if NPO (DO NOT HOLD - patient with T1DM) Continue Low intensity lispro sliding scale TID with meals, not QHS Please have nursing manually enter CGM BG reading from the Lila 2 sensor into Epic before each meals and at bedtime. Nursing can obtain this CGM BG reading by asking patient to swipe his Lila sensor with his phone before meals and at bedtime and let RN know the result. Please check fingerstick BG when CGM BG reading is below 80 mg/dL or above 300 mg/dL. Consider standing prandial lispro dose with heavier take-out meals Diabetes Discharge Plan ? Name: ??Dada Olson?Referring Service/Physician: Neuro Oncology Endocrine Attending: Fallon Shields NP Discharge date, if known: 11/13/21 ?? Diabetes Discharge Instructions Mr. Olson, ? We are discharging you on the following medication regimen for your diabetes. Please note that these instructions are just an initial guideline. The dosages will require adjustment based on your experience, diet, and instructions from your diabetes team. You may need mealtime insulin while on steroids - please be sure to titrate needed doses with your sports agent, Dr. Catie Germain. Diabetes medication Instructions: Check fingerstick blood sugar readings 3 times a day (before breakfast, before lunch, before dinner). If your blood sugar is less than 70 mg/dL or greater than 300 mg/dL or if you have any concern about your diabetes plan, please call your sports agent, Dr. Germain. If you have concerns and are unable to reach Dr. Germain, please call the [facility] P[facility] Psychiatrist at [phone] and ask paging loom operator to page beeper number [phone] (Thursday-Thursday 8am-5pm) or beeper number [phone] (overnight or weekend for urgent issues) Patient will need the following scripts: Novolog/Humalog pen 2 units with meal Insulin pen needles 4mm Lantus 8 units QAM (he may already have this at home) Diabetes Outpatient Follow-Up: Please be sure to follow-up with your sports agent, Dr. Catie Germain, for insulin management once discharged. If you have any questions, please don't hesitate to reach out to the [facility]. During business hours, please call [phone] and ask to speak to a nurse. For urgent issues after business hours, please call [phone] and ask for the Diabetes Attending On-Call to be paged (pager number [phone]). Fallon Shields NP [facility] [place] Assessment & Plan (10/06/2021 1:18 PM EDT): Mr. Olson is a 46 y.o. 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 Home regimen: insulin glargine 21 u qAM Appetite is at baseline, and fine Weight down by 11 lbs since recent illness. Renal function stable. The primary is yet to decide on steroid plan. ?BG monitoring and goal: Continue to check finger stick blood glucose levels before meals and at bedtime. Goal of BG control: < 140 fasting, < 180 mg/dl on random check Patient can continue to wear [employer] CGM but insulin dose adjustment should be based on hospital glucometer readings Glucose lowering medications: - Lantus 15 units daily in the morning starting 10/07/21 - Lispro 4 unit ac tid, hold if NPO or eats < 50% of meal - Lispro low intensity sliding scale AC tid, not HS - Please reach out to us once steroid regimen (agent, dose, duration etc) is formulated, so that we can recommend insulin regimen change. Will likely need to start NPH for steroid exacerbated hyperglycemia. Assessment & Plan (05/28/2021 9:11 AM EDT): Has been using FSL 14day, has been paying OOP for this but since Medicare criteria for coverage have changed we discussed processing this through DME for coverage We also discussed change to FSL2 which should provide improved accuracy and also low/high alerts; we discussed caregiver follow options with [employer] Using CGM is medically necessary for Dada due to his hypoglycemia unawareness and the increased risks for hypoglycemia due to his very active lifestyle We discussed adjusting Basaglar dosage back down to 19u from his current 24u, current glucometer data indicates that Dada is running on low end of normal which will be an increased risk for hypoglycemia as his activity increases Overall control is excellent, stable patterns throughout the day but frequent readings <100, very few elevated readings tend to occur later in the day Mother is comfortable adjusting insulin as needed based on patterns, we discussed using a 10% rule to increase insulin as needed every few days for elevated readings, if reducing dosage due to hypoglycemia risk then advised to reduce dosage by more than 10% for more impactful effect Dada continues with very modest insulin requirement, he is on basal insulin only, there is no indication based on CGM patterns that Dada requires mealtime insulin at this time Encouraged to continue efforts at healthy lifestyle habits Advised to call with any questions or concerns, we will follow up in 6 months Assessment & Plan (11/23/2020 11:44 AM EDT): Using FSL 14 intermittently, we discussed CGM options today since Medicare coverage for CGM will be less strict in the very near future and will allow Dada more uninterrupted use of this technology Currently using glucometer, overall control is excellent, stable patterns with very few elevated readings Mother is comfortable adjusting insulin as needed based on patterns, Dada continues with very modest insulin requirement, we did not adjust insulin doses today Encouraged to continue efforts at healthy lifestyle habits Advised to call with any questions or concerns, we will follow up in 6 months Assessment & Plan (01/05/2020 9:56 PM EST): Very good control, most recent A1c ressuring, in low 7% range over past year Using Freestyle Lila consistently, unfortunately we did not have data to review today Per mother's report, glucose continues to be most challenging later in the day despite healthy evening meal Continues to have fasting glucose in desirable range on modest dosage of basal insulin We discussed that the best way to address late day hyperglycemia may be with modest dosage of meal time insulin at evening meal, if trend continues toward progressively higher bedtime blood sugars we will revisit this Dada keeps active consistently though this has been more challenging during the pandemic, encouraged to continue to do his best with this Dada and his mother are encouraged to reach out to me with any questions or concerns, we will meet again in 6 months Assessment & Plan (07/01/2019 11:40 AM EDT): Excellent overall control, still on basal insulin only, stable blood sugars with very consistent lifestyle/eating pattern We discussed Freestyle Lial personal CGM in detail, this would be helpful to Dada for glucose management given his hypoglycemia unawareness, Medicare coverage restrictions limit his ability to self monitor blood glucose at optimal frequency to proactively manage hypoglycemia; will come by for instruction on use of Freestyle Lila sensor Encouraged to continue healthy lifestyle Advised to call with any questions or concerns Assessment & Plan (07/02/2018 10:02 AM EDT): Excellent overall control, now requiring a lower basal insulin dosage Encouraged to continue healthy lifestyle Advised to call with any questions or concerns Assessment & Plan (12/31/2017 5:05 PM EST): Excellent control overall We did not adjust Basaglar dosage Encouraged to continue healthy lifestyle Advised to call with any questions or concerns Assessment & Plan (05/11/2017 3:01 PM EDT): Will continue same dose of once daily Lantus which is working well for Dada We discussed effects of activity on blood sugar control, advised to continue to be active Encouraged to call with any questions or concerns Encounters Date Type Department Care Team Description 10/07/2024 Refill [facility] [address] [place] [address] Catie Germain MD Medication Refill 10/04/2024 11:40 AM EDT Office Visit [facility] [address] [place] [address], 9th Floor, [address] [place] [address] Noe Jolley MD, PhD 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 (Primary Dx) 10/04/2024 9:12 AM EDT - 10/04/2024 11:59 PM EDT Hospital Encounter [facility], Ultrasound [address] [place] [address] Noe Jolley MD, PhD Discharge Disposition: Home or Self Care 09/09/2024 Refill [facility] [address] [place] [address], 9th Floor, [address] [place] [address] Noe Jolley MD, PhD Medication Refill from Last 3 Months Immunizations Immunization Administration Dates Next Due COVID-19 (Pre-12/15) Moderna Vaccine, mRNA, PF 03/26/2020,02/27/2020 COVID-19 Pfizer Comirnaty Vaccine 12+ 11/26/2022 INFLUENZA, SPLIT VIRUS, TRIV ALENT W/ PRESERVATIVE IM 12/17/2015 Influenza Quadrivalent MDCK Preservative Free IM 11/09/2019 Influenza Quadrivalent Preservative Free IM 10/25,12/14/2018,12/04/2017 Influenza Quadrivalent w/ Preservative IM 2016 Pneumococcal polysaccharide PPSV23 06/29/2014 Tdap 02/05/2020,09/02/2017 Family History Medical History Relation Comments Diabetes Cousin type 1 diabetes Hyperlipidemia Father Cancer Maternal Grandmother breast canc er Asthma Mother Hypertension Mother Relation Status Comments Cousin Father Maternal Grandmother Mother Social History Tobacco Use Types Packs/Day Years Used Date Smoking Tobacco: Never Smokeless Tobacco: Never Tobacco Cessation:Counseling Given: No Alcohol Use Standard Drinks/Week Comments Not Currently 0 (1 standard drink = 0.6 oz pur e alcohol) very rare for birthday Home Health Assessment: Transportation Answer Date Recorded Lack of Transportation (Medical) No 02/28/2022 Lack of Transportation (Non-Medical) No 02/28/2022 Patient Unable or Declines to Respond No 02/28/2022 Education Answer Date Recorded Are you interested in more education? Not on kimberlee e 06/19/2022 Are you concerned about learning? Not on file 06/19/2022 No 06/19/2022 No 06/19/2022 Digital Access Answer Date Recorded No 07/15/2022 No 07/15/2022 Reliable internet access at home? Not on file 07/15/2022 Device with a working camera? Not on file Intimate Partner Violence Answer Date R ecorded Are you denied basic needs s uch as food, clothing, or medical care? No 12/21/2023 In the past 12 months have y ou been in a relationship with a person who hurts, threatens, or tries to control you? No 12/21/2023 Are you denied basic needs s uch as food, clothing, or medical care? No 12/21/2023 In the past 12 months have y ou been in a relationship with a person who hurts, threatens, or tries to control you? No 12/21/2023 Sex and Gender Information Value Date Recorded Sex Assigned at Male 01/14/2022 5:56 PM EST Legal Sex Male 9:27 PM EDT Gender Identity Male 01/14/2022 5:56 PM EST Sexual Orientation Straight 01/14/2022 5: 56 PM EST Last Filed Vital Signs Vital Sign Reading Time Taken Comments Blood Pressure 76/45 10/04/2024 12:00 PM EDT Pulse 75 10/04/2024 12:00 PM EDT Temperature 36.1 C (97 F) 10/04/2024 12:00 PM EDT Respiratory Rate 16 10/04/2024 12:0 0 PM EDT Oxygen Saturation 100% 10/04/2024 12: 00 PM EDT Inhaled Oxygen Concentration - - Weight 59.3 kg (130 lb 12.8 oz) 025 12:00 PM EDT Height 160 cm (5' 2.99 ) 08/12/2024 2:06 PM EDT Body Mass Index 23.18 08/12/2024 2:06 PM EDT Plan of Treatment Upcoming Encounters Date Type Department Care Team (Late st Contact Info) Description 01/03/2025 10:30 AM EST Blood Draw [facility] [address] [place] [address], 9th Floor, [address] [place] [address] Neo Jolley MD, PhD [address] [place] [address] [address] [place] [address] [email or web address], [facility] [email or web address] 01/03/2025 11:20 AM EST Office Visit [facility] [address] [place] [address], 9th Floor, [address] [place] [address] Noe Jolley MD, PhD [address] [facility] [address] [place] [address] [email or web address] 02/10/2025 2:00 PM EST Office Visit [facility] [address] [place] [address] Catie Germain MD [address] [facility], 1st [place] [address] [email or web address] Health Maintenance Due Date Last Done Comments DEPRESSION SCREENING 1988 HIV ONE-TIME SCREENING (18-65 YEARS) 02/25/1994 PNEUMOCOCCAL VACCINES (0-49 years) (2 of 2 - PCV) 06/30/2015 06/29/2014 URINE MICROALBUMIN/CREATININE RATIO 01/13/2017 09/05/2015 COLOGUARD 02/25/2021 COLONOSCOPY 02/25/2021 COLORECTAL CANCER SCREENING 02/25/2021 FIT TEST 02/25/2021 FOBT 02/25/2021 SIGMOIDOSCOPY 02/25/2021 VIRTUAL COLONOSCOPY 02/25/2021 DIABETIC EYE EXAM 04/16/2022 04/16/2021 LIPID PANEL 02/11/2024 02/10/2023, 10/24, 10/31/2022, Additional history exists TSH LEVEL 08/17/2024 08/18/2023, 12/24, 10/31/2021, Additional history exists INFLUENZA VACCINE (#1) 2024 , 11/26/2022, 11/13/2021, Additional history exists HEMOGLOBIN A1C 02/11/2025 08/12/2024, 01/24, 08/14/2023, Additional history exists BLOOD PRESSURE 04/06/2025 10/04/2024 Adult Td,Tdap Booster 02/04/2030 02/05/2020, 018 HEPATITIS C SCREENING Completed 10/05/2021 COVID-19 VACCINE Completed 04/30/2024, 05/2022, 12/15/2020, Additional history exists SMOKING STATUS SCREENING (Once After 26 Yrs) Completed 08/12/2024 HEPATITIS A VACCINES Aged Out No long er eligible based on patient's age to complete this topic HIB VACCINES Aged Out No longer eligi ble based on patient's age to complete this topic MENINGOCOCCAL VACCINES (ACWY) Aged Out No longer eligible based on patient's age to complete this topic MENINGOCOCCAL VACCINES (B) Aged Out N o longer eligible based on patient's age to complete this topic Medical Devices Implanted Type Area Government Contracts Manager Device Identifier Shelf Expiration Date Model / Serial / Lot Continuous Glucose Monitor Tube Mathews T-Grommet [id number] Pk/[id number] - [id number] Implanted:Qty: 1 on 12/21/2023 by Jatinder Madera MD, PhD at [facility] Right: Ear [employer] [facility] 08/23/2030 [id number] / / [id number] Tube Mathews T-Grommet [id number] Pk/[id number] - [id number] Implanted:Qty: 1 on 12/21/2023 by Jatinder Madera MD, PhD at [facility] Left: Ear [employer] [facility] 08/23/2030 [id number] / / [id number] Procedures Procedure Name Priority Date/Time Associated Diagnosis Comments IMMUNOGLOBULIN G Routine 10/04/2024 10:4 6 AM EDT 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 BILIRUBIN, DIRECT Routine 10/04/2024 10: 46 AM EDT 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 COMPREHENSIVE METABOLIC PANEL Routine 10/04/2024 10:46 AM EDT 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 CBC AND DIFFERENTIAL Routine 10/04/2024 10:46 AM EDT 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 US ABDOMEN LIMITED RIGHT UPPER QUADRANT Routine 10/04/2024 10:04 AM EDT 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 POCT HEMOGLOBIN A1C Routine 08/12/2024 2 :28 PM EDT Type 1 diabetes mellitus with diabetic neuropathy TSH WITH REFLEX Routine 08/18/2023 10:25 AM EDT Acquired hypothyroidism LIPID PANEL Routine 02/10/2023 7:26 AM EST B-cell acute lymphoblastic leukemia Liver disease, unspecified HEPATITIS C ANTIBODY, QUALITATIVE Routine 10/05/2021 6:00 AM EDT DIABETES EYE EXAM FOR RESULT ENTRY ONLY Routine 04/16/2021 from Last 3 Months or Most Recently Relevant to Health Maintenance Results * (ABNORMAL) Comprehensive metabolic panel (10/04/2024 10:46 AM EDT) SODIUM 133(L) 135 - 145 mmol/L [facility] POTASSIUM 4.5 3.4 - 5.0 mmol/L [facility] CHLORIDE 97(L) 98 - 108 mmol/L [facility] CO2 26 23 - 32 mmol/L [facility] BUN 15 8 - 25 mg/dL [facility] CREATININE 1.03 0.60 - 1.30 mg/dL [facility] GLUCOSE 259(H) 70 - 110 mg/dL [facility] ALBUMIN 4.3 3.3 - 5.0 g/dL [facility] TOTAL PROTEIN 6.3 6.0 - 8.3 g/dL [facility] CALCIUM 9.1 8.5 - 10.5 mg/dL [facility] ALKALINE PHOSPHATASE 114 45 - 115 U/L [facility] TOTAL BILIRUBIN 0.6 0.0 - 1.0 mg/dL [facility] AST 23 10 - 40 U/L [facility] ALT 30 10 - 55 U/L [facility] GLOBULIN 2.0 1.9 - 4.1 g/dL [facility] EGFR 90 >59 mL/min/1. 73m2 [facility] Comment:Estimated glomerular filtration rate calculated using the CKD-EPI refit equation. ANION GAP 10 3 - 17 mmol/L [facility] 10/04/2024 10:4 6 AM EDT 10/04/2024 11:06 AM EDT us Noe Jolley MD, PhD LAB BLOOD ORDERABLES Final Result [facility] [address] [place] [address] * (ABNORMAL) CBC and differential (10/04/2024 10:46 AM EDT) WBC 5.10 4.00 - 11.00 K/uL [facility] RBC 4.51 4.50 - 5.90 M/uL [facility] HGB 16.0 13.5 - 17.5 g/dL [facility] HCT 45.1 41.0 - 53.0 % [facility] PLT 195 150 - 450 K/uL [facility] MCV 100.0 80.0 - 100.0 fL [facility] MCH 35.5(H) 27.0 - 31.0 pg [facility] MCHC 35.5 32.0 - 36.0 g/dL [facility] RDW 11.9 11.5 - 14.5 % [facility] MPV 9.2 8.4 - 12.0 fL [facility] NRBC 0.00 0.00 /100 WBCs [facility] ABSOLUTE NRBC 0.00 0.00 K/uL [facility] DIFF [employer] [facility] NEUTS 70.2 48.0 - 76.0 % [facility] LYMPHS 18.6 18.0 - 41.0 % [facility] MONOS 8.2 4.0 - 11.0 % [facility] EOS 0.6 0.0 - 5.0 % [facility] BASOS 1.0 0.0 - 1.5 % [facility] % IMMATURE GRANS 1.4(H) 0.0 - 0.9 % [facility] Comment:Immature granulocyte s = metamyelos + myelos + promyelos ABSOLUTE NEUTS 3.58 1.92 - 7.60 K/uL [facility] ABSOLUTE LYMPHS 0.95 0.72 - 4.10 K/uL [facility] ABSOLUTE MONOS 0.42 0.16 - 1.10 K/uL [facility] ABSOLUTE EOS 0.03 0.00 - 0.50 K/uL [facility] ABSOLUTE BASOS 0.05 0.00 - 0.15 K/uL [facility] ABS IMMATURE GRANS 0.07 0.00 - 0.09 K/uL [facility] Blood 10/04/2024 10:4 6 AM EDT 10/04/2024 11:06 AM EDT us Noe Jolley MD, PhD LAB BLOOD ORDERABLES Final Result Performing Organization Address [facility] Co de Phone Number [address] [address] * Immunoglobulin G (10/04/2024 10:46 AM EDT) IMMUNOGLOBULIN G 681 614 - 1,295 mg/dL [facility] 10/04/2024 10:4 6 AM EDT 10/04/2024 11:06 AM EDT us Noe Jolley MD, PhD LAB BLOOD ORDERABLES Final Result Performing Organization Address [facility] Co de Phone Number [address] [address] * Bilirubin, direct (10/04/2024 10:46 AM EDT) DIRECT BILIRUBIN 0.2 0.0 - 0.3 mg/dL [facility] 10/04/2024 10:4 6 AM EDT 10/04/2024 11:06 AM EDT us Noe Jolley MD, PhD LAB BLOOD ORDERABLES Final Result Performing Organization Address [facility] Co de Phone Number [address] [address] * US ABDOMEN LIMITED RIGHT UPPER QUADRANT (10/04/2024 10:04 AM EDT) Anatomical Region Laterality Modality Abdomen Ultrasound 10/04/2024 1:17 PM EDT Impressions 10/04/2024 1:18 PM EDT No focal liver lesions. Narrative 10/04/2024 1:18 PM EDT US ABDOMEN LIMITED RIGHT UPPER QUADRANT Referring clinician's provided indication for this examination in Epic: Abnormal LFTs TECHNIQUE: US Abdominal limited right upper quadrant. COMPARISON: US ABDOMEN COMPLETE WITH VASCULATURE (DOPPLER) FINDINGS: Liver: No focal lesions. Main Portal Vein: Patent with normal direction of flow. Gallbladder: No stones, sludge, wall thickening, surrounding fluid, or focal tenderness. Biliary: No intrahepatic or extrahepatic bile duct dilatation. The common bile duct measures 3 mm. Procedure Note Madhuri Escobar MD - 10/04/2024 US ABDOMEN LIMITED RIGHT UPPER QUADRANT Referring clinician's provided indication for this examination in Epic:Abnormal LFTs TECHNIQUE: US Abdominal limited right upper quadrant. COMPARISON: US ABDOMEN COMPLETE WITH VASCULATURE (DOPPLER) FINDINGS: Liver: No focal lesions. Main Portal Vein: Patent with normal direction of flow. Gallbladder: No stones, sludge, wall thickening, surrounding fluid, orfocal tenderness. Biliary: No intrahepatic or extrahepatic bile duct dilatation. The common bile duct measures 3 mm. IMPRESSION: No focal liver lesions. Noe Jolley MD, PhD IMG US ABDOMEN Henna l Result * (ABNORMAL) POCT Hemoglobin A1c (08/12/2024 2:28 PM EDT) Pathologist [facility] Hemoglobin A1c 7.0(A) 4.2 - 5.6 % [facility] [employer] [facility] Other 08/12/2024 2:28 PM EDT Catie Germain MD POINT OF CARE TEST ORDERABLES F inal Result [facility] [address] [place] [address], [facility] * TSH with reflex (08/18/2023 10:25 AM EDT) Pathologist [facility] SCREENING PANEL: TSH 0.48 0.40 - 5.00 uIU/mL [facility] Blood 08/18/2023 10:2 5 AM EDT 08/18/2023 10:40 AM EDT Noe Jolley MD, PhD LAB BLOOD ORDERABLES Final Result [address] [address] * Lipid panel (02/10/2023 7:26 AM EST) HDL 45 35 - 100 mg/dL [facility] CHOLESTEROL 156 <200 mg/dL [facility] TRIGLYCERIDES 123 40 - 150 mg/dL [facility] LDL 86 50 - 129 mg/dL [facility] CARDIAC RISK RATIO 3.5 0.0 - 5.0 [facility] NON-HDL CHOLESTEROL 111 mg/dL [facility] Comment:NCEP ATP III guideli bonifacio suggest a non-HDL cholesterol goal 30 mg/dl higher than the patient-specific LDL goal. 02/10/2023 7:26 AM EST 02/10/2023 7:55 AM EST Noe Jolley MD, PhD LAB BLOOD ORDERABLES Final Result Performing Organization Address City/[facility]/ZIP Co de Phone Number [address] [address] * Hepatitis C antibody, qualitative (10/05/2021 6:00 AM EDT) Pathologist [facility] HCV ANTIBODY Negative Negative [facility] Comment:Antibodies to HCV no t detected. Does not exclude the possibility of exposure to HCV. Blood 10/05/2021 6:00 AM EDT 10/05/2021 7:24 AM EDT us Ludwin Mishra MD LAB BLOOD ORDERABLES Final R esult Performing Organization Address City/[facility]/ZIP Co de Phone Number [address] [address] * DIABETES EYE EXAM FOR RESULT ENTRY ONLY (04/16/2021) Pathologist [facility] EYE EXAM SEE SCANNED REPORT us Jose Provider HEALTH MAINTENANCE Final Result from Last 3 Months or Most Recently Relevant to Health Maintenance Insurance [facility] MEDICARE PART A & B HEALTH MEDICARE PART A & B MEDICARE PART A & B HEALTH ([place]) [address] [place] [id number] MEDICARE PART A & B [facility] MEDICARE PART A & B [facility] MEDICARE PART A & B [facility] [place] [id number] Advance Directives For more information, please contact: [phone] (9AM - 5PM [facility], Thursday-Thursday) Documents on File Type Date Recorded Patient Supervisor Drilling And Shooting Expl anation Healthcare Proxy 10/30/2021 11:37 AM * Full Code (Latest Code Status on File) Date Activated Date Inactivated Comments 10/08/2022 5:55 PM Question Answer Comments Code Status Confirmed With: PatientFamily * Full Code Date Activated Date Inactivated Comments 06/25/2022 6:30 PM 10/08/2022 5:55 PM Question Answer Comments Code Status Confirmed With: Patient * Full Code Date Activated Date Inactivated Comments 04/29/2022 3:54 AM 06/25/2022 6:30 PM Question Answer Comments Code Status Confirmed With: PatientFamily * Full Code Date Activated Date Inactivated Comments 01/17/2022 2:46 PM 04/29/2022 3:54 AM Question Answer Comments Code Status Confirmed With: PatientFamily * Full Code Date Activated Date Inactivated Comments 10/04/2021 11:02 PM 01/17/2022 2:46 PM Question Answer Comments Code Status Confirmed With: Family Healthcare Agents on File Name Relationship Healthcare Agent Bairon elder Communication Sheri Olson Mother .Primary Health Care Agent (Proxy form on file) Dada Olson Father Alternate Health care Agent (Proxy form on file) Care Teams Sas Sql Developer Relationship Specialty Start Date End Date Teodoro Briones DO PCP - General Internal Medicine 01/13/17 Teodoro Briones DO Historical LMR Provider 12/14/16 Catie Germain MD [address] [place] [id number] Historical LMR Provider 12/14/16 Noe Jolley MD, PhD [address] [place] [address] [address] [place] [address] [email or web address] Primary Oncologist Hematology 11/08/21 Haylie Knight, RN [address] [place] [phone] [email or web address] Associate Infusion Nurse Oncology 02/01/22 Aditi Carrillo, SAM [address] [place] [phone] [email or web address] Primary Infusion Nurse 02/24/22 Additional Source Comments The information contained in this document represents components of the legal health record. It is not the complete legal health record.[facility]
--- OUTSIDE RECORDS SUMMARY | 2024-11-23 19:07 | XMS_ITS | Encounter Summary ---
Author Organization [facility] Address [address] [place] [address] Phone Care Team Providers Care Irish Moss Operator Name Role Phone Teodoro Briones DO Unavailable Catie Germain MD Unavailable [phone] Teodoro Briones DO Primary Care Provider [phone] Noe Jolley MD, PhD Unavailable [phone] Haylie Knight RN Unavailable NMI SANCHEZ@[email or web address] Aditi Carrillo RN Unavailable Encounter Details Date Type Department Care Team (Late st Contact Info) Description 10/11/2022 Procedure Pass [facility] Imaging - RF/IR [address] [facility], 2nd [place] [address] Social History Tobacco Use Types Packs/Day Years Used Date Smoking Tobacco: Never Smokeless Tobacco: Never Alcohol Use Standard Drinks/Week Comments Not Currently [...] with a working camera? Not on file Sex and Gender Information Value Date Recorded Sex Assigned at Male 01/14/2022 5:56 PM EST Legal Sex Male 9:27 PM EDT Gender Identity Male 01/14/2022 5:56 PM EST Sexual Orientation Straight 01/14/2022 5: 56 PM EST documented as of this encounter Plan of Treatment Upcoming Encounters Date Type Department Care Team (Late st Contact Info) Description 01/03/2025 10:30 AM EST Blood Draw [facility] [address] [place] [address], 9th Floor, [address] [place] [address] Noe Jolley MD, PhD [address] [place] [address] Yolanda@[facility] Phleb, [facility] Leuk Yaw9e 01/03/2025 11:20 AM EST Office Visit [facility] [address] [place] [address], 9th Floor, [address] [place] [address] Noe Jolley MD, PhD [address] [place] [address] Yolanda@[facility] 02/10/2025 2:00 PM EST Office Visit [facility] [address] [place] [address] Catie Germain MD [address] [place] [address], 1st [place] [address] [email or web address] documented as of this encounter Visit Diagnoses Not on filedocumented in this encounter Additional Health Concerns Infection Onset Date Last Indicated Resolved Time COVID-19 10/29/2023 10/29/2023 11/19/2023 1:23 AM EDT documented as of this encounter Care Teams Irish Moss Operator Relationship Specialty Start Date End Date Jennpeggy Teodoro AdkinsDO [email or web address] PCP - General Internal Medicine 01/13/17 Teodoro Briones DO [email or web address] Historical LMR Provider 12/14/16 Catie Germain MD [address] [place] [address], 1st [place] [address] [email or web address] Historical LMR Provider 12/14/16 Noe Jolley MD, PhD [address] [place] [address] [address] [place] [address] Yolanda@[facility] [facility] Primary Oncologist Hematology 11/08/21 Haylie Knight, SAM [address] [place] [phone] DUKE@[email or web address] Associate Infusion Nurse Oncology 02/01/22 Aditi Carrillo RN [address] [place] [phone] [email or web address] Primary Infusion Nurse 02/24/22 documented as of this encounter Additional Source Comments The information contained in this document represents components of the legal health record. It is not the complete legal health record.[facility]
--- OUTSIDE RECORDS SUMMARY | 2024-11-23 19:07 | XMS_ITS | Encounter Summary ---
Author Organization [facility] Address [address] [place] [address] Phone Care Team Providers Care Funeral Director/Embalmer Name Role Phone Teodoro Briones DO Unavailable Catie Germain MD Unavailable [phone] Teodoro Briones DO Primary Care Provider [phone] Noe Jolley MD, PhD Unavailable [phone] Haylie Knight RN Unavailable NMI SANCHEZ@[email or web address] [email or web address] Aditi Carrillo RN Unavailable Encounter Details Date Type Department Care Team (Late st Contact Info) Description 01/24/2022 Procedure Pass [facility] [place] [address] [facility], 6th [place] [address] Social History Tobacco Use Types Packs/Day Years Used Date Smoking Tobacco: Never Smokeless Tobacco: Never Alcohol Use Standard Drinks/Week Comments Not Currently 0 (1 standard drink = 0.6 oz pur e alcohol) very rare for birthday Sex and Gender Information Value Date Recorded Sex Assigned at Male 01/14/2022 5:56 PM EST Legal Sex Male 9:27 PM EDT Gender Identity Male 01/14/2022 5:56 PM EST Sexual Orientation Straight 01/14/2022 5: 56 PM EST documented as of this encounter Functional Status * Calculated C-SSRS Risk Score (Lifetime/Recent) Answer Date of Assessment Author No Risk Indicated 01/24/2022 11:00 PM Thelma Fan RN * [place] Suicide Severity Rating Scale (Screener/Recent Self-Report) Question Answer Date of Assessment Author 1. Wish to be (Past 1 Month) No 022 11:00 PM Thelma Fan RN 2. Non-Specific Active Suici toni Thoughts (Past 1 Month) No 01/24/2022 11:00 PM Thelma Fan RN 6. Suicidal Behavior (Lifetime) No 11:00 PM Thelma Fan RN documented as of this encounter Plan of Treatment Upcoming Encounters Date Type Department Care Team (Late st Contact Info) Description 01/03/2025 10:30 AM EST Blood Draw [facility] [address] [place] [address], 9th Floor, [address] [place] [address] Noe Jolley MD, PhD [address] [place] [address] Yolanda@[facility] Bmt Leuk Yaw9e 01/03/2025 11:20 AM EST Office Visit [facility] [address] [place] [address], 9th Floor, [address] [place] [address] Noe Jolley MD, PhD [address] [place] [address] Yolanda@[facility] [place] 02/10/2025 2:00 PM EST Office Visit [facility] [address] [place] [address] Catie Germain MD [address] [place] [address], 1st [place] [address] [email or web address] documented as of this encounter Visit Diagnoses Not on filedocumented in this encounter Additional Health Concerns Infection Onset Date Last Indicated Resolved Time COVID-19 03/18/2022 03/18/2022 04/08/2022 1:23 AM EST CoV-Risk Comment:Per note documentation 07/10/2022 07/10/2022 11:24 PM EDT COVID-19 10/29/2023 10/29/2023 11/19/2023 1:23 AM EDT documented as of this encounter Care Teams Funeral Director/Embalmer Relationship Specialty Start Date End Date Teodoro Briones DO [email or web address] PCP - General Internal Medicine 01/13/17 Teodoro Briones DO Historical LMR Provider 12/14/16 Catie Germain MD [address] [place] [address], [address] [place] [address] [email or web address] Historical LMR Provider 12/14/16 Noe Jolley MD, PhD [address] [place] [address] [address] [place] [address] Yolanda@[facility] [place] .[facility] Primary Oncologist Hematology 11/08/21 Haylie Knight, SAM [address] [place] [phone] DUKE@[facility] .[facility] Associate Infusion Nurse Oncology 02/01/22 Aditi Carrillo RN [address] [place] [phone] [email or web address] Primary Infusion Nurse 02/24/22 documented as of this encounter Additional Source Comments The information contained in this document represents components of the legal health record. It is not the complete legal health record.[facility]
--- OUTSIDE RECORDS SUMMARY | 2024-11-23 19:07 | XMS_ITS | Encounter Summary ---
Author Organization [facility] Address [address] [place] [address] [place] [address] Phone Care Team Providers Care It Architecture Consultant Name Role Phone Teodoro Briones DO Unavailable Catie Germain MD Unavailable [phone] Teodoro Briones DO Primary Care Provider [phone] Noe Jolley MD, PhD Unavailable [phone] Haylie Knight RN Unavailable NMI SANCHEZ@[email or web address] Aditi Carrillo RN Unavailable Encounter Details Date Type Department Care Team (Late st Contact Info) Description 12/17/2021 Telephone Interventional Radiology, [facility] - [address], [address] [place] [id number] Ginny Flores [address] [phone] [email or web address] Social History Tobacco Use Types Packs/Day Years [...] Description 01/03/2025 10:30 AM EST Blood Draw [facility] [address] [facility], 9th Floor, [address] [place] [address] Noe Jolley MD, PhD [address] [facility] [address] [place] [address] Yolanda@[email or web address] Phleb, [facility] Bmt Leuk Yaw9e 01/03/2025 11:20 AM EST Office Visit [facility] [address] [facility], 9th Floor, [address] [place] [address] Noe Jolley MD, PhD [address] [facility] [address] [place] [address] Yolanda@[email or web address] 02/10/2025 2:00 PM EST Office Visit [facility] [address] [place] [address] Catie Germain MD [address] [place] [address], 1st [place] [address] [email or web address] documented as of this encounter Visit Diagnoses Not on filedocumented in this encounter Additional Health Concerns Infection Onset Date Last Indicated Resolved Time CoV-Risk Comment:Per note documentation 01/14/2022 01/14/2022 6:35 AM EST COVID-19 03/18/2022 03/18/2022 04/08/2022 1:23 AM EST CoV-Risk Comment:Per note documentation 07/10/2022 07/10/2022 11:24 PM EDT COVID-19 10/29/2023 10/29/2023 11/19/2023 1:23 AM EDT documented as of this encounter Care Teams It Architecture Consultant Relationship Specialty Start Date End Date Teodoro Briones DO [email or web address] PCP - General Internal Medicine 01/13/17 Teodoro Briones DO [email or web address] Historical LMR Provider 12/14/16 Catie Germain MD [address] [place] [address], 1st [place] [address] [email or web address] Historical LMR Provider 12/14/16 Noe Jolley MD, PhD [address] [place] [address] [address] [place] [address] Yolanda@[email or web address] .[facility] Primary Oncologist Hematology 11/08/21 Haylie Knight, SAM [address] [place] [phone] DUKE@[email or web address] Associate Infusion Nurse Oncology 02/01/22 Aditi Carrillo, RN [address] [place] [phone] [email or web address] Primary Infusion Nurse 02/24/22 documented as of this encounter Additional Source Comments The information contained in this document represents components of the legal health record. It is not the complete legal health record.[facility]
--- OUTSIDE RECORDS SUMMARY | 2024-11-23 19:07 | XMS_ITS | Encounter Summary ---
Author Organization [facility] Address [address] [place] [address] Phone Care Team Providers Care Cotton Stripper Name Role Phone Teodoro Briones DO Unavailable Catie Germain MD Unavailable [phone] Teodoro Briones DO Primary Care Provider [phone] Noe Jolley MD, PhD Unavailable [phone] Haylie Knight RN Unavailable NMI SANCHEZ@[facility] Aditi Carrillo RN Unavailable Encounter Details Date Type Department Care Team (Late st Contact Info) Description 10/10/2022 Procedure Pass [facility], [address] [facility], 6th [place] [address] Social History Tobacco Use Types Packs/Day Years [...] Description 01/03/2025 10:30 AM EST Blood Draw [facility] [address] [place] [address], 9th Floor, [address] [place] [address] Noe Jolley MD, PhD [address] [place] [address] Yolanda@[email or web address] Phleb, [facility] Bmt Leuk Yaw9e 01/03/2025 11:20 AM EST Office Visit [facility] [address] [place] [address], 9th Floor, [address] [place] [address] Noe Jolley MD, PhD [address] [place] [address] Yolanda@[email or web address] 02/10/2025 2:00 PM EST Office Visit [facility] [address] [place] [address] Catie Germain MD [address] [place] [address], 1st [place] [address] [email or web address] documented as of this encounter Visit Diagnoses Not on filedocumented in this encounter Additional Health Concerns Infection Onset Date Last Indicated Resolved Time COVID-19 10/29/2023 10/29/2023 11/19/2023 1:23 AM EDT documented as of this encounter Care Teams Cotton Stripper Relationship Specialty Start Date End Date Jennpeggy Teodoro AdkinsDO [email or web address] PCP - General Internal Medicine 01/13/17 Teodoro Briones DO [email or web address] Historical LMR Provider 12/14/16 Catie Germain MD [address] [place] [address], 1st [place] [address] [email or web address] Historical LMR Provider 12/14/16 Neo Jolley MD, PhD [address] [place] [address] [address] [place] [address] Yolanda@[facility] [facility] Primary Oncologist Hematology 11/08/21 Haylie Knight, SAM [address] [place] [phone] DUKE@[facility] Associate Infusion Nurse Oncology 02/01/22 Aditi Carrillo RN [address] [place] [phone] [email or web address] Primary Infusion Nurse 02/24/22 documented as of this encounter Additional Source Comments The information contained in this document represents components of the legal health record. It is not the complete legal health record.[facility]
--- OUTSIDE RECORDS SUMMARY | 2024-11-23 19:07 | XMS_ITS | Encounter Summary ---
Author Organization [facility] Address [address] [place] [address] Phone Care Team Providers Care Restaurant Delivery Driver Name Role Phone Teodoro Briones DO Unavailable Catie Germain MD Unavailable [phone] Teodoro Briones DO Primary Care Provider [phone] Noe Jolley MD, PhD Unavailable [phone] Haylie Knight RN Unavailable NMI SANCHEZ@[facility] Aditi Carrillo RN Unavailable Encounter Details Date Type Department Care Team (Late st Contact Info) Description 12/25/2021 Procedure Pass [facility] [address] [place] [address] Social History Tobacco Use Types Packs/Day Years [...] Description 01/03/2025 10:30 AM EST Blood Draw [facility] [address] [facility], 9th Floor, [address] [place] [address] Noe Jolley MD, PhD [address] [place] [address] [place] [address] Yolanda@[facility] Phleb, [facility] Bmt Leuk Yaw9e 01/03/2025 11:20 AM EST Office Visit [facility] [address] [facility] [address], 9th Floor, [address] [place] [address] Noe Jolley MD, PhD [address] [place] [address] 1854 [place] [address] Yolanda@[facility] 02/10/2025 2:00 PM EST Office Visit [facility] [address] [place] [address] Catie Germain MD [address] [place] [address], 1[address] [place] [address] [email or web address] documented as of this encounter Visit Diagnoses Not on filedocumented in this encounter Additional Health Concerns Infection Onset Date Last Indicated Resolved Time CoV-Risk Comment:Per note documentation 01/14/2022 01/14/2022 2 6:35 AM EST COVID-19 03/18/2022 03/18/2022 04/08/2022 1:23 AM EST CoV-Risk Comment:Per note documentation 07/10/2022 07/10/2022 11:24 PM EDT COVID-19 10/29/2023 10/29/2023 11/19/2023 1:23 AM EDT documented as of this encounter Care Teams Restaurant Delivery Driver Relationship Specialty Start Date End Date Teodoro Briones DO [email or web address] PCP - General Internal Medicine 01/13/17 Teodoro Briones DO [email or web address] Historical LMR Provider 12/14/16 Catie Germain MD [address] [facility], 1st [place] [address] [email or web address] Historical LMR Provider 12/14/16 Noe Jolley MD, PhD [address] [place] [address] [address] [place] [address] Yolanda@[facility] .[facility] Primary Oncologist Hematology 11/08/21 Haylie Knight RN [address] [place] [phone] DUKE@[facility] Associate Infusion Nurse Oncology 02/01/22 Aditi Carrillo RN [address] [place] [phone] [email or web address] Primary Infusion Nurse 02/24/22 documented as of this encounter Additional Source Comments The information contained in this document represents components of the legal health record. It is not the complete legal health record.[facility]
--- OUTSIDE RECORDS SUMMARY | 2024-11-23 19:07 | XMS_ITS | Encounter Summary ---
Author Organization [facility] Address [address] [place] [address] Phone Care Team Providers Care Construction Secretary Name Role Phone Anali Teodoro Adkins DO Unavailable Catie Germain MD Unavailable [phone] Teodoro Briones DO Primary Care Provider [phone] Noe Jolley MD, PhD Unavailable [phone] Aditi Carrillo RN Unavailable Haylie Knight RN Unavailable NMI SANCHEZ@[facility] Aditi Carrillo RN Unavailable Encounter Details Date Type Department Care Team (Late st Contact Info) Description 10/05/2021 Procedure Pass [facility] Cardiac US [address] [place] [address] Social History Tobacco Use Types Packs/Day Years [...] Description 01/03/2025 10:30 AM EST Blood Draw [facility] [address] [facility], 9th Floor, [address] [place] [address] Noe Jolley MD, PhD [address] [place] [address] 1854 [place] [address] Yolanda@[email or web address] Phleb, [facility] Bmt Leuk Yaw9e 01/03/2025 11:20 AM EST Office Visit [facility] [address] [facility], 9th Floor, [address] [place] [address] Noe Jolley MD, PhD [address] [place] [address] Yolanda@[facility] 02/10/2025 2:00 PM EST Office Visit [facility] [address] [place] [address] Catie Germain MD [address] [place] [address], 1st [place] [address] [email or web address] [...] documented as of this encounter Care Teams Construction Secretary Relationship Specialty Start Date End Date Teodoro Briones DO [email or web address] PCP - General Internal Medicine 01/13/17 Teodoro Briones DO [email or web address] Historical LMR Provider 12/14/16 Catie Germain MD [address] [place] [address], 1st [place] [address] [email or web address] Historical LMR Provider 12/14/16 Noe Jolley MD, PhD [address] [place] [address] 1854 [place] [address] Yolanda@[facility] Primary Oncologist Hematology 11/08/21 Aditi Carrillo RN [address] [place] [phone] [email or web address] Primary Infusion Nurse 11/08/21 12/05/21 Haylie Knight RN [address] [place] [phone] DUKE@[facility] .[facility] Associate Infusion Nurse Oncology 02/01/22 Aditi Carrillo RN [address] [place] [phone] [email or web address] Primary Infusion Nurse 02/24/22 documented as of this encounter Additional Source Comments The information contained in this document represents components of the legal health record. It is not the complete legal health record.[facility]
--- OUTSIDE RECORDS SUMMARY | 2024-11-23 19:07 | XMS_ITS | Encounter Summary ---
Author Organization [facility] Address [address] [place] [address] [address] [place] [address] Phone Care Team Providers Care White Sugar Boiler Name Role Phone Teodoro Briones DO Unavailable Catie Germain MD Unavailable [phone] Teodoro Briones DO Primary Care Provider [phone] Noe Jolley MD, PhD Unavailable [phone] Haylie Knight RN Unavailable NMI [email or web address] Aditi Carrillo RN Unavailable Encounter Details Date Type Department Care Team (Late st Contact Info) Description 10/08/2022 Ancillary Orders [facility] [address] [place] [address], 9th Floor, [address] [place] [address] Ivanna Hong CNP [address] [facility] [address] [place] [address] [email or web address] Dyspnea, unspecified type Social History Tobacco Use Types Packs/Day Years [...] Date of Assessment Author No Risk Indicated 10/09/2022 4:34 PM EDT Cathy Wright RN * [place] Suicide Severity Rating Scale (Screener/Recent Self-Report) Question Answer Date of Assessment Author 1. Wish to be (Past 1 Month) No 10/09/2022 4:34 PM EDT Cathy Wright, SAM 2. Non-Specific Active Suici toni Thoughts (Past 1 Month) No 10/09/2022 4:34 PM EDT Cathy Wright, SAM 6. Suicidal Behavior (Lifetime) No 4:34 PM EDT Cathy Wright, SAM documented as of this encounter Plan of Treatment Upcoming Encounters Date Type Department Care Team (Late st Contact Info) Description 01/03/2025 10:30 AM EST Blood Draw [facility] 32 [facility], 9th Floor, [address] [place] [address] Noe Jolley MD, PhD [address] [facility] [address] [place] [address] Yolanda@[email or web address] Phleb, [facility] [place] Leuk Yaw9e 01/03/2025 11:20 AM EST Office Visit [facility] [address] [facility], 9th Floor, [address] [place] [address] Noe Jolley MD, PhD [facility] [address] [place] [address] Yolanda@[email or web address] 02/10/2025 2:00 PM EST Office Visit [facility] [address] [place] [address] Catie Germain MD [address] [facility], 1st [place] [address] [email or web address] documented as of this encounter Results * XR Chest Portable (10/08/2022 3:20 PM EDT) Anatomical Region Laterality Modality Chest Computed Radiogr aphy 10/08/2022 3:57 PM EDT Impressions 10/08/2022 5:07 PM EDT Right middle lobe linear opacity most likely representing atelectasis. Hypo-inflated lungs with right basilar atelectasis. ATTESTATION: I, Dr. Hazel Plascencia as teaching physician, have reviewed the images for this case and if necessary edited the report originally created by Rishabh Stuart. Narrative 10/08/2022 5:07 PM EDT XR CHEST PORTABLE COMPARISON: XR CHEST PORTABLE 2022- FINDINGS: Devices/Tubes/Lines: A left-sided PICC line terminates in the distal SVC in a more inferior location compared to the previous imaging. Lungs: Low lung volume. New linear opacity in the right middle lobe concerning for atelectasis. Right basilar atelectasis. No pulmonary edema. Pleura: No pleural effusion or pneumothorax. Heart/Mediastinum: Unremarkable size and contours of the heart and mediastinum. Bones/Soft Tissues: No significant skeletal abnormality. Procedure Note Haezl Plascencia MD - 10/08/2022 XR CHEST PORTABLE COMPARISON: XR CHEST PORTABLE FINDINGS: Devices/Tubes/Lines: A left-sided PICC line terminates in the distal SVCin a more inferior location compared to the previous imaging. Lungs: Low lung volume. New linear opacity in the right middle lobeconcerning for atelectasis. Right basilar atelectasis. No pulmonaryedema. Pleura: No pleural effusion or pneumothorax. Heart/Mediastinum: Unremarkable size and contours of the heart andmediastinum. Bones/Soft Tissues: No significant skeletal abnormality. IMPRESSION: Right middle lobe linear opacity most likely representing atelectasis. Hypo-inflated lungs with right basilar atelectasis. ATTESTATION: I, Dr. Hazel Plascencia as teaching physician, have reviewedthe images for this case and if necessary edited the report originallycreated by Rishabh Stuart. Ivanna Hong CNP IMG XR CHEST Final Result documented in this encounter Visit Diagnoses Diagnosis Dyspnea, unspecified type Dyspnea, unspecified type documented in this encounter Additional Health Concerns Infection Onset Date Last Indicated Resolved Time COVID-19 10/29/2023 10/29/2023 11/19/2023 1:23 AM EDT documented as of this encounter Care Teams White Sugar Boiler Relationship Specialty Start Date End Date Teodoro Briones DO PCP - General Internal Medicine 01/13/17 Teodoro Briones DO Historical LMR Provider 12/14/16 Catie Germain MD [address] [place] [address], 1st [place] [address] Historical LMR Provider 12/14/16 Noe Jolley MD, PhD [address] [place] [address] [address] [place] [address] [email or web address] Primary Oncologist Hematology 11/08/21 Haylie Knight, SAM [address] [place] [address] [email or web address] Associate Infusion Nurse Oncology 02/01/22 Aditi Carrillo RN [address] [place] [address] [email or web address] Primary Infusion Nurse 02/24/22 documented as of this encounter Additional Source Comments The information contained in this document represents components of the legal health record. It is not the complete legal health record.[facility]
--- OUTSIDE RECORDS SUMMARY | 2024-11-23 19:07 | XMS_ITS | Encounter Summary ---
Author Organization [facility] Address [address] [place] [address] Phone Care Team Providers Care Athletic Training Internship Name Role Phone Teodoro Briones DO Unavailable Catie Germain MD Unavailable [phone] Teodoro Briones DO Primary Care Provider [phone] Noe Jolley MD, PhD Unavailable [phone] Haylie Knight RN Unavailable NMI [email or web address] Aditi Carrillo RN Unavailable Encounter Details Date Type Department Care Team (Late st Contact Info) Description 12/21/2023 Procedure Pass [facility]IOP DEPT [address] [place] [address] Social History Tobacco Use Types Packs/Day Years [...] Description 01/03/2025 10:30 AM EST Blood Draw [facility] [address] [place] [address], 9th Floor, [address] [place] [address] Noe Jolley MD, PhD [address] [place] [address] Yolanda@[email or web address], [facility] [place] [facility] Bmt Leuk Yaw9e 01/03/2025 11:20 AM EST Office Visit [facility] [address] [place] [address], 9th Floor, [address] [place] [address] Noe Jolley MD, PhD [address] [place] [address] [email or web address] 02/10/2025 2:00 PM EST Office Visit [facility] 22 [place] [address] Catie Germain MD [address] [address] documented as of this encounter Visit Diagnoses Not on filedocumented in this encounter Care Teams Athletic Training Internship Relationship Specialty Start Date End Date Teodoro Briones DO PCP - General Internal Medicine 01/13/17 Teodoro Briones DO Historical LMR Provider 12/14/16 Catie Germain MD [address] [place] [address] Historical LMR Provider 12/14/16 Noe Jolley MD, PhD [address] [place] [address] [address] [place] [address] Yolanda@[email or web address] .[facility] Primary Oncologist Hematology 11/08/21 Haylie Knight, SAM [address] [place] [phone] DUKE@[email or web address] .[facility] Associate Infusion Nurse Oncology 02/01/22 Aditi Carrillo RN [address] [place] [phone] [email or web address] Primary Infusion Nurse 02/24/22 documented as of this encounter Additional Source Comments The information contained in this document represents components of the legal health record. It is not the complete legal health record.[facility]
--- OUTSIDE RECORDS SUMMARY | 2024-11-23 19:07 | XMS_ITS | Encounter Summary ---
Author Organization [facility] Address [address] [place] [address] Phone Care Team Providers Care Testboard Operator Name Role Phone Teodoro Briones DO Unavailable Catie Germain MD Unavailable [phone] Teodoro Briones DO Primary Care Provider [phone] Noe Jolley MD, PhD Unavailable [phone] Aditi Carrillo RN Unavailable Haylie Knight RN Unavailable NMI [email or web address] Aditi Carrillo RN Unavailable Encounter Details Date Type Department Care Team (Late st Contact Info) Description 10/30/2021 Procedure Pass [facility] [place], [address] 55 [facility], 6th [place] [address] Social History Tobacco Use Types Packs/Day Years [...] 01/03/2025 10:30 AM EST Blood Draw [facility] 32 [facility], 9th Floor, [address] [place] [address] Noe Jolley MD, PhD [address] [place] [address] [address] [place] [address] Yolanda@[email or web address] Phleb, [facility] [place] Bmt Leuk Yaw9e 01/03/2025 11:20 AM EST Office Visit [facility] 32 [facility], 9th Floor, [address] [place] [address] Noe Jolley MD, PhD [address] [place] [address] [address] [place] [address] Yolanda@[email or web address] 02/10/2025 2:00 PM EST Office Visit [facility] [address] [place] [address] Catie Germain MD [address] [place] [address], 1[address] [place] [address] [email or web address] documented as of this encounter Visit Diagnoses [...] documented as of this encounter Care Teams Testboard Operator Relationship Specialty Start Date End Date Teodoro Briones DO [email or web address] PCP - General Internal Medicine 01/13/17 Teodoro Briones DO Historical LMR Provider 12/14/16 Catie Germain MD [address] [place] [address], [address] [place] [address] [email or web address] Historical LMR Provider 12/14/16 Noe Jolley MD, PhD [address] [place] [address] [address] [place] [address] Yolanda@[email or web address] Primary Oncologist Hematology 11/08/21 Aditi Carrillo, SAM [address] [place] [phone] [email or web address] Primary Infusion Nurse 11/08/21 12/05/21 Haylie Knight RN [address] [place] [phone] DUKE@[email or web address] .[facility] Associate Infusion Nurse Oncology 02/01/22 Aditi Carrillo RN [address] [place] [phone] [email or web address] Primary Infusion Nurse 02/24/22 documented as of this encounter Additional Source Comments The information contained in this document represents components of the legal health record. It is not the complete legal health record.[facility]
--- OUTSIDE RECORDS SUMMARY | 2024-11-23 19:07 | XMS_ITS | Encounter Summary ---
Author Organization [facility] Address [address] [place] [address] Phone Care Team Providers Care Car Tracer Name Role Phone Teodoro Briones DO Unavailable Catie Germain MD Unavailable [phone] Teodoro Briones DO Primary Care Provider [phone] Noe Jolley MD, PhD Unavailable [phone] Aditi Carrillo RN Unavailable Haylie Knight RN Unavailable NMI SANCHEZ@[email or web address] Aditi Carrillo RN Unavailable Encounter Details Date Type Department Care Team ([facility] Contact Info) Description 10/30/2021 Procedure Pass [facility] [place] [facility], [address], Floor 1 [place] [address] Social History Tobacco Use Types Packs/Day Years [...] Description 01/03/2025 10:30 AM EST Blood Draw [facility] 32 [facility], 9th Floor, [address] [place] [address] Noe Jolley MD, PhD [address] [place] [address] [address] [place] [address] Yolanda@[facility] Phleb, [facility] [place] [place] Bmt Leuk Yaw9e 01/03/2025 11:20 AM EST Office Visit [facility] 32 [facility], 9th Floor, [address] [place] [address] Noe Jolley MD, PhD [address] [place] [address] [address] [place] [address] Yolanda@[email or web address] 02/10/2025 2:00 PM EST Office Visit [facility] [address] [place] [address] Catie Germain MD [address] [place] [address], 1st [place] [address] [email or web address] documented as of this encounter Visit [...] documented as of this encounter Care Teams Car Tracer Relationship Specialty Start Date End Date Teodoro Briones DO [email or web address] PCP - General Internal Medicine 01/13/17 Teodoro Briones DO [email or web address] Historical LMR Provider 12/14/16 Catie Germain MD [address] [place] [address], [address] [place] [address] [email or web address] Historical LMR Provider 12/14/16 Noe Jolley MD, PhD [address] [place] [address] [address]54 [place] [address] Yolanda@[email or web address] Primary Oncologist Hematology 11/08/21 Aditi Carrillo RN [address] [place] [phone] [email or web address] Primary Infusion Nurse 11/08/21 12/05/21 Haylie Knight RN [address] [place] [phone] DUKE@[email or web address] [facility] Associate Infusion Nurse Oncology 02/01/22 Aditi Carrillo RN [address] [place] [phone] [email or web address] Primary Infusion Nurse 02/24/22 documented as of this encounter Additional Source Comments The information contained in this document represents components of the legal health record. It is not the complete legal health record.[facility]
--- OUTSIDE RECORDS SUMMARY | 2024-11-23 19:07 | XMS_ITS | Encounter Summary ---
Author Organization [facility] Address [address] [place] [address] Phone Care Team Providers Care Drapery Worker Name Role Phone Teodoro Briones DO Unavailable Catie Germain MD Unavailable [phone] Teodoro Briones DO Primary Care Provider [phone] Noe Jolley MD, PhD Unavailable [phone] Aditi Carrillo RN Unavailable Haylie Knight RN Unavailable NMI SANCHEZ@[email or web address] [email or web address] [place] Aditi Carrillo RN Unavailable Encounter Details Date Type Department Care Team (Late st Contact Info) Description 10/17/2021 Procedure Pass [facility], [address] [facility] [place], 6th [place] [address] Social History Tobacco Use Types Packs/Day Years [...] Description 01/03/2025 10:30 AM EST Blood Draw [facility] [address] [facility], 9th Floor, [address] [place] [address] Noe Jolley MD, PhD [address] [place] [address] [address] [place] [address] Yolanda@[facility] Phleb, [facility] Bmt Leuk Yaw9e 01/03/2025 11:20 AM EST Office Visit [facility] [address] [facility], 9th Floor, [address] [place] [address] Noe Jolley MD, PhD [address] [place] [address] [address] [place] [address] Yolanda@[email or web address] [place] [place].[facility] 02/10/2025 2:00 PM EST Office Visit [facility] [address] [place] [address] Catie Germain MD [address] [place] [address], 1[address] [place] [address] [email or web address] documented as of this encounter Visit [...] documented as of this encounter Care Teams Drapery Worker Relationship Specialty Start Date End Date Teodoro Briones DO [email or web address] PCP - General Internal Medicine 01/13/17 Teodoro Briones DO Historical LMR Provider 12/14/16 Catie Germain MD [address] [place] [address], [address] [place] [address] [email or web address] Historical LMR Provider 12/14/16 Noe Jolley MD, PhD [address] [place] [address] [address] [place] [address] Yolanda@[email or web address] [place] [place] Primary Oncologist Hematology 11/08/21 Aditi Carrillo, SAM [address] [place] [phone] [email or web address] Primary Infusion Nurse 11/08/21 12/05/21 Haylie Knight RN [address] [place] [phone] DUKE@[email or web address] [email or web address] [place] [facility] Associate Infusion Nurse Oncology 02/01/22 Aditi Carrillo RN [address] [place] [phone] [email or web address] Primary Infusion Nurse 02/24/22 documented as of this encounter Additional Source Comments The information contained in this document represents components of the legal health record. It is not the complete legal health record.[facility]
--- OUTSIDE RECORDS SUMMARY | 2024-11-23 19:07 | XMS_ITS | Encounter Summary ---
Author Organization [facility] Address [address] [place] [address] Phone Care Team Providers Care Store Facility Technician Name Role Phone Teodoro Briones DO Unavailable Catie Germain MD Unavailable [phone] Teodoro Briones DO Primary Care Provider [phone] Noe Jolley MD, PhD Unavailable [phone] Haylie Knight RN Unavailable NMI SANCHEZ@[email or web address] Aditi Carrillo RN Unavailable Encounter Details Date Type Department Care Team (Late st Contact Info) Description 10/08/2022 Procedure Pass [facility] Cardiac US [address] [place] [address] Social History Tobacco Use Types Packs/Day Years [...] Risk Indicated 10/09/2022 4:34 PM EDT Cathy Wright, SAM * [place] Suicide Severity Rating Scale (Screener/Recent Self-Report) Question Answer Date of Assessment Author 1. Wish to be (Past 1 Month) No 10/09/2022 4:34 PM EDT Cathy Wright, SAM 2. Non-Specific Active Suici toni Thoughts (Past 1 Month) No 10/09/2022 4:34 PM EDT aCthy Wright, SAM 6. Suicidal Behavior (Lifetime) No 4:34 PM EDT Cathy Wright, SAM documented as of this encounter Plan of Treatment Upcoming Encounters Date Type Department Care Team (Late st Contact Info) Description 01/03/2025 10:30 AM EST Blood Draw [facility] [address] [place] [address], 9th Floor, [address] [place] [address] Noe Jolley MD, PhD [address] [place] [address] Yolanda@[facility] Phleb, [facility] Bmt Leuk Yaw9e 01/03/2025 11:20 AM EST Office Visit [facility] [address] [place] [address], 9th Floor, [address] [place] [address] Noe Jolley MD, PhD [address] [place] [address] Yolanda@[facility] 02/10/2025 2:00 PM EST Office Visit [facility] [address] [place] [address] Catie Germain MD [address] [address] [email or web address] documented as of this encounter Visit Diagnoses Not on filedocumented in this encounter Additional Health Concerns Infection Onset Date Last Indicated Resolved Time COVID-19 10/29/2023 10/29/2023 11/19/2023 1:23 AM EDT documented as of this encounter Care Teams Store Facility Technician Relationship Specialty Start Date End Date Teodoro Briones DO [email or web address] PCP - General Internal Medicine 01/13/17 Teodoro Briones DO Historical LMR Provider 12/14/16 Catie Germain MD [address] [place] [address] [email or web address] Historical LMR Provider 12/14/16 Noe Jolley MD, PhD [address] [place] [address] [address] [place] [address] Yolanda@[facility] Primary Oncologist Hematology 11/08/21 Haylie Knight, SAM [address] [place] [address] [email or web address] Associate Infusion Nurse Oncology 02/01/22 Aditi Carrillo RN [address] [place] [address] Primary Infusion Nurse 02/24/22 documented as of this encounter Additional Source Comments The information contained in this document represents components of the legal health record. It is not the complete legal health record.[facility]
--- OUTSIDE RECORDS SUMMARY | 2024-11-23 19:07 | XMS_ITS | Encounter Summary ---
Author Organization [facility] Address [address] [place] [address] Phone Care Team Providers Care Casting Machine Adjuster Name Role Phone Teodoro Briones DO Unavailable Catie Germain MD Unavailable [phone] Teodoro Briones DO Primary Care Provider [phone] Noe Jolley MD, PhD Unavailable [phone] Haylie Knight RN Unavailable NMI [email or web address] Aditi Carrillo RN Unavailable Encounter Details Date Type Department Care Team (Late st Contact Info) Description 11/02/2023 Procedure Pass [facility]IOP DEPT [address] [place] [address] Social History Tobacco Use Types Packs/Day Years [...] Description 01/03/2025 10:30 AM EST Blood Draw [facility] [address] [facility], 9th Floor, [address] [place] [address] Noe Jolley MD, PhD [address] [place] [address] Yolanda@[facility] Leuk Yaw9e 01/03/2025 11:20 AM EST Office Visit [facility] [address] [facility], 9th Floor, [address] [place] [address] Noe Jolley MD, PhD [address] [place] [address] [email or web address] 02/10/2025 2:00 PM EST Office Visit [facility] [address] [place] [address] Catie Germain MD [address] [place] [address], 1st [place] [address] [email or web address] documented as of this encounter Visit Diagnoses Not on filedocumented in this encounter Additional Health Concerns Infection Onset Date Last Indicated Resolved Time COVID-19 10/29/2023 10/29/2023 11/19/2023 1:23 AM EDT documented as of this encounter Care Teams Casting Machine Adjuster Relationship Specialty Start Date End Date Teodoro Briones DO [email or web address] PCP - General Internal Medicine 01/13/17 Teodoro Briones LucilleDO [email or web address] Historical LMR Provider 12/14/16 Catie Germain MD [address] [facility], 1st [place] [address] [email or web address] Historical LMR Provider 12/14/16 Noe Jolley MD, PhD [address] [place] [address] [address] [place] [address] Yolanda@[email or web address] .[facility] Primary Oncologist Hematology 11/08/21 Haylie Knight, SAM [address] [place] [phone] [email or web address] Associate Infusion Nurse Oncology 02/01/22 Aditi Carrillo RN [address] [place] [phone] [email or web address] Primary Infusion Nurse 02/24/22 documented as of this encounter Additional Source Comments The information contained in this document represents components of the legal health record. It is not the complete legal health record.[facility]
--- OUTSIDE RECORDS SUMMARY | 2024-11-23 19:07 | XMS_ITS | Encounter Summary ---
Author Organization [facility] Address [address] [place] [address] Phone Care Team Providers Care Eyeglass Fitter Name Role Phone Teodoro Briones DO Unavailable Catie Germain MD Unavailable [phone] Teodoro Briones DO Primary Care Provider [phone] Noe Jolley MD, PhD Unavailable [phone] Haylie Knight RN Unavailable NMI SANCHEZ@[email or web address] Aditi Carrillo RN Unavailable Encounter Details Date Type Department Care Team (Late st Contact Info) Description 10/14/2022 Procedure Pass [facility] - RF/IR [address] [facility], 2nd [place] [address] Social History Tobacco Use Types Packs/Day Years [...] EST Blood Draw [facility] [address] [place] [address], 9th Floor, [address] [place] [address] Noe Jolley MD, PhD [address] [place] [address] Yolanda@[email or web address], [facility] Bmt Leuk Yaw9e 01/03/2025 11:20 AM EST Office Visit [facility] [address] [place] [address], 9th Floor, [address] [place] [address] Noe Jolley MD, PhD [address] [place] [address] Yolanda@[email or web address] 02/10/2025 2:00 PM EST Office Visit [facility] [address] [place] [address] Catie Germain MD [address] [place] [address], 1st [place] [address] [email or web address] documented as of this encounter Visit Diagnoses Not on filedocumented in this encounter Additional Health Concerns Infection Onset Date Last Indicated Resolved Time COVID-19 10/29/2023 10/29/2023 11/19/2023 1:23 AM EDT documented as of this encounter Care Teams Eyeglass Fitter Relationship Specialty Start Date End Date Jennpeggy Teodoro AdkinsDO [email or web address] PCP - General Internal Medicine 01/13/17 Teodoro Briones DO [email or web address] Historical LMR Provider 12/14/16 Catie Germain MD [address] [place] [address], 1st [place] [address] [email or web address] Historical LMR Provider 12/14/16 Noe Jolley MD, PhD [address] [place] [address] [address] [place] [address] Yolanda@[email or web address] .[facility] Primary Oncologist Hematology 11/08/21 Haylie Knight, SAM [address] [place] [phone] DUKE@[email or web address] Associate Infusion Nurse Oncology 02/01/22 Aditi Carrillo RN [address] [place] [phone] [email or web address] Primary Infusion Nurse 02/24/22 documented as of this encounter Additional Source Comments The information contained in this document represents components of the legal health record. It is not the complete legal health record.[facility]
--- OUTSIDE RECORDS SUMMARY | 2024-11-23 19:07 | XMS_ITS ---
Author Organization [facility] Address [address] [place] [address] Phone Care Team Providers Care Systems Integration Advisor Name Role Phone Teodoro Briones DO Unavailable Catie Germain MD Unavailable [phone] Teodoro Briones DO Primary Care Provider [phone] Noe Jolley MD, PhD Unavailable [phone] Haylie Knight RN Unavailable NMShelly [email or web address] Aditi Carrillo RN Unavailable Active Problems Patient Care Coordination No te Formatting of this note migh t be different from the original. 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 The LensVectorStyle Lila Continuous glucose monitor is not FDA [...] of exercise. He is followed by outside purchasing agent, had recent follow-up. During his last [...] before meals and at bedtime Call the [facility] Diabetes Center with any questions or concerns at [phone], or call the [facility] sheetfed press operator at [phone] and ask them to call pager #[phone]. The diabetes doctor hvac operations technician will call you back. Follow up with your purchasing agent in 2-3 weeks Assessment & Plan [...] sure to titrate needed doses with your purchasing agent, Dr. Catie Germain. Diabetes medication Instructions: Check fingerstick blood sugar readings 3 times a day (before breakfast, before lunch, before dinner). If your blood sugar is less than 70 mg/dL or greater than 300 mg/dL or if you have any concern about your diabetes plan, please call your purchasing agent, Dr. Germain. If you have concerns and are unable to reach Dr. Germain, please call the [facility] Paging Developmental Therapist at [phone] and ask paging sheetfed press operator to page beeper number [phone] (Thursday-Thursday 8am-5pm) or beeper number [phone] (overnight or weekend for urgent issues) Patient will need the following scripts: Novolog/Humalog pen 2 units with meal Insulin pen needles 4mm Lantus 8 units QAM (he may already have this at home) Diabetes Outpatient Follow-Up: Please be sure to follow-up with your purchasing agent, Dr. Catie Germain, for insulin management once discharged. If you have any questions, please don't hesitate to reach out to the [facility] Diabetes Center. During business hours, please call [phone] and ask to speak to a nurse. For urgent issues after business hours, please call [phone] and ask for the Diabetes Attending On-Call to be paged (pager number [phone]). Fallon Shields NP [facility] Inpatient Diabetes Management Service Assessment & Plan [...] random check Patient can continue to wear [employer] Louds[employer] CGM but insulin dose adjustment should be [...] Plan (11/23/2020 11:44 AM EDT): Using FSL intermittently, we discussed CGM options today since [...] very consistent lifestyle/eating pattern We discussed Freestyle Lila personal CGM in detail, this would be [...] to call with any questions or concerns Current Treatment and Therapy Plans ACCESS AND FLUSH ([facility])* Plan Start Date:04/30/2023 Plan Provider:Ivanna Hong CNP Linked Problems 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 Treatment Medications No medications scheduled. 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 Treatment Medications Current Day (Day 8 , Continuation - Planned for 11/17/2023) Next Day (Day 15, Continuation - Planned for 11/24/2023) cycloPHOSphamide (CYTOXAN) infusion 250 mL (liquid vial)cytarabine (DAYO-C) IVPB {100 mg/mL liquid vial}cytarabine (PF) (DAYO-C)cytarabine (PF) (CYTOSAR)cytarabine +/- methotrexate +/- hydrocortisone INTRATHECAL syringeDOXOrubicin (ADRIAMYCIN)etoposide (VEPESID, TOPOSAR) infusion (500 mL)mercaptopurine (PURINETHOL)methotrexatemethotrex ate +/- hydrocortisone INTRATHECAL syringemethotrexate IVPBmethotrexate sodium (PF)pegaspargase (ONCASPAR) IVPBvinCRIStine (VINCASAR PFS) IVPB {1 mg/mL vial} mercaptopurine (PURINETHOL) tablet 50 mg No medications scheduled. 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 IMMUNE GLOBULIN (IVIG)??* Plan Start Date:07/18/2022 Plan Provider:Noe Jolley MD, PhD Linked Problems ALL (acute lymphoid leukemia ) in remission Treatment Medications No medications scheduled. PENTAMIDINE IV* Plan Start Date:09/09/2022 Plan Provider:Noe Jolley MD, PhD Linked Problems Acute lymphoblastic leukemia in remission Treatment Medications No medications scheduled. Past Treatment and Therapy Plans Oncology Therapy Plan Supplemental 2 Plan Name Start Date Discontinue Date Treatment Medications Discontinue Reason Plan Provider PEDI PENTAMIDINE 4 MG/KG IV 09/09/2022 09/09/2022 No medications scheduled. m. Entered in error Noe Jolley MD, PhD TREATMENT PLAN Plan Name Start Date Discontinue Date Treatment Medications Discontinue Reason Plan Provider Cycles AYA-TINA CARMEN E/DOXOR UBICIN/ METHOTR EXATE/C YTARABI NE/STER OIDS-IN DUCTION ONLY 2 11/19/2021 cytarabine INTRATHECAL syringeDOXOrubicin (ADRIAMYCIN)methotrexa te +/- hydrocortisone INTRATHECAL syringemethotrexate sodium (PF)vinCRIStine (VINCASAR PFS) IVPB {1 mg/mL vial} a. Therapy Complete Yandel Barba MD 0 (1 of 1 cycle) started AYA-TINA CARMEN E/DOXOR UBICIN/ METHOTR EXATE/C YTARABI NE/STER OIDS-IN DUCTION ONLY 2 10/14/2021 DOXOrubicin (ADRIAMYCIN)methotrexa te +/- hydrocortisone INTRATHECAL syringemethotrexate sodium (PF)vinCRIStine (VINCASAR PFS) IVPB {1 mg/mL vial} a. Therapy Complete Yandel Barba MD Treatment not started AYA-TINA CARMEN E/DOXOR UBICIN/ METHOTR EXATE/C YTARABI NE/STER OIDS-IN DUCTION ONLY 2 10/14/2021 DOXOrubicin (ADRIAMYCIN)methotrexa te +/- hydrocortisone INTRATHECAL syringemethotrexate sodium (PF)vinCRIStine (VINCASAR PFS) IVPB {1 mg/mL vial} a. Therapy Complete Yandel Barba MD 0 (1 of 2 cycles) planned TREATMENT PLAN-SUPPLEMENTAL Plan Name Start Date Discontinue Date Treatment Medications Discontinue Reason Plan Provider Cycles BLINATUMOMAB 28 MCG/DAY FOR MRD WITH 7-DAY PUMP 11/05/19 23 05/25/2023 blinatumumab (BLINCYTO) CADD pump infusion 28 mcg/day - 7 days Bagcytarabine +/- methotrexate +/- hydrocortisone INTRATHECAL syringe a. Therapy Complete Noe Jollye MD, PhD 2 of 2 cycles started BLINATUMOMAB 11/05/19 23 10/29/2022 blinatumomab (BLYNCYTO) m. Entered in error Noe Jolley MD, PhD Treatment not started AYA-PEGASPARGA SE 06/11/19 23 10/23/2022 pegaspargase (ONCASPAR) IVPB c. Not Tolerated Noe Jolley MD, PhD 5 of 5 cycles started BLINATUMOMAB 28 MCG/DAY FOR MRD WITH 7-DAY PUMP 03/17/19 23 06/09/2022 blinatumomab (BLINCYTO) CADD pump infusion 28 mcg/day - 24 hour Cassetteblinatumomab (BLINCYTO) CADD pump infusion 28 mcg/day - 48 hours Cassetteblinatumomab (BLINCYTO) infusion 28 mcg/day Bagblinatumumab (BLINCYTO) CADD pump infusion 28 mcg/day - 7 days Bag e. Reapplying Amended Protocol / Plan Noe Jolley MD, PhD 2 of 4 cycles started AYA-PEGASPARGA SE 10/24/19 22 03/14/2022 pegaspargase (ONCASPAR) IVPB e. Reapplying Amended Protocol / Plan Yandel Barba MD 2 of 2 cycles started AYA-PEGASPARGA SE 10/15/19 22 10/14/2021 pegaspargase (ONCASPAR) IVPB a. Therapy Complete Yandel Barba MD Treatment not started Lifetime Dose Tracking * Chemical Lifetime Dose Automatic Entry Manual Entr y doxorubicin 299.125 mg/m2 (474 mg) 299.125 mg/m2 (474 mg) 0 mg/m2 (0 mg)
--- OUTSIDE RECORDS SUMMARY | 2024-11-23 19:07 | XMS_ITS | Encounter Summary ---
Author Organization [facility] Address [address] [place] [address] Phone Care Team Providers Care Neon Sign Installer Name Role Phone Teodoro Briones DO Unavailable Catie Germain MD Unavailable [phone] Teodoro Briones DO Primary Care Provider [phone] Noe Jolley MD, PhD Unavailable [phone] Haylie Knight RN Unavailable NMI [email or web address] Aditi Carrillo RN Unavailable Encounter Details Date Type Department Care Team (Late st Contact Info) Description 07/15/2022 Procedure Pass [facility] - RF/IR [address] [place] [address] Social History Tobacco Use Types Packs/Day Years [...] Description 01/03/2025 10:30 AM EST Blood Draw [facility] [address] [facility], 9th Floor, [address] [place] [address] Noe Jolely MD, PhD [address] [place] [address] Yolanda@[email or web address], [facility] Bmt Leuk Yaw9e 01/03/2025 11:20 AM EST Office Visit [facility] [address] [facility], 9th Floor, [address] [place] [address] Noe Jolley MD, PhD [address] [place] [address] Yolanda@[email or web address] 02/10/2025 2:00 PM EST Office Visit [facility] [address] [place] [address] Catie Germain MD [address] [place] [address], 1st [place] [address] [email or web address] documented as of this encounter Visit Diagnoses Not on filedocumented in this encounter Additional Health Concerns Infection Onset Date Last Indicated Resolved Time COVID-19 10/29/2023 10/29/2023 11/19/2023 1:23 AM EDT documented as of this encounter Care Teams Neon Sign Installer Relationship Specialty Start Date End Date Teodoro Briones DO [email or web address] PCP - General Internal Medicine 01/13/17 Teodoro Briones LucilleDO [email or web address] Historical LMR Provider 12/14/16 Catie Germain MD [address] [facility], 1st [place] [address] [email or web address] Historical LMR Provider 12/14/16 Noe Jolley MD, PhD [address] [place] [address] [address] [place] [address] Yolanda@[facility]eral .[facility] Primary Oncologist Hematology 11/08/21 Haylie Knight, SAM [address] [place] [phone] DUKE@[email or web address] Associate Infusion Nurse Oncology 02/01/22 Aditi Carrillo RN [address] [place] [phone] [email or web address] Primary Infusion Nurse 02/24/22 documented as of this encounter Additional Source Comments The information contained in this document represents components of the legal health record. It is not the complete legal health record.[facility]
--- OUTSIDE RECORDS SUMMARY | 2024-11-23 19:07 | XMS_ITS | Encounter Summary ---
Author Organization [facility] Address [address] [place] [address] Phone Care Team Providers Care Firearms Specialist Name Role Phone Teodoro Briones DO Unavailable Catie Germain MD Unavailable [phone] Teodoro Briones DO Primary Care Provider [phone] Noe Jolley MD, PhD Unavailable [phone] Haylie Knight RN Unavailable NMI [email or web address] Aditi Carrillo RN Unavailable Encounter Details Date Type Department Care Team (Late st Contact Info) Description 06/16/2023 Procedure Pass [facility] - RF/IR [address] [place] [address] Social History Tobacco Use Types Packs/Day Years [...] Description 01/03/2025 10:30 AM EST Blood Draw [facility] [address] [facility], 9th Floor, [address] [place] [address] Noe Jolley MD, PhD [address] [place] [address] Yolanda@[email or web address], [facility] Bmt Leuk Yaw9e 01/03/2025 11:20 AM EST Office Visit [facility] [address] [facility], 9th Floor, [address] [place] [address] Noe Jolley MD, PhD [address] [place] [address] Yolanda@[email or web address] 02/10/2025 2:00 PM EST Office Visit [facility] [address] [place] [address] Catie Germain MD [address] [place] [address], 1st [place] [address] [email or web address] documented as of this encounter Visit Diagnoses Not on filedocumented in this encounter Additional Health Concerns Infection Onset Date Last Indicated Resolved Time COVID-19 10/29/2023 10/29/2023 11/19/2023 1:23 AM EDT documented as of this encounter Care Teams Firearms Specialist Relationship Specialty Start Date End Date Teodoro Briones DO [email or web address] PCP - General Internal Medicine 01/13/17 Teodoro Briones LucilleDO [email or web address] Historical LMR Provider 12/14/16 Catie Germain MD 22 [facility], 1st [place] [address] [email or web address] Historical LMR Provider 12/14/16 Noe Jolley MD, PhD [address] [place] [address] [address] [place] [address] Yolanda@[email or web address] [place] .[facility] Primary Oncologist Hematology 11/08/21 Haylie Knight, SAM [address] [place] [phone] DUKE@[email or web address] Associate Infusion Nurse Oncology 02/01/22 Aditi Carrillo RN [address] [place] [phone] [email or web address] [email or web address] Primary Infusion Nurse 02/24/22 documented as of this encounter Additional Source Comments The information contained in this document represents components of the legal health record. It is not the complete legal health record.[facility]
--- OUTSIDE RECORDS SUMMARY | 2024-11-23 19:07 | XMS_ITS | Encounter Summary ---
Author Organization [facility] Address [address] [place] [address] Phone Care Team Providers Care Special Needs Child Caregiver Name Role Phone Teodoro Briones DO Unavailable Catie Germain MD Unavailable [phone] Teodoro Briones DO Primary Care Provider [phone] Noe Jolley MD, PhD Unavailable [phone]- [phone] Haylie Knight RN Unavailable NMI SANCHEZ@[email or web address] Aditi Carrillo RN Unavailable Encounter Details Date Type Department Care Team (Late st Contact Info) Description 07/11/2022 Procedure Pass [facility] [place] [address] [place] [address] Social History Tobacco Use Types Packs/Day Years [...] Date of Assessment Author No Risk Indicated 07/11/2022 6:00 PM EDT Bethany Kay, RN * Elbert Suicide Severity Rating Scale (Screener/Recent Self-Report) Question Answer Date of Assessment Author 1. Wish to be (Past 1 Month) No 07/11/2022 6:00 PM EDT Bethany Kay, RN 2. Non-Specific Active Suici toni Thoughts (Past 1 Month) No 07/11/2022 6:00 PM EDT Shelbie Kay RN 6. Suicidal Behavior (Lifetime) No 6:00 PM EDT Bethany Kay, RN documented as of this encounter Plan of Treatment Upcoming Encounters Date Type Department Care Team (Late st Contact Info) Description 01/03/2025 10:30 AM EST Blood Draw [facility] [address] [place] [address], 9th Floor, [address] [place] [address] Noe Jolley MD, PhD [address] [place] [address] Yolanda@[email or web address], [facility] Bmt Leuk Yaw9e 01/03/2025 11:20 AM EST Office Visit [facility] [address] [place] [address], 9th Floor, [address] [place] [address] Noe Jolley MD, PhD [address] [place] [address] Yolanda@[facility] 02/10/2025 2:00 PM EST Office Visit [facility] [address] [place] [address] Catie Germain MD 22 [facility], [address] [place] [address] [email or web address] documented as of this encounter Visit Diagnoses Not on filedocumented in this encounter Additional Health Concerns Infection Onset Date Last Indicated Resolved Time CoV-Risk Comment:Per note documentation 07/10/2022 07/10/2022 11:24 PM EDT COVID-19 10/29/2023 10/29/2023 11/19/2023 1:23 AM EDT documented as of this encounter Care Teams Special Needs Child Caregiver Relationship Specialty Start Date End Date Teodoro Briones DO [email or web address] PCP - General Internal Medicine 01/13/17 Teodoro Broines DO Historical LMR Provider 12/14/16 Catie Germain MD [address] [place] [address] [email or web address] Historical LMR Provider 12/14/16 Noe Jolley MD, PhD [address] [place] [address] [address] [place] [address] Yolanda@[facility] Primary Oncologist Hematology 11/08/21 Haylie Knight, SAM [address] [place] [address] DUKE@[email or web address] Associate Infusion Nurse Oncology 02/01/22 Aditi Carrillo, RN [address] [place] [address] [email or web address] Primary Infusion Nurse 02/24/22 documented as of this encounter Additional Source Comments The information contained in this document represents components of the legal health record. It is not the complete legal health record.[facility]
--- OUTSIDE RECORDS SUMMARY | 2024-11-23 19:07 | XMS_ITS | Encounter Summary ---
Author Organization [facility] Address [address] [place] [address] Phone Care Team Providers Care Air Pollution Analyst Name Role Phone Teodoro Briones DO Unavailable Catie Germain MD Unavailable [phone] Teodoro Briones DO Primary Care Provider [phone] Noe Jolley MD, PhD Unavailable [phone] Haylie Knight RN Unavailable NMI SANCHEZ@[email or web address].helena.[facility] Aditi Carrillo RN Unavailable Encounter Details Date Type Department Care Team (Latest Contact Info) Description 06/23/2022 Hospital Encounter Noe Jolley MD, PhD [address] [facility] [address] [place] [address] Yolanda@[facility].helena.[facility] Social History Tobacco Use Types Packs/Day Years [...] 4:34 PM EDT Cathy Wright, SAM * Norton Suicide Severity Rating Scale (Screener/Recent Self-Report) Question Answer Date of Assessment Author 1. Wish to be (Past 1 Month) No 10/09/2022 4:34 PM EDT Cathy Wright, SAM 2. Non-Specific Active Suici toni Thoughts (Past 1 Month) No 10/09/2022 4:34 PM EDT Catyh Wright, SAM 6. Suicidal Behavior (Lifetime) No 4:34 PM CELSOT Cathy Wright, SAM documented as of this encounter Plan of Treatment Upcoming Encounters Date Type Department Care Team (Late st Contact Info) Description 01/03/2025 10:30 AM EST Blood Draw [facility] [address] [place] [address], 9th Floor, [address] [place] [address] Noe Jolley MD, PhD 55 [facility] [address] [place] [address] Yolanda@[facility], [facility] Bmt Leuk Yaw9e 01/03/2025 11:20 AM EST Office Visit [facility] [address] [facility], 9th Floor, [address] [place] [address] Noe Jolley MD, PhD 55 [facility] [address] [place] [address] Yolanda@[facility] 02/10/2025 2:00 PM EST Office Visit [facility] [address] [place] [address] Catie Germain MD [address] [place] [address], 1st [place] [address] [email or web address] documented as of this encounter Visit Diagnoses Not on filedocumented in this encounter Additional Health Concerns Infection Onset Date Last Indicated Resolved Time CoV-Risk Comment:Per note documentation 07/10/2022 07/10/2022 11:24 PM EDT COVID-19 10/29/2023 10/29/2023 11/19/2023 1:23 AM EDT documented as of this encounter Care Teams Air Pollution Analyst Relationship Specialty Start Date End Date Teodoro Briones DO PCP - General Internal Medicine 01/13/17 Teodoro Briones DO Historical LMR Provider 12/14/16 Catie Germain MD [address] [place] [address], 1st [place] [address] [email or web address] Historical LMR Provider 12/14/16 Noe Jolley MD, PhD [address] [place] [address] [address] [place] [address] Yolanda@[facility].helena .[facility] Primary Oncologist Hematology 11/08/21 Haylie Knight RN [address] [place] [address] [email or web address] Associate Infusion Nurse Oncology 02/01/22 Aditi Carrillo, RN [address] [place] [phone] [email or web address] Primary Infusion Nurse 02/24/22 documented as of this encounter Additional Source Comments The information contained in this document represents components of the legal health record. It is not the complete legal health record.[facility]
--- OUTSIDE RECORDS SUMMARY | 2024-11-23 19:07 | XMS_ITS | Encounter Summary ---
Author Organization [facility] Address [address] [place] [address] Phone Care Team Providers Care Aquaculture Farmer Name Role Phone Teodoro Briones DO Unavailable Catie Germain MD Unavailable [phone] Teodoro Briones DO Primary Care Provider [phone] Noe Jolley MD, PhD Unavailable [phone] Haylie Knight RN Unavailable NMI SANCHEZ@[email or web address].[facility] Aditi Carrillo RN Unavailable Encounter Details Date Type Department Care Team (Late st Contact Info) Description 10/10/2022 Procedure Pass [facility], Lunder 6 [address] [facility], 6th [place] [address] Social History Tobacco Use Types Packs/Day Years [...] Description 01/03/2025 10:30 AM EST Blood Draw [facility] [address] [place] [address], 9th Floor, [address] [place] [address] Noe Jolley MD, PhD [address] [place] [address] Yolanda@[facility] Phleb, [facility] Bmt Leuk Yaw9e 01/03/2025 11:20 AM EST Office Visit [facility] [address] [place] [address], 9th Floor, [address] [place] [address] Noe Jolley MD, PhD [address] [place] [address] Yolanda@[facility] 02/10/2025 2:00 PM EST Office Visit [facility] [address] [place] [address] Catie Germain MD [address] [place] [address], 1st [place] [address] [email or web address] documented as of this encounter Visit Diagnoses Not on filedocumented in this encounter Additional Health Concerns Infection Onset Date Last Indicated Resolved Time COVID-19 10/29/2023 10/29/2023 11/19/2023 1:23 AM EDT documented as of this encounter Care Teams Aquaculture Farmer Relationship Specialty Start Date End Date Jennpeggy Teodoro AdkinsDO [email or web address] PCP - General Internal Medicine 01/13/17 Teodoro Briones DO [email or web address] Historical LMR Provider 12/14/16 Catie Germain MD [address] [place] [address], 1st [place] [address] [email or web address] Historical LMR Provider 12/14/16 Noe Jolley MD, PhD [address] [place] [address] [address] [place] [address] Yolanda@[facility].commerce .[facility] Primary Oncologist Hematology 11/08/21 Haylie Knight, SAM [address] [place] [phone] DUKE@[email or web address] Associate Infusion Nurse Oncology 02/01/22 Aditi Carrillo RN [address] [place] [phone] [email or web address] Primary Infusion Nurse 02/24/22 documented as of this encounter Additional Source Comments The information contained in this document represents components of the legal health record. It is not the complete legal health record.[facility]
--- OUTSIDE RECORDS SUMMARY | 2024-11-23 19:07 | XMS_ITS | Encounter Summary ---
Author Organization [facility] Address [address] [place] [address] Phone Care Team Providers Care Track Fitter Name Role Phone Teodoro Briones DO Unavailable Catie Germain MD Unavailable [phone] Teodoro Briones DO Primary Care Provider [phone] Noe Jolley MD, PhD Unavailable [phone] Aditi Carrillo RN Unavailable Haylie Knight RN Unavailable NMI SANCHEZ@[facility] [place] [place].rice.[facility] Aditi Carrillo RN Unavailable Encounter Details Date Type Department Care Team (Late st Contact Info) Description 10/30/2021 Procedure Pass [facility], Lunder 6 55 [facility], 6th [place] [address] Social History Tobacco Use Types Packs/Day Years [...] Blood Draw [facility] [address] [facility], 9th Floor, [address] [place] [address] Noe Jolley MD, PhD [address] [place] [address] [address] [place] [address] Yolanda@[facility] Phleb, [facility] Bmt Leuk Yaw9e 01/03/2025 11:20 AM EST Office Visit [facility] [address] [facility], 9th Floor, [address] [place] [address] Noe Jolley MD, PhD [address] [place] [address] [address] [place] [address] Yolanda@[facility] [place] 02/10/2025 2:00 PM EST Office Visit [facility] [address] [place] [address] Catie Germain MD [address] [place] [address], 1st [place] [address] [email or web address] documented as of this encounter Visit [...] documented as of this encounter Care Teams Track Fitter Relationship Specialty Start Date End Date Teodoro Briones DO [email or web address] PCP - General Internal Medicine 01/13/17 Teodoro Briones DO Historical LMR Provider 12/14/16 Catie Germain MD [address] [place] [address], [address] [place] [address] [email or web address] Historical LMR Provider 12/14/16 Noe Jolley MD, PhD [address] [place] [address] 1854 [place] [address] Yolanda@[facility] [place] [place] Primary Oncologist Hematology 11/08/21 Aditi Carrillo, SAM [address] [place] [phone] [email or web address] Primary Infusion Nurse 11/08/21 12/05/21 Haylie Knight RN [address] [place] [phone] DUKE@[facility] [place] [place].rice .[facility] Associate Infusion Nurse Oncology 02/01/22 Aditi Carrillo RN [address] [place] [phone] [email or web address] Primary Infusion Nurse 02/24/22 documented as of this encounter Additional Source Comments The information contained in this document represents components of the legal health record. It is not the complete legal health record.[facility]
--- OUTSIDE RECORDS SUMMARY | 2024-11-23 19:07 | XMS_ITS | Encounter Summary ---
Author Organization [facility] Address [address] [place] [address] [place] [address] Phone Care Team Providers Care System Specialist Name Role Phone Teodoro Briones DO Unavailable Catie Germain MD Unavailable [phone] Teodoro Briones DO Primary Care Provider [phone] Noe Jolley MD, PhD Unavailable [phone] Haylie Knight RN Unavailable NMI SANCHEZ@[facility] [place] Aditi Carrillo RN Unavailable Encounter Details Date Type Department Care Team (Late st Contact Info) Description 02/07/2022 Procedure [place] [facility] [place], Devan 2 [address] [facility], 2nd Floor, [address] [place] [address] Social History Tobacco Use Types Packs/Day Years [...] Description 01/03/2025 10:30 AM EST Blood Draw [facility] [address] [facility], 9th Floor, [address] [place] [address] Noe Jolley MD, PhD [address] [place] [address] 1854 [place] [address] Yolanda@[facility] Phleb, [facility] Bmt Leuk Yaw9e 01/03/2025 11:20 AM EST Office Visit [facility] [address] [facility], 9th Floor, [address] [place] [address] Noe Jolley MD, PhD [address] [place] [address] Yolanda@[facility] 02/10/2025 2:00 PM EST Office Visit [facility] [address] [place] [address] Catie Germain MD [address] [place] [address], 1st [place] [address] [email or web address] documented as of this encounter Visit Diagnoses Not on filedocumented in this encounter Additional Health Concerns Infection Onset Date Last Indicated Resolved Time COVID-19 03/18/2022 03/18/2022 04/08/2022 1:23 AM EST CoV-Risk Comment:Per note documentation 07/10/2022 07/10/2022 11:24 PM EDT COVID-19 10/29/2023 10/29/2023 11/19/2023 1:23 AM EDT documented as of this encounter Care Teams System Specialist Relationship Specialty Start Date End Date Teodoro Briones DO [email or web address] PCP - General Internal Medicine 01/13/17 Teodoro Briones DO [email or web address] Historical LMR Provider 12/14/16 Catie Germain MD 22 [facility], 1st [place] [address] [email or web address] Historical LMR Provider 12/14/16 Noe Jolley MD, PhD [address] [place] [address] [address] [place] [address] Yolanda@[facility] [place] .[facility] Primary Oncologist Hematology 11/08/21 Haylie Knight RN [address] [place] [phone] [email or web address] Associate Infusion Nurse Oncology 02/01/22 Aditi Carrillo, SAM [address] [place] [phone] [email or web address] Primary Infusion Nurse 02/24/22 documented as of this encounter Additional Source Comments The information contained in this document represents components of the legal health record. It is not the complete legal health record.[facility]
[2024-11-23 19:52] LABS: Alanine Aminotransferase 34 U/L (0-40); Albumin Level 4.2 g/dL (3.5-5.0); Alkaline Phosphatase 93 U/L (39-117); Anion Gap 12 (12-20); Aspartate Amino Transferase 30 U/L (5-37); Blood Urea Nitrogen 15 mg/dL (9-16); Calcium 8.8 mg/dL (8.4-10.2); Carbon Dioxide 26 mmol/L (22-29); Chloride 104 mmol/L (96-108); Estimated Glomerular Filt Rate > 60; Magnesium 2.1 mg/dL (1.6-2.6); Potassium 4.4 mmol/L (3.3-5.1); Sodium 138 mmol/L (135-145); Total Protein 6.1 g/dL (6.5-8.0)
[2024-11-23 19:56] LABS: Thyroid Stimulating Hormone 0.01 uIU/mL (0.32-4.0)
[2024-11-23 20:14] LABS: Folate 11.8 ng/mL (> or = 4.0); Vitamin B12 380 pg/mL (200-900)
== END 2024-11-23 19:04 | disposition home or self-care (01) ==
LOC: HO.LNP 19:03
PROVIDERS: Visit Provider Internal Medicine
DX: E10.9 Type 1 diabetes mellitus without complications (principal); R53.83 Other fatigue; E03.8 Other specified hypothyroidism
CPT/HCPCS: 80053; 82306; 82607; 82746; 83036; 83735; 84443

== ENCOUNTER 2024-11-28 14:39 | Outpatient (REF) | payer MEDICARE, MEDICAID, SELFPAY ==
--- OUTSIDE RECORDS SUMMARY | 2024-11-28 17:06 | XMS_ITS | Encounter Summary ---
Author Organization [facility] Address [address] [place] [address] [place] [address] Phone Care Team Providers Care Apiarist Name Role Phone Teodoro Briones DO Unavailable Catie Germain MD Unavailable [phone] Teodoro Briones DO Primary Care Provider [phone] Noe Jolley MD, PhD Unavailable [phone] Haylie Knight RN Unavailable NMI SANCHEZ@[email or web address].[facility] Aditi Carrillo RN Unavailable Encounter Details Date Type Department Care Team (Late st Contact Info) Description 02/07/2022 Procedure Pass [facility], Devan 2 [address] [facility], 2nd Floor, [address] [place] [address] Social History Tobacco Use Types Packs/Day Years [...] Description 01/03/2025 10:30 AM EST Blood Draw [facility] [address] [facility], 9th Floor, [address] [place] [address] Noe Jolley MD, PhD [address] [place] [address] 1854 [place] [address] Yolanda@[facility] Phleb, [facility] Bmt Leuk Yaw9e 01/03/2025 11:20 AM EST Office Visit [facility] [address] [facility], 9th Floor, [address] [place] [address] Noe Jolley MD, PhD [address] [place] [address] Yolanda@[facility] 02/10/2025 2:00 PM EST Office Visit [facility] [address] [place] [address] Catie Germain MD [address] [place] [address], 1st [place] [address] [email or web address] documented as of this encounter Visit Diagnoses Not on filedocumented in this encounter Additional Health Concerns Infection Onset Date Last Indicated Resolved Time COVID-19 03/18/2022 03/18/2022 04/08/2022 1:23 AM EST CoV-Risk Comment:Per note documentation 07/10/2022 07/10/2022 11:24 PM EDT COVID-19 10/29/2023 10/29/2023 11/19/2023 1:23 AM EDT documented as of this encounter Care Teams Apiarist Relationship Specialty Start Date End Date Teodoro Briones DO [email or web address] PCP - General Internal Medicine 01/13/17 Teodoro Briones DO [email or web address] Historical LMR Provider 12/14/16 Catie eGrmain MD 22 [facility], 1st [place] [address] [email or web address] Historical LMR Provider 12/14/16 Noe Jolley MD, PhD [address] [place] [address] [address] [place] [address] Yolanda@[facility].[place] .[facility] Primary Oncologist Hematology 11/08/21 Haylie Knight RN [address] [place] [phone] DUKE@[email or web address] Associate Infusion Nurse Oncology 02/01/22 Aditi Carrillo, SAM [address] [place] [phone] [email or web address] Primary Infusion Nurse 02/24/22 documented as of this encounter Additional Source Comments The information contained in this document represents components of the legal health record. It is not the complete legal health record.[facility]
--- OUTSIDE RECORDS SUMMARY | 2024-11-28 17:06 | XMS_ITS | Encounter Summary ---
Author Organization [facility] Address [address] [place] [address] Phone Care Team Providers Care Physician'S Aide Name Role Phone Teodoro Briones DO Unavailable Catie Germain MD Unavailable [phone] Teodoro Briones DO Primary Care Provider [phone] Noe Jolley MD, PhD Unavailable [phone] Haylie Knight RN Unavailable NMI SANCHEZ@[email or web address] Aditi Carrillo RN Unavailable Encounter Details Date Type Department Care Team (Late st Contact Info) Description 11/02/2023 Procedure Pass [facility] PERIOP DEPT [address] [place] [address] Social History Tobacco Use Types Packs/Day Years [...] Description 01/03/2025 10:30 AM EST Blood Draw [facility] [address] [facility], 9th Floor, [address] [place] [address] Noe Jolley MD, PhD [address] [place] [address] Yolanda@[facility] Bmt Leuk Yaw9e 01/03/2025 11:20 AM EST Office Visit [facility] [address] [facility], 9th Floor, [address] [place] [address] Noe Jolley MD, PhD [address] [place] [address] Yolanda@[facility] 02/10/2025 2:00 PM EST Office Visit [facility] [address] [place] [address] Catie Germain MD [address] [place] [address], 1st [place] [address] [email or web address] documented as of this encounter Visit Diagnoses Not on filedocumented in this encounter Additional Health Concerns Infection Onset Date Last Indicated Resolved Time COVID-19 10/29/2023 10/29/2023 11/19/2023 1:23 AM EDT documented as of this encounter Care Teams Physician'S Aide Relationship Specialty Start Date End Date Teodoro Briones DO [email or web address] PCP - General Internal Medicine 01/13/17 Teodoro Briones LucilleDO [email or web address] Historical LMR Provider 12/14/16 Catie Germain MD 22 [facility], [address]st [place] [address] [email or web address] Historical LMR Provider 12/14/16 Noe Jolley MD, PhD [address] [place] [address] [address] [place] [address] Yolanda@[facility] .[facility] Primary Oncologist Hematology 11/08/21 Haylie Knight, SAM [address] [place] [phone] DUKE@[facility] Associate Infusion Nurse Oncology 02/01/22 Aditi Carrillo RN [address] [place] [phone] [email or web address] Primary Infusion Nurse 02/24/22 documented as of this encounter Additional Source Comments The information contained in this document represents components of the legal health record. It is not the complete legal health record.[facility]
--- OUTSIDE RECORDS SUMMARY | 2024-11-28 17:06 | XMS_ITS | Encounter Summary ---
Author Organization [facility] Address [address] [place] [address] Phone Care Team Providers Care A R Collections Rep Name Role Phone Teodoro Briones DO Unavailable Catie Germain MD Unavailable [phone] Teodoro Briones DO Primary Care Provider [phone] Noe Jolley MD, PhD Unavailable [phone] Haylie Knight RN Unavailable NMI [email or web address] Aditi Carrillo RN Unavailable Encounter Details Date Type Department Care Team (Late st Contact Info) Description 07/15/2022 Procedure Pass [facility] Imaging - RF/IR [address] [place] [address] Social History Tobacco Use Types Packs/Day Years [...] Description 01/03/2025 10:30 AM EST Blood Draw [facility] [address] [facility], 9th Floor, [address] [place] [address] Noe Jolley MD, PhD [address] [place] [address] Yolanda@[facility], [facility] Bmt Leuk Yaw9e 01/03/2025 11:20 AM EST Office Visit [facility] [address] [facility], 9th Floor, [address] [place] [address] Noe Jolley MD, PhD [address] [place] [address] Yolanda@[facility] 02/10/2025 2:00 PM EST Office Visit [facility] [address] [place] [address] Catie Germain MD [address] [place] [address], 1st [place] [address] [email or web address] documented as of this encounter Visit Diagnoses Not on filedocumented in this encounter Additional Health Concerns Infection Onset Date Last Indicated Resolved Time COVID-19 10/29/2023 10/29/2023 11/19/2023 1:23 AM EDT documented as of this encounter Care Teams A R Collections Rep Relationship Specialty Start Date End Date Teodoro Briones DO [email or web address] PCP - General Internal Medicine 01/13/17 Teodoro Briones LucilleDO [email or web address] Historical LMR Provider 12/14/16 Catie Germain MD [address] [facility], 1st [place] [address] [email or web address] Historical LMR Provider 12/14/16 Noe Jolley MD, PhD [address] [place] [address] [address] [place] [address] Yolanda@[email or web address] Primary Oncologist Hematology 11/08/21 Haylie Knight, SAM [address] [place] [address] [email or web address] Associate Infusion Nurse Oncology 02/01/22 Aditi Carrillo RN [address] [place] [phone] [email or web address] Primary Infusion Nurse 02/24/22 documented as of this encounter Additional Source Comments The information contained in this document represents components of the legal health record. It is not the complete legal health record.[facility]
--- OUTSIDE RECORDS SUMMARY | 2024-11-28 17:06 | XMS_ITS | Encounter Summary ---
Author Organization [facility] Address [address] [place] [address] Phone Care Team Providers Care Retail Support Manager Name Role Phone Teodoro Briones DO Unavailable Catie Germain MD Unavailable [phone] Teodoro Briones DO Primary Care Provider [phone] Noe Jolley MD, PhD Unavailable [phone] Haylie Knight RN Unavailable NMI [email or web address] Aditi Carrillo RN Unavailable Encounter Details Date Type Department Care Team (Late st Contact Info) Description 07/11/2022 Procedure Pass [facility] Cardiac US [address] [place] [address] Social History Tobacco Use Types Packs/Day Years [...] 6:00 PM EDT Bethany Kay, RN * [place] Suicide Severity Rating Scale (Screener/Recent Self-Report) Question [...] EST Blood Draw [facility] [address] [place] [address], 9th Floor, [address] [place] [address] Noe Jolley MD, PhD [address] [place] [address] Yolanda@[email or web address], [facility] Bmt Leuk Yaw9e 01/03/2025 11:20 AM EST Office Visit [facility] [address] [place] [address], 9th Floor, [address] [place] [address] Noe Jolley MD, PhD [address] [place] [address] Yolanda@[email or web address] 02/10/2025 2:00 PM EST Office Visit [facility] [address] [place] [address] Catie Germain MD 22 [facility], [address] [place] [address] [email or web address] documented as of this encounter Visit Diagnoses Not on filedocumented in this encounter Additional Health Concerns Infection Onset Date Last Indicated Resolved Time CoV-Risk Comment:Per note documentation 07/10/2022 07/10/2022 11:24 PM EDT COVID-19 10/29/2023 10/29/2023 11/19/2023 1:23 AM EDT documented as of this encounter Care Teams Retail Support Manager Relationship Specialty Start Date End Date Teodoro Briones DO [email or web address] PCP - General Internal Medicine 01/13/17 Teodoro Briones DO Historical LMR Provider 12/14/16 Catie Germain MD [address] [place] [address] [email or web address] Historical LMR Provider 12/14/16 Noe Jolley MD, PhD [address] [place] [address] [address] [place] [address] Yolanda@[facility] Primary Oncologist Hematology 11/08/21 Haylie Knight, SAM [address] [place] [address] DUKE@[email or web address] Associate Infusion Nurse Oncology 02/01/22 Aditi Carrillo, RN [address] [place] [address] [email or web address] Primary Infusion Nurse 02/24/22 documented as of this encounter Additional Source Comments The information contained in this document represents components of the legal health record. It is not the complete legal health record.[facility]
--- OUTSIDE RECORDS SUMMARY | 2024-11-28 17:07 | XMS_ITS ---
Author Organization [facility] Address [address] [place] [address] Phone Care Team Providers Care Adjunct Art History Instructor Name Role Phone Teodoro Briones DO Unavailable Catie Germain MD Unavailable [phone] Teodoro Briones DO Primary Care Provider [phone] Noe Jolley MD, PhD Unavailable [phone] Haylie Knight RN Unavailable NMShelly [email or web address].[place] Aditi Carrillo RN Unavailable Active Problems Patient Care Coordination No te Formatting of this note migh t be different from the original. 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 The [employer] Lila Continuous glucose monitor is not FDA [...] of exercise. He is followed by outside document advisor, had recent follow-up. During his last hospitalization [...] before meals and at bedtime Call the [facility] Diabetes Center with any questions or concerns at [phone], or call the [facility] sling operator at [phone] and ask them to call pager #[phone]. The diabetes doctor facility operations manager will call you back. Follow up with your document advisor in 2-3 weeks Assessment & Plan (12/03/2021 [...] sure to titrate needed doses with your document advisor, Dr. Catie Germain. Diabetes medication Instructions: Check fingerstick blood sugar readings 3 times a day (before breakfast, before lunch, before dinner). If your blood sugar is less than 70 mg/dL or greater than 300 mg/dL or if you have any concern about your diabetes plan, please call your document advisor, Dr. Germain. If you have concerns and are unable to reach Dr. Germain, please call the [facility] Paging Repairer Hairspring at [phone] and ask paging sling operator to page beeper number [phone] (Thursday-Thursday 8am-5pm) or beeper number [phone] (overnight or weekend for urgent issues) Patient will need the following scripts: Novolog/Humalog pen 2 units with meal Insulin pen needles 4mm Lantus 8 units QAM (he may already have this at home) Diabetes Outpatient Follow-Up: Please be sure to follow-up with your document advisor, Dr. Catie Geramin, for insulin management once discharged. If you have any questions, please don't hesitate to reach out to the [facility] Diabetes Center. During business hours, please call [phone] and ask to speak to a nurse. For urgent issues after business hours, please call [phone] and ask for the Diabetes Attending On-Call to be paged (pager number [phone]). Fallon Shields NP [facility] Inpatient Diabetes Management Service Assessment [...] random check Patient can continue to wear Diurnale CGM but insulin dose adjustment should be [...] hydrocortisone INTRATHECAL syringe a. Therapy Complete Noe Jolley MD, PhD 2 of 2 cycles started [...]
--- OUTSIDE RECORDS SUMMARY | 2024-11-28 17:07 | XMS_ITS | Encounter Summary ---
Author Organization [facility] Address [address] [place] [address] Phone Care Team Providers Care Machine Set Up Operator Name Role Phone Teodoro Briones DO Unavailable Catie Germain MD Unavailable [phone] Teodoro Briones DO Primary Care Provider [phone] Noe Jolley MD, PhD Unavailable [phone] Haylie Knight RN Unavailable NMI [email or web address]@[email or web address] Aditi Carrillo RN Unavailable Encounter Details Date Type Department Care Team (Late st Contact Info) Description 10/08/2022 Procedure Pass [facility] Cardiac US [address] [place] [address] Social History Tobacco Use Types Packs/Day Years [...] 4:34 PM EDT Cathy Wright, SAM * [place] Suicide Severity Rating Scale (Screener/Recent Self-Report) Question [...] Description 01/03/2025 10:30 AM EST Blood Draw [facility] [address] [place] [address], 9th Floor, [address] [place] [address] Noe Jolley MD, PhD [address] [place] [address] Yolanda@[facility] Phleb, [facility] Bmt Leuk Yaw9e 01/03/2025 11:20 AM EST Office Visit [facility] [address] [place] [address], 9th Floor, [address] [place] [address] Noe Jolley MD, PhD [address] [place] [address] Yolanda@[facility] 02/10/2025 2:00 PM EST Office Visit [facility] [address] [place] [address] Catie Germain MD [address] [address] [email or web address] documented as of this encounter Visit Diagnoses Not on filedocumented in this encounter Additional Health Concerns Infection Onset Date Last Indicated Resolved Time COVID-19 10/29/2023 10/29/2023 11/19/2023 1:23 AM EDT documented as of this encounter Care Teams Machine Set Up Operator Relationship Specialty Start Date End Date Teodoro Briones DO [email or web address] PCP - General Internal Medicine 01/13/17 Teodoro Briones DO Historical LMR Provider 12/14/16 Catie Germain MD [address] [place] [address] [email or web address] Historical LMR Provider 12/14/16 Noe Jolley MD, PhD [address] [place] [address] [address] [place] [address] Yolanda@[facility] Primary Oncologist Hematology 11/08/21 Haylie Knight, SAM [address] [place] [address] [email or web address] Associate Infusion Nurse Oncology 02/01/22 Aditi Carrillo RN [address] [place] [address] Primary Infusion Nurse 02/24/22 documented as of this encounter Additional Source Comments The information contained in this document represents components of the legal health record. It is not the complete legal health record.[facility]
--- OUTSIDE RECORDS SUMMARY | 2024-11-28 17:07 | XMS_ITS | Encounter Summary ---
Author Organization [facility] Address [address] [place] [address] Phone Care Team Providers Care Blow Molding Machine Tender Name Role Phone Teodoro Briones DO Unavailable Catie Germain MD Unavailable [phone] Teodoro Briones DO Primary Care Provider [phone] Noe Jolley MD, PhD Unavailable [phone] Haylie Knight RN Unavailable NMI [email or web address] Aditi Carrillo RN Unavailable Encounter Details Date Type Department Care Team (Late st Contact Info) Description 12/21/2023 Procedure Pass [facility] [address] [place] [address] Social History Tobacco Use Types Packs/Day Years [...] Description 01/03/2025 10:30 AM EST Blood Draw [facility] [address] [place] [address], 9th Floor, [address] [place] [address] Noe Jolley MD, PhD [address] [place] [address] Yolanda@[email or web address], [facility] Bmt Leuk Yaw9e 01/03/2025 11:20 AM EST Office Visit [facility] [address] [place] [address], 9th Floor, [address] [place] [address] Noe Jolley MD, PhD [address] [place] [address] Yolanda@[facility] 02/10/2025 2:00 PM EST Office Visit [facility] [place] [facility] 22 [place] [address] Catie Germain MD [address] [address] documented as of this encounter Visit Diagnoses Not on filedocumented in this encounter Care Teams Blow Molding Machine Tender Relationship Specialty Start Date End Date Teodoro Briones DO PCP - General Internal Medicine 01/13/17 Teodoro Briones DO Historical LMR Provider 12/14/16 Catie Germain MD [address] [place] [address] Historical LMR Provider 12/14/16 Noe Jolley MD, PhD [address] [place] [address] [address] [place] [address] Yolanda@[email or web address] .[facility] Primary Oncologist Hematology 11/08/21 Haylie Knight, SAM [address] [place] [phone] DUKE@[email or web address] .[facility] Associate Infusion Nurse Oncology 02/01/22 Aditi Carrillo RN [address] [place] [phone] [email or web address] Primary Infusion Nurse 02/24/22 documented as of this encounter Additional Source Comments The information contained in this document represents components of the legal health record. It is not the complete legal health record.[facility]
--- OUTSIDE RECORDS SUMMARY | 2024-11-28 17:07 | XMS_ITS | Encounter Summary ---
Author Organization [facility] Address [address] [place] [address] Phone Care Team Providers Care Plastics Fitter Name Role Phone Teodoro Briones DO Unavailable Catie Germain MD Unavailable [phone] Teodoro Briones DO Primary Care Provider [phone] Noe Jolley MD, PhD Unavailable [phone] Aditi Carrillo RN Unavailable Haylie Knight RN Unavailable NMI SANCHEZ@[facility] Aditi Carrillo RN Unavailable Encounter Details Date Type Department Care Team (Late st Contact Info) Description 10/17/2021 Procedure Pass [facility], [place] [address] [facility], 6th [place] [address] Social History Tobacco Use Types Packs/Day Years [...] 01/03/2025 10:30 AM EST Blood Draw [facility] [address] [facility], 9th Floor, [address] [place] [address] Noe Jolley MD, PhD [address] [place] [address] [address] [place] [address] Yolanda@[facility] Phleb, [facility] Bmt Leuk Yaw9e 01/03/2025 11:20 AM EST Office Visit [facility] [address] [facility], 9th Floor, [address] [place] [address] Noe Jolley MD, PhD [address] [place] [address] [address] [place] [address] Yolanda@[facility] 02/10/2025 2:00 PM EST Office Visit [facility] [address] [place] [address] Catie Germain MD [address] [place] [address], [address] [place] [address] [email or web address] documented as of this encounter Visit Diagnoses [...] documented as of this encounter Care Teams Plastics Fitter Relationship Specialty Start Date End Date Teodoro Briones DO [email or web address] PCP - General Internal Medicine 01/13/17 Teodoro Briones DO Historical LMR Provider 12/14/16 Catie Germain MD [address] [place] [address], [address] [place] [address] [email or web address] Historical LMR Provider 12/14/16 Noe Jolley MD, PhD [address] [place] [address] 1854 [place] [address] Yolanda@[facility] Primary Oncologist Hematology 11/08/21 Aditi Carrillo, SAM [address] [place] [phone] [email or web address] Primary Infusion Nurse 11/08/21 12/05/21 Haylie Knight RN [address] [place] [phone] DUKE@[facility] [facility] Associate Infusion Nurse Oncology 02/01/22 Aditi Carrillo RN [address] [place] [phone] [email or web address] Primary Infusion Nurse 02/24/22 documented as of this encounter Additional Source Comments The information contained in this document represents components of the legal health record. It is not the complete legal health record.[facility]
--- OUTSIDE RECORDS SUMMARY | 2024-11-28 17:07 | XMS_ITS | Encounter Summary ---
Author Organization [facility] Address [address] [place] [address] Phone Care Team Providers Care Flatbed Stitcher Name Role Phone Anali Teodoro Adkins DO Unavailable Catie Germain MD Unavailable [phone] Teodoro Briones DO Primary Care Provider [phone] Noe Jolley MD, PhD Unavailable [phone] Aditi Carrillo RN Unavailable Haylie Knight RN Unavailable NMI SANCHEZ@[email or web address] Aditi Carrillo RN Unavailable Encounter Details Date Type Department Care Team (Late st Contact Info) Description 10/05/2021 Procedure Pass [place] Cardiac US [address] [place] [address] Social History Tobacco Use Types Packs/Day Years [...] Description 01/03/2025 10:30 AM EST Blood Draw [facility] [address] [facility], 9th Floor, [address] [place] [address] Noe Jolley MD, PhD [address] [place] [address] [place] [address] Yolanda@[facility] Phleb, [facility] Bmt Leuk Yaw9e 01/03/2025 11:20 AM EST Office Visit [facility] [address] [facility], 9th Floor, [address] [place] [address] Noe Jolley MD, PhD [address] [place] [address] Yolanda@[facility] 02/10/2025 2:00 PM EST Office Visit [facility] [address] [place] [address] Catie Germain MD [address] [place] [address], 1st [place] [address] [email or web address] documented as of this encounter [...] documented as of this encounter Care Teams Flatbed Stitcher Relationship Specialty Start Date End Date Teodoro Briones DO [email or web address] PCP - General Internal Medicine 01/13/17 Teodoro Briones DO [email or web address] Historical LMR Provider 12/14/16 Catie Germain MD [address] [place] [address], 1st [place] [address] [email or web address] Historical LMR Provider 12/14/16 Noe Jolley MD, PhD [address] [place] [address] 1854 [place] [address] Yolanda@[facility] Primary Oncologist Hematology 11/08/21 Aditi Carrillo RN [address] [place] [phone] [email or web address] Primary Infusion Nurse 11/08/21 12/05/21 Haylie Knight RN [address] [place] [phone] DUKE@[facility] Associate Infusion Nurse Oncology 02/01/22 Aditi Carrillo RN [address] [place] [phone] [email or web address] Primary Infusion Nurse 02/24/22 documented as of this encounter Additional Source Comments The information contained in this document represents components of the legal health record. It is not the complete legal health record.[facility]
--- OUTSIDE RECORDS SUMMARY | 2024-11-28 17:07 | XMS_ITS | Patient Health Record ---
Author Organization [facility] Address [address] [place] [address] Care Team Providers Care Dry Mill Operator Name Role Phone Teodoro Briones Primary Care Provider Sondra e Wesley Osman Unavailable [phone] Reason For Referral No Information Medications Medication SIG (Take, Route, Fr equency, Duration) Notes Start Date End Date Status Terbinafine HCl Acti ve Lisinopril Active Levothyroxine Sodium Active Basaglar KwikPen Act leo Immunizations Vaccine Route Administration Date Status Comme nts Influenza Unknown 10/24/2018 Administered Social History Tobacco Use: Social History Observation Description Date Details (start date - stop date) Never Smoker NA - NA Tobacco Use/Smoking Question Answer Notes Patient is a nonsmoker Alcohol Screen Question Answer Notes Did you have a drink containing alcohol in the p ast year? No Points 0 Interpretation Negative Section Notes: Nonsmoker; no significant al cohol Problems Problem Type SNOMED Code ICD Code Onset Dates Problem Status W/U Status Risk Notes Problem [id number] Esophageal obstruction (K22.2) Active confirmed Plan Of Treatment Pending Test Test Name Order Date XR BARIUM SWALLOW-ESOPHAGUS 07/20/2019 Insurance Providers Payer Name Payer Address Payer Phone Subscriber Number Group Number Insured Name Patient Relationship to Insured Coverage Start Date Coverage End Date MEDICARE OF [place] [address] [place] [address] [id number] HAMZAH VASQUEZ Self - patient is the insured MEDICAID OF [facility] [address] [place] [address] [id number] HAMZAH VASQUEZ Self - patient is the insured Medical (General) History Medical History History ICD Code IDDM HTN Down's syndrome Esophageal obstruction from a piece of sausage in 05/2019 relieved endoscopically--there was no sign of stricture or ring--there was some esophagitis from the food impaction Denies GA,CVA,Lung disease,renal disease Surgical History Surgery Date(Month/Year) Eye muscles surgery age 6
--- OUTSIDE RECORDS SUMMARY | 2024-11-28 17:07 | XMS_ITS | Encounter Summary ---
Author Organization [facility] Address [address] [place] [address] Phone Care Team Providers Care Clinical Fellow Name Role Phone Teodoro Briones DO Unavailable Catie Germain MD Unavailable [phone] Teodoro Briones DO Primary Care Provider [phone] Noe Jolley MD, PhD Unavailable [phone] Haylie Knight RN Unavailable NMI SANCHEZ@[email or web address] [facility] Aditi Carrillo RN Unavailable Encounter Details Date Type Department Care Team (Late st Contact Info) Description 10/14/2022 Procedure Pass [facility] Imaging - RF/IR [address] [facility], 2nd [place] [address] Social History Tobacco Use Types Packs/Day Years [...] Description 01/03/2025 10:30 AM EST Blood Draw [facility] [address] [place] [address], 9th Floor, [address] [place] [address] Noe Jolley MD, PhD [address] [place] [address] Yolanda@[facility] Phleb, [facility] [place] Leuk Yaw9e 01/03/2025 11:20 AM EST Office Visit [facility] [address] [place] [address], 9th Floor, [address] [place] [address] Noe Jolley MD, PhD [address] [place] [address] Yolanda@[facility] 02/10/2025 2:00 PM EST Office Visit [facility] [address] [place] [address] Catie Germain MD [address] [place] [address], 1st [place] [address] [email or web address] documented as of this encounter Visit Diagnoses Not on filedocumented in this encounter Additional Health Concerns Infection Onset Date Last Indicated Resolved Time COVID-19 10/29/2023 10/29/2023 11/19/2023 1:23 AM EDT documented as of this encounter Care Teams Clinical Fellow Relationship Specialty Start Date End Date Jennpeggy Teodoro AdkinsDO [email or web address] PCP - General Internal Medicine 01/13/17 Teodoro Briones DO [email or web address] Historical LMR Provider 12/14/16 Catie Germain MD [address] [place] [address], 1st [place] [address] [email or web address] Historical LMR Provider 12/14/16 Noe Jolley MD, PhD [address] [place] [address] [address] [place] [address] Yolanda@[facility] [facility] [facility] Primary Oncologist Hematology 11/08/21 Haylie Knight, SAM [address] [place] [phone] DUKE@[email or web address] Associate Infusion Nurse Oncology 02/01/22 Aditi Carrillo RN [address] [place] [phone] [email or web address] Primary Infusion Nurse 02/24/22 documented as of this encounter Additional Source Comments The information contained in this document represents components of the legal health record. It is not the complete legal health record.[facility]
--- OUTSIDE RECORDS SUMMARY | 2024-11-28 17:07 | XMS_ITS | Encounter Summary ---
Author Organization [facility] Address [address] [place] [address] Phone Care Team Providers Care Employment Coordinator Name Role Phone Teodoro Briones DO Unavailable Catie Germain MD Unavailable [phone] Teodoro Briones DO Primary Care Provider [phone] Noe Jolley MD, PhD Unavailable [phone] Aditi Carrillo RN Unavailable Haylie Knight RN Unavailable NMI SANCHEZ@[facility] Aditi Carrillo RN Unavailable Encounter Details Date Type Department Care Team ([facility] Contact Info) Description 10/30/2021 Procedure Pass [facility] [place] [place] Emergency Imaging, [address], Floor 1 [place] [address] Social History Tobacco Use Types Packs/Day Years [...] AM EST Blood Draw [facility] [address] [facility], 9th Floor, [address] [place] [address] Noe Jolley MD, PhD [address] [place] [address] [address] [place] [address] Yolanda@[facility] Phleb, [facility] Bmt Leuk Yaw9e 01/03/2025 11:20 AM EST Office Visit [facility] [address] [facility], 9th Floor, [address] [place] [address] Noe Jolley MD, PhD [address] [place] [address] [place] [address] Yolanda@[facility] 02/10/2025 2:00 PM EST Office Visit [facility] [address] [place] [address] Catie Germain MD [address] [place] [address], 1st [place] [address] [email or web address]@[email or web address] [place] documented as of this encounter Visit [...] documented as of this encounter Care Teams Employment Coordinator Relationship Specialty Start Date End Date Teodoro Briones DO [email or web address] [email or web address] PCP - General Internal Medicine 01/13/17 Teodoro Briones DO [email or web address] [email or web address] Historical LMR Provider 12/14/16 Catie Germain MD [address] [place] [address], [address] [place] [address] [email or web address] [email or web address] Historical LMR Provider 12/14/16 Noe Jolley MD, PhD [address] [place] [address] 1854 [place] [address] Yolanda@[facility] Primary Oncologist Hematology 11/08/21 Aditi Carrillo RN [address] [place] [phone] [email or web address] [email or web address] Primary Infusion Nurse 11/08/21 12/05/21 Haylie Knight RN [address] [place] [phone] DUKE@[facility] .[facility] Associate Infusion Nurse Oncology 02/01/22 Aditi Carrillo RN [address] [place] [phone] [email or web address] [email or web address] Primary Infusion Nurse 02/24/22 documented as of this encounter Additional Source Comments The information contained in this document represents components of the legal health record. It is not the complete legal health record.[facility]
--- OUTSIDE RECORDS SUMMARY | 2024-11-28 17:07 | XMS_ITS | Encounter Summary ---
Author Organization [facility] Address [address] [place] [address] Phone Care Team Providers Care Securities Supervisor Name Role Phone Teodoro Briones DO Unavailable Catie Germain MD Unavailable [phone] Teodoro Briones DO Primary Care Provider [phone] Noe Jolley MD, PhD Unavailable [phone] Haylie Knight RN Unavailable NMI SANCHEZ@[facility] Aditi Carrillo RN Unavailable Encounter Details Date Type Department Care Team (Latest Contact Info) Description 06/23/2022 Hospital Encounter Noe Jolley MD, PhD [address] [facility] [address] [place] [address] Yolanda@[facility] Social History Tobacco Use Types Packs/Day Years [...] 4:34 PM EDT Cathy Wright, SAM * [place] Suicide Severity Rating Scale (Screener/Recent Self-Report) Question [...] Description 01/03/2025 10:30 AM EST Blood Draw [facility] [address] [place] [address], 9th Floor, [address] [place] [address] Noe Jolley MD, PhD [address] [facility] [address] [place] [address] Yolanda@[email or web address], [facility] Bmt Leuk Yaw9e 01/03/2025 11:20 AM EST Office Visit [facility] [address] [facility], 9th Floor, [address] [place] [address] Noe Jolley MD, PhD [address] [facility] [address] [place] [address] Yolanda@[facility] 02/10/2025 2:00 PM EST Office Visit [facility] [address] [place] [address] Catie Germain MD [address] [place] [address], 1st [place] [address] [email or web address] documented as of this encounter Visit Diagnoses Not on filedocumented in this encounter Additional Health Concerns Infection Onset Date Last Indicated Resolved Time CoV-Risk Comment:Per note documentation 07/10/2022 07/10/2022 11:24 PM EDT COVID-19 10/29/2023 10/29/2023 11/19/2023 1:23 AM EDT documented as of this encounter Care Teams Securities Supervisor Relationship Specialty Start Date End Date Teodoro Briones DO PCP - General Internal Medicine 01/13/17 Teodoro Briones DO Historical LMR Provider 12/14/16 Catie Germain MD [address] [place] [address], 1st [place] [address] [email or web address] Historical LMR Provider 12/14/16 Noe Jolley MD, PhD [address] [place] [address] [address] [place] [address] Yolanda@[facility] [facility] Primary Oncologist Hematology 11/08/21 Haylie Knight RN [address] [place] [address] DUKE@[email or web address] Associate Infusion Nurse Oncology 02/01/22 Aditi Carrillo, RN [address] [place] [phone] [email or web address] Primary Infusion Nurse 02/24/22 documented as of this encounter Additional Source Comments The information contained in this document represents components of the legal health record. It is not the complete legal health record.[facility]
--- OUTSIDE RECORDS SUMMARY | 2024-11-28 17:07 | XMS_ITS | Encounter Summary ---
Author Organization [facility] Address [address] [place] [address] Phone Care Team Providers Care Refrigeration Brazer/Solderer Name Role Phone Teodoro Briones DO Unavailable Catie Germain MD Unavailable Teodoro Briones DO Primary Care Provider [phone] Noe Jolley MD, PhD Unavailable [phone] Haylie Knight RN Unavailable NMI SANCHEZ@[facility] Aditi Carrillo RN Unavailable Encounter Details Date Type Department Care Team (Late st Contact Info) Description 10/10/2022 Procedure Pass [facility] [place], [address] [facility], 6th [place] [address] Social History Tobacco Use Types Packs/Day Years [...] EST Blood Draw [facility] [address] [place] [address], 9th Floor, [address] [place] [address] Noe Jolley MD, PhD [address] [place] [address] Yolanda@[facility] Phleb, [facility] Bmt Leuk Yaw9e 01/03/2025 11:20 AM EST Office Visit [facility] [address] [place] [address], 9th Floor, [address] [place] [address] Noe Jolley MD, PhD [address] [place] [address] Yolanda@[facility] 02/10/2025 2:00 PM EST Office Visit [facility] [address] [place] [address] Catie Germain MD [address] [place] [address], 1st [place] [address] [email or web address] documented as of this encounter Visit Diagnoses Not on filedocumented in this encounter Additional Health Concerns Infection Onset Date Last Indicated Resolved Time COVID-19 10/29/2023 10/29/2023 11/19/2023 1:23 AM EDT documented as of this encounter Care Teams Refrigeration Brazer/Solderer Relationship Specialty Start Date End Date Jennpeggy Teodoro AdkinsDO [email or web address] PCP - General Internal Medicine 01/13/17 Teodoro Briones DO [email or web address] Historical LMR Provider 12/14/16 Catie Germain MD [address] [place] [address], 1st [place] [address] [email or web address] Historical LMR Provider 12/14/16 Noe Jolley MD, PhD [address] [place] [address] [address] [place] [address] Yolanda@[facility] .[facility] Primary Oncologist Hematology 11/08/21 Haylie Knight, SAM [address] [place] [phone] DUKE@[facility] Associate Infusion Nurse Oncology 02/01/22 Aditi Carrillo RN [address] [place] [phone] [email or web address] Primary Infusion Nurse 02/24/22 documented as of this encounter Additional Source Comments The information contained in this document represents components of the legal health record. It is not the complete legal health record.[facility]
--- OUTSIDE RECORDS SUMMARY | 2024-11-28 17:07 | XMS_ITS | Encounter Summary ---
Author Organization [facility] Address [address] [place] [address] Phone Care Team Providers Care Entertainer Or Variety Artist Name Role Phone Teodoro Briones DO Unavailable Catie Germain MD Unavailable [phone] Teodoro Briones DO Primary Care Provider [phone] Noe Jolley MD, PhD Unavailable [phone] Aditi Carrillo RN Unavailable Haylie Knight RN Unavailable NMI SANCHEZ@[email or web address] Aditi Carrillo RN Unavailable Encounter Details Date Type Department Care Team (Late st Contact Info) Description 10/30/2021 Procedure Pass [facility], Lunder 6 [address] [facility], 6th [place] [address] Social History Tobacco Use Types Packs/Day Years [...] Description 01/03/2025 10:30 AM EST Blood Draw [facility] [address] [facility], 9th Floor, [address] [place] [address] Noe Jolley MD, PhD [address] [place] [address] [address] [place] [address] Yolanda@[facility] Phleb, [facility] [place]mt Leuk Yaw9e 01/03/2025 11:20 AM EST Office Visit [facility] [address] [facility], 9th Floor, [address] [place] [address] Noe Jolley MD, PhD [address] [place] [address] [address] [place] [address] Yolanda@[facility] 02/10/2025 2:00 PM EST Office Visit [facility] [address] [place] [address] Catie Germain MD [address] [place] [address], [address] [place] [address] [email or web address] documented as of this encounter [...] documented as of this encounter Care Teams Entertainer Or Variety Artist Relationship Specialty Start Date End Date Teodoro Briones DO [email or web address] PCP - General Internal Medicine 01/13/17 Teodoro Briones DO Historical LMR Provider 12/14/16 Catie Germain MD [address] [place] [address], [address] [place] [address] [email or web address] Historical LMR Provider 12/14/16 Noe Jolley MD, PhD [address] [place] [address] 1854 [place] [address] Yolanda@[facility] Primary Oncologist Hematology 11/08/21 Aditi Carrillo, SAM [address] [place] [phone] [email or web address] Primary Infusion Nurse 11/08/21 12/05/21 Haylie Knigth RN [address] [place] [phone] DUKE@[facility] [facility] Associate Infusion Nurse Oncology 02/01/22 Aditi Carrillo RN [address] [place] [phone] [email or web address] Primary Infusion Nurse 02/24/22 documented as of this encounter Additional Source Comments The information contained in this document represents components of the legal health record. It is not the complete legal health record.[facility]
--- OUTSIDE RECORDS SUMMARY | 2024-11-28 17:07 | XMS_ITS | Encounter Summary ---
Author Organization [facility] Address [address] [place] [address] Phone Care Team Providers Care Incident Manager Name Role Phone Teodoro Briones DO Unavailable Catie Germain MD Unavailable [phone] Teodoro Briones DO Primary Care Provider [phone] Noe Jolley MD, PhD Unavailable [phone] Aditi Carrillo RN Unavailable Haylie Knight RN Unavailable NMI SANCHEZ@[email or web address] Aditi Carrillo RN Unavailable Encounter Details Date Type Department Care Team (Late st Contact Info) Description 10/17/2021 Procedure Pass [facility], Lunder 6 [address] [facility], 6th [place] [address] Social History Tobacco Use Types Packs/Day Years [...] Description 01/03/2025 10:30 AM EST Blood Draw [facility] [address] [facility], 9th Floor, [address] [place] [address] Noe Jolley MD, PhD [address] [place] [address] [address] [place] [address] Yolanda@[facility] Phleb, [facility] Bmt Leuk Yaw9e 01/03/2025 11:20 AM EST Office Visit [facility] [address] [facility], 9th Floor, [address] [place] [address] Noe Jolley MD, PhD [address] [place] [address] [address] [place] [address] Yolanda@[facility] 02/10/2025 2:00 PM EST Office Visit [facility] [address] [place] [address] Catie Germain MD [address] [place] [address], [address] [place] [address] [email or web address] documented as of this encounter [...] documented as of this encounter Care Teams Incident Manager Relationship Specialty Start Date End Date Teodoro Briones DO [email or web address] PCP - General Internal Medicine 01/13/17 Teodoro Briones DO Historical LMR Provider 12/14/16 Catie Germain MD [address] [place] [address], [address] [place] [address] [email or web address] Historical LMR Provider 12/14/16 Noe Jolley MD, PhD [address] [place] [address] 1854 [place] [address] Yolanda@[facility] Primary Oncologist Hematology 11/08/21 Aditi Carrillo, SAM [address] [place] [phone] [email or web address] Primary Infusion Nurse 11/08/21 12/05/21 Haylie Knight RN [address] [place] [phone] DUKE@[email or web address] .[facility] Associate Infusion Nurse Oncology 02/01/22 Aditi Carrillo RN [address] [place] [phone] [email or web address] Primary Infusion Nurse 02/24/22 documented as of this encounter Additional Source Comments The information contained in this document represents components of the legal health record. It is not the complete legal health record.[facility]
--- OUTSIDE RECORDS SUMMARY | 2024-11-28 17:07 | XMS_ITS | Encounter Summary ---
Author Organization [facility] Address [address] [place] [phone] Phone Care Team Providers Care Heel Stainer Name Role Phone Teodoro Briones DO Unavailable Catie Germain MD Unavailable [phone] Teodoro Briones DO Primary Care Provider [phone] Noe Jolley MD, PhD Unavailable [phone] Haylie Knight RN Unavailable [email or web address] Aditi Carrillo RN Unavailable Encounter Details Date Type Department Care Team (Late st Contact Info) Description 10/10/2022 Procedure Pass [facility], [address] [facility], [address]th [place] [address] Social History Tobacco Use Types Packs/Day Years [...] Description 01/03/2025 10:30 AM EST Blood Draw [facility] [address] [place] [address], [address], [address] [place] [address] Noe Jolley MD, PhD [address] [place] [id number] [email or web address] Phleb, [facility] Bmt Leuk Yaw9e 01/03/2025 11:20 AM EST Office Visit [facility] [address] [place] [address], 9[address] Floor, [address] [place] [address] Noe Jolley MD, PhD [address] [place] [phone] [email or web address] 02/10/2025 2:00 PM EST Office Visit [facility] [address] [place] [phone] Catie Germain MD [address] [place] [address], [address] [place] [address] [email or web address] documented as of this encounter Visit Diagnoses Not on filedocumented in this encounter Additional Health Concerns Infection Onset Date Last Indicated Resolved Time COVID-19 10/29/2023 10/29/2023 11/19/2023 1:23 AM EDT documented as of this encounter Care Teams Heel Stainer Relationship Specialty Start Date End Date Jennpeggy Teodoro AdkinsDO [email or web address] PCP - General Internal Medicine 01/13/17 Teodoro Briones DO [email or web address] Historical LMR Provider 12/14/16 Catie Germain MD [address] [place] [address], [address] [place] [address] [email or web address] Historical LMR Provider 12/14/16 Noe Jolley MD, PhD [address] [place] [address] [phone] [place] [address] [email or web address] Primary Oncologist Hematology 11/08/21 Haylie Knight, SAM [address] [place] [phone] [email or web address] Infusion Nurse Oncology 02/01/22 Aditi Carrillo RN [address] [place] [phone] [email or web address] Primary Infusion Nurse 02/24/22 documented as of this encounter Additional Source Comments The information contained in this document represents components of the legal health record. It is not the complete legal health record.[facility]
--- OUTSIDE RECORDS SUMMARY | 2024-11-28 17:07 | XMS_ITS | Data Portability ---
Author Organization [facility]health Patient Home Address [address] [place] [address] Assessment Encounter Date Assessment Date Assessment LastModified by Organization Details LastModified Time 12/24/2022 12/24/2022 [id number] [place] [id number] (MANAGER OF NETWORK) MDM MODERATE MUST MEET 2 OUT OF 3 ELEMENTS: PROBLEMS, DATA OR RISK ELEMENT 1: PROBLEMS ADDRESSED 1 OR MORE CHRONIC ILLNESS WITH EXACERBATION OR 2 OR MORE STABLE CHRONIC ILLNESSES OR 1 UNDIAGNOSED NEW PROBLEM OR 1 ACUTE ILLNESS W/SYMPTOMS OR 1 ACUTE COMPLICATED INJURY ELEMENT 2: DATA MUST MEET 1 OF 3 CATEGORIES CATEGORY 1: REVIEW OF PRIOR EXTERNAL NOTES, REVIEW OF RESULTS, ORDERING OF EACH TEST, ASSESSMENT REQUIRING INDEPENDENT HISTORIAN OR CATEGORY 2: INDEPENDENT INTERPRETATION OF TESTS BY ANOTHER PHYSICIAN OR SPECIALIST OR CATEGORY 3: DISCUSSION OF MGT OR TEST INTERPRETATION W/EXTERNAL PHYSICIAN OR SPECIALIST ELEMENT 3: RISK RISK OF COMPLICATIONS AND/OR MORBIDITY OR MORTALITY OF PATIENT MANAGEMENT PROVIDER MUST THOROUGHLY DOCUMENT EACH ELEMENT THAT IS COVERED Not available 12/24/2022 16:05:36 08/07/2023 08/07/2023 Patient presente d for medication refill. Patient tolerating medication well at current dose without adverse effects. Refilled as below. Discussed plan with patient and family, who expressed understanding. Follow up as noted below. Not available 08/07/2023 15:41:45 2024 2024 [id number] [place] [id number] (MANAGER OF NETWORK) MDM MODERATE MUST MEET 2 OUT OF 3 ELEMENTS: PROBLEMS, DATA OR RISK ELEMENT 1: PROBLEMS ADDRESSED 1 OR MORE CHRONIC ILLNESS WITH EXACERBATION OR 2 OR MORE STABLE CHRONIC ILLNESSES OR 1 UNDIAGNOSED NEW PROBLEM OR 1 ACUTE ILLNESS W/SYMPTOMS OR 1 ACUTE COMPLICATED INJURY ELEMENT 2: DATA MUST MEET 1 OF 3 CATEGORIES CATEGORY 1: REVIEW OF PRIOR EXTERNAL NOTES, REVIEW OF RESULTS, ORDERING OF EACH TEST, ASSESSMENT REQUIRING INDEPENDENT HISTORIAN OR CATEGORY 2: INDEPENDENT INTERPRETATION OF TESTS BY ANOTHER PHYSICIAN OR SPECIALIST OR CATEGORY 3: DISCUSSION OF MGT OR TEST INTERPRETATION W/EXTERNAL PHYSICIAN OR SPECIALIST ELEMENT 3: RISK RISK OF COMPLICATIONS AND/OR MORBIDITY OR MORTALITY OF PATIENT MANAGEMENT PROVIDER MUST THOROUGHLY DOCUMENT EACH ELEMENT THAT IS COVERED Not available 2024 09:27:39 07/04/2024 07/04/2024 [id number] [place] [id number] (MANAGER OF NETWORK) MDM MODERATE MUST MEET 2 OUT OF 3 ELEMENTS: PROBLEMS, DATA OR RISK ELEMENT 1: PROBLEMS ADDRESSED 1 OR MORE CHRONIC ILLNESS WITH EXACERBATION OR 2 OR MORE STABLE CHRONIC ILLNESSES OR 1 UNDIAGNOSED NEW PROBLEM OR 1 ACUTE ILLNESS W/SYMPTOMS OR 1 ACUTE COMPLICATED INJURY ELEMENT 2: DATA MUST MEET 1 OF 3 CATEGORIES CATEGORY 1: REVIEW OF PRIOR EXTERNAL NOTES, REVIEW OF RESULTS, ORDERING OF EACH TEST, ASSESSMENT REQUIRING INDEPENDENT HISTORIAN OR CATEGORY 2: INDEPENDENT INTERPRETATION OF TESTS BY ANOTHER PHYSICIAN OR SPECIALIST OR CATEGORY 3: DISCUSSION OF MGT OR TEST INTERPRETATION W/EXTERNAL PHYSICIAN OR SPECIALIST ELEMENT 3: RISK RISK OF COMPLICATIONS AND/OR MORBIDITY OR MORTALITY OF PATIENT MANAGEMENT PROVIDER MUST THOROUGHLY DOCUMENT EACH ELEMENT THAT IS COVERED Not available 07/04/2024 10:24:17 10/12/2024 10/12/2024 [id number] [place] [id number] (MANAGER OF NETWORK) MDM MODERATE MUST MEET 2 OUT OF 3 ELEMENTS: PROBLEMS, DATA OR RISK ELEMENT 1: PROBLEMS ADDRESSED 1 OR MORE CHRONIC ILLNESS WITH EXACERBATION OR 2 OR MORE STABLE CHRONIC ILLNESSES OR 1 UNDIAGNOSED NEW PROBLEM OR 1 ACUTE ILLNESS W/SYMPTOMS OR 1 ACUTE COMPLICATED INJURY ELEMENT 2: DATA MUST MEET 1 OF 3 CATEGORIES CATEGORY 1: REVIEW OF PRIOR EXTERNAL NOTES, REVIEW OF RESULTS, ORDERING OF EACH TEST, ASSESSMENT REQUIRING INDEPENDENT HISTORIAN OR CATEGORY 2: INDEPENDENT INTERPRETATION OF TESTS BY ANOTHER PHYSICIAN OR SPECIALIST OR CATEGORY 3: DISCUSSION OF MGT OR TEST INTERPRETATION W/EXTERNAL PHYSICIAN OR SPECIALIST ELEMENT 3: RISK RISK OF COMPLICATIONS AND/OR MORBIDITY OR MORTALITY OF PATIENT MANAGEMENT PROVIDER MUST THOROUGHLY DOCUMENT EACH ELEMENT THAT IS COVERED Not available 10/12/2024 11:51:11 Plan of Treatment Reminders Order Date Submit Date Provider Last Modified By Organization Details Last Modified Time Details Appointments MEDICARE ANNUAL WELLNESS 2024 10:15A Pablo PAUL Not available Not available Not available Lab HbA1c (hemoglob in A1c), blood 2024 025 [facility], [address] [place] [address], [id number], 10/12/2024 12:09:48 CMP, serum or plasma 2024 025 [facility], [address] [place] [address], [id number], 11/24/2024 11:54:03 TSH, serum or plasma 2024 025 [facility], [address] [place] [address], [id number], 10/12/2024 12:09:47 testoster one, total, serum 2024 025 [facility], [address] [place] [address], [id number], 10/12/2024 12:09:47 vitamin B12 + folate, serum or blood 2024 025 [facility], [address] [place] [address], [id number], 10/12/2024 12:09:47 vitamin D, 25-hydrox y, total, serum 2024 025 [facility], [address] [place] [address], [id number], 10/12/2024 12:09:47 magnesium , serum or plasma 2024 025 [facility], [address] [place] [address], [id number], 10/12/2024 12:09:47 vitamin D, 25-hydrox y, total, serum 2024 025 [facility], [address] [place] [address], [id number], 07/04/2024 10:27:37 TSH, serum or plasma 2024 025 [facility], [address] [place] [address], [id number], 07/04/2024 10:27:38 vitamin D, 25-hydrox y, total, serum 2024 025 [facility], [address] [place] [address], [id number], 2024 09:29:36 TSH + T4, serum 2024 025 [facility], [address] [place] [address], [id number], 2024 09:29:36 HbA1c (hemoglob in A1c), blood 2023 024 [facility], [address] [place] [address], [id number], 08/07/2023 15:46:43 CMP, serum or plasma 2023 024 [facility], [address] [place] [address], [place], [id number], 08/07/2023 15:46:43 vitamin D, 25-hydrox y, total, serum 2023 024 [facility], [address] [place] [address], [id number], 08/07/2023 15:46:43 TSH, serum or plasma 2023 024 [facility], [address] [place] [address], [id number], 08/07/2023 15:46:43 Referral None recorded. Procedures None recorded. Surgeries None recorded. Imaging None recorded. Medication Orders azithromy leo 250 mg tablet 2024 025 [facility] #[id number], [address] [facility], [place], [address], 10/12/2024 11:27:30 Patient TargetsNo targets recorded. Patient Instructions Encounter Date Encounter Id Patient Instructions Last Modified By Organization Details Last Modified Time 2024 [id number] electrolyte imbalance: care instructions [employer] Not available 2024 09:28:17 hyponatremia: care instructions [employer] Not available 2024 09:28:17 07/04/2024 [id number] seasonal allergies: care instructions [email or web address] Not available 07/04/2024 10:31:30 10/12/2024 [id number] hypothyroidism: care instructions [employer] Not available 10/12/2024 11:53:40 Reason for Referral None Reported. Results Created Date Observation Date Name Description Value Unit Range Abnormal Flag Note LastModifiedBy Organization Detail LastModifiedTime 04/24/19 24 04/24/2023 XR, chest , 2 view No observ ation record ed. [facility] (Medical Records) [address] [place] [address], [id number], 04/25/2023 07:43:40 Result Notes None recorded. 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 Emelina kahn [facility] 0 13:39:06 Hypothyroi dism 90923416 Active 2018 Teodoro Paul DO [address] [place] [address], [id number], [facility] 5 09:07:44 Cough 62136167 Active 2021 MICK WALTER [address] [place] [address], [phone], [facility] 2 10:55:09 Hyponatrem ia 24376358 Active 2021 MICK WALTER [address] [place] [address], [id number], [facility] 2 20:05:14 Macrocytic anemia 37889413 Active 2021 MICK WALTER [address] [place] [address], [address], [facility] 2 09:21:46 Hyperglyce stormy 82062055 Active 2021 MICK WALTER [address] [place] [address], [address], [facility] 2 12:04:55 Dysuria 72309224 Active 2021 MICK WALTER [address] [place] [address], [address], [facility] 2 12:05:19 Petechiae of skin 477796203 Active 2021 MICK WALTER [address] [place] [address], [address], [facility] 2 12:11:30 Acquired thrombocyt openia 77812715 Active 2021 Teodoro Paul DO [address] [place] [address], [id number], [facility] 2 16:41:26 Leukopenia 21518000 Active 2021 MICK WALTER [address] [place] [address], [phone], [facility] 2 13:37:12 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 Teodoro Paul DO [address] [place] [address], [address], [facility] 2 11:31:22 Anxiety 59108539 Active 2021 Teodoro Paul DO [address] [place] [address], [phone], [facility] 2 15:29:53 COVID-19 838533487 Active 2022 Teodoro Paul DO [address] [place] [address], [phone], [facility] 3 14:03:07 Acute sinusitis 20590519 Active 2022 MICK WALTER [address] [place] [address], [address], [facility] 3 11:11:11 Bacterial conjunctiv itis 716458029 Active 2022 MICK WALTER [address] [place] [address], [address], [facility] 3 11:11:45 Chronic sinusitis 06491679 Active 2022 MICK WALTER [address] [place] [address], [address], [facility] 3 14:09:33 Vitamin D deficiency 96479266 Active 2022 Teodoro Paul DO [address] [place] [address], [address], [facility] 3 16:33:40 Fatigue 33798347 Active 2023 Teodoro Paul DO [address] [place] [address], [address], [facility] 5 11:49:34 Pneumoniti s 115137633 Active 2024 Teodoro Paul DO [address] [place] [address], [address], [facility] 5 09:27:47 Cramp in lower limb 882677245 Active 2024 Teodoro Paul DO [address] [place] [address], [address], [facility] 5 10:25:47 Ventilatio n tube finding 780201653 Active 2024 Teodoro Paul DO [address] [place] [address], [address], [facility] 5 10:30:27 Seasonal allergic rhinitis 424889712 Active 2024 Teodoro Paul DO [address] [place], [address], [facility] 5 10:31:14 Bilateral hearing loss 23227316 Active 2024 MICK WALTER [address] [place], [address], [facility] 5 13:22:06 Problem Notes None recorded. Medical Equipment None Reported. Allergies Allergen ID Allergen Name Allergen Category Reaction Reaction Severity Criticality Documentation Date Start Date Code Code System Note Provider Name and Address Organization Details Recorded Time 6083 Compazine medicatio n Not available Not available Not available 12/06/2021 6 RxNorm Yamini Soto [facility] 2 11:11:09 Medications Name Sig Start Date Stop Date Status Note LastModified by Organization Details LastModified Time amoxicillin 500 mg capsule TAKE 1 CAPSULE BY MOUTH THREE TIMES A DAY 02/04 completed Not Available Not Available Not Available furosemide 40 mg tablet 10/12 completed Not Available Not Available Not Available leucovorin calcium 25 mg tablet 02/04 completed Not Available Not Available Not Available azithromyci n 250 mg tablet TAKE 2 TABLETS (500 MG) BY ORAL ROUTE ONCE DAILY FOR 1 DAY THEN 1 TABLET (250 MG) BY ORAL ROUTE ONCE DAILY FOR 4 DAYS 10/12 completed Not Available Not Available Not Available Glucagon Emergency Kit 1 mg solution for injection active Not Available Not Available No t Available Lidocaine Viscous 2 % mucosal solution USE 15 ML DIRECTED IN THE MOUTH OR THROAT EVERY 4 HOURS NEEDED 10/12 completed Not Available Not Available Not Available benzonatate 200 mg capsule TAKE 1 CAPSULE BY MOUTH THREE TIMES A DAY FOR 2 WEEKS 07/26 completed Not Available Not Available Not Available sulfamethox azole 400 mg-trimetho prim 80 mg tablet TAKE 1 TABLET BY MOUTH DAILY. active Not Available Not Available No t Available levetiracet am 500 mg tablet TAKE 1 TABLET BY MOUTH TWICE A DAY 10/12 completed Not Available Not Available Not Available fluconazole 200 mg tablet TAKE 2 TABLETS BY MOUTH EVERY DAY 10/12 completed Not Available Not Available Not Available spironolact one 100 mg tablet 10/12 completed Not Available Not Available Not Available acyclovir 400 mg tablet TAKE 1 TABLET BY MOUTH TWICE A DAY 10/12 completed Not Available Not Available Not Available ciprofloxac in 500 mg tablet TAKE 1 TABLET BY MOUTH TWICE A DAY 10/12 completed Not Available Not Available Not Available lidocaine-p rilocaine 2.5 %-2.5 % topical cream APPLY TOPICALLY ONCE FOR 1 DOSE. APPLY TO PORT SITE ONE HOUR PRIOR TO LAB DRAWS. 10/12 completed Not Available Not Available Not Available Nexium 20 mg capsule,del ayed release Take 1 capsule every day by oral route. 12/06 completed Not Available Not Available Not Available levothyroxi ne 100 mcg tablet TAKE 1 TABLET BY MOUTH EVERY MORNING ON AN EMPTY STOMACH.D X:E10.40 09/23 completed Not Available Not Available Not Available terbinafine HCl 250 mg tablet TAKE 1 TABLET BY MOUTH EVERY DAY 05/07 completed Not Available Not Available Not Available Vitamin D3 10 mcg (400 unit) tablet TAKE 2 TABLETS BY MOUTH DAILY. 02/04 completed Not Available Not Available Not Available famotidine 20 mg tablet Twice daily active Not Available Not Available No t Available lorazepam 0.5 mg tablet TAKE 1/2 TABLETS (0.25 MG TOTAL) BY MOUTH EVERY 6 HOURS NEEDED FOR ANXIETY (NAUSEA, INSOMNIA) . 10/12 completed Not Available Not Available Not Available methotrexat e sodium 2.5 mg tablet 10/12 completed Not Available Not Available Not Available doxycycline monohydrate 100 mg capsule TAKE 1 CAPSULE (100 MG TOTAL) BY MOUTH TWICE A DAY FOR 3 DAYS 09/22 completed Not Available Not Available Not Available dexamethaso ne 2 mg tablet 08/06 completed Not Available Not Available Not Available levothyroxi ne 50 mcg tablet 06/29 completed Not Available Not Available Not Available erythromyci n 5 mg/gram (0.5 %) eye ointment APPLY 1 CM RIBBON INTO THE LOWER CONJUNCTI EDWIGE SAC(S) IN THE AFFECTED EYE(S) 3 TIMES PER DAY 09/22 completed Not Available Not Available Not Available dapsone 100 mg tablet TAKE 1 TABLET BY MOUTH EVERY DAY 10/12 completed Not Available Not Available Not Available levothyroxi ne 125 mcg tablet TAKE 1 TABLET BY MOUTH EVERY MORNING 11/28 completed Not Available Not Available Not Available dexamethaso ne 4 mg tablet TAKE 3.5 TABLETS (14 MG TOTAL) 2 (TWO) TIMES A DAY WITH MEALS FOR 5 DAYS. 08/06 completed Not Available Not Available Not Available polymyxin B sulfate 10,000 unit-trimet hoprim 1 mg/mL eye drops 07/01 completed Not Available Not Available Not Available bupropion HCl 75 mg tablet TAKE 1 TABLET BY MOUTH TWICE A DAY 08/27 completed Not Available Not Available Not Available mercaptopur ine 50 mg tablet PLEASE SEE ATTACHED FOR DETAILED DIRECTION S 10/12 completed Not Available Not Available Not Available omeprazole 20 mg capsule,del ayed release Take 1 capsule every day by oral route. 10/12 completed Not Available Not Available Not Available ergocalcife rol (vitamin D2) 1,250 mcg (50,000 unit) capsule TAKE 1 CAPSULE (50,000 UNITS TOTAL) BY MOUTH ONCE A WEEK FOR 4 DOSES. 02/04 completed Not Available Not Available Not Available levofloxaci n 750 mg tablet 10/12 completed Not Available Not Available Not Available albuterol sulfate HFA 90 mcg/actuati on aerosol inhaler INHALE 2 PUFFS EVERY 4 HOURS BY INHALATIO N ROUTE. 12/06 completed Not Available Not Available Not Available dexamethaso ne 1.5 mg tablet TAKE 3 TABS TWICE A DAY DIRECTED ON DAYS 1 THRU 5 OF CHEMOTHER APY TREATMENT 10/12 completed Not Available Not Available Not Available ondansetron 4 mg disintegrat ing tablet DISSOLVE 1 TABLET BY MOUTH EVERY 6 TO 8 HOURS NEEDED FOR NAUSEA AND VOMITING 10/12 completed Not Available Not Available Not Available lisinopril 2.5 mg tablet TAKE 1 TABLET BY MOUTH EVERY DAY 09/22 completed Not Available Not Available Not Available doxycycline hyclate 100 mg tablet Take 1 tablet twice a day by oral route for 10 days. 09/22 completed Not Available Not Available Not Available levothyroxi ne 112 mcg tablet Take 1 capsule every day by oral route for 30 days. 2024 active Not Available Not Available Not Avai lable amoxicillin 875 mg-potassiu m clavulanate 125 mg tablet TAKE 1 TABLET BY MOUTH EVERY 12 HOURS FOR 7 DAYS 04/25 completed Not Available Not Available Not Available amoxicillin 500 mg-potassiu m clavulanate 125 mg tablet 06/13 completed Not Available Not Available Not Available olanzapine 5 mg disintegrat ing tablet TAKE 0.5 TABLETS (2.5 MG TOTAL) BY MOUTH 2 (TWO) TIMES A DAY NEEDED. 10/12 completed Not Available Not Available Not Available enoxaparin 40 mg/0.4 mL subcutaneou s syringe daily active Not Available Not Available No t Available Novolog FlexPen U-100 Insulin aspart 100 unit/mL (3 mL) subcutaneou s ADMINISTE R SUBCUTANE OUSLY AT MEALS ACCORDING TO SLIDING SCALE, 15 UNITS TOTAL DAILY DOSE active Not Available Not Available No t Available rosuvastati n 5 mg tablet TAKE 1 TABLET BY MOUTH EVERY DAY 12/06 completed Not Available Not Available Not Available escitalopra m 5 mg tablet TAKE 1 TABLET BY MOUTH EVERY DAY active Not Available Not Available No t Available cholecalcif cherri (vitamin D3) 25 mcg (1,000 unit) tablet TAKE 2 TABLETS BY MOUTH EVERY DAY 2024 active Not Available Not Available Not Avai lable FreeStyle Lite Strips USE 1 STRIP 3 (THREE) TIMES A DAY BEFORE MEALS active Not Available Not Available No t Available Humalog KwikPen (U-100) Insulin 100 unit/mL subcutaneou s INJECT 4 UNITS UNDER THE SKIN 3 (THREE) TIMES A DAY WITH MEALS. E10.9 active Not Available Not Available No t Available cholecalcif cherri (vitamin D3) 50 mcg (2,000 unit) capsule Take 1 capsule by oral route for 30 days. 2023 active Not Available Not Available Not Avai lable Zyrtec 10 mg capsule Take 1 capsule every day by oral route. 02/04 completed Not Available Not Available Not Available levothyroxi ne 112 mcg capsule Take 1 capsule every day by oral route for 30 days. 2024 active Not Available Not Available Not Avai lable Eliquis 5 mg tablet TAKE 1 TABLET BY MOUTH TWICE A DAY 08/06 completed Not Available Not Available Not Available Eliquis 2.5 mg tablet 08/06 completed Not Available Not Available Not Available Zarxio 300 mcg/0.5 mL injection syringe active Not Available Not Available Not Available Loki Adams U-100 Insulin 100 unit/mL (3 mL) subcutaneou s INJECT 10 UNITS UNDER THE SKIN DAILY. active Not Available Not Available No t Available Eliquis DVT-PE Treatment 30-Day Starter 5 mg (74 tablets) in dose pack 08/06 completed Not Available Not Available Not Available FreeStyle Lila 14 Day Sensor kit USE EVERY 14 DAYS active Not Available Not Available No t Available BD Geovanna 2nd Gen Pen Needle 32 gauge x 5/32 USE 3 TIMES A DAY BEFORE MEALS. active Not Available Not Available No t Available Gvoke HypoPen 2-Pack 1 mg/0.2 mL subcutaneou s auto-inject or PLEASE SEE ATTACHED FOR DETAILED DIRECTION S active Not Available Not Available No t Available Paxlovid 300 mg (150 mg x 2)-100 mg tablets in a dose pack TAKE 3 TABLETS BY MOUTH TWICE A DAY FOR 5 DAYS active Not Available Not Available No t Available Vitals Date Recorded Body height Body mass index (BMI) Body weight Heart rate Oxygen saturation Oxygen saturation in Arterial blood by Pulse oximetry Systolic And Diastolic Provider Name and Address Organization Details Last Updated DateTime 5 161.29 cm 20.9 kg/m2 66623.0 8 g 80 /min 99 % 99 % 120/76 mm[Hg] Millicent Arroyo [facility] 5 10:04:50 Date Recorded Body height Body mass index (BMI) Body weight Heart rate Oxygen saturation Oxygen saturation in Arterial blood by Pulse oximetry Systolic And Diastolic Provider Name and Address Organization Details Last Updated DateTime 4 161.29 cm 21 kg/m2 59259.8 8 g 88 /min 93 % 93 % 108/68 mm[Hg] Roxana Singh [facility] 4 15:12:19 Date Recorded Body height Body mass index (BMI) Body weight Oxygen saturation Oxygen saturation in Arterial blood by Pulse oximetry Heart rate Systolic And Diastolic Provider Name and Address Organization Details Last Updated DateTime 5 161.29 cm 23 kg/m2 39238.1 9 g 96 % 96 % 74 /min 110/70 mm[Hg] Nia Cordon [facility] 5 11:38:14 Date Recorded Body height Body mass index (BMI) Body weight Heart rate Oxygen saturation Oxygen saturation in Arterial blood by Pulse oximetry Systolic And Diastolic Provider Name and Address Organization Details Last Updated DateTime 3 161.29 cm 21.3 kg/m2 79903.2 7 g 69.99 /min 100 % 100 % 129/80 mm[Hg] Millicent Arroyo [facility] 3 15:35:56 Social History Question Answer Notes LastModified by Organizat ion Details LastModified Time Tobacco Smoking Status Never Smoker Not Available [employer] 12/27/2019 03:36:24 What Was The Date Of Your Most Recent Tobacco Screening? 10/12/2024 [email or web address] Information not available 10/12/2024 Sex: Unknown Functional Status Question Answer Note LastModified by Organization D etails LastModified Time Do you or have you ever used any other forms of tobacco or nicotine? No Information not available 09/22/2022 Mental Status None recorded. Family History Nothing Reported. Medical History No medical history recorded. Immunizations Vaccine Type Date Status Note Provider Nam e and Address Organization Details Recorded Time pneumococcal polysaccharide PPV23 06/30/19 15 completed Brii kahn [facility] 11/23/2020 14:10:56 COVID-19, mRNA, LNP-S, PF, 100 mcg/0.5mL dose or 50 mcg/0.25mL dose 12/16/19 21 completed Teodoro Paul DO [address] [place] [address], [phone], [facility] 12/19/2020 15:06:26 Influenza, split virus, quadrivalent, preservative 12/16/19 21 completed Teodoro Paul DO [address] [place] [address], [address], [facility] 12/19/2020 15:06:53 Influenza, split virus, quadrivalent, preservative 11/09/19 20 completed Teodoro Paul DO [address] [place] [address], [address], [facility] 11/10/2019 13:55:15 Tdap 02/05/20 20 completed Emelina kahn [facility] 02/06/2020 13:39:28 COVID-19, mRNA, LNP-S, PF, 100 mcg/0.5mL dose or 50 mcg/0.25mL dose 02/26/19 21 completed Emelina kahn [facility] 05/07/2020 10:55:22 COVID-19, mRNA, LNP-S, PF, 100 mcg/0.5mL dose or 50 mcg/0.25mL dose 03/26/19 21 completed Emelina kahn [facility] 05/07/2020 10:55:31 Past Encounters Encounter ID Performer Location Encounter Start Date Encounter Closed Date Diagnosis/Indication Diagnosis SNOMED-CT Code Diagnosis ICD10 Code Diagnosis IMO Codes Diagnosis Note Teodoro Paul [address], [place] [address] 06/29/2018 15:49:06 06/29/2018 16:32:14 Hypothyroidism 08154875 E03.9 will have him obtain labwork tsh and rechk next appt Type 1 priscilla betes mellitus 62934360 E10.9 will have him get lab soon for a1c and cmp [id number] Teodoro Paul [address],[place] [address] 12/20/2018 16:08:47 12/20/2018 16:27:58 Type 1 diabetes mellitus 25884451 E10.9 will have him get lab soon for a1c and cmp a1cm is doing great at 7.2 will cont current tx he remains very active we will also be starting him on statin med for DM adn we will wait for the terbinafin e to be finished kian=fore adding in feb Hypothyroidism 74290204 E03.9 will have him obtain labwork tsh and rechk next appt Onychomyco sis of toenails 420928764 B35.1 will try again to get him treatment [id number] Teodoro Paul [facility] [address] [facility] [address],[place] [address] 03/18/2019 16:21:40 03/18/2019 16:41:38 Hypothyroidism 62556662 E03.9 will have him obtain labwork tsh and rechk next appt Type 1 priscilla betes mellitus 21211967 E10.9 will have him get lab soon for a1c and cmp a1c is doing great at 7.3 was 7.2 will cont current tx he remains very active still waiting for the med to finish we will also be starting him on statin med for DM and we will wait for the terbinafin e to be finished before adding Onychomyco sis of toenails 893265216 B35.1 treatment now seems to be working better now will watch for signs of further GI upset 33193 Teodoro Paul [facility] [address] [facility],[place] [employer] [facility] [place] [address] 06/14/2019 16:28:41 06/14/2019 16:44:23 Hypothyroidism 58101821 E03.9 will have him obtain labwork tsh and rechk next appt Type 1 priscilla betes mellitus 87353086 E10.9 will have him get lab soon for a1c and cmp a1c is doing great at 6.9 and prior was 7.3 then was 7.2 will cont current tx he remains very active still waiting for the med to finish on statin med for DM and we will wait for the terbinafin e to be finished before adding 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 39621114 T18.108A has been resolved following his EGD no further issues and no further c/o pain 01509 Teodoro Paul [facility] [address] [facility],[place] [employer] [facility] [place] [address] 10/10/2019 14:59:50 10/10/2019 15:37:43 Hypothyroidism 01676342 E03.9 will have him obtain labwork tsh and rechk next appt Type 1 priscilla betes mellitus 42797876 E10.9 a1c is 7.1 using freestyle lila last one was at 6.9 and prior was 7.3 then was 7.2 will cont current tx he is not as active dm foot exam was great and onychomyco sis all but gone 14237 Teodoro Paul [facility] [address] [facility],[place] [employer] [place] [address] 01/16/2020 15:29:34 01/17/2020 08:07:00 Hypothyroidism 03937036 E03.9 tsh .78 and t4 1.33 all good Type 1 priscilla betes mellitus 25790783 E10.9 a1c is 7.3 and was 7.1 using freestyle lila last one was at 6.9 and prior was 7.3 then was 7.2 will cont current tx he is not as active dm foot exam was great and onychomyco sis all but [place] [address] Teodoro Paul [facility] [address] [facility],[place] 7 05/07/2020 10:51:18 05/07/2020 11:43:59 Hypothyroidism 61690632 E03.9 tsh is pending awaiting result .78 and t4 1.33 all good Type 1 priscilla betes mellitus 97307681 E10.9 current a1c is pending his last a1c was 7.3 and was 7.1 using freestyle lila last one was at 6.9 and prior was 7.3 then was 7.2 will cont current tx he is not as active dm foot exam was great and onychomyco sis all but gone doing rosuvastat in without issue 61212 Teodoro Barajaspeggy [facility] [address] [facility],[place] 7 09/05/2020 09:30:03 09/05/2020 10:24:33 Type 1 diabetes mellitus 84809039 E10.9 last april a1c is 7.6 and prior his last a1c was 7.3 and was 7.1 using freestyle lila last one was at 6.9 and prior was 7.3 then was 7.2 will cont current tx he is not as activewill need to get this done now a1cdm foot exam was great and onychomyco sis all but gone doing rosuvastat in without issue Hypothyroidism 01536958 E03.9 tsh is pending awaiting result .78 and t4 1.33 all good 76748 Teodoro Atwood Anali [facility] [address] [facility] [address],[place] [address] 12/19/2020 14:50:33 12/19/2020 15:38:27 Type 1 diabetes mellitus 40615016 E10.9 last april a1c is 7.3 and was 7.6 and prior his last a1c was 7.3 and was 7.1 using freestyle lila last one was at 6.9 and prior was 7.3 then was 7.2 will cont current tx he is not as activewill need to get this done now a1cdm foot exam was great and onychomyco sis all but gone doing rosuvastat in without issue Hypothyroidism 27092005 E03.9 tsh is pending awaiting result .78 and t4 1.33 all good 70813 Teodoro Paul [facility] [address] [facility], ite [facility] [address] 03/26/2021 08:37:01 03/27/2021 08:51:40 Type 1 diabetes mellitus 60742873 E10.9 last april a1c is 7.3 and was 7.6 and prior his last a1c was 7.3 and was 7.1 using freestyle lila last one was at 6.9 and prior was 7.3 then was 7.2 will cont current tx he is not as activewill need to get this done now a1cdm foot exam was great and onychomyco sis all but gone doing rosuvastat in without issue Hypothyroidism 88326630 E03.9 tsh is pending awaiting result .78 and t4 1.33 all good 15126 Teodoro Paul [facility] [address] [facility], it[facility] [place] [address] 07/01/2021 14:26:32 07/01/2021 16:16:51 Hypothyroidism 70715480 E03.9 tsh is pending awaiting result .78 and t4 1.33 all good Type 1 priscilla betes mellitus 30816362 E10.9 last april a1c is 7.3 and was 7.6 and prior his last a1c was 7.3 and was 7.1 using freestyle lila last one was at 6.9 and prior was 7.3 then was 7.2 will cont current tx he is not as activewill need to get this done now a1cdm foot exam was great and onychomyco sis all but gone doing rosuvastat in without issue COVID-19 895009838 U07.1 slowly resolving with the antiviral treatment Paxlovid 78020 Teodoro Paul, [facility] [address] [facility] [address],[place] [address] 07/26/2021 11:23:16 07/30/2021 08:14:31 Hypothyroidism 10368568 E03.8 recheck TSH level Hyponatremia 89572758 E8 7.1 waiting on labs from this morning Hyperglycemia 49761920 R 73.01 monitoring sugar, has come down from Thursday and , still monitoring it Macrocytic anemia 594985 05 D50.8 waiting on labs from this morning Dysuria 66434312 R30.0 checking urine for possible infection, or urine COVID-19 939672167 U07.1 mild cough, improved today since yesterday and Thursday Petechiae of skin 720827 004 R23.3 from anemia 90772 Teodoro Paul, [facility] [address] [facility],[place] [address] 09/27/2021 15:43:53 09/27/2021 16:49:09 Type 1 diabetes mellitus 86591766 E10.9 last april a1c is 7.3 and was 7.6 and prior his last a1c was 7.3 and was 7.1 using freestyle lila last one was at 6.9 and prior was 7.3 then was 7.2 will cont current tx he is not as activewill need to get this done now a1cdm foot exam was great and onychomyco sis all but gone doing rosuvastat in without issue Hypothyroidism 23327109 E03.8 tsh is pending awaiting result .78 and t4 1.33 all good Petechiae of skin 162959 004 R23.3 still present and keeps recurring will have to check platelets Macrocytic anemia 881736 05 D50.8 he seems more pale per staff and mom we will need frost lab and we will get a consult with hematology could all this be from Re[place] ??? 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 [address] 02/04/2022 14:53:34 02/04/2022 16:23:41 Acute lymphoid leukemia 49398935 C91.90 ongoing chemo with [facility] now having MTX in this protocol (AYA regimen)no te they gave him olanzapine for the severe nausea Hypothyroidism 33895707 E03.8 tsh is pending awaiting result Type 1 priscilla betes mellitus 66241107 E10.9 issues have been happening due to dexamethas one use and chemoseem to be on a better regimen etc Anxiety 88849347 F41.9 escitalopr am trial 71747 Teodoro Paul [facility] [address] [facility],[place] [address] 03/28/2022 08:35:12 03/28/2022 14:09:22 Acute lymphoid leukemia 64473858 C91.90 long discussion re new med of 16 week tx with blinatunom abthis has numerous side efffects including keppra which was begun by [facility] due to the chemo med Hyponatremia 50071935 E8 7.1 has been stable now Leukopenia 61296044 D72. 819 followed closely by heme Type 1 priscilla betes mellitus 45039827 E10.9 issues have been low glucose readings so his insulin doses have been adjusted Acquired thrombocytopenia 72419927 D69.6 following with this COVID-19 892700108 U07.1 slowly resolving with the antiviral treatment remdesivir at [facility] several weeks ago 57730 Teodoro Paul [facility] [address] [facility] [address],[place] [address] 04/11/2022 09:09:40 04/11/2022 14:15:30 Acute sinusitis 17299434 J01.01 will start back on dual therapy given current hx of leukemia Bacterial conjunctivitis 486352553 H10.011 will set up with erythromyc in as well 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 63153 Teodoro Paul [facility] [address] [facility],[place] [address] 09/22/2022 15:26:12 09/22/2022 16:49:34 Anxiety 62482211 F41.9 no escitalopr am , trial bupropion Hyponatremia 94930716 E8 7.1 has been stable now Type 1 priscilla betes mellitus 22580106 E10.9 issues have been low glucose readings so his insulin doses have been adjusted Acquired thrombocytopenia 73789969 D69.6 following with [facility] up to 94k 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 819 followed closely by heme no evidence of overt infection Allergy to peanut 257977 09 Z91.010 possibe cant be sure but this will need to be eval when able to conquer his ALL Vitamin D deficiency 347 23575 E55.9 98733 Teodoro Paul [facility] [address] [facility],[place] [address] 12/24/2022 14:58:24 12/24/2022 16:38:06 Hyperglycemia 77596955 R73.01 doing well Hypothyroidism 95678467 E03.8 tsh is pending awaiting result Anxiety 95589360 F41.9 no escitalopr am , trial bupropion Type 1 priscilla betes mellitus 17626582 E10.9 issues have been low glucose readings so his insulin doses have been adjusted 130307 Teodoro Paul [facility] [address] [facility],[place] [address] 08/07/2023 14:52:35 08/07/2023 16:04:55 Renewal of prescription 569009059 Z76.0 not needed Depression screening 171 273454 Z13.31 negative Acute lymp hoid leukemia 98747349 C91.00 ongoing issues with the chemo but numbers have been looking good Acquired thrombocytopenia 40649225 D69.6 following with [facility] up to 94k Type 1 priscilla betes mellitus 47442024 E10.9 issues have been low glucose readings so his insulin doses have been the same with long acting at 10 units ans short acting per sliding scale at meals Hyponatremia 62570867 E8 7.1 has been stable now Hypothyroidism 98621203 E03.8 tsh is pending awaiting result [id number] Teodoro Paul [facility] [address] [facility],[place] [address] 2024 09:13:52 2024 09:35:30 Acute lymphoid leukemia 87612695 C91.00 IN REMISSION! !!!!! Hypothyroidism 18941033 E03.8 tsh is pending awaiting result Vitamin D deficiency 347 94641 E55.9 Depression screening 171 621294 Z13.31 negative Type 1 priscilla betes mellitus 01640710 E10.9 issues have been low glucose readings so his insulin doses have been the same with long acting at 10 units ans short acting per sliding scale at meals Hyponatremia 65192798 E8 7.1 has been stable now Pneumonitis 299830148 J1 8.9 068176 Teodoro Paul [facility] [address] [facility],[place] [address] 07/04/2024 09:59:05 07/04/2024 13:56:33 Hypothyroidism 67804277 E03.8 tsh is pending awaiting result Type 1 priscilla betes mellitus 04324462 E10.9 issues have been low glucose readings so his insulin doses have been the same with long acting at 10 units ans short acting per sliding scale at meals a1c is pending from [place] Depression screening 171 266866 Z13.31 negative Vitamin D deficiency 347 00773 E55.9 lab pending Cramp in lower limb 4499 13517 G47.62 16557541 push fluids now that he is active and doing great and add mg+ 3 times a week Ventilatio n tube finding 132287914 T85.695A 88682560 noted both are out will eventually fall out Seasonal a llergic rhinitis 149738862 J30.2 58304806 use otc med 606240 DO Kathryn Nolan Internal Medicine [address] [facility],[place] [address] 10/12/2024 11:09:03 10/12/2024 12:04:14 Depression screening 094610946 Z13.31 negative Type 1 priscilla betes mellitus 63758584 E10.9 issues have been low glucose readings so his insulin doses have been the same with long acting at 10 units ans short acting per sliding scale at meals a1c is pending from [place] Fatigue 58212845 R53.83 69089461 will have him get some lab Hypothyroidism 84726724 E03.8 tsh is pending awaiting result Health Concerns Section Related Observation LastModified by Organization Detai ls LastModified Time None Recorded Concern Status LastModified by Organization Details LastModified Time None Recorded Advance Directives Directive None Recorded Payers Insurance Date Sequence Insurance Name Policy Number Policy Hernandez Covered Member ID Hernandez Member ID Guarantor Name 10/09/2024 1 MEDICARE B-[place]: [employer] Dada Olson II [id number] Dada Olson 10/09/2024 2 MED[place]ID-[place]: [facility] Dada Olson [id number] Dada Olson Notes Date Note Type Note Provider Name and Address Organization Details Recorded Time 12/25/19 23 text/htm l ROS as noted in the HPI note when he had the last rash it was 10 days befor e he went into liver failure felt to be chemo med related ended up at [facility] with massive ascites drained 4 L of ascitic fluid Toedoro Paul DO [address] [facility], [place], [address], [facility] 12/24/2022 16:07:44 08/07/19 24 text/htm l Care Management - DiabetesReported by PatientHPIFor self care, patient reportsseeing eye doctor yearly for dilated eye exam,checking feet regularly,normal range of home blood sugars (in the low 100s),no side effects from medications,hemoglobin a1c goal: <7.5, andhemoglobin a1c levels have been: __. For associated symptoms, patient reportssymptoms are usually well controlled,no fatigue,no dizziness,no excessive sweating,no headaches,no confusion,no increased thirst,no increased appetite,no increased urination,no blurred vision,no numbness of feet, andno calluses on feet. HypothyroidReported by PatientHPIFor associated symptoms, patient reportsno weakness,no lightheadedness,no fatigue,no cold intolerance,no constipation,no weight gain,no involuntary weight loss,normal mood,no menstrual irregularity,no pain,no dry/coarse skin,no edema,no deepening of the voice,no hoarseness,no goiter,no mass detected,no chest pain, andno palpitations. For treatment, patient reportstaking medication as directed.ROS as noted in the HPI doing well needs only 3 months more of tx and he is done tx for the ALLnote his MTX tx has caused hearing losseating ok sleep is betterbowels okurine ok Teodoro Paul, DO [address] [place] [address], [phone], [facility] 08/07/2023 15:41:52 02/25/19 25 text/htm l ROS as noted in the HPI doing great and is now officially in remission !!!!!feels good except for ongoing cough and has had for over 2 weeksno fever noted but cough is congested and productive Teodoro Paul, DO [address] [place] [address], [phone], [facility] 2024 09:30:49 07/05/19 25 text/htm l Care Management - DiabetesReported by PatientHPIFor self care, patient reportsseeing eye doctor yearly for dilated eye exam,checking feet regularly,normal range of home blood sugars (in the low 100s), andno side effects from medications. For associated symptoms, patient reportssymptoms are usually well controlled,no fatigue,no dizziness,no excessive sweating,no headaches,no confusion,no increased thirst,no increased appetite,no increased urination,no blurred vision,no numbness of feet, andno calluses on feet.some hearing issues Care Management - Acquired HypothyroidismReported by PatientCare ManagementFor medication education, patient reportsunderstands administration,understands effect of concurrent medications,understands missed doses, andunderstands consequences of noncompliance.Interim HistoryFor associated symptoms, patient reportsno abnormal weight gain,no tiredness,no dry skin,no cold intolerance,no constipation,no diarrhea, andno goiter.ROS as noted in the HPI den to work and doing great no major issues finally except for leg cramps Teodoro Paul DO [address] [place] [address], [phone], [facility] 07/04/2024 10:32:28 10/13/19 25 text/htm l Care Management - DiabetesReported by PatientROS as noted in the HPI Teodoro Paul DO [address] [place] [address], [phone], [facility] 10/12/2024 11:55:33
--- OUTSIDE RECORDS SUMMARY | 2024-11-28 17:07 | XMS_ITS | Encounter Summary ---
Author Organization [facility] Address [address] [place] [address] Phone Care Team Providers Care Cane Furniture Maker Name Role Phone Teodoro Briones DO Unavailable Catie Germain MD Unavailable [phone] Teodoro Briones DO Primary Care Provider [phone] Noe Jolley MD, PhD Unavailable [phone] Aditi Carrillo RN Unavailable Haylie Knight RN Unavailable [email or web address] Aditi Carrillo RN Unavailable Encounter Details Date Type Department Care Team (Late st Contact Info) Description 10/30/2021 Procedure Pass [facility], [place] [address] [facility], [address] [place] [address] Social History Tobacco Use Types Packs/Day Years [...] Description 01/03/2025 10:30 AM EST Blood Draw [facility] [address] [facility], [address], [address] [place] [address] Noe Jolley MD, PhD [address] [place] [address] [address] [place] [address] [email or web address], [email or web address] Bmt Leuk [email or web address] 01/03/2025 11:20 AM EST Office Visit [facility] [address] [facility], [address], [address] [place] [address] Noe Jolley MD, PhD [address] [place] [address] [address] [place] [address] [email or web address] 02/10/2025 2:00 PM EST Office Visit [facility] [address] [place] [address] Catie Germain MD [address] [place] [address], [address] [place] [address] [email or web address] documented as of this encounter [...] documented as of this encounter Care Teams Cane Furniture Maker Relationship Specialty Start Date End Date Teodoro Briones DO [email or web address] PCP - General Internal Medicine 01/13/17 Teodoro Briones DO Historical LMR Provider 12/14/16 Catie Germain MD [address] [place] [address], [address] [place] [address] [email or web address] Historical LMR Provider 12/14/16 Noe Jolley MD, PhD [address] [place] [address] [place] [address] [email or web address] Primary Oncologist Hematology 11/08/21 Aditi Carrillo, SAM [address] [place] [phone] [email or web address] Primary Infusion Nurse 11/08/21 12/05/21 Haylie Knight RN [address] [place] [phone] [email or web address] Associate Infusion Nurse Oncology 02/01/22 Aditi Carrillo RN [address] [place] [phone] [email or web address] Primary Infusion Nurse 02/24/22 documented as of this encounter Additional Source Comments The information contained in this document represents components of the legal health record. It is not the complete legal health record.[facility]
--- OUTSIDE RECORDS SUMMARY | 2024-11-28 17:07 | XMS_ITS | Encounter Summary ---
Author Organization [facility] Address [address] [place] [address] [place] [address] Phone Care Team Providers Care Application Consultant Name Role Phone Teodoro Briones DO Unavailable Catie Germain MD Unavailable [phone] Teodoro Briones DO Primary Care Provider [phone] Noe Jolley MD, PhD Unavailable [phone] Haylie Knight RN Unavailable NMI [email or web address] Aditi Carrillo RN Unavailable Encounter Details Date Type Department Care Team (Late st Contact Info) Description 12/17/2021 Telephone Interventional Radiology, [facility] - [address], [address] [place] [id number] Ginny Flores [address] [phone] [email or web address] Social History Tobacco Use Types Packs/Day Years [...] Description 01/03/2025 10:30 AM EST Blood Draw [facility] 32 [facility], 9th Floor, [address] [place] [address] Noe Jolley MD, PhD 55 [facility] [address] [place] [address] Yolanda@[email or web address] Phleb, [facility] Bmt Leuk Yaw9e 01/03/2025 11:20 AM EST Office Visit [facility] 32 [facility], 9th Floor, [address] [place] [address] Noe Jolley MD, PhD 55 [facility] [address] [place] [address] Yolanda@[email or web address] 02/10/2025 2:00 PM EST Office Visit [facility] [address] [place] [address] Catie Germain MD [address] [place] [address], 1st [place] [address] [email or web address] documented as of this encounter [...] documented as of this encounter Care Teams Application Consultant Relationship Specialty Start Date End Date Teodoro Briones DO [email or web address] PCP - General Internal Medicine 01/13/17 Teodoro Briones DO [email or web address] Historical LMR Provider 12/14/16 Catie Germain MD [address] [place] [address], 1st [place] [address] [email or web address] Historical LMR Provider 12/14/16 Noe Jolley MD, PhD [address] [place] [address] [address] [place] [address] [email or web address] [facility] Primary Oncologist Hematology 11/08/21 Haylie Knight, SAM [address] [place] [phone] DUKE@[email or web address] Associate Infusion Nurse Oncology 02/01/22 Aditi Carrillo, RN [address] [place] [phone] [email or web address] Primary Infusion Nurse 02/24/22 documented as of this encounter Additional Source Comments The information contained in this document represents components of the legal health record. It is not the complete legal health record.[facility]
--- OUTSIDE RECORDS SUMMARY | 2024-11-28 17:07 | XMS_ITS | Encounter Summary ---
Author Organization [facility] Address [address] [place] [address] [address] [place] [address] Phone Care Team Providers Care Plasterer Spot Name Role Phone Teodoro Briones DO Unavailable Catie Germain MD Unavailable [phone] Teodoro Briones DO Primary Care Provider [phone] Noe Jolley MD, PhD Unavailable [phone] Haylie Knight RN Unavailable NMI [email or web address] Aditi Carrillo RN Unavailable Encounter Details Date Type Department Care Team (Late st Contact Info) Description 10/08/2022 Ancillary Orders [facility] [address] [place] [address], 9th Floor, [address] [place] [address] Ivanna Hong CNP [address] [facility] [address] [place] [address] [email or web address] Dyspnea, unspecified type Social History Tobacco Use [...] 4:34 PM EDT Cathy Wright RN * [place] Suicide Severity Rating Scale (Screener/Recent Self-Report) Question [...] 10:30 AM EST Blood Draw [facility] 32 [facility], 9th Floor, [address] [place] [address] Noe Jolley MD, PhD 55 [facility] [address] [place] [address] Yolanda@[email or web address] Phleb, [facility] Bmt Leuk Yaw9e 01/03/2025 11:20 AM EST Office Visit [facility] 32 [facility], 9th Floor, [address] [place] [address] Noe Jolley MD, PhD [facility] [address] [place] [address] Yolanda@[email or web address] 02/10/2025 2:00 PM EST Office Visit [facility] [address] [place] [address] Catie Germain MD 22 [facility], 1st [place] [address] [email or web address] documented as of this encounter Results * [...] Tissues: No significant skeletal abnormality. Procedure Note Hazel Plascencia MD - 10/08/2022 XR CHEST PORTABLE [...] documented as of this encounter Care Teams Plasterer Spot Relationship Specialty Start Date End Date Teodoro Briones DO PCP - General Internal Medicine 01/13/17 Teodoro Briones DO Historical LMR Provider 12/14/16 Catie Germain MD [address] [place] [address], 1st [place] [address] Historical LMR Provider 12/14/16 Noe Jolley MD, PhD [address] [place] [address] [address] [place] [address] [email or web address] Primary Oncologist Hematology 11/08/21 Haylie Knight, SAM [address] [place] [address] [email or web address] Associate Infusion Nurse Oncology 02/01/22 Aditi Carrillo RN [address] [place] [phone] [email or web address] [email or web address] Primary Infusion Nurse 02/24/22 documented as of this encounter Additional Source Comments The information contained in this document represents components of the legal health record. It is not the complete legal health record.[facility]
--- OUTSIDE RECORDS SUMMARY | 2024-11-28 17:07 | XMS_ITS | Encounter Summary ---
Author Organization [facility] Address [address] [place] [address] Phone Care Team Providers Care Clay Products Machine Operator Name Role Phone Teodoro Briones DO Unavailable Catie Germain MD Unavailable [phone] Teodoro Briones DO Primary Care Provider [phone] Noe Jolley MD, PhD Unavailable [phone] Haylie Knight RN Unavailable NMI [email or web address] Aditi Carrillo RN Unavailable Encounter Details Date Type Department Care Team (Late st Contact Info) Description 10/11/2022 Procedure Pass [facility] Imaging - RF/IR [address] [facility], 2nd [place] [address] Social History Tobacco Use Types Packs/Day Years [...] Description 01/03/2025 10:30 AM EST Blood Draw [facility] [address] [place] [address], 9th Floor, [address] [place] [address] Noe Jolley MD, PhD [address] [place] [address] Yolanda@[facility] Phleb, [facility] Bmt Leuk Yaw9e 01/03/2025 11:20 AM EST Office Visit [facility] [address] [place] [address], 9th Floor, [address] [place] [address] Noe Jolley MD, PhD [address] [place] [address] Yolanda@[facility] 02/10/2025 2:00 PM EST Office Visit [facility] [address] [place] [address] Catie Germain MD [address] [place] [address], 1st [place] [address] [email or web address] documented as of this encounter Visit Diagnoses Not on filedocumented in this encounter Additional Health Concerns Infection Onset Date Last Indicated Resolved Time COVID-19 10/29/2023 10/29/2023 11/19/2023 1:23 AM EDT documented as of this encounter Care Teams Clay Products Machine Operator Relationship Specialty Start Date End Date Jennpeggy Teodoro AdkinsDO [email or web address] PCP - General Internal Medicine 01/13/17 Teodoro Briones DO [email or web address] Historical LMR Provider 12/14/16 Catie Germain MD [address] [place] [address], 1st [place] [address] [email or web address] Historical LMR Provider 12/14/16 Noe Jolley MD, PhD [address] [place] [address] [address] [place] [address] Yolanda@[facility] .[facility] Primary Oncologist Hematology 11/08/21 Haylie Knight, SAM [address] [place] [phone] DUKE@[email or web address] Associate Infusion Nurse Oncology 02/01/22 Aditi Carrillo RN [address] [place] [phone] [email or web address] Primary Infusion Nurse 02/24/22 documented as of this encounter Additional Source Comments The information contained in this document represents components of the legal health record. It is not the complete legal health record.[facility]
--- OUTSIDE RECORDS SUMMARY | 2024-11-28 17:07 | XMS_ITS | Encounter Summary ---
Author Organization [facility] Address [address] [place] [address] Phone Care Team Providers Care Computer Repair Instructor Name Role Phone Teodoro Briones DO Unavailable Catie Germain MD Unavailable Teodoro Briones DO Primary Care Provider [phone] Noe Jolley MD, PhD Unavailable [phone] Haylie Knight RN Unavailable NMI SANCHEZ@[email or web address] [place] Aditi Carrillo RN Unavailable Encounter Details Date Type Department Care Team (Late st Contact Info) Description 01/24/2022 Procedure Pass [facility] 32 [facility], 6th [place] [address] Social History Tobacco Use Types Packs/Day Years [...] 01/24/2022 11:00 PM Thelma Fan RN * [place] Suicide Severity Rating Scale (Screener/Recent Self-Report) Question [...] 01/03/2025 10:30 AM EST Blood Draw [facility] [address] [place] [address], 9th Floor, [address] [place] [address] Noe Jolley MD, PhD [address] [place] [address] Yolanda@[facility], [facility] Bmt Leuk Yaw9e 01/03/2025 11:20 AM EST Office [facility] [address] [place] [address], 9th Floor, [address] [place] [address] Noe Jolley MD, PhD [address] [place] [address] Yolanda@[facility] [place] [employer] 02/10/2025 2:00 PM EST Office Visit [facility] [address] [place] [address] Catie Germain MD [address] [place] [address], 1st [place] [address] [email or web address] documented as of this encounter Visit Diagnoses Not on filedocumented in this encounter Additional Health Concerns Infection Onset Date Last Indicated Resolved Time COVID-19 03/18/2022 03/18/2022 04/08/2022 1:23 AM EST CoV-Risk Comment:Per note documentation 07/10/2022 07/10/2022 11:24 PM EDT COVID-19 10/29/2023 10/29/2023 11/19/2023 1:23 AM EDT documented as of this encounter Care Teams Computer Repair Instructor Relationship Specialty Start Date End Date Teodoro Briones DO [email or web address] PCP - General Internal Medicine 01/13/17 Teodoro Briones DO Historical LMR Provider 12/14/16 Catie Germain MD [address] [place] [address], [address] [place] [address] [email or web address] Historical LMR Provider 12/14/16 Noe Jolley MD, PhD [address] [place] [address] [address] [place] [address] Yolanda@[facility] [place] .[facility] Primary Oncologist Hematology 11/08/21 Haylie Knight, SAM [address] [place] [phone] DUKE@[facility] [place] .[facility] Associate Infusion Nurse Oncology 02/01/22 Aditi Carrillo RN [address] [place] [phone] [email or web address] Primary Infusion Nurse 02/24/22 documented as of this encounter Additional Source Comments The information contained in this document represents components of the legal health record. It is not the complete legal health record.[facility]
--- OUTSIDE RECORDS SUMMARY | 2024-11-28 17:07 | XMS_ITS | Encounter Summary ---
Author Organization [facility] Address [address] [place] [address] Phone Care Team Providers Care Wheat Washer Name Role Phone Teodoro Briones DO Unavailable Catie Germain MD Unavailable Teodoro Briones DO Primary Care Provider [phone] Noe Jolley MD, PhD Unavailable [phone] Haylie Knight RN Unavailable NMI [email or web address] [place] [email or web address] Aditi Carrillo RN Unavailable Encounter Details Date Type Department Care Team (Late st Contact Info) Description 06/16/2023 Procedure Pass [facility] Imaging - RF/IR [address] [place] [address] Social History Tobacco Use Types Packs/Day Years [...] Blood Draw [facility] 32 [facility], 9th Floor, [address] [place] [address] Noe Jolley MD, PhD [address] [place] [address] Yolanda@[facility], [facility] Bmt Leuk Yaw9e 01/03/2025 11:20 AM EST Office Visit [facility] 32 [facility], 9th Floor, [address] [place] [address] Noe Jolley MD, PhD [address] [place] [address] Yolanda@[facility] 02/10/2025 2:00 PM EST Office Visit [facility] [address] [place] [address] Catie Germain MD [address] [place] [address], 1st [place] [address] [email or web address] documented as of this encounter Visit Diagnoses Not on filedocumented in this encounter Additional Health Concerns Infection Onset Date Last Indicated Resolved Time COVID-19 10/29/2023 10/29/2023 11/19/2023 1:23 AM EDT documented as of this encounter Care Teams Wheat Washer Relationship Specialty Start Date End Date Teodoro Briones DO [email or web address] PCP - General Internal Medicine 01/13/17 Teodoro Briones LucilleDO [email or web address] Historical LMR Provider 12/14/16 Catie Germain MD 22 [facility], 1st [place] [address] [email or web address] Historical LMR Provider 12/14/16 Noe Jolley MD, PhD [address] [place] [address] [address] [place] [address] Yolanda@[facility] [place] .[facility] Primary Oncologist Hematology 11/08/21 Haylie Knight, SAM [address] [place] [phone] DUKE@[facility] [place] [place] Associate Infusion Nurse Oncology 02/01/22 Aditi Carrillo RN [address] [place] [phone] [email or web address] Primary Infusion Nurse 02/24/22 documented as of this encounter Additional Source Comments The information contained in this document represents components of the legal health record. It is not the complete legal health record.[facility]
--- OUTSIDE RECORDS SUMMARY | 2024-11-28 17:07 | XMS_ITS | Encounter Summary ---
Author Organization [facility] Address [address] [place] [address] Phone Care Team Providers Care Smoking Tobacco Packer Hand Name Role Phone Teodoro Briones DO Unavailable Catie Germain MD Unavailable [phone] Teodoro Briones DO Primary Care Provider [phone] Noe Jolley MD, PhD Unavailable [phone] Aidti Carrillo RN Unavailable Haylie Knight RN Unavailable NMI SANCHEZ@[email or web address] Aditi Carrillo RN Unavailable Encounter Details Date Type Department Care Team ([facility] Contact Info) Description 10/21/2021 Procedure Pass [facility] Imaging - RF/IR 55 [facility], 2nd [place] [address] Social History Tobacco Use Types Packs/Day Years [...] Description 01/03/2025 10:30 AM EST Blood Draw [facility] 32 [facility], 9th Floor, [address] [place] [address] Noe Jolley MD, PhD [address] [place] [address] [address] [place] [address] Yolanda@[facility] Phleb, [facility] Bmt Leuk Yaw9e 01/03/2025 11:20 AM EST Office Visit [facility] 32 [facility], 9th Floor, [address] [place] [address] oNe Jolley MD, PhD [address] [place] [address] [place] [address] Yolanda@[facility] 02/10/2025 2:00 PM EST Office Visit [facility] [address] [place] [address] Catie Germain MD [address] [place] [address], 1st [place] [address] [email or web address] documented as of this encounter Visit Diagnoses [...] documented as of this encounter Care Teams Smoking Tobacco Packer Hand Relationship Specialty Start Date End Date Teodoro Briones DO [email or web address] PCP - General Internal Medicine 01/13/17 Teodoro Briones DO [email or web address] Historical LMR Provider 12/14/16 Catie Germain MD [address] [place] [address], [address] [place] [address] [email or web address] Historical LMR Provider 12/14/16 Noe Jolley MD, PhD [address] [place] [address]54 [place] [address] Yolanda@[facility] Primary Oncologist Hematology 11/08/21 Aditi Carrillo RN [address] [place] [phone] [email or web address] Primary Infusion Nurse 11/08/21 12/05/21 Haylie Knight RN [address] [place] [phone] DUKE@[facility] .[facility] Associate Infusion Nurse Oncology 02/01/22 Aditi Carrillo RN [address] [place] [phone] [email or web address] Primary Infusion Nurse 02/24/22 documented as of this encounter Additional Source Comments The information contained in this document represents components of the legal health record. It is not the complete legal health record.[facility]
--- OUTSIDE RECORDS SUMMARY | 2024-11-28 17:07 | XMS_ITS | Clinical Summary ---
Author Organization [facility] Address [address] [place] [address] Phone Care Team Providers Care Personalized Living Assistant Name Role Phone Anali Teodoro Adkins DO Unavailable Catie Germain MD Unavailable [phone] Teodoro Briones DO Primary Care Provider [phone] Noe Jolley MD, PhD Unavailable [phone] Haylie Knight RN Unavailable NMI [email or web address] Aditi Carrillo RN Unavailable Allergies Active Allergy [...] from the original. 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 He is followed by outside treatment manager, had recent follow-up. During his last hospitalization [...] before meals and at bedtime Call the [facility] with any questions or concerns at [phone], or call the [facility] boring machine operator double end at [phone] and ask them to call pager #[phone]. The diabetes doctor crm functional analyst will call you back. Follow up with your treatment manager in 2-3 weeks Assessment & Plan (12/03/2021 [...] sure to titrate needed doses with your treatment manager, Dr. Catie Germain. Diabetes medication Instructions: Check fingerstick blood sugar readings 3 times a day (before breakfast, before lunch, before dinner). If your blood sugar is less than 70 mg/dL or greater than 300 mg/dL or if you have any concern about your diabetes plan, please call your treatment manager, Dr. Germain. If you have concerns and are unable to reach Dr. Germain, please call the [facility] Paging Rock Drill Operator at [phone] and ask paging boring machine operator double end to page beeper number [phone] (Thursday-Thursday 8am-5pm) or beeper number [phone] (overnight or weekend for urgent issues) Patient will need the following scripts: Novolog/Humalog pen 2 units with meal Insulin pen needles 4mm Lantus 8 units QAM (he may already have this at home) Diabetes Outpatient Follow-Up: Please be sure to follow-up with your treatment manager, Dr. Catie Germain, for insulin management once discharged. If you have any questions, please don't hesitate to reach out to the [facility]. During business hours, please call [phone] and ask to speak to a nurse. For urgent issues after business hours, please call [phone] and ask for the Diabetes Attending On-Call to be paged (pager number [phone]). 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) 10/04/2024 9:12 AM EDT - 10/04/2024 11:59 PM EDT Hospital Encounter [facility], Ultrasound [address] [place] [address] Noe Jolley MD, PhD Discharge Disposition: Home or Self Care 09/09/2024 Refill [facility] [address] [place] [address], 9th Floor, [address] [place] [address] Noe Jolley MD, PhD Medication Refill from [...] Description 01/03/2025 10:30 AM EST Blood Draw [facility] [address] [place] [address], 9th Floor, [address] [place] [address] Noe Jolley MD, PhD [address] [place] [address] [address] [place] [address] [email or web address] Phleb, [facility] Bmt Leuk Yaw9e 01/03/2025 11:20 AM EST Office Visit [facility] [address] [place] [address], 9th Floor, [address] [place] [address] Noe Jolley MD, PhD [address] [facility] [address] [place] [address] [email or web address] 02/10/2025 2:00 PM EST Office Visit [facility] [address] [place] [address] Catie Germain MD [address] [facility], 1st [place] [address] [email or web address] Health Maintenance Due Date Last Done Comments [...] this topic Medical Devices Implanted Type Area Director Learning Device Identifier Shelf Expiration Date Model / Serial / Lot Continuous Glucose Monitor Tube Mathews T-Grommet [id number] Pk/[id number] - [id number] Implanted:Qty: 1 on 12/21/2023 by Jatinder Madera MD, PhD at [facility] Right: Ear [employer] [facility] 08/23/2030 [id number] / / [id number] Tube Mathews T-Grommet 83146 Pk/5ea - [id number] Implanted:Qty: 1 on 12/21/2023 by Jatinder Madera MD, PhD at [facility] Left: Ear [employer] [facility] 08/23/2030 [id number] / / [id number] Procedures Procedure Name Priority Date/Time Associated Diagnosis [...] EDT) SODIUM 133(L) 135 - 145 mmol/L [facility] POTASSIUM 4.5 3.4 - 5.0 mmol/L [facility] CHLORIDE 97(L) 98 - 108 mmol/L [facility] CO2 26 23 - 32 mmol/L [facility] BUN 15 8 - 25 mg/dL [facility] CREATININE 1.03 0.60 - 1.30 mg/dL [facility] GLUCOSE 259(H) 70 - 110 mg/dL [facility] ALBUMIN 4.3 3.3 - 5.0 g/dL [facility] TOTAL PROTEIN 6.3 6.0 - 8.3 g/dL [facility] CALCIUM 9.1 8.5 - 10.5 mg/dL [facility] ALKALINE PHOSPHATASE 114 45 - 115 U/L [facility] TOTAL BILIRUBIN 0.6 0.0 - 1.0 mg/dL [facility] AST 23 10 - 40 U/L [facility] ALT 30 10 - 55 U/L [facility] GLOBULIN 2.0 1.9 - 4.1 g/dL [facility] EGFR 90 >59 mL/min/1. 73m2 [facility] Comment:Estimated glomerular filtration rate calculated using the CKD-EPI refit equation. ANION GAP 10 3 - 17 mmol/L [facility] 10/04/2024 10:4 6 AM EDT 10/04/2024 11:06 AM EDT us Noe Jolley MD, PhD LAB BLOOD ORDERABLES Final Result [facility] [address] [place] [address] * (ABNORMAL) CBC and differential (10/04/2024 10:46 AM EDT) WBC 5.10 4.00 - 11.00 K/uL [facility] RBC 4.51 4.50 - 5.90 M/uL [facility] HGB 16.0 13.5 - 17.5 g/dL [facility] HCT 45.1 41.0 - 53.0 % [facility] PLT 195 150 - 450 K/uL [facility] MCV 100.0 80.0 - 100.0 fL [facility] MCH 35.5(H) 27.0 - 31.0 pg [facility] MCHC 35.5 32.0 - 36.0 g/dL [facility] RDW 11.9 11.5 - 14.5 % [facility] MPV 9.2 8.4 - 12.0 fL [facility] NRBC 0.00 0.00 /100 WBCs [facility] ABSOLUTE NRBC 0.00 0.00 K/uL [facility] DIFF [employer] [facility] NEUTS 70.2 48.0 - 76.0 % [facility] LYMPHS 18.6 18.0 - 41.0 % [facility] MONOS 8.2 4.0 - 11.0 % [facility] EOS 0.6 0.0 - 5.0 % [facility] BASOS 1.0 0.0 - 1.5 % [facility] % IMMATURE GRANS 1.4(H) 0.0 - 0.9 % [facility] Comment:Immature granulocyte s = metamyelos + myelos + promyelos ABSOLUTE NEUTS 3.58 1.92 - 7.60 K/uL [facility] ABSOLUTE LYMPHS 0.95 0.72 - 4.10 K/uL [facility] ABSOLUTE MONOS 0.42 0.16 - 1.10 K/uL [facility] ABSOLUTE EOS 0.03 0.00 - 0.50 K/uL [facility] ABSOLUTE BASOS 0.05 0.00 - 0.15 K/uL [facility] ABS IMMATURE GRANS 0.07 0.00 - 0.09 K/uL [facility] Blood 10/04/2024 10:4 6 AM EDT 10/04/2024 11:06 AM EDT us Noe Jolley MD, PhD LAB BLOOD ORDERABLES Final Result Performing Organization Address [facility] Co de Phone Number [address] [address] * Immunoglobulin G (10/04/2024 10:46 AM EDT) IMMUNOGLOBULIN G 681 614 - 1,295 mg/dL [facility] 10/04/2024 10:4 6 AM EDT 10/04/2024 11:06 AM EDT us Noe Jolley MD, PhD LAB BLOOD ORDERABLES Final Result Performing Organization Address [facility] Co de Phone Number [address] [address] * Bilirubin, direct (10/04/2024 10:46 AM EDT) DIRECT BILIRUBIN 0.2 0.0 - 0.3 mg/dL [facility] 10/04/2024 10:4 6 AM EDT 10/04/2024 11:06 AM EDT us Noe Jolley MD, PhD LAB BLOOD ORDERABLES Final Result Performing Organization Address [facility] Co de Phone Number [address] [address] * US ABDOMEN LIMITED RIGHT UPPER QUADRANT [...] Hemoglobin A1c (08/12/2024 2:28 PM EDT) Pathologist [facility] Hemoglobin A1c 7.0(A) 4.2 - 5.6 % [facility] [employer] [facility] Other 08/12/2024 2:28 PM EDT Catie Germain MD POINT OF CARE TEST ORDERABLES F inal Result [facility] [address] [place] [address], [facility] * TSH with reflex (08/18/2023 10:25 AM EDT) Pathologist [facility] SCREENING PANEL: TSH 0.48 0.40 - 5.00 uIU/mL [facility] Blood 08/18/2023 10:2 5 AM EDT 08/18/2023 10:40 AM EDT Noe Jolley MD, PhD LAB BLOOD ORDERABLES Final Result [address] [address] * Lipid panel (02/10/2023 7:26 AM EST) HDL 45 35 - 100 mg/dL [facility] CHOLESTEROL 156 <200 mg/dL [facility] TRIGLYCERIDES 123 40 - 150 mg/dL [facility] LDL 86 50 - 129 mg/dL [facility] CARDIAC RISK RATIO 3.5 0.0 - 5.0 [facility] NON-HDL CHOLESTEROL 111 mg/dL [facility] Comment:NCEP ATP III guideli bonifacio suggest a non-HDL cholesterol goal 30 mg/dl higher than the patient-specific LDL goal. 02/10/2023 7:26 AM EST 02/10/2023 7:55 AM EST Noe Jolley MD, PhD LAB BLOOD ORDERABLES Final Result Performing Organization Address City/[facility]/ZIP Co de Phone Number [address] [address] * Hepatitis C antibody, qualitative (10/05/2021 6:00 AM EDT) Pathologist [facility] HCV ANTIBODY Negative Negative [facility] Comment:Antibodies to HCV no t detected. Does not exclude the possibility of exposure to HCV. Blood 10/05/2021 6:00 AM EDT 10/05/2021 7:24 AM EDT us Ludwin Mishra MD LAB BLOOD ORDERABLES Final R esult Performing Organization Address City/[facility]/ZIP Co de Phone Number [address] [address] * DIABETES EYE EXAM FOR RESULT ENTRY ONLY (04/16/2021) Pathologist [facility] EYE EXAM SEE SCANNED REPORT us Jose Provider HEALTH MAINTENANCE Final Result from Last 3 Months or Most Recently Relevant to Health Maintenance Insurance MEDICARE PART A & [facility] MEDICARE PART A & B HEALTH MEDICARE PART A & B MEDICARE PART A & B HEALTH ([place]) [address] [place] [address] MEDICARE PART A & B [facility] B [facility] MEDICARE PART A & B [facility] MEDICARE PART A & B [facility] [place]ERTA HAMLIN [id number] Advance Directives For more information, please contact: [phone] (9AM - 5PM [facility], Thursday-Thursday) Documents on File Type Date Recorded Patient Abstract Clerk Expl anation Healthcare Proxy 10/30/2021 11:37 AM [...] Agent (Proxy form on file) Care Teams Personalized Living Assistant Relationship Specialty Start Date End Date Teodoro Briones DO PCP - General Internal Medicine 01/13/17 Teodoro Briones DO Historical LMR Provider 12/14/16 Catie Germain MD [address] [place] [address] Historical LMR Provider 12/14/16 Noe Jolley MD, PhD [address] [place] [address] [address] [place] [address] [email or web address] Primary Oncologist Hematology 11/08/21 Haylie Knight, RN [address] [place] [phone] [email or web address] Associate Infusion Nurse Oncology 02/01/22 Aditi Carrillo, SAM [address] [place] [phone] [email or web address] Primary Infusion Nurse 02/24/22 Additional Source Comments The information contained in this document represents components of the legal health record. It is not the complete legal health record.[facility]
--- OUTSIDE RECORDS SUMMARY | 2024-11-28 17:07 | XMS_ITS | Encounter Summary ---
Author Organization [facility] Address [address] [place] [address] Phone Care Team Providers Care Gospel Singer Name Role Phone Teodoro Briones DO Unavailable Catie Germain MD Unavailable [phone] Teodoro Briones DO Primary Care Provider [phone] Noe Jolley MD, PhD Unavailable [phone] Haylie Knight RN Unavailable NMI [email or web address] Aditi Carrillo RN Unavailable Encounter Details Date Type Department Care Team (Late st Contact Info) Description 12/25/2021 Procedure Pass [facility] [address] [place] [address] Social History Tobacco Use Types Packs/Day Years [...] Description 01/03/2025 10:30 AM EST Blood Draw [facility] [address] [facility], 9th Floor, [address] [place] [address] Noe Jolley MD, PhD [address] [place] [address] [address] [place] [address] [email or web address] Phleb, [facility] Bmt Leuk Yaw9e 01/03/2025 11:20 AM EST Office Visit [facility] [address] [facility], 9th Floor, [address] [place] [address] Noe Jolley MD, PhD [address] [place] [address] [address] [place] [address] [email or web address] 02/10/2025 2:00 PM EST Office Visit [facility] [address] [place] [address] Catie Germain MD [address] [place] [address], [address] [place] [address] [email or web address] documented as of this encounter [...] documented as of this encounter Care Teams Gospel Singer Relationship Specialty Start Date End Date eTodoro Briones DO [email or web address] PCP - General Internal Medicine 01/13/17 Teodoro Briones DO [email or web address] Historical LMR Provider 12/14/16 Catie Germain MD [address] [facility], 1st [place] [address] [email or web address] Historical LMR Provider 12/14/16 Noe Jolley MD, PhD [address] [place] [address] [address] [place] [address] [email or web address] Primary Oncologist Hematology 11/08/21 Haylie Knight RN [address] [place] [phone] [email or web address] Associate Infusion Nurse Oncology 02/01/22 Aditi Carrillo RN [address] [place] [phone] [email or web address] Primary Infusion Nurse 02/24/22 documented as of this encounter Additional Source Comments The information contained in this document represents components of the legal health record. It is not the complete legal health record.[facility]
== END 2024-11-28 14:40 | disposition home or self-care (01) ==
LOC: HO.MANLDS 14:39
PROVIDERS: Visit Provider Internal Medicine
DX: R53.83 Other fatigue (principal)
CPT/HCPCS: 36415; 84403